=== PATIENT | male | born 1940 | race Caucasian/White ===

== ENCOUNTER 2016-05-06 21:34 | Inpatient (IN) | payer MEDICARE, BC ==
[2016-05-06] MEDS ORDERED: ALBUTEROL NEBULIZED 2.5 MG/3 ML INHALATION STA ×2 (21:35→21:38)
[2016-05-06] MEDS ORDERED: FUROSEMIDE 10 MG/ML 4 ML VIAL IV STA (21:35)
[2016-05-06] MEDS ORDERED: ALBUTEROL NEB (CONC) 2.5 MG/0.5 ML INHALATION STA (21:38)
--- NOTE | 2016-05-06 21:43 | ED ---
General Adult HPI - General Chief complaint: Shortness of Breath Stated complaint: EMMY Time Seen by Provider: 05/06/16 21:41 Source: EMS, RN notes reviewed Mode of arrival: EMS Limitations: no limitations - History of Present Illness Initial comments: This is a 76-year-old male who presents emergency department with past medical history significant for COPD. Patient is in severe respiratory distress and is unable to give extensive history of the history comes from EMS mostly. is not.. Patient was called a republican 1 however there is still EMS bypassed [facility]. Patient was brought in on BiPAP in severe respiratory distress. EMS stated that the patient had difficulty breathing all week and just got considerably worse tonight. There is no history of fever there's no history of any chest pain according to the patient. No further history is able to be obtained secondary to patient's condition hopefully when the arrived she she will barely get further history. - Related Data Home Medications Medication Instructions Recorded Confirmed DULoxetine HCL [Cymbalta] 90 mg PO DAILY 09/24/13 03/07/15 Isosorbide Mononitrate [Imdur] 30 mg PO DAILY 09/24/13 03/07/15 Terazosin [Hytrin] 5 mg PO BID 09/24/13 03/07/15 Theophylline 12 Hour [Ronnie-Dur] 300 mg PO BID 09/24/13 03/07/15 Topiramate [Topamax] 100 mg PO BID 09/24/13 03/07/15 Budesonide-Formot 160-4.5 Mcg 2 puff INHALATION BID 05/02/14 03/07/15 [Symbicort 160-4.5 Mcg Inhaler] Metoprolol Tartrate [Lopressor] 12.5 mg PO BID 05/02/14 03/07/15 Tamsulosin [Flomax] 0.4 mg PO HS 05/02/14 03/07/15 traZODone HCL [Desyrel] 100 mg PO HS 05/02/14 03/07/15 Famotidine [Pepcid] 40 mg PO DAILY 06/22/14 03/07/15 hydrOXYzine HCL 10 mg PO BID 06/22/14 03/07/15 ALPRAZolam [Xanax] 0.25 mg PO Q8HR PRN 03/02/15 03/07/15 Sulfamethox-Tmp 800-160Mg [Bactrim 1 tab PO DAILY 03/02/15 03/07/15 DS 800-160 mg] Previous Rx's Medication Instructions Recorded Ipratropium/Albuterol Sulfate 3 ml INHALATION QID #100 neb 11/16/13 [Duoneb 0.5 mg-3 mg/3 ml Soln] Allergies Allergy/AdvReac Type Severity Reaction Status Date / Time celecoxib [From Celebrex] Allergy Swelling Verified 03/02/15 10:48 gabapentin [From Neurontin] Allergy Rash/Hives Verified 03/02/15 10:48 Review of Systems ROS Statement: Those systems with pertinent positive or pertinent negative responses have been documented in the HPI. ROS Other: All systems not noted in ROS Statement are negative. Past Medical History Past Medical History: Asthma, COPD, GERD/Reflux, Hearing Disorder / Deafness, Hyperlipidemia, Hypertension, Respiratory Disorder Additional Past Medical History / Comment(s): Severe COPD, O2 DEPENDENT 4 LITERS N/C, severe 2ndary pulmonary HTN, pulmonary fibrosis, chronic SOB, [place], anemia, BPH, wears brace right foot, coughing up blood for few months History of Any Multi-Drug Resistant Organisms: MRSA Date of last positivie culture/infection: August 2013 MDRO Source:: lung Past Surgical History: Adenoidectomy, Appendectomy, Back Surgery, Heart Catheterization, Joint Replacement, Tonsillectomy Additional Past Surgical History / Comment(s): Pt has had 2 L hip surgeries- one in October 2013 and another total r hip at [facility]. RIGHT FOOT SX , BRONCHOSCOPY Past Anesthesia/Blood Transfusion Reactions: No Reported Reaction Additional Past Anesthesia/Blood Transfusion Reaction / Comment(s): Pt has never received blood. Past Psychological History: Anxiety, Depression Additional Psychological History / Comment(s): He has had past surgery on his R foot and wears a brace to that foot. He states 2 staff assist him with transferring to w/c. He feeds himself. He needs assist with getting onto toilet. He needs assist with bathing. Smoking Status: Former smoker Past Alcohol Use History: None Reported Additional Past Alcohol Use History / Comment(s): Patient was a smoker of one and half packs per day for 41 years. He quit in 1993. Past Drug Use History: None Reported Additional Drug Use History / Comment(s): Prior occupational history: [employer], now retired. - Past Family History Mother Family Medical History: Liver Disease Additional Family Medical History / Comment(s): Mother had cirrhosis of the liver and from it. Father Family Medical History: No Reported History Additional Family Medical History / Comment(s): Father of old age. General Exam - General Exam Comments Initial Comments: GENERAL: Patient is well-developed and well-nourished. Patient is nontoxic and well- hydrated and is in moderate distress. ENT: Neck is soft and supple. No significant lymphadenopathy is noted. Oropharynx is clear. Moist mucous membranes. Neck has full range of motion without eliciting any pain. EYES: The sclera were anicteric and conjunctiva were pink and moist. Extraocular movements were intact and pupils were equal round and reactive to light. Eyelids were unremarkable. PULMONARY: Patient is on BiPAP it is significantly 2 EKGs breath sounds. CARDIOVASCULAR: Patient has tachycardia with extrasystole. ABDOMEN: Soft and nontender with normal bowel sounds. No palpable organomegaly was noted. There is no palpable pulsatile mass. SKIN: Skin is clear with no lesions or rashes and otherwise unremarkable. NEUROLOGIC: Patient is alert and oriented x3. Cranial nerves II through XII are grossly intact. Motor and sensory are also intact. Normal speech, volume and content. Symmetrical smile. MUSCULOSKELETAL: Normal extremities with adequate strength and full range of motion. Patient has significant edema on the left lower leg in comparison to the right patient stated this is not normal LYMPHATICS: No significant lymphadenopathy is noted PSYCHIATRIC: Normal psychiatric evaluation. Normal interpersonal interactions appears functionally intact in deals appropriately with others. No signs of depression. No signs of anxiety. Limitations: no limitations Course Vital Signs 05/06/16 05/06/16 05/06/16 21:36 21:39 21:43 Temperature 97.8 F Pulse Rate 119 H 112 H Pulse Rate [ 107 H Bilateral Sitting Dorsalis Pedis] Respiratory 30 H 32 H Rate Blood Pressure 125/75 O2 Sat by Pulse 96 Oximetry 05/06/16 05/06/16 05/06/16 21:51 22:19 22:53 Temperature Pulse Rate 116 H 108 H 110 H Pulse Rate [ Bilateral Sitting Dorsalis Pedis] Respiratory 28 H 24 Rate Blood Pressure 141/59 143/69 O2 Sat by Pulse 99 96 Oximetry 05/06/16 05/06/16 05/06/16 23:05 23:10 23:20 Temperature 97.8 F 98 F Pulse Rate 116 H 115 H 112 H Pulse Rate [ Bilateral Sitting Dorsalis Pedis] Respiratory 28 H 20 20 Rate Blood Pressure 137/64 150/68 152/68 O2 Sat by Pulse 95 100 100 Oximetry 05/06/16 23:35 Temperature 97.8 F Pulse Rate 117 H Pulse Rate [ Bilateral Sitting Dorsalis Pedis] Respiratory 20 Rate Blood Pressure 137/65 O2 Sat by Pulse 97 Oximetry Medical Decision Making - Medical Decision Making EKG shows sinus tachycardia with occasional PACs at 114 bpm VA interval is on a 52 QRS is 76 QT intervals 290 QTC is 399. I see no significant ST segment elevation or depression noted on EKG however EKG is a poor quality secondary to the patient's breathing Ultrasound of the left extremity showed a DVT. Patient's hemoglobin was 5 center 2 units of blood. Spoke with Dr. Nelson to admit the patient the ICU he was in agreement with admitting patient he wanted to units to be given and then have heparin started for the clot but he wanted guaiac done first Patient's positive so therefore we will hold the heparin at this time - Lab Data Result diagrams: 05/06/16 21:37 05/06/16 21:37 Lab Results 05/06/16 05/06/16 05/06/16 Range/Units 21:37 21:37 21:37 WBC 9.4 (3.8-10.6) k/uL RBC 3.01 L (4.30-5.90) m/uL Hgb 5.0 L* (13.0-17.5) gm/dL Hct 19.9 L* (39.0-53.0) % MCV 66.2 L (80.0-100.0) fL MCH 16.5 L (25.0-35.0) pg MCHC 25.0 L (31.0-37.0) g/dL RDW 17.8 H (11.5-15.5) % Plt Count 480 H (150-450) k/uL Neutrophils % 85 % Lymphocytes % 6 % Monocytes % 6 % Eosinophils % 0 % Basophils % 0 % Neutrophils # 8.0 H (1.3-7.7) k/uL Lymphocytes # 0.5 L (1.0-4.8) k/uL Monocytes # 0.5 (0-1.0) k/uL Eosinophils # 0.0 (0-0.7) k/uL Basophils # 0.0 (0-0.2) k/uL Hypochromasia Marked Poikilocytosis Moderate Anisocytosis Slight Microcytosis Marked PT (9.0-12.0) sec INR (<1.1) APTT (22.0-30.0) sec Sodium 137 (137-145) mmol/L Potassium 4.2 (3.5-5.1) mmol/L Chloride 99 (98-107) mmol/L Carbon Dioxide 26 (22-30) mmol/L Anion Gap 12 mmol/L BUN 24 H (9-20) mg/dL Creatinine 1.00 (0.66-1.25) mg/dL Est GFR (MDRD) Af Amer >60 (>60 ml/min/1.73 sqM) Est GFR (MDRD) Non-Af >60 (>60 ml/min/1.73 sqM) Glucose 139 H (74-99) mg/dL Calcium 8.7 (8.4-10.2) mg/dL Magnesium 2.1 (1.6-2.3) mg/dL Total Bilirubin 0.3 (0.2-1.3) mg/dL AST 21 (17-59) U/L ALT 24 (21-72) U/L Alkaline Phosphatase 53 (38-126) U/L Total Creatine Kinase 42 L (55-170) U/L CK-MB (CK-2) 2.3 (0.0-2.4) ng/mL CK-MB (CK-2) Rel Index 5.5 Troponin I 0.039 H* (0.000-0.034) ng/mL NT-Pro-B Natriuret Pep pg/mL Total Protein 5.6 L (6.3-8.2) g/dL Albumin 3.4 L (3.5-5.0) g/dL Blood Type Blood Type Recheck Antibody Screen Crossmatch Spec Expiration Date 05/06/16 05/06/16 05/06/16 Range/Units 21:37 21:37 21:37 WBC (3.8-10.6) k/uL RBC (4.30-5.90) m/uL Hgb (13.0-17.5) gm/dL Hct (39.0-53.0) % MCV (80.0-100.0) fL MCH (25.0-35.0) pg MCHC (31.0-37.0) g/dL RDW (11.5-15.5) % Plt Count (150-450) k/uL Neutrophils % % Lymphocytes % % Monocytes % % Eosinophils % % Basophils % % Neutrophils # (1.3-7.7) k/uL Lymphocytes # (1.0-4.8) k/uL Monocytes # (0-1.0) k/uL Eosinophils # (0-0.7) k/uL Basophils # (0-0.2) k/uL Hypochromasia Poikilocytosis Anisocytosis Microcytosis PT 11.3 (9.0-12.0) sec INR 1.1 (<1.1) APTT 22.5 (22.0-30.0) sec Sodium (137-145) mmol/L Potassium (3.5-5.1) mmol/L Chloride (98-107) mmol/L Carbon Dioxide (22-30) mmol/L Anion Gap mmol/L BUN (9-20) mg/dL Creatinine (0.66-1.25) mg/dL Est GFR (MDRD) Af Amer (>60 ml/min/1.73 sqM) Est GFR (MDRD) Non-Af (>60 ml/min/1.73 sqM) Glucose (74-99) mg/dL Calcium (8.4-10.2) mg/dL Magnesium (1.6-2.3) mg/dL Total Bilirubin (0.2-1.3) mg/dL AST (17-59) U/L ALT (21-72) U/L Alkaline Phosphatase (38-126) U/L Total Creatine Kinase (55-170) U/L CK-MB (CK-2) (0.0-2.4) ng/mL CK-MB (CK-2) Rel Index Troponin I (0.000-0.034) ng/mL NT-Pro-B Natriuret Pep 7300 pg/mL Total Protein (6.3-8.2) g/dL Albumin (3.5-5.0) g/dL Blood Type A Positive Blood Type Recheck No Antibody Screen NEGATIVE Crossmatch See Detail Spec Expiration Date 05/09/2016 8955 Critical Care Time Critical Care Time: Yes Total Critical Care Time: 35 Disposition Clinical Impression: Dyspnea, Anemia, DVT (deep venous thrombosis), GI bleed Disposition: ADMITTED IP TO THIS [facility] Time of Disposition: 23:06
[2016-05-06 21:52] LABS: Anisocytosis Slight; Basophils % (A) 0 %; CH 16.7; CHCM 25.3; Eosinophils % (A) 0 %; HDW 4.17; Hypochromasia Marked; Luc # (Auto) 0.38; Luc % (Auto) 4; Lymphocytes # (A) 0.5 k/uL (1.0-4.8); Lymphocytes % (A) 6 %; MCH 16.5 pg (25.0-35.0); MCV 66.2 fL (80.0-100.0); Mean Platelet Volume 6.9; Microcytosis Marked; Monocytes # (A) 0.5 k/uL (0-1.0); Monocytes % (A) 6 %; Neutrophils % (A) 85 %; Poikilocytosis Moderate; RBC 3.01 m/uL (4.30-5.90); RDW 17.8 % (11.5-15.5); WBC 9.4 k/uL (3.8-10.6); WBC (Perox) 9.53
[2016-05-06 21:57] LABS: HCT 19.9 % (39.0-53.0)
[2016-05-06 22:09] LABS: ALT 24 U/L (21-72); AST 21 U/L (17-59); Alkaline Phosphatase 53 U/L (38-126); Anion Gap 12 mmol/L; Blood Urea Nitrogen 24 mg/dL (9-20); Calcium 8.7 mg/dL (8.4-10.2); Carbon Dioxide 26 mmol/L (22-30); Chloride 99 mmol/L (98-107); Glucose 139 mg/dL (74-99); Magnesium 2.1 mg/dL (1.6-2.3); Non-African American GFR(MDRD) >60 (>60 ml/min/1.73 sqM); Potassium 4.2 mmol/L (3.5-5.1); Sodium 137 mmol/L (137-145); Total Bilirubin 0.3 mg/dL (0.2-1.3); Total Protein 5.6 g/dL (6.3-8.2)
[2016-05-06 22:11] LABS: INR 1.1 (<1.1); Partial Thromboplastin Time 22.5 sec (22.0-30.0); Prothrombin Time 11.3 sec (9.0-12.0)
[2016-05-06 22:30] LABS: Creatine Kinase MB 2.3 ng/mL (0.0-2.4)
[2016-05-06 22:50] LABS: Troponin I 0.039 ng/mL (0.000-0.034)
[2016-05-06] MEDS ORDERED: NALOXONE 0.4 MG/ML 1 ML VIAL IV PRN (23:06)
--- NOTE | 2016-05-06 23:15 | XR ---
EXAM: XR Chest, 2 Views. CLINICAL HISTORY: Reason: difficulty breathing TECHNIQUE: Frontal and lateral views of the chest. COMPARISON: 03/22/16 single view chest, 02/22/16 CTA chest. FINDINGS: Lungs: There is again diffuse asymmetry of the lungs with right-sided volume loss and patchy infiltrate in the right mid to lower lung field along with small posteriorly loculated right pleural effusion. There is again suggestion of a thin-walled cavitary lesion or bulla at the right apex, unchanged, set against the background of diffuse bullous emphysema, as were better seen on previous CT. Pleural spaces: See above. Heart: The cardiomediastinal silhouette is stable including mild rightward shift. Mediastinum: See above. Bones: The bones are stable including osteopenia and multilevel degenerative changes. IMPRESSION: Overall, little if any change including asymmetric right lung opacity and small right pleural effusion that is partially loculated, along with right apical cavitary lesion/bleb, set against background of diffuse bullous emphysema.
--- NOTE | 2016-05-06 23:20 | US ---
EXAM: US Duplex Left Lower Extremity Veins. CLINICAL HISTORY: Reason: Pain TECHNIQUE: Real-time ultrasound scan of the veins of the left lower extremity with color Doppler flow, spectral waveform analysis and compression. COMPARISON: 05/02/14 left leg ultrasound. FINDINGS: Deep veins: There is nonocclusive thrombus seen within the left common femoral and proximal femoral veins. At time of scanning there was also believed to be nonocclusive thrombus in the distal femoral vein as well. The popliteal vein is patent. 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 Superficial veins: Unremarkable. No thrombus in the visualized greater saphenous vein. Soft tissues: There is mild soft tissue edema in the left leg at and below the knee, where included. No popliteal cyst. Other findings: Arterial vascular calcification is seen within the proximal left leg arterial system. The right common femoral vein is patent where imaged within the right groin. IMPRESSION: Nonocclusive left leg DVT involving the common femoral and femoral veins. Critical Value Communications 05/06/16 23:22 Call Doctor Regarding Acute DVT, called Dr. Hernandez on 05/06 23:22 (-05:00)
[2016-05-06 23:39] LABS: Iron <10 ug/dL (49-181)
[2016-05-06 23:48] LABS: Total Iron Binding Capacity 374 ug/dL (261-462)
[2016-05-07 01:03] LABS: Glucose,Whole Blood 134 mg/dL (75-99)
[2016-05-07] MEDS ORDERED: IPRATROPIUM-ALBUTEROL 3 ML NEB INHALATION PRN (03:37)
[2016-05-07] MEDS ORDERED: Phosphorus Replacement Protoco 1 EACH MISC MISCELLANE PRN (04:22)
[2016-05-07] MEDS ORDERED: Magnesium Replacement Protocol 1 EACH MISC MISCELLANE PRN (04:22)
[2016-05-07] MEDS ORDERED: ACETAMINOPHEN TAB 325 MG TAB PO PRN (04:22)
[2016-05-07] MEDS ORDERED: Potassium Replacement Protocol 1 EACH MISC MISCELLANE PRN (04:22)
[2016-05-07] MEDS ORDERED: HEPARIN SODIUM,PORCINE 5,000 UNIT/ML 1 ML VIAL IV ONE (04:28)
[2016-05-07] MEDS ORDERED: HEPARIN SODIUM,PORCINE 5,000 UNIT/ML 1 ML VIAL IV PRN (04:28)
[2016-05-07 05:16] LABS: INR 1.1 (<1.1); Prothrombin Time 11.1 sec (9.0-12.0)
[2016-05-07] MEDS: ALPRAZolam 0.25 MG TAB PO PRN ×4 (05:16→19:51)
[2016-05-07 05:17] LABS: Partial Thromboplastin Time 23.9 sec (22.0-30.0)
[2016-05-07 05:36] LABS: Anisocytosis Moderate; Basophils % (A) 0 %; CH 20.7; CHCM 29.2; Eosinophils % (A) 0 %; HCT 26.6 % (39.0-53.0); HDW 5.89; Hypochromasia Marked; Luc # (Auto) 0.08; Luc % (Auto) 1; Lymphocytes # (A) 0.2 k/uL (1.0-4.8); Lymphocytes % (A) 2 %; MCH 20.4 pg (25.0-35.0); MCHC 29.3 g/dL (31.0-37.0); MCV 69.6 fL (80.0-100.0); Mean Platelet Volume 7.2; Microcytosis Marked; Monocytes # (A) 0.2 k/uL (0-1.0); Monocytes % (A) 2 %; Neutrophils # (A) 9.6 k/uL (1.3-7.7); Neutrophils % (A) 96 %; Poikilocytosis Marked; RBC 3.83 m/uL (4.30-5.90); RDW 20.6 % (11.5-15.5); Reticulocyte % 1.5 % (0.5-2.0); WBC 10.1 k/uL (3.8-10.6); WBC (Perox) 10.55
[2016-05-07 05:39] LABS: ALT 26 U/L (21-72); AST 19 U/L (17-59); Alkaline Phosphatase 56 U/L (38-126); Anion Gap 13 mmol/L; Blood Urea Nitrogen 22 mg/dL (9-20); Calcium 8.6 mg/dL (8.4-10.2); Carbon Dioxide 30 mmol/L (22-30); Chloride 94 mmol/L (98-107); Glucose 126 mg/dL (74-99); HGB 7.8 gm/dL (13.0-17.5); Magnesium 1.8 mg/dL (1.6-2.3); Non-African American GFR(MDRD) >60 (>60 ml/min/1.73 sqM); Phosphorous 4.5 mg/dL (2.5-4.5); Potassium 3.4 mmol/L (3.5-5.1); Sodium 137 mmol/L (137-145); Total Bilirubin 0.8 mg/dL (0.2-1.3); Total Protein 5.7 g/dL (6.3-8.2)
[2016-05-07] MEDS: HEPARIN SODIUM,PORCINE/D5W PMX 25,000 UNIT in DEXTROSE/WATER 1 500ML.BAG IV SCH (05:47)
[2016-05-07 07:29] LABS: Glucose,Whole Blood 134 mg/dL (75-99)
[2016-05-07] MEDS ORDERED: SYMBICORT 160-4.5 MCG INHALER INHALATION SCH (08:00)
[2016-05-07] MEDS: IPRATROPIUM-ALBUTEROL 3 ML NEB INHALATION SCH ×4 (08:28→19:32)
--- NOTE | 2016-05-07 08:37 | XR ---
EXAMINATION TYPE: XR chest 1V DATE OF EXAM: 05/07/2016 6:52 AM COMPARISON: 05/05/2016 INDICATION: Short of breath TECHNIQUE: Single frontal view of the chest is obtained. FINDINGS: The heart size is normal. The pulmonary vasculature is normal. There are stable changes through the right lung markings. IMPRESSION: 1. Portable chest is stable from the comparison study.
[2016-05-07] MEDS ORDERED: PANTOPRAZOLE 40 MG/10 ML VIAL IVP SCH (09:00)
[2016-05-07] MEDS ORDERED: predniSONE 10 MG TAB PO SCH (09:00)
[2016-05-07] MEDS ORDERED: TERAZOSIN 5 MG CAP PO SCH (09:00)
[2016-05-07] MEDS: MAGNESIUM SULFATE-D5W PMX 1 GM in DEXTROSE/WATER 1 100ML.BAG IVPB SCH ×2 (09:21→10:44)
[2016-05-07] MEDS: INSULIN LISPRO (humaLOG) 300 UNIT/3 ML VIAL SQ SCH ×4 (09:23→22:52)
[2016-05-07] MEDS: DOCUSATE 100 MG CAP PO SCH ×2 (09:31→20:02)
[2016-05-07] MEDS: POTASSIUM CHLORIDE ER 20 MEQ TAB.ER PO SCH ×2 (09:31→10:46)
[2016-05-07] MEDS: SULFAMETHOX-TMP 800-160MG 1 EACH TAB PO SCH (09:32)
[2016-05-07] MEDS: METOPROLOL TARTRATE 12.5 MG TAB PO SCH ×2 (09:32→20:03)
[2016-05-07] MEDS: DULoxetine HCL 30 MG CAPSULE.DR PO SCH (09:32)
[2016-05-07] MEDS ORDERED: traMADol 50 MG TAB PO PRN (10:22)
[2016-05-07] MEDS ORDERED: NON-FORMULARY DRUG (Omeprazole [Omeprazole] 20 MG) PO SCH (10:30)
[2016-05-07] MEDS ORDERED: THEOPHYLLINE 24 HOUR 300 MG CAP.ER.24H PO SCH (10:30)
[2016-05-07] MEDS ORDERED: TERAZOSIN 5 MG CAP PO ONE (10:30)
[2016-05-07 10:36] LABS: Hemoglobin A1C 5.6 % (4.2-6.1)
[2016-05-07] MEDS: methylPREDNISolone SOD SUCCI 40 MG/ML 1 ML VIAL IV SCH ×2 (10:46→20:02)
[2016-05-07] MEDS: THEOPHYLLINE 24 HOUR 300 MG CAP.ER.24H PO SCH (10:46)
[2016-05-07] MEDS: ISOSORBIDE MONONITRATE ER 30 MG TAB.ER.24H PO SCH (10:46)
[2016-05-07 11:15] LABS: Appearance,Urine Cloudy (Clear); Bilirubin,Urine Negative (Negative); Glucose,Urine (UA) Negative (Negative); Ketones,Urine Trace (Negative); Leukocyte Esterase,Urine Large (Negative); Nitrite,Urine Negative (Negative); PH, Urine 5.5 (5.0-8.0); Particle Count 11117; Protein,Urine 1+ (Negative); RBC,Urine >182 /hpf (0-5); Specific Gravity,Urine 1.017 (1.001-1.035); UA Billing (MACRO vs. MICRO) MICRO; Urobilinogen,Urine <2.0 mg/dL (<2.0); WBC,Urine 167 /hpf (0-5)
[2016-05-07 12:50] LABS: Glucose,Whole Blood 137 mg/dL (75-99)
--- NOTE | 2016-05-07 13:12 | P.GSCN ---
History of Present Illness History of present illness: 76 -year-old white male, patient has been admitted with respiratory distress history of COPD I was consulted for placement of filter patient has a hemoglobin of 5 patient also had a ultrasound done which showed left femoral DVT GI is on consult we have discussed about the filter patient agreed and we will place today Medical history history of hypertension, history of COPD, history of hyperlipidemia, Surgical history patient had a left leg surgery for the bone fracture in the past Neck examination neck is supple no bruit appreciated Chest few crackles and rhonchi bilateral pulses second sound is normal Abdomen soft nontender Vascular examination brachial radial femoral pulses are present patient has a DVT of the left leg no vascular compromise Plan is placement of the filter patient has low hemoglobin and DVT risk and complication thrombosis bleeding infection migration has been discussed thank you Past Medical History Past Medical History: Asthma, COPD, GERD/Reflux, Hearing Disorder / Deafness, Hyperlipidemia, Hypertension, Respiratory Disorder Additional Past Medical History / Comment(s): Severe COPD, O2 DEPENDENT 4 LITERS N/C, severe 2ndary pulmonary HTN, pulmonary fibrosis, chronic SOB, [place], anemia, BPH, wears brace right foot, coughing up blood for few months History of Any Multi-Drug Resistant Organisms: MRSA Year Discovered:: August 2013 MDRO Source:: lung Past Surgical History: Adenoidectomy, Appendectomy, Back Surgery, Heart Catheterization, Joint Replacement, Tonsillectomy Additional Past Surgical History / Comment(s): Pt has had 2 L hip surgeries- one in October 2013 and another total r hip at [facility]. RIGHT FOOT SX , BRONCHOSCOPY Past Anesthesia/Blood Transfusion Reactions: No Reported Reaction Additional Past Anesthesia/Blood Transfusion Reaction / Comm: Pt has never received blood. Past Psychological History: Anxiety, Depression Additional Psychological History / Comment(s): He has had past surgery on his R foot and wears a brace to that foot. He states 2 staff assist him with transferring to w/c. He feeds himself. He needs assist with getting onto toilet. He needs assist with bathing. Smoking Status: Former smoker Past Alcohol Use History: None Reported Additional Past Alcohol Use History / Comment(s): Patient was a smoker of one and half packs per day for 41 years. He quit in 1993. Past Drug Use History: None Reported Additional Drug Use History / Comment(s): Prior occupational history: [employer], now retired. - Past Family History Mother Family Medical History: Liver Disease Additional Family Medical History / Comment(s): Mother had cirrhosis of the liver and from it. Father Family Medical History: No Reported History Additional Family Medical History / Comment(s): Father of old age. Medications and Allergies Home Medications Medication Instructions Recorded Confirmed Type DULoxetine HCL [Cymbalta] 60 mg PO DAILY 09/24/13 05/07/16 History Isosorbide Mononitrate [Imdur] 30 mg PO DAILY 09/24/13 05/07/16 History Metoprolol Tartrate [Lopressor] 12.5 mg PO BID 05/02/14 05/07/16 History Tamsulosin [Flomax] 0.4 mg PO HS 05/02/14 05/07/16 History traZODone HCL [Desyrel] 100 mg PO HS 05/02/14 05/07/16 History Famotidine [Pepcid] 40 mg PO DAILY 06/22/14 05/07/16 History ALPRAZolam [Xanax] 0.25 mg PO Q8HR PRN 03/02/15 05/07/16 History Sulfamethox-Tmp 800-160Mg [Bactrim 1 tab PO DAILY 03/02/15 05/07/16 History DS 800-160 mg] Alendronate Sodium [Fosamax] 70 mg PO TU 05/07/16 05/07/16 History Fluticasone Nasal [place] [Flonase 1 spray EA NOSTRIL DAILY 05/07/16 05/07/16 History Nasal [place]] Fluticasone/Salmeterol [Advair Hfa 2 puff INHALATION RT-BID 05/07/16 05/07/16 History 230-21 Mcg Inhaler] Metolazone [Zaroxolyn] 5 mg PO TUTHSA 05/07/16 05/07/16 History Omeprazole 20 mg PO DAILY 05/07/16 05/07/16 History Terazosin HCl [Hytrin] 10 mg PO DAILY 05/07/16 05/07/16 History Theophylline 24 Hour [Ronnie-24] 300 mg PO DAILY 05/07/16 05/07/16 History predniSONE [Prednisone] 20 mg PO DAILY 05/07/16 05/07/16 History traMADol HCL [Ultram] 50 mg PO Q6HR PRN 05/07/16 05/07/16 History Allergies Allergy/AdvReac Type Severity Reaction Status Date / Time celecoxib [From Celebrex] Allergy Swelling Verified 05/07/16 09:14 gabapentin [From Neurontin] Allergy Rash/Hives Verified 05/07/16 09:14 propoxyphene Allergy Unknown Verified 05/07/16 09:14 [From Darvocet-N] rabeprazole [From Aciphex] Allergy Unknown Verified 05/07/16 09:14 Surgical - Exam Vital Signs Temp Pulse Resp BP Pulse Ox 97.8 F 119 H 30 H 125/75 96 05/06/16 21:36 05/06/16 21:36 05/06/16 21:36 05/06/16 21:36 05/06/16 21:36 Results - Labs 05/07/16 04:20 05/07/16 04:20 Abnormal Lab Results - Last 24 Hours (Table) 05/07/16 05/07/16 05/07/16 Range/Units 01:01 04:20 04:20 RBC 3.83 L (4.30-5.90) m/uL Hgb 7.8 L D (13.0-17.5) gm/dL Hct 26.6 L (39.0-53.0) % MCV 69.6 L (80.0-100.0) fL MCH 20.4 L (25.0-35.0) pg MCHC 29.3 L (31.0-37.0) g/dL RDW 20.6 H (11.5-15.5) % Neutrophils # 9.6 H (1.3-7.7) k/uL Lymphocytes # 0.2 L (1.0-4.8) k/uL Potassium 3.4 L (3.5-5.1) mmol/L Chloride 94 L (98-107) mmol/L BUN 22 H (9-20) mg/dL Glucose 126 H (74-99) mg/dL POC Glucose (mg/dL) 134 H (75-99) mg/dL Total Protein 5.7 L (6.3-8.2) g/dL Urine Protein (Negative) Urine Ketones (Negative) Urine Blood (Negative) Ur Leukocyte Esterase (Negative) Urine RBC (0-5) /hpf Urine WBC (0-5) /hpf Urine WBC Clumps (None) /hpf 05/07/16 05/07/16 05/07/16 Range/Units 07:27 11:05 12:49 RBC (4.30-5.90) m/uL Hgb (13.0-17.5) gm/dL Hct (39.0-53.0) % MCV (80.0-100.0) fL MCH (25.0-35.0) pg MCHC (31.0-37.0) g/dL RDW (11.5-15.5) % Neutrophils # (1.3-7.7) k/uL Lymphocytes # (1.0-4.8) k/uL Potassium (3.5-5.1) mmol/L Chloride (98-107) mmol/L BUN (9-20) mg/dL Glucose (74-99) mg/dL POC Glucose (mg/dL) 134 H 137 H (75-99) mg/dL Total Protein (6.3-8.2) g/dL Urine Protein 1+ H (Negative) Urine Ketones Trace H (Negative) Urine Blood Large H (Negative) Ur Leukocyte Esterase Large H (Negative) Urine RBC >182 H (0-5) /hpf Urine WBC 167 H (0-5) /hpf Urine WBC Clumps Few H (None) /hpf Diabetes panel 05/07/16 05/07/16 Range/Units 04:20 04:20 Sodium 137 (137-145) mmol/L Potassium 3.4 L (3.5-5.1) mmol/L Chloride 94 L (98-107) mmol/L Carbon Dioxide 30 (22-30) mmol/L BUN 22 H (9-20) mg/dL Creatinine 0.90 (0.66-1.25) mg/dL Glucose 126 H (74-99) mg/dL Hemoglobin A1c 5.6 (4.2-6.1) % Calcium 8.6 (8.4-10.2) mg/dL AST 19 (17-59) U/L ALT 26 (21-72) U/L Alkaline Phosphatase 56 (38-126) U/L Total Protein 5.7 L (6.3-8.2) g/dL Albumin 3.6 (3.5-5.0) g/dL Calcium panel 05/07/16 Range/Units 04:20 Calcium 8.6 (8.4-10.2) mg/dL Phosphorus 4.5 (2.5-4.5) mg/dL Albumin 3.6 (3.5-5.0) g/dL Pituitary panel 05/07/16 Range/Units 04:20 Sodium 137 (137-145) mmol/L Potassium 3.4 L (3.5-5.1) mmol/L Chloride 94 L (98-107) mmol/L Carbon Dioxide 30 (22-30) mmol/L BUN 22 H (9-20) mg/dL Creatinine 0.90 (0.66-1.25) mg/dL Glucose 126 H (74-99) mg/dL Calcium 8.6 (8.4-10.2) mg/dL Adrenal panel 05/07/16 Range/Units 04:20 Sodium 137 (137-145) mmol/L Potassium 3.4 L (3.5-5.1) mmol/L Chloride 94 L (98-107) mmol/L Carbon Dioxide 30 (22-30) mmol/L BUN 22 H (9-20) mg/dL Creatinine 0.90 (0.66-1.25) mg/dL Glucose 126 H (74-99) mg/dL Calcium 8.6 (8.4-10.2) mg/dL Total Bilirubin 0.8 (0.2-1.3) mg/dL AST 19 (17-59) U/L ALT 26 (21-72) U/L Alkaline Phosphatase 56 (38-126) U/L Total Protein 5.7 L (6.3-8.2) g/dL Albumin 3.6 (3.5-5.0) g/dL
[2016-05-07] MEDS: PANTOPRAZOLE 40 MG/10 ML VIAL IVP SCH ×2 (13:39→20:02)
[2016-05-07 14:17] LABS: % Iron Saturation 4.4 % (20-50)
--- NOTE | 2016-05-07 15:00 | P.CNPUL ---
History of Present Illness Consult date: 05/07/16 Requesting physician: Ran Pérez Reason for consult: COPD, DVT Chief complaint: Shortness of breath History of present illness: This is a 76-year-old white male with history of severe end-stage COPD, O2 dependent, prednisone dependent, patient is also known to have history of right upper lobe lung abscess which has been treated for a long period of time with antibiotics. History of pleural effusion requiring thoracentesis, and he continues to have some loculated effusion on the right side. Patient presented to the ER with mostly symptoms of increased shortness of breath. Even at rest. Patient has been short of breath for the last few days. When he arrived to the ER, patient was on BiPAP, he was in severe respiratory distress. Workup in the ER included a CBC which showed profound anemia hemoglobin of 5.0, baseline hemoglobin back in 2014 was 11.8. A shunt received a total of 2 units of packed RBCs. He was also not is noted to have positive Hemoccult stool. Patient was also complaining of left leg swelling, venous Doppler showed evidence of deep vein thrombosis, patient was admitted to the ICU, but for some reason he was started on heparin, however upon my evaluation, I discontinued his heparin, recommended a Stacy filter placement, place him on Protonix 40 mg IV push every 12 hours, and I recommended a GI consultation. In the meantime we will keep the patient in the intensive care unit. Presently the patient denies shortness of breath, no cough, no wheezing, no chest pain. Chest x-ray shows significantdisease involving the right lung, but this is a chronic finding. Left side is relatively clear. Review of Systems 14 point review of systems were obtained, please refer to pertinent positives and negatives in HPI. Past Medical History Past Medical History: Asthma (Severe end-stage COPD), COPD, GERD/Reflux, Hearing Disorder / Deafness, Hyperlipidemia, Hypertension, Respiratory Disorder Additional Past Medical History / Comment(s): Severe COPD, O2 DEPENDENT 4 LITERS N/C, severe 2ndary pulmonary HTN, pulmonary fibrosis, chronic SOB, GRAYLING, anemia, BPH, wears brace right foot, coughing up blood for few months History of Any Multi-Drug Resistant Organisms: MRSA Date of last positivie culture/infection: August 2013 MDRO Source:: lung Past Surgical History: Adenoidectomy, Appendectomy, Back Surgery, Heart Catheterization, Joint Replacement, Tonsillectomy Additional Past Surgical History / Comment(s): Pt has had 2 L hip surgeries- one in October 2013 and another total r hip at [facility]. RIGHT FOOT SX , BRONCHOSCOPY Past Anesthesia/Blood Transfusion Reactions: No Reported Reaction Additional Past Anesthesia/Blood Transfusion Reaction / Comment(s): Pt has never received blood. Past Psychological History: Anxiety, Depression Additional Psychological History / Comment(s): He has had past surgery on his R foot and wears a brace to that foot. He states 2 staff assist him with transferring to w/c. He feeds himself. He needs assist with getting onto toilet. He needs assist with bathing. Smoking Status: Former smoker Past Alcohol Use History: None Reported Additional Past Alcohol Use History / Comment(s): Patient was a smoker of one and half packs per day for 41 years. He quit in 1993. Past Drug Use History: None Reported Additional Drug Use History / Comment(s): Prior occupational history: [employer], now retired. - Past Family History Mother Family Medical History: Liver Disease Additional Family Medical History / Comment(s): Mother had cirrhosis of the liver and from it. Father Family Medical History: No Reported History Additional Family Medical History / Comment(s): Father of old age. Medications and Allergies Home Medications Medication Instructions Recorded Confirmed Type DULoxetine HCL [Cymbalta] 60 mg PO DAILY 09/24/13 05/07/16 History Isosorbide Mononitrate [Imdur] 30 mg PO DAILY 09/24/13 05/07/16 History Metoprolol Tartrate [Lopressor] 12.5 mg PO BID 05/02/14 05/07/16 History Tamsulosin [Flomax] 0.4 mg PO HS 05/02/14 05/07/16 History traZODone HCL [Desyrel] 100 mg PO HS 05/02/14 05/07/16 History Famotidine [Pepcid] 40 mg PO DAILY 06/22/14 05/07/16 History ALPRAZolam [Xanax] 0.25 mg PO Q8HR PRN 03/02/15 05/07/16 History Sulfamethox-Tmp 800-160Mg [Bactrim 1 tab PO DAILY 03/02/15 05/07/16 History DS 800-160 mg] Alendronate Sodium [Fosamax] 70 mg PO TU 05/07/16 05/07/16 History Fluticasone Nasal [place] [Flonase 1 spray EA NOSTRIL DAILY 05/07/16 05/07/16 History Nasal [place]] Fluticasone/Salmeterol [Advair Hfa 2 puff INHALATION RT-BID 05/07/16 05/07/16 History 230-21 Mcg Inhaler] Metolazone [Zaroxolyn] 5 mg PO TUTHSA 05/07/16 05/07/16 History Omeprazole 20 mg PO DAILY 05/07/16 05/07/16 History Terazosin HCl [Hytrin] 10 mg PO DAILY 05/07/16 05/07/16 History Theophylline 24 Hour [Ronnie-24] 300 mg PO DAILY 05/07/16 05/07/16 History predniSONE [Prednisone] 20 mg PO DAILY 05/07/16 05/07/16 History traMADol HCL [Ultram] 50 mg PO Q6HR PRN 05/07/16 05/07/16 History Allergies Allergy/AdvReac Type Severity Reaction Status Date / Time celecoxib [From Celebrex] Allergy Swelling Verified 05/07/16 09:14 gabapentin [From Neurontin] Allergy Rash/Hives Verified 05/07/16 09:14 propoxyphene Allergy Unknown Verified 05/07/16 09:14 [From Darvocet-N] rabeprazole [From Aciphex] Allergy Unknown Verified 05/07/16 09:14 Physical Exam Vitals: Vital Signs Temp Pulse Resp BP Pulse Ox 05/07/16 14:00 94 25 H 134/66 92 L 05/07/16 13:30 95 29 H 110/67 94 L 05/07/16 13:00 98 29 H 128/67 92 L 05/07/16 12:30 97 20 114/64 89 L 05/07/16 12:00 98.1 F 89 20 123/66 93 L 05/07/16 11:31 97 05/07/16 11:30 92 25 H 126/70 94 L 05/07/16 11:22 93 05/07/16 11:00 95 36 H 112/50 94 L 05/07/16 10:30 95 46 H 123/61 94 L 05/07/16 10:00 121 H 35 H 104/65 90 L 05/07/16 09:30 113 H 31 H 145/67 93 L 05/07/16 09:00 125 H 48 H 123/56 90 L 05/07/16 08:42 112 H 05/07/16 08:30 116 H 42 H 126/59 94 L 05/07/16 08:00 98.5 F 129 H 30 H 135/60 93 L 05/07/16 07:30 115 H 37 H 149/63 91 L 05/07/16 07:00 108 H 36 H 142/67 95 05/07/16 06:30 128 H 49 H 124/54 91 L 05/07/16 06:20 112 H 18 145/67 94 L 05/07/16 06:10 109 H 15 145/67 96 05/07/16 06:00 113 H 25 H 148/64 95 05/07/16 05:50 117 H 40 H 141/63 91 L 05/07/16 05:40 125 H 19 141/63 93 L 05/07/16 05:30 111 H 28 H 136/67 96 05/07/16 05:20 118 H 33 H 148/66 93 L 05/07/16 05:10 122 H 52 H 148/66 94 L 05/07/16 05:00 118 H 27 H 138/67 94 L 05/07/16 04:50 114 H 30 H 128/67 93 L 05/07/16 04:43 115 H 05/07/16 04:40 114 H 36 H 128/67 93 L 05/07/16 04:32 115 H 05/07/16 04:30 113 H 33 H 147/66 95 05/07/16 04:20 114 H 40 H 147/69 95 05/07/16 04:10 110 H 29 H 147/69 96 05/07/16 04:00 97.9 F 114 H 54 H 141/65 93 L 05/07/16 03:50 117 H 31 H 144/76 96 05/07/16 03:40 109 H 36 H 144/76 97 05/07/16 03:30 97.9 F 117 H 42 H 164/72 97 05/07/16 03:20 126 H 27 H 156/81 96 05/07/16 03:10 122 H 30 H 156/81 96 05/07/16 03:00 97.9 F 123 H 39 H 155/75 95 05/07/16 02:50 97.9 F 114 H 33 H 153/79 97 05/07/16 02:40 118 H 58 H 153/79 95 05/07/16 02:30 97.9 F 118 H 42 H 163/79 96 05/07/16 02:20 97.9 F 123 H 26 H 156/73 96 05/07/16 02:00 97.9 F 115 H 31 H 151/74 96 05/07/16 01:50 97.9 F 122 H 22 155/71 96 05/07/16 01:21 98.2 F 112 H 20 142/84 05/07/16 01:15 98.0 F 114 H 20 149/65 99 05/07/16 00:35 98.0 F 117 H 20 138/63 97 05/07/16 00:05 98.0 F 05/06/16 23:50 97.8 F 116 H 22 146/69 97 05/06/16 23:35 97.8 F 117 H 20 137/65 97 05/06/16 23:20 98 F 112 H 20 152/68 100 05/06/16 23:10 97.8 F 115 H 20 150/68 100 Intake and Output 05/06/16 05/07/16 05/07/16 22:59 06:59 14:59 Intake Total 940 330 Output Total 1350 475 Balance -410 -145 Intake: IV 10 130 0.9 10 130 Intake, IV Titration 200 Amount Magnesium Sulfate-D5w Pmx 200 1 gm In Dextrose/Water 1 100ml.bag @ 100 mls/hr IVPB Q1H [facility] Rx#: [id number] Blood Product 930 As-1 Unit 310 [id number] As-1 Unit 310 [id number] Output: Urine 1350 475 Other: Voiding Method Indwelling Catheter Weight 67.8 kg GENERAL: Patient is well-developed and well-nourished. Patient is nontoxic and well- hydrated and is in moderate distress. ENT: Neck is soft and supple. No significant lymphadenopathy is noted. Oropharynx is clear. Moist mucous membranes. Neck has full range of motion without eliciting any pain. EYES: The sclera were anicteric and conjunctiva were pink and moist. Extraocular movements were intact and pupils were equal round and reactive to light. Eyelids were unremarkable. PULMONARY: Diminished breath sound bilaterally, minimal crackles at the right base rhonchi and wheezes on forced expiratory maneuver. CARDIOVASCULAR: Patient has tachycardia with extrasystole. ABDOMEN: Soft and nontender with normal bowel sounds. No palpable organomegaly was noted. There is no palpable pulsatile mass. SKIN: Skin is clear with no lesions or rashes and otherwise unremarkable. NEUROLOGIC: Patient is alert and oriented x3. Cranial nerves II through XII are grossly intact. Motor and sensory are also intact. Normal speech, volume and content. Symmetrical smile. MUSCULOSKELETAL: Normal extremities with adequate strength and full range of motion. Patient has significant edema on the left lower leg in comparison to the right patient stated this is not normal LYMPHATICS: No significant lymphadenopathy is noted Extremities: Minimal swelling noted in the left lower extremity, improved according to the patient since admission. Results - Laboratory Findings CBC and BMP: 05/07/16 04:20 05/07/16 04:20 PT/INR, D-dimer PT 11.1 sec (9.0-12.0) 05/07/16 04:20 INR 1.1 (<1.1) 05/07/16 04:20 Abnormal lab findings: Abnormal Labs 05/07/16 05/07/16 05/07/16 01:01 04:20 04:20 RBC 3.83 L Hgb 7.8 L D Hct 26.6 L MCV 69.6 L MCH 20.4 L MCHC 29.3 L RDW 20.6 H Neutrophils # 9.6 H Lymphocytes # 0.2 L Potassium 3.4 L Chloride 94 L BUN 22 H Glucose 126 H POC Glucose (mg/dL) 134 H Iron % Saturation Ferritin Total Protein 5.7 L Urine Protein Urine Ketones Urine Blood Ur Leukocyte Esterase Urine RBC Urine WBC Urine WBC Clumps 05/07/16 05/07/16 05/07/16 04:20 07:27 11:05 RBC Hgb Hct MCV MCH MCHC RDW Neutrophils # Lymphocytes # Potassium Chloride BUN Glucose POC Glucose (mg/dL) 134 H Iron 17 L % Saturation 4.4 L Ferritin 5 L Total Protein Urine Protein 1+ H Urine Ketones Trace H Urine Blood Large H Ur Leukocyte Esterase Large H Urine RBC >182 H Urine WBC 167 H Urine WBC Clumps Few H 05/07/16 12:49 RBC Hgb Hct MCV MCH MCHC RDW Neutrophils # Lymphocytes # Potassium Chloride BUN Glucose POC Glucose (mg/dL) 137 H Iron % Saturation Ferritin Total Protein Urine Protein Urine Ketones Urine Blood Ur Leukocyte Esterase Urine RBC Urine WBC Urine WBC Clumps - Diagnostic Findings Chest x-ray: image reviewed (Agree with reading as per radiology.) Assessment and Plan Plan: Impression: 1 acute anemia secondary to GI blood losses, suspect gastritis or peptic ulcer disease in a patient who is chronically on prednisone for severe end-stage COPD. However the possibility of lower GI bleeding is not entirely ruled out. But felt to be less likely. 2 acute deep vein thrombosis involving the left lower extremity. Patient has absolute contraindication to anticoagulation, hence I will recommend a placement of a IVC filter. And we will consult vascular surgery. 3 severe end-stage COPD O2 dependent, prednisone dependent. 4 history of adrenal insufficiency. 5 history of right upper lobe lung 6 history of MSSA pneumonia. 7 history of right pleural effusion presently loculated and chronic. 8 history of hip fracture requiring surgery in the past 1 year. 9 history of chronic hypoxic respiratory failure secondary to COPD. Recommendation: Continue present treatment plan including bronchodilators, Protonix, surgical consultation for filter placement in the IVC., Monitor patient in the intensive care unit, and we'll continue to follow. Prognosis is definitely poor and guarded considering his overall underlying comorbidities. Patient will be transfused for his anemia to keep hemoglobin above 0.7. And we will monitor his serial CBCs. Time with Patient: Greater than 30
[2016-05-07] MEDS ORDERED: IV FLUID CONTINUATION 800 ML IV ONE (16:20)
[2016-05-07] MEDS ORDERED: fentaNYL (PF) 50 MCG/ML 2 ML AMP IV ONE (16:33)
[2016-05-07] MEDS ORDERED: LIDOCAINE 2% INJ 20 MG/ML SQ ONE ×3 (16:35→16:52)
--- NOTE | 2016-05-07 17:07 | P.PCN ---
Description of Procedure: The abdomen diagnoses is deep and thrombosis of the left leg, history of bleeding with low hemoglobin Venacavogram, placement of a Stacy filter infrarenal Procedure this patient was brought to the Manager Equipment this patient has a DVT of the left leg with low hemoglobin was consulted for placement of the filter right groin were prepped and draped applied using a strangle manner 1% lidocaine was infiltrated right groin ultrasound-guided micropuncture dated introduced to the right common femoral vein micropuncture guidewire was passed to that this was exchanged for regular guidewire and we placed 5-Ecuadorean sheath and pigtail catheter advanced up to The guidewire inferior venacavogram was performed right common iliac was patent femoral was patent vena cava was a cava was 21 mm renal vein was visualized bilateral upper that after that 12-Ecuadorean sheath was passed on the top of the guidewire after that dilator was removed and then we passed the Victor filter through the sheath which was deployed below the renal vein and venacavogram showed good position dilator and guidewire were removed pressure was held patient tolerated the procedure well
--- NOTE | 2016-05-07 17:51 | HP ---
DATE OF ADMISSION: 05/06/2016 PRESENTING COMPLAINT: Cough, short of breath. HISTORY OF PRESENTING COMPLAINT: This is a 76 -year-old patient of Dr. Browning whose chronic stable medical conditions include GERD, hard of hearing, hypertension. The patient is on home oxygen 4 liters, secondary pulmonary hypertension and pulmonary fibrosis, BPH. Patient normally needs assistance to do things, is pretty much weak, has an underlying history of COPD. The patient is presented with having cough, yellow-green sputum, decreased fever, decreased appetite, tired, and rundown. The patient was found to have hemoglobin 5, given 2 units of blood. Repeat hemoglobin was 7.8. The patient was admitted to ICU. Patient does not normally look at his stool, but patient did have a brown stool in ICU. Patient also noticed some swelling of the legs and ultrasound that showed acute deep venous thrombosis. Patient had swelling of the legs for about 3 weeks especially in the left leg. GI was consulted. Initially heparin was started and then it was held off with fear of bleed complicating the picture. The patient is quite a bit short of breath. REVIEW OF SYSTEMS: CONSTITUTIONAL: Tired. HEENT: Decreased hearing. RESPIRATORY: Short of breath, cough, yellow-green sputum as above. CARDIOVASCULAR: None. GASTROINTESTINAL: Brown stools this morning. GENITOURINARY: Difficult urination, Chris catheter placed. HEMATOLOGIC: None. LYMPHATICS: None. PSYCHIATRY: None. NEUROLOGICAL: None. Past medical history of GERD , hard of hearing, hyperlipidemia, hypertension, chronic respiratory failure 4 liters oxygen, secondary pulmonary hypertension, pulmonary fibrosis, benign prostatic hypertrophy, medical debility, wears a brace on the right foot. PAST SURGICAL HISTORY: Adenoidectomy. Appendectomy, back surgery cardiac catheterization, joint replacement, two left hip surgeries, one in October 2013 and on the right hip at [facility] right foot surgery. SOCIAL HISTORY: The patient needs assistance with getting to the toilet, getting into the chair. The patient smoked a pack and a half for 41 years; stopped in 1993. . Patient is a spray painter helper. Now retired. FAMILY HISTORY: Mother had cirrhosis of the liver, from the same. Home medications: 1. Ultram 50 mg p.o. q.6 p.r.n. 2. Prednisone 20 mg p.o. daily. 3. Ronnie-24 300 mg p.o. daily. 4. Hytrin 10 mg p.o. daily. 5. Flomax 0.4 mg p.o. q.h.s. 6. Prilosec 20 mg p.o. daily. 7. Lopressor 12.5 p.o. b.i.d. 8. ( ) 5 mg p.o. Saturday, , Saturday. 9. Imdur 30 mg p.o. daily. 10. Advair HFA 2 puffs b.i.d. 11. Flonase one spray each nostril daily. 12. Pepcid 40 mg p.o. daily. 13. Cymbalta 60 mg p.o. daily. 14. Fosamax 70 mg p.o. Tuesdays. 15. Xanax 0.25 p.o. q.8 p.r.n. 16. Duoneb q.i.d. 17. Bactrim DS 1 tablet p.o. daily. 18. Desyrel 100 mg p.o. q.h.s. ALLERGIES: CELEBREX, NEURONTIN AND DARVOCET, ACIPHEX. On examination vital signs on presentation: Temperature 97.8, pulse 119, respirations 30, blood pressure 120/75, pulse ox 96% on 15 liters. GENERAL APPEARANCE: Propped up in bed, short of breath. EYES: Pupils equal. Conjunctivae normal. HEENT: Decreased hearing. NECK: JVD not raised. Mass not palpable. RESPIRATORY: Effort increased. LUNGS: Decreased breath sounds. Prolonged expiration and wheezing. CARDIOVASCULAR: First and second seconds normal. Edema present. ABDOMEN: Soft, nontender. Liver and spleen not palpable. LYMPHATIC: No lymph node palpable in neck or axillae. PSYCHIATRY: Alert and oriented x3. Mood and affect anxious appearing. NEUROLOGICAL: Pupils equal. Grossly intact. Power and sensation decreased distally. INVESTIGATIONS: White count 9.4, hemoglobin 5, platelets were 480. Potassium 4.2. BUN 24, creatinine 1.0. Ferritin 5, Troponin 0.039, albumin 3.4. Occult blood positive. Repeat after 2 units of blood 7.8. ASSESSMENT: 1. Acute severe anemia, symptomatic with occult blood, had a brown stool this morning likely source is gastrointestinal. 2. Nonocclusive left leg deep venous thrombosis involving the common femoral vein. 3. Acute chronic obstructive pulmonary disease exacerbation in an ex-smoker. 4. Long-standing, hard of hearing. 5. Essential hypertension. 6. Chronic hypoxic respiratory failure on 4 liters oxygen at home. 7. Acute hypoxic respiratory failure. 8. Secondary pulmonary hypertension and chronic obstructive pulmonary disease. 9. Chronic pulmonary fibrosis. 10. Benign prostatic hypertrophy. PLAN: Pulmonary Dr. Browning was consulted and he ( ) put the patient IV heparin that was held, GI was consulted. Also consult made to Dr. Dow from ( ). Question remains if this DVT is chronic in that case, ( ) and also given we also need to determine that breathing is acute. Patient had a brown stool. The patient could be having intermittent bleeding. Overall prognosis is guarded. Home medications are resumed. Above consultations are made.
[2016-05-07 18:19] LABS: Glucose,Whole Blood 132 mg/dL (75-99)
[2016-05-07] MEDS: TAMSULOSIN 0.4 MG CAP.ER.24H PO SCH (18:52)
--- NOTE | 2016-05-07 19:29 | CONS ---
DATE OF CONSULTATION: 05/07/2016 REASON FOR CONSULTATION: Severe symptomatic anemia. HISTORY OF PRESENT ILLNESS: The patient is a 76-year-old pleasant white male who was admitted to the hospital because of worsening shortness of breath for the last one week duration. He does have history of advanced COPD, on home oxygen, and is steroid-dependent. In the emergency room he was noted to have a hemoglobin of 5.5, requiring 2 units of PRBC transfusion. We are hence consulted in regards to the severe microcytic anemia. He denies any abdominal pain, reports no rectal bleeding or melena. He does have intermittent dry heaves but no nausea or vomiting. He recalls no prior history of peptic ulcer disease or recent NSAID use. He states that he had an upper endoscopy done by Dr. Ibarra a few years ago and, on review of the records, he had an upper endoscopy done in 2008 which showed some gastritis. The patient also states that he had a colonoscopy done a few years ago, and records are not available at the time of this dictation. During this hospitalization he was diagnosed with DVT and Dr. Dow has been consulted and he is scheduled to have Stacy filter placement this evening. His past medical history is significant for: 1. Hypertension. 2. Hyperlipidemia. 3. COPD, on home oxygen. 4. Pulmonary hypertension. PAST SURGICAL HISTORY: 1. Appendectomy. 2. Back surgery. 3. Cardiac cath. 4. Tonsillectomy. 5. Left hip surgery x2. Medications at home include: 1. Cymbalta. 2. Imdur. 3. Ronnie-Dur. 4. Hytrin. 5. Topamax. 6. Xanax. 7. Pepcid. 8. Desyrel. 9. Flomax. 10. Lopressor. 11. Symbicort inhaler. 12. Bactrim. ALLERGIES: CELEBREX and NEURONTIN. SOCIAL HISTORY: History of smoking in the past. No alcohol use. FAMILY HISTORY: Unremarkable other than father dying of old age. REVIEW OF SYSTEMS: CARDIOPULMONARY: He does complain of some shortness of breath but no chest pain. NEUROLOGY: Unremarkable. PSYCHIATRIC: Unremarkable other than anxiety, depression. ENT/VISION: Unremarkable. HEMATOLOGY: Severe symptomatic anemia. ENDOCRINE: Unremarkable. MUSCULOSKELETAL: Unremarkable. GI: As mentioned above. On physical examination, he appears comfortable, in no apparent distress. Vital signs are stable. Blood pressure 123/61, pulse rate 95, temperature 98. HEENT: Unremarkable. Conjunctivae pink. Sclerae anicteric. Oral cavity with no lesions. NECK: No JVD or lymph node enlargement. CHEST: Clear to auscultation. HEART: Regular rate and rhythm. ABDOMEN: Soft. Bowel sounds positive. No organomegaly EXTREMITIES: No pedal edema. SKIN: No rashes. NEURO: Alert and oriented x3. No focal deficits. LABS DONE AT THE TIME OF ADMISSION TO THE HOSPITAL: WBCs 10.1. Hemoglobin is 7.8, MCV 69. Platelets of 401. PT, INR within normal limits. BUN and creatinine are within normal limits. IMPRESSION: 1. Severe symptomatic microcytic anemia with a hemoglobin of 5.5. Most likely we are dealing with iron deficiency anemia secondary to occult GI loss. Patient states that he did have an upper endoscopy as well as colonoscopy in the last 2 or 3 years, but no records are available at the time of this dictation. Clinically he does not have any evidence of active ongoing bleeding. 2. Acute onset of deep venous thrombosis. Patient is scheduled for [place] filter placement by Dr. Dow this evening. RECOMMENDATIONS: Will obtain prior GI workup; and based on that, I will decide if he needs to have repeat endoscopic intervention. At this time will give him on a clear liquid diet. Further recommendations will follow once his records have been reviewed. Thank you for this consultation.
[2016-05-07] MEDS: SYMBICORT 160-4.5 MCG INHALER INHALATION SCH (19:32)
[2016-05-07] MEDS: traZODone HCL 100 MG TAB PO SCH (20:02)
[2016-05-07 20:30] LABS: Glucose,Whole Blood 130 mg/dL (75-99)
[2016-05-07] MEDS ORDERED: TAMSULOSIN 0.4 MG CAP.ER.24H PO SCH (21:00)
[2016-05-07] MEDS ORDERED: FUROSEMIDE 10 MG/ML 4 ML VIAL IV STA (22:58)
[2016-05-07] MEDS ORDERED: RX INFO: IV CONTRAST WAS GIVEN 1 EACH MISC MISCELLANE PRN (23:16)
[2016-05-08] MEDS: HEPARIN SODIUM,PORCINE/D5W PMX 25,000 UNIT in DEXTROSE/WATER 1 500ML.BAG IV SCH (00:05)
--- NOTE | 2016-05-08 02:32 | CT ---
EXAM: CT Angiography Chest With Intravenous Contrast. CLINICAL HISTORY: Reason: hemoptysis/dvt TECHNIQUE: Axial computed tomographic angiography images of the chest with intravenous contrast using pulmonary embolism protocol. CTDI is 60 mGy and DLP is 240 mGy-cm MIP reconstructed images were created and reviewed. Coronal and sagittal reformatted images were created and reviewed. COMPARISON: February 22, 2016. FINDINGS: Thoracic aorta is normal caliber. Trace amount of pericardial fluid. There is chronic and stable volume loss in right hemithorax and mediastinal shift towards the right. Severe bullous emphysema is noted in the left lung. Stable chronic loculated pneumothorax versus bulla in right apex. There are new left posterior infiltrates and small left pleural effusion. Significant interval worsening of infiltrates in right lung with nodular components. There is interval worsening of pleural thickening in the right upper hemithorax. Small right pleural effusion. Interval increase in prominence of mediastinal and hilar lymph nodes. No definite central PE. More peripheral branches are suboptimally evaluated. Stable hepatic cysts. High density in the gallbladder lumen consistent with vicarious excretion of IV contrast. Small hiatal hernia. Old rib fractures. IMPRESSION: Interval worsening of bilateral infiltrates, right greater than left. There are associated nodular components. Severe bullous emphysema. Chronic stable volume loss in right hemithorax. Interval worsening of pleural thickening along the right upper hemithorax, neoplastic process not excluded. No central PE. More peripheral branches are suboptimally evaluated. Pulmonary arterial hypertension.
[2016-05-08 04:37] LABS: Anisocytosis Moderate; Basophils % (A) 0 %; CH 20.4; CHCM 28.8; Eosinophils % (A) 0 %; HCT 27.6 % (39.0-53.0); Hypochromasia Marked; Luc # (Auto) 0.31; Luc % (Auto) 2; Lymphocytes # (A) 0.2 k/uL (1.0-4.8); Lymphocytes % (A) 1 %; MCH 20.1 pg (25.0-35.0); MCHC 28.8 g/dL (31.0-37.0); MCV 69.7 fL (80.0-100.0); Mean Platelet Volume 6.4; Microcytosis Marked; Monocytes # (A) 0.7 k/uL (0-1.0); Monocytes % (A) 4 %; Neutrophils # (A) 14.1 k/uL (1.3-7.7); Neutrophils % (A) 92 %; Poikilocytosis Marked; RBC 3.96 m/uL (4.30-5.90); RDW 20.7 % (11.5-15.5); WBC 15.2 k/uL (3.8-10.6); WBC (Perox) 15.08
[2016-05-08 04:59] LABS: ALT 24 U/L (21-72); AST 22 U/L (17-59); Alkaline Phosphatase 59 U/L (38-126); Anion Gap 11 mmol/L; Blood Urea Nitrogen 21 mg/dL (9-20); Calcium 8.2 mg/dL (8.4-10.2); Carbon Dioxide 34 mmol/L (22-30); Chloride 90 mmol/L (98-107); Glucose 112 mg/dL (74-99); Magnesium 2.2 mg/dL (1.6-2.3); Non-African American GFR(MDRD) >60 (>60 ml/min/1.73 sqM); Phosphorous 5.4 mg/dL (2.5-4.5); Potassium 3.6 mmol/L (3.5-5.1); Sodium 135 mmol/L (137-145); Total Bilirubin 0.8 mg/dL (0.2-1.3); Total Protein 5.6 g/dL (6.3-8.2)
[2016-05-08 05:05] LABS: INR 1.1 (<1.1); Prothrombin Time 11.3 sec (9.0-12.0)
[2016-05-08] MEDS: ALPRAZolam 0.25 MG TAB PO PRN ×2 (07:20→18:13)
[2016-05-08 07:30] LABS: Glucose,Whole Blood 117 mg/dL (75-99)
[2016-05-08] MEDS: INSULIN LISPRO (humaLOG) 300 UNIT/3 ML VIAL SQ SCH ×4 (07:42→20:44)
[2016-05-08] MEDS ORDERED: POTASSIUM CHLORIDE ER 20 MEQ TAB.ER PO SCH ×2 (08:00→18:00)
[2016-05-08] MEDS: IPRATROPIUM-ALBUTEROL 3 ML NEB INHALATION SCH ×4 (08:09→18:46)
[2016-05-08] MEDS: SYMBICORT 160-4.5 MCG INHALER INHALATION SCH ×2 (08:13→18:47)
[2016-05-08] MEDS: DULoxetine HCL 30 MG CAPSULE.DR PO SCH (08:51)
[2016-05-08] MEDS: DOCUSATE 100 MG CAP PO SCH ×2 (08:51→20:42)
[2016-05-08] MEDS: PANTOPRAZOLE 40 MG/10 ML VIAL IVP SCH ×2 (08:52→20:43)
[2016-05-08] MEDS: ISOSORBIDE MONONITRATE ER 30 MG TAB.ER.24H PO SCH (08:52)
[2016-05-08] MEDS: METOPROLOL TARTRATE 12.5 MG TAB PO SCH ×2 (08:52→20:43)
[2016-05-08] MEDS: SULFAMETHOX-TMP 800-160MG 1 EACH TAB PO SCH (08:52)
[2016-05-08] MEDS: methylPREDNISolone SOD SUCCI 40 MG/ML 1 ML VIAL IV SCH ×2 (08:52→20:43)
[2016-05-08] MEDS: METOLAZONE 5 MG TAB PO SCH (08:53)
[2016-05-08] MEDS: THEOPHYLLINE 24 HOUR 300 MG CAP.ER.24H PO SCH (08:53)
[2016-05-08] MEDS ORDERED: TERAZOSIN 5 MG CAP PO SCH (09:00)
[2016-05-08] MEDS ORDERED: PANTOPRAZOLE 40 MG/10 ML VIAL IVP SCH (09:00)
[2016-05-08] MEDS: ENOXAPARIN 40 MG/0.4 ML SYRINGE SQ SCH ×2 (09:59→20:42)
--- NOTE | 2016-05-08 10:12 | P.PN ---
Subjective Principal diagnosis: Anemia 68-year-old male with a history of severe end-stage COPD admitted with iron deficiency anemia without overt bleeding, dyspnea and left leg swelling. [place] filter placed yesterday for nonocclusive left leg DVT. CT negative for PE. Low-dose Lovenox started today. Patient thought he had upper and lower endoscopy performed within the last few years however upon review of GI office medical records is no evidence of the scopes been performed by the GI service with the last few years. Patient is somewhat not a reliable historian. Patient now thinks his colonoscopy was performed by his professor of music Dr. Dunne. Nursing reports no active GI bleeding. Hemoglobin 8.0. Objective - Vital Signs Vital signs: Vital Signs Temp 97.8 F 05/08/16 08:00 Pulse 112 H 05/08/16 09:00 Resp 35 H 05/08/16 09:00 BP 135/72 05/08/16 09:00 Pulse Ox 96 05/08/16 09:00 Intake & Output 05/07/16 05/08/16 05/08/16 18:59 06:59 18:59 Intake Total 410 120 280 Output Total 1310 2610 300 Balance -900 -2490 -20 Weight 66.7 kg Intake: IV 210 120 30 0.9 210 120 30 Intake, IV Titration 200 Amount Magnesium Sulfate-D5w Pmx 200 1 gm In Dextrose/Water 1 100ml.bag @ 100 mls/hr IVPB Q1H [facility] Rx#: [id number] Oral 250 Output: Urine 1310 2610 300 Other: Voiding Method Indwelling Catheter Indwelling Catheter Indwelling Catheter - Exam General appearance: The patient is alert, oriented, in no acute distress. HET: Head is normocephalic and atraumatic. Pupils are equal and reactive. Oropharynx is clear without lesions. Neck: Supple without lymphadenopathy. Trachea midline. Heart: S1 S2. Regular rate and rhythm. Lungs: Diminished bilaterally. BiPAP. Abdomen: Soft, nontender, nondistended with bowel sounds. No peritoneal signs. No palpable organomegaly or masses. Extremities: Normal skin color and turgor. No cyanosis, rash, ulceration, clubbing, or edema. Radial and pedal pulses are 2/4 bilaterally. Chris with clear yellow urine. Neurological: No focal deficits. Strength and sensation are grossly intact. - Labs CBC & Chem 7: 05/08/16 04:07 05/08/16 04:07 Labs: Abnormal Lab Results - Last 24 Hours (Table) 05/07/16 05/07/16 05/07/16 Range/Units 04:20 11:05 12:49 WBC (3.8-10.6) k/uL RBC (4.30-5.90) m/uL Hgb (13.0-17.5) gm/dL Hct (39.0-53.0) % MCV (80.0-100.0) fL MCH (25.0-35.0) pg MCHC (31.0-37.0) g/dL RDW (11.5-15.5) % Neutrophils # (1.3-7.7) k/uL Lymphocytes # (1.0-4.8) k/uL Sodium (137-145) mmol/L Chloride (98-107) mmol/L Carbon Dioxide (22-30) mmol/L BUN (9-20) mg/dL Glucose (74-99) mg/dL POC Glucose (mg/dL) 137 H (75-99) mg/dL Calcium (8.4-10.2) mg/dL Phosphorus (2.5-4.5) mg/dL Iron 17 L (49-181) ug/dL % Saturation 4.4 L (20-50) % Ferritin 5 L (18-464) ng/mL Total Protein (6.3-8.2) g/dL Albumin (3.5-5.0) g/dL Urine Protein 1+ H (Negative) Urine Ketones Trace H (Negative) Urine Blood Large H (Negative) Ur Leukocyte Esterase Large H (Negative) Urine RBC >182 H (0-5) /hpf Urine WBC 167 H (0-5) /hpf Urine WBC Clumps Few H (None) /hpf 05/07/16 05/07/16 05/08/16 Range/Units 18:17 20:28 04:07 WBC 15.2 H (3.8-10.6) k/uL RBC 3.96 L (4.30-5.90) m/uL Hgb 8.0 L (13.0-17.5) gm/dL Hct 27.6 L (39.0-53.0) % MCV 69.7 L (80.0-100.0) fL MCH 20.1 L (25.0-35.0) pg MCHC 28.8 L (31.0-37.0) g/dL RDW 20.7 H (11.5-15.5) % Neutrophils # 14.1 H (1.3-7.7) k/uL Lymphocytes # 0.2 L (1.0-4.8) k/uL Sodium (137-145) mmol/L Chloride (98-107) mmol/L Carbon Dioxide (22-30) mmol/L BUN (9-20) mg/dL Glucose (74-99) mg/dL POC Glucose (mg/dL) 132 H 130 H (75-99) mg/dL Calcium (8.4-10.2) mg/dL Phosphorus (2.5-4.5) mg/dL Iron (49-181) ug/dL % Saturation (20-50) % Ferritin (18-464) ng/mL Total Protein (6.3-8.2) g/dL Albumin (3.5-5.0) g/dL Urine Protein (Negative) Urine Ketones (Negative) Urine Blood (Negative) Ur Leukocyte Esterase (Negative) Urine RBC (0-5) /hpf Urine WBC (0-5) /hpf Urine WBC Clumps (None) /hpf 05/08/16 05/08/16 Range/Units 04:07 07:28 WBC (3.8-10.6) k/uL RBC (4.30-5.90) m/uL Hgb (13.0-17.5) gm/dL Hct (39.0-53.0) % MCV (80.0-100.0) fL MCH (25.0-35.0) pg MCHC (31.0-37.0) g/dL RDW (11.5-15.5) % Neutrophils # (1.3-7.7) k/uL Lymphocytes # (1.0-4.8) k/uL Sodium 135 L (137-145) mmol/L Chloride 90 L (98-107) mmol/L Carbon Dioxide 34 H (22-30) mmol/L BUN 21 H (9-20) mg/dL Glucose 112 H (74-99) mg/dL POC Glucose (mg/dL) 117 H (75-99) mg/dL Calcium 8.2 L (8.4-10.2) mg/dL Phosphorus 5.4 H (2.5-4.5) mg/dL Iron (49-181) ug/dL % Saturation (20-50) % Ferritin (18-464) ng/mL Total Protein 5.6 L (6.3-8.2) g/dL Albumin 3.4 L (3.5-5.0) g/dL Urine Protein (Negative) Urine Ketones (Negative) Urine Blood (Negative) Ur Leukocyte Esterase (Negative) Urine RBC (0-5) /hpf Urine WBC (0-5) /hpf Urine WBC Clumps (None) /hpf Assessment and Plan (1) Iron deficiency anemia Narrative/Plan: Component of acute blood loss with positive Hemoccult stool. Status: Acute (2) Left leg DVT Status: Acute (3) [place] filter in place Status: Acute (4) Advanced COPD Status: Acute Plan: 1. Case discussed with plant safety engineer Dr. Browning. Considering there is absence of GI bleeding at this time and respiratory status is not optimized will continue with close observation. Endoscopy will be contingent on clinical course but not planned at this time. We'll continue to investigate if recent endoscopies were performed locally in the last few years. Continue to follow CBC closely. We'll continue to follow with you. Assessment and plan of care discussed with Dr. Montilla.
[2016-05-08 12:32] LABS: Glucose,Whole Blood 118 mg/dL (75-99)
--- NOTE | 2016-05-08 15:46 | P.PN ---
Subjective Principal diagnosis: Acute anemia and acute left deep vein thrombosis. Involving left lower extremity. This is a 76-year-old white male with history of severe end-stage COPD, O2 dependent, prednisone dependent, patient is also known to have history of right upper lobe lung abscess which has been treated for a long period of time with antibiotics. History of pleural effusion requiring thoracentesis, and he continues to have some loculated effusion on the right side. Patient presented to the ER with mostly symptoms of increased shortness of breath. Even at rest. Patient has been short of breath for the last few days. When he arrived to the ER, patient was on BiPAP, he was in severe respiratory distress. Workup in the ER included a CBC which showed profound anemia hemoglobin of 5.0, baseline hemoglobin back in 2014 was 11.8. A shunt received a total of 2 units of packed RBCs. He was also not is noted to have positive Hemoccult stool. Patient was also complaining of left leg swelling, venous Doppler showed evidence of deep vein thrombosis, patient was admitted to the ICU, but for some reason he was started on heparin, however upon my evaluation, I discontinued his heparin, recommended a [place] filter placement, place him on Protonix 40 mg IV push every 12 hours, and I recommended a GI consultation. In the meantime we will keep the patient in the intensive care unit. Presently the patient denies shortness of breath, no cough, no wheezing, no chest pain. Chest x-ray shows significantdisease involving the right lung, but this is a chronic finding. Left side is relatively clear. Patient was reevaluated today on 05/08/2016, he seems to be doing relatively well , however he required placement on BiPAP for increased shortness of breath overnight. Patient also had few episodes of minimal hemoptysis, and a CT of the chest was done. Showed what was expected on the right lung, but no evidence of acute pulmonary embolism. Patient is on a small dose of Lovenox at present, and he is on BiPAP, he is also on bronchodilators, and he is status post IVC filter placement done by vascular surgery. Hemoglobin seems to be stable at 8.0, so far the patient received only 2 units of packed RBCs. His electrolytes and renal profile are normal in spite of the fact that the patient received significant amount of contrast media for his IVC filter placement and for his CT of the chest. Today I discussed the CODE STATUS with the patient, and he will discuss it with his , but he seems to be very inclined to consider DO NOT RESUSCITATE CODE STATUS. This will be further verified with the . Objective - Vital Signs Vital signs: Vital Signs Temp 98.7 F 05/08/16 12:00 Pulse 99 05/08/16 15:00 Resp 25 H 05/08/16 15:00 BP 109/58 05/08/16 15:00 Pulse Ox 96 05/08/16 15:00 Intake & Output 05/07/16 05/08/16 05/08/16 18:59 06:59 18:59 Intake Total 410 120 340 Output Total 1310 2610 489 Balance -900 -2490 -149 Weight 66.7 kg Intake: IV 210 120 90 0.9 210 120 90 Intake, IV Titration 200 Amount Magnesium Sulfate-D5w Pmx 200 1 gm In Dextrose/Water 1 100ml.bag @ 100 mls/hr IVPB Q1H [facility] Rx#: [id number] Oral 250 Output: Urine 1310 2610 489 Other: Voiding Method Indwelling Catheter Indwelling Catheter Indwelling Catheter - Exam GENERAL: Patient is well-developed and well-nourished. Patient is nontoxic and well- hydrated and is in moderate distress. Patient is presently on BiPAP with IPAP of 12 and EPAP of 4. ENT: Neck is soft and supple. No significant lymphadenopathy is noted. Oropharynx is clear. Moist mucous membranes. Neck has full range of motion without eliciting any pain. EYES: The sclera were anicteric and conjunctiva were pink and moist. Extraocular movements were intact and pupils were equal round and reactive to light. Eyelids were unremarkable. PULMONARY: Diminished breath sound bilaterally, minimal crackles at the right base rhonchi and wheezes on forced expiratory maneuver. CARDIOVASCULAR: Patient has tachycardia with extrasystole. ABDOMEN: Soft and nontender with normal bowel sounds. No palpable organomegaly was noted. There is no palpable pulsatile mass. SKIN: Skin is clear with no lesions or rashes and otherwise unremarkable. NEUROLOGIC: Patient is alert and oriented x3. Cranial nerves II through XII are grossly intact. Motor and sensory are also intact. Normal speech, volume and content. Symmetrical smile. MUSCULOSKELETAL: Normal extremities with adequate strength and full range of motion. Patient has significant edema on the left lower leg in comparison to the right patient stated this is not normal LYMPHATICS: No significant lymphadenopathy is noted Extremities: Minimal swelling noted in the left lower extremity, improved according to the patient since admission. - Labs CBC & Chem 7: 05/08/16 04:07 05/08/16 04:07 Labs: Abnormal Lab Results - Last 24 Hours (Table) 05/07/16 05/07/16 05/08/16 Range/Units 18:17 20:28 04:07 WBC 15.2 H (3.8-10.6) k/uL RBC 3.96 L (4.30-5.90) m/uL Hgb 8.0 L (13.0-17.5) gm/dL Hct 27.6 L (39.0-53.0) % MCV 69.7 L (80.0-100.0) fL MCH 20.1 L (25.0-35.0) pg MCHC 28.8 L (31.0-37.0) g/dL RDW 20.7 H (11.5-15.5) % Neutrophils # 14.1 H (1.3-7.7) k/uL Lymphocytes # 0.2 L (1.0-4.8) k/uL Sodium (137-145) mmol/L Chloride (98-107) mmol/L Carbon Dioxide (22-30) mmol/L BUN (9-20) mg/dL Glucose (74-99) mg/dL POC Glucose (mg/dL) 132 H 130 H (75-99) mg/dL Calcium (8.4-10.2) mg/dL Phosphorus (2.5-4.5) mg/dL Total Protein (6.3-8.2) g/dL Albumin (3.5-5.0) g/dL 05/08/16 05/08/16 05/08/16 Range/Units 04:07 07:28 12:31 WBC (3.8-10.6) k/uL RBC (4.30-5.90) m/uL Hgb (13.0-17.5) gm/dL Hct (39.0-53.0) % MCV (80.0-100.0) fL MCH (25.0-35.0) pg MCHC (31.0-37.0) g/dL RDW (11.5-15.5) % Neutrophils # (1.3-7.7) k/uL Lymphocytes # (1.0-4.8) k/uL Sodium 135 L (137-145) mmol/L Chloride 90 L (98-107) mmol/L Carbon Dioxide 34 H (22-30) mmol/L BUN 21 H (9-20) mg/dL Glucose 112 H (74-99) mg/dL POC Glucose (mg/dL) 117 H 118 H (75-99) mg/dL Calcium 8.2 L (8.4-10.2) mg/dL Phosphorus 5.4 H (2.5-4.5) mg/dL Total Protein 5.6 L (6.3-8.2) g/dL Albumin 3.4 L (3.5-5.0) g/dL Assessment and Plan Plan: Impression: 1 acute anemia secondary to GI blood losses, suspect gastritis or peptic ulcer disease in a patient who is chronically on prednisone for severe end-stage COPD. However the possibility of lower GI bleeding is not entirely ruled out. But felt to be less likely. 2 acute deep vein thrombosis involving the left lower extremity. Patient has absolute contraindication to anticoagulation, hence IVC filter was placed by vascular surgery, in the meantime I recommended very small dose of Lovenox however the patient develops any further bleeding the Lovenox will have to be discontinued. 3 severe end-stage COPD O2 dependent, prednisone dependent. Patient has history of chronic hypoxic respiratory failure, and based on this presentation, he seems to have acute on chronic hypoxic respiratory failure. Secondary to COPD. 4 history of adrenal insufficiency. 5 history of right upper lobe lung abscess 6 history of MSSA pneumonia. 7 history of right pleural effusion presently loculated and chronic. 8 history of hip fracture requiring surgery in the past 1 year. 9 history of chronic hypoxic respiratory failure secondary to COPD. 10 status post IVC filter placement on 05/07/2016. Recommendation: Continue present treatment plan including bronchodilators, Protonix, Monitor patient in the intensive care unit, and we'll continue to follow. Prognosis is definitely poor and guarded considering his overall underlying comorbidities. Patient will be transfused for his anemia to keep hemoglobin above 7 and we'll continue to monitor closely. Continue the meantime bronchodilators, continue BiPAP, titrate to keep SaO2 above 90%. Critical care time is 34 minutes Time with Patient: Greater than 30
[2016-05-08 17:21] LABS: Glucose,Whole Blood 137 mg/dL (75-99)
[2016-05-08] MEDS: TAMSULOSIN 0.4 MG CAP.ER.24H PO SCH (18:13)
[2016-05-08 20:39] LABS: Glucose,Whole Blood 119 mg/dL (75-99)
[2016-05-08] MEDS: traZODone HCL 100 MG TAB PO SCH (20:43)
[2016-05-09 04:52] LABS: Anisocytosis Moderate; Basophils % (A) 0 %; CH 19.9; CHCM 27.5; Eosinophils % (A) 0 %; HCT 27.6 % (39.0-53.0); HDW 5.48; HGB 7.6 gm/dL (13.0-17.5); Hypochromasia Marked; Luc # (Auto) 0.24; Luc % (Auto) 1; Lymphocytes # (A) 0.3 k/uL (1.0-4.8); Lymphocytes % (A) 1 %; MCH 19.8 pg (25.0-35.0); MCV 71.5 fL (80.0-100.0); Mean Platelet Volume 6.7; Microcytosis Marked; Monocytes # (A) 0.6 k/uL (0-1.0); Monocytes % (A) 3 %; Neutrophils # (A) 19.5 k/uL (1.3-7.7); Neutrophils % (A) 95 %; Poikilocytosis Marked; RBC 3.85 m/uL (4.30-5.90); RDW 20.7 % (11.5-15.5); WBC 20.6 k/uL (3.8-10.6); WBC (Perox) 21.82
[2016-05-09 04:58] LABS: MCHC 27.7 g/dL (31.0-37.0)
[2016-05-09 05:06] LABS: INR 1.2 (<1.1); Prothrombin Time 11.8 sec (9.0-12.0)
[2016-05-09 05:07] LABS: ALT 22 U/L (21-72); AST 17 U/L (17-59); Alkaline Phosphatase 55 U/L (38-126); Anion Gap 11 mmol/L; Blood Urea Nitrogen 24 mg/dL (9-20); Calcium 8.2 mg/dL (8.4-10.2); Carbon Dioxide 32 mmol/L (22-30); Chloride 92 mmol/L (98-107); Glucose 89 mg/dL (74-99); Magnesium 2.5 mg/dL (1.6-2.3); Non-African American GFR(MDRD) >60 (>60 ml/min/1.73 sqM); Phosphorous 4.1 mg/dL (2.5-4.5); Potassium 4.1 mmol/L (3.5-5.1); Sodium 135 mmol/L (137-145); Total Bilirubin 0.7 mg/dL (0.2-1.3); Total Protein 5.3 g/dL (6.3-8.2)
--- NOTE | 2016-05-09 05:26 | PN ---
DATE OF SERVICE: 05/08/2016 PRESENTING COMPLAINT: Severe anemia. INTERVAL HISTORY: This is a patient who presented with severe COPD exacerbation, currently BiPAP. Since the patient does not have an output bleed, GI at this point had held off any endoscopy. Patient did receive 2 units of blood. IVC filter was placed. Review of systems done for constitutional, cardiovascular, GI, pulmonary; relevant findings as above. Current medications are reviewed. The patient is on DuoNeb, IV Solu-Medrol. On examination, temperature 98.7, pulse 108, respirations 26, blood pressure 118/61, pulse ox 90% on 45%. BiPAP. GENERAL APPEARANCE: Sitting on bed, slight short of breath. EYES: Pupils equal. Conjunctivae normal. NECK: JVD not raised. Mass not palpable. RESPIRATORY: Effort increased. LUNGS: Decreased breath sounds. Prolonged expiration, wheezing. CARDIOVASCULAR: First and second sounds normal. Edema present. ABDOMEN: Soft, nontender. Liver and spleen not palpable. PSYCHIATRY: Alert and oriented x3. Mood and affect tired appearing. INVESTIGATIONS: White count 15.2, hemoglobin 8. Potassium 3.6. BUN 21, creatinine 0.90. Chest CTA shows severe bullous emphysema, and some worsening of bilateral infiltrates. ASSESSMENT: 1. Acute severe anemia symptomatic with occult blood, but no outward source of bleeding at the present time, status post ( ) units of blood transfusion. 2. Nonocclusive left leg acute deep venous thrombosis involving the common femoral vein. 3. Acute severe chronic obstructive pulmonary disease exacerbation in an ex-smoker, end-stage, slow to respond. 4. Long-standing hard of hearing. 5. Essential hypertension. 6. Chronic hypoxic respiratory failure on 3 L oxygen at home. 7. Acute hypoxic respiratory failure, currently on a BiPAP. 8. 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 9. Chronic pulmonary fibrosis. 10. Benign prostatic hypertrophy. 11. Status post IVC filter placement. PLAN: I will talk to Dr. Montilla even though there is no outward bleeding, will have to determine if there is actually a source of bleeding because still the IVC filter will prevent the DVT going to the lungs, but at the same token the DVT in that case will continue to extend. The other course may be taken is to actually anticoagulate the patient and look for further if any bleeding occurs. So either we proceed with endoscopy or we could anticoagulate. Overall prognosis remains guarded, not very good because of advanced lung disease.
[2016-05-09 07:53] LABS: Glucose,Whole Blood 102 mg/dL (75-99)
[2016-05-09] MEDS: INSULIN LISPRO (humaLOG) 300 UNIT/3 ML VIAL SQ SCH ×4 (08:02→22:26)
--- NOTE | 2016-05-09 08:04 | XR ---
EXAMINATION TYPE: XR chest 1V DATE OF EXAM: 05/09/2016 6:49 AM HISTORY: Shortness of breath. COMPARISON: 05/07/2016 TECHNIQUE: Single view of the chest is submitted. FINDINGS: The left lung is hyperinflated. Right-sided volume loss with the pleural-parenchymal opacities stable in appearance. Right hilar retr action. The heart is stable. Hilar and mediastinal structures are within normal limits. Degenerative changes are seen of the dorsal spine. IMPRESSION: 1. Stable chest.
[2016-05-09] MEDS: methylPREDNISolone SOD SUCCI 40 MG/ML 1 ML VIAL IV SCH ×2 (08:12→21:36)
[2016-05-09] MEDS: THEOPHYLLINE 24 HOUR 300 MG CAP.ER.24H PO SCH (08:12)
[2016-05-09] MEDS: SULFAMETHOX-TMP 800-160MG 1 EACH TAB PO SCH (08:12)
[2016-05-09] MEDS: ISOSORBIDE MONONITRATE ER 30 MG TAB.ER.24H PO SCH (08:12)
[2016-05-09] MEDS: DULoxetine HCL 30 MG CAPSULE.DR PO SCH (08:12)
[2016-05-09] MEDS: PANTOPRAZOLE 40 MG/10 ML VIAL IVP SCH ×2 (08:12→21:37)
[2016-05-09] MEDS: METOPROLOL TARTRATE 12.5 MG TAB PO SCH ×2 (08:12→21:36)
[2016-05-09] MEDS: ENOXAPARIN 40 MG/0.4 ML SYRINGE SQ SCH ×2 (08:12→21:36)
[2016-05-09] MEDS: DOCUSATE 100 MG CAP PO SCH ×2 (08:12→21:36)
[2016-05-09] MEDS: IPRATROPIUM-ALBUTEROL 3 ML NEB INHALATION SCH ×4 (08:35→19:27)
[2016-05-09] MEDS: SYMBICORT 160-4.5 MCG INHALER INHALATION SCH ×2 (08:35→19:27)
--- NOTE | 2016-05-09 08:52 | IR ---
EXAMINATION TYPE: IR IVC filter placement DATE OF EXAM: 05/07/2016 5:14 PM COMPARISON: NONE HISTORY: IVC filter. Fluoroscopy was applied to the referring clinician. See dictated report from vascular surgery.
--- NOTE | 2016-05-09 09:53 | P.PN ---
Subjective Principal diagnosis: Anemia 68-year-old male with a history of severe end-stage COPD admitted with iron deficiency anemia without overt bleeding, dyspnea and left leg swelling. Unable to confirm recent endoscopies. Last upper endoscopy of record was in 2008. No reports of GI bleeding. Denies abdominal pain. Tolerating clear liquids. Hemoglobin 7.6. INR 1.2. Objective - Vital Signs Vital signs: Vital Signs Temp 98 F 05/09/16 08:00 Pulse 105 H 05/09/16 09:00 Resp 23 05/09/16 09:00 BP 125/61 05/09/16 09:00 Pulse Ox 93 L 05/09/16 09:00 Intake & Output 05/08/16 05/09/16 05/09/16 18:59 06:59 18:59 Intake Total 620 130 320 Output Total 667 674 95 Balance -47 -544 225 Weight 64.3 kg Intake: IV 120 130 20 0.9 120 130 20 Oral 500 Blood Product 300 Output: Urine 667 674 95 Other: Voiding Method Indwelling Catheter Indwelling Catheter Indwelling Catheter - Exam General appearance: The patient is alert, oriented, in no acute distress. HET: Head is normocephalic and atraumatic. Pupils are equal and reactive. Oropharynx is clear without lesions. Neck: Supple without lymphadenopathy. Trachea midline. Heart: S1 S2. Regular rate and rhythm. Lungs: Diminished bilaterally. Abdomen: Soft, nontender, nondistended with bowel sounds. No peritoneal signs. No palpable organomegaly or masses. Extremities: Normal skin color and turgor. No cyanosis, rash, ulceration, clubbing, or edema. Radial and pedal pulses are 2/4 bilaterally. Chris with clear yellow urine. Neurological: No focal deficits. Strength and sensation are grossly intact. - Labs CBC & Chem 7: 05/09/16 04:11 05/09/16 04:11 Labs: Abnormal Lab Results - Last 24 Hours (Table) 05/08/16 05/08/16 05/08/16 Range/Units 12:31 17:19 20:38 WBC (3.8-10.6) k/uL RBC (4.30-5.90) m/uL Hgb (13.0-17.5) gm/dL Hct (39.0-53.0) % MCV (80.0-100.0) fL MCH (25.0-35.0) pg MCHC (31.0-37.0) g/dL RDW (11.5-15.5) % Neutrophils # (1.3-7.7) k/uL Lymphocytes # (1.0-4.8) k/uL Sodium (137-145) mmol/L Chloride (98-107) mmol/L Carbon Dioxide (22-30) mmol/L BUN (9-20) mg/dL POC Glucose (mg/dL) 118 H 137 H 119 H (75-99) mg/dL Calcium (8.4-10.2) mg/dL Magnesium (1.6-2.3) mg/dL Total Protein (6.3-8.2) g/dL Albumin (3.5-5.0) g/dL 05/09/16 05/09/16 05/09/16 Range/Units 04:11 04:11 07:51 WBC 20.6 H (3.8-10.6) k/uL RBC 3.85 L (4.30-5.90) m/uL Hgb 7.6 L (13.0-17.5) gm/dL Hct 27.6 L (39.0-53.0) % MCV 71.5 L (80.0-100.0) fL MCH 19.8 L (25.0-35.0) pg MCHC 27.7 L (31.0-37.0) g/dL RDW 20.7 H (11.5-15.5) % Neutrophils # 19.5 H (1.3-7.7) k/uL Lymphocytes # 0.3 L (1.0-4.8) k/uL Sodium 135 L (137-145) mmol/L Chloride 92 L (98-107) mmol/L Carbon Dioxide 32 H (22-30) mmol/L BUN 24 H (9-20) mg/dL POC Glucose (mg/dL) 102 H (75-99) mg/dL Calcium 8.2 L (8.4-10.2) mg/dL Magnesium 2.5 H (1.6-2.3) mg/dL Total Protein 5.3 L (6.3-8.2) g/dL Albumin 3.1 L (3.5-5.0) g/dL Assessment and Plan (1) Iron deficiency anemia Narrative/Plan: Component of acute blood loss with positive Hemoccult stool. Status: Acute (2) Left leg DVT Status: Acute (3) [place] filter in place Status: Acute (4) Advanced COPD Status: Acute Plan: 1. Upper and lower Endoscopy recommended for workup of anemia however will be contingent on clinical course but not planned at this time. Optimization of respiratory status. Continue to follow CBC closely. We'll continue to follow with you. Assessment and plan of care discussed with Dr. Montilla.
[2016-05-09] MEDS: PIPERACILLIN-TAZOBACTAM 3.375 GM in DEXTROSE/WATER 1 50ML.BAG IVPB SCH ×2 (10:00→17:24)
[2016-05-09 12:26] LABS: Glucose,Whole Blood 140 mg/dL (75-99)
--- NOTE | 2016-05-09 15:07 | P.PN ---
Subjective Principal diagnosis: Acute anemia and acute left deep vein thrombosis. Involving left lower extremity. This is a 76-year-old white male with history of severe end-stage COPD, O2 dependent, prednisone dependent, patient is also known to have history of right upper lobe lung abscess which has been treated for a long period of time with antibiotics. History of pleural effusion requiring thoracentesis, and he continues to have some loculated effusion on the right side. Patient presented to the ER with mostly symptoms of increased shortness of breath. Even at rest. Patient has been short of breath for the last few days. When he arrived to the ER, patient was on BiPAP, he was in severe respiratory distress. Workup in the ER included a CBC which showed profound anemia hemoglobin of 5.0, baseline hemoglobin back in 2014 was 11.8. A shunt received a total of 2 units of packed RBCs. He was also not is noted to have positive Hemoccult stool. Patient was also complaining of left leg swelling, venous Doppler showed evidence of deep vein thrombosis, patient was admitted to the ICU, but for some reason he was started on heparin, however upon my evaluation, I discontinued his heparin, recommended a Stacy filter placement, place him on Protonix 40 mg IV push every 12 hours, and I recommended a GI consultation. In the meantime we will keep the patient in the intensive care unit. Presently the patient denies shortness of breath, no cough, no wheezing, no chest pain. Chest x-ray shows significantdisease involving the right lung, but this is a chronic finding. Left side is relatively clear. Patient was reevaluated today on 05/08/2016, he seems to be doing relatively well , however he required placement on BiPAP for increased shortness of breath overnight. Patient also had few episodes of minimal hemoptysis, and a CT of the chest was done. Showed what was expected on the right lung, but no evidence of acute pulmonary embolism. Patient is on a small dose of Lovenox at present, and he is on BiPAP, he is also on bronchodilators, and he is status post IVC filter placement done by vascular surgery. Hemoglobin seems to be stable at 8.0, so far the patient received only 2 units of packed RBCs. His electrolytes and renal profile are normal in spite of the fact that the patient received significant amount of contrast media for his IVC filter placement and for his CT of the chest. Today I discussed the CODE STATUS with the patient, and he will discuss it with his , but he seems to be very inclined to consider DO NOT RESUSCITATE CODE STATUS. This will be further verified with the . Reevaluated today on 05/09/2016, overall the patient is doing better, breathing easier, continues to have occasional episodes of minimal hemoptysis which is chronic, and today I recommended adding Zosyn. WBC count is elevated at 20.6 hemoglobin is 7.6. Electrolytes are normal renal profile is normal. INR is normal. Objective - Vital Signs Vital signs: Vital Signs Temp 99.1 F 05/09/16 12:00 Pulse 109 H 05/09/16 14:00 Resp 24 05/09/16 14:00 BP 119/70 05/09/16 14:00 Pulse Ox 91 L 05/09/16 14:00 Intake & Output 05/08/16 05/09/16 05/09/16 18:59 06:59 18:59 Intake Total 620 130 420.0 Output Total 667 674 290 Balance -47 -544 130.0 Weight 64.3 kg Intake: IV 120 130 70 0.9 120 130 70 Intake, IV Titration 50.0 Amount Piperacillin-Tazobactam 3 50.0 .375 gm In Dextrose/Water 1 50ml.bag @ 12.5 mls/hr IVPB Q8HR [facility] Rx#: [id number] Oral 500 Blood Product 300 Output: Urine 667 674 290 Other: Voiding Method Indwelling Catheter Indwelling Catheter Indwelling Catheter - Exam GENERAL: Patient is well-developed and well-nourished. Patient is nontoxic and well- hydrated and is in moderate distress. Patient is presently on BiPAP with IPAP of 12 and EPAP of 4. ENT: Neck is soft and supple. No significant lymphadenopathy is noted. Oropharynx is clear. Moist mucous membranes. Neck has full range of motion without eliciting any pain. EYES: The sclera were anicteric and conjunctiva were pink and moist. Extraocular movements were intact and pupils were equal round and reactive to light. Eyelids were unremarkable. PULMONARY: Diminished breath sound bilaterally, minimal crackles at the right base rhonchi and wheezes on forced expiratory maneuver. CARDIOVASCULAR: Patient has tachycardia with extrasystole. ABDOMEN: Soft and nontender with normal bowel sounds. No palpable organomegaly was noted. There is no palpable pulsatile mass. SKIN: Skin is clear with no lesions or rashes and otherwise unremarkable. NEUROLOGIC: Patient is alert and oriented x3. Cranial nerves II through XII are grossly intact. Motor and sensory are also intact. Normal speech, volume and content. Symmetrical smile. MUSCULOSKELETAL: Normal extremities with adequate strength and full range of motion. Patient has significant edema on the left lower leg in comparison to the right patient stated this is not normal LYMPHATICS: No significant lymphadenopathy is noted Extremities: Minimal swelling noted in the left lower extremity, improved according to the patient since admission. - Labs CBC & Chem 7: 05/09/16 04:11 05/09/16 04:11 Labs: Abnormal Lab Results - Last 24 Hours (Table) 05/08/16 05/08/16 05/09/16 Range/Units 17:19 20:38 04:11 WBC 20.6 H (3.8-10.6) k/uL RBC 3.85 L (4.30-5.90) m/uL Hgb 7.6 L (13.0-17.5) gm/dL Hct 27.6 L (39.0-53.0) % MCV 71.5 L (80.0-100.0) fL MCH 19.8 L (25.0-35.0) pg MCHC 27.7 L (31.0-37.0) g/dL RDW 20.7 H (11.5-15.5) % Neutrophils # 19.5 H (1.3-7.7) k/uL Lymphocytes # 0.3 L (1.0-4.8) k/uL Sodium (137-145) mmol/L Chloride (98-107) mmol/L Carbon Dioxide (22-30) mmol/L BUN (9-20) mg/dL POC Glucose (mg/dL) 137 H 119 H (75-99) mg/dL Calcium (8.4-10.2) mg/dL Magnesium (1.6-2.3) mg/dL Total Protein (6.3-8.2) g/dL Albumin (3.5-5.0) g/dL 05/09/16 05/09/16 05/09/16 Range/Units 04:11 07:51 12:25 WBC (3.8-10.6) k/uL RBC (4.30-5.90) m/uL Hgb (13.0-17.5) gm/dL Hct (39.0-53.0) % MCV (80.0-100.0) fL MCH (25.0-35.0) pg MCHC (31.0-37.0) g/dL RDW (11.5-15.5) % Neutrophils # (1.3-7.7) k/uL Lymphocytes # (1.0-4.8) k/uL Sodium 135 L (137-145) mmol/L Chloride 92 L (98-107) mmol/L Carbon Dioxide 32 H (22-30) mmol/L BUN 24 H (9-20) mg/dL POC Glucose (mg/dL) 102 H 140 H (75-99) mg/dL Calcium 8.2 L (8.4-10.2) mg/dL Magnesium 2.5 H (1.6-2.3) mg/dL Total Protein 5.3 L (6.3-8.2) g/dL Albumin 3.1 L (3.5-5.0) g/dL Assessment and Plan Plan: Impression: 1 acute anemia secondary to GI blood losses, suspect gastritis or peptic ulcer disease in a patient who is chronically on prednisone for severe end-stage COPD. However the possibility of lower GI bleeding is not entirely ruled out. But felt to be less likely. 2 acute deep vein thrombosis involving the left lower extremity. Patient has absolute contraindication to anticoagulation, hence IVC filter was placed by vascular surgery, in the meantime I recommended very small dose of Lovenox however the patient develops any further bleeding the Lovenox will have to be discontinued. 3 severe end-stage COPD O2 dependent, prednisone dependent. Patient has history of chronic hypoxic respiratory failure, and based on this presentation, he seems to have acute on chronic hypoxic respiratory failure. Secondary to COPD. 4 history of adrenal insufficiency. 5 history of right upper lobe lung abscess 6 history of MSSA pneumonia. 7 history of right pleural effusion presently loculated and chronic. 8 history of hip fracture requiring surgery in the past 1 year. 9 history of chronic hypoxic respiratory failure secondary to COPD. 10 status post IVC filter placement on 05/07/2016. 11: History of chronic hemoptysis secondary to significant airspace disease involving the right upper lobe. Patient is not the most ideal candidate for bronchoscopy and evaluation of the right upper lobe. That is mostly because of severe end-stage COPD. Recommendation: Continue present treatment plan including bronchodilators, Protonix, transfer patient to a regular medical floor today, continue to monitor closely. Time with Patient: Less than 30
[2016-05-09] MEDS: ALPRAZolam 0.25 MG TAB PO PRN (15:48)
[2016-05-09 17:28] LABS: Glucose,Whole Blood 128 mg/dL (75-99)
[2016-05-09] MEDS: TAMSULOSIN 0.4 MG CAP.ER.24H PO SCH (19:05)
[2016-05-09] MEDS: traZODone HCL 100 MG TAB PO SCH (21:37)
[2016-05-09 22:19] LABS: Glucose,Whole Blood 143 mg/dL (75-99)
--- NOTE | 2016-05-09 23:10 | PN ---
DATE OF SERVICE: 05/09/2016 PRESENTING COMPLAINT: Severe anemia. INTERVAL HISTORY: This patient with severe COPD exacerbation, severe anemia and a DVT had an IVC filter placed. Because of his pulmonary status, endoscopy cannot be done. is at the bedside. The patient remains on 15L high-flow oxygen, did tolerate some diet. Review systems done for constitutional, cardiovascular, GI, pulmonary; relevant findings as above. Current medications are reviewed that include: 1. Nebulized bronchodilator. 2. Antibiotics and 3. IV Solu-Medrol. On examination, temperature 98, pulse 104, respirations 24, blood pressure 120/67, pulse ox 91% on 15L high flow. GENERAL APPEARANCE: Sitting up, short of breath at rest. EYES: Pupils equal. Conjunctivae normal. NECK: JVD not raised. Mass not palpable. RESPIRATORY: Effort increased. LUNGS: Diminished breath sounds. Prolonged expiration and wheezing. CARDIOVASCULAR: First and second sounds normal. Some edema is present. ABDOMEN: Soft, nontender. Liver and spleen not palpable. PSYCHIATRY: Alert and oriented x3. Mood and affect anxious-appearing. INVESTIGATIONS: White count 20.6, hemoglobin 7.6. Potassium 4.1, BUN 24, creatinine 0.70. Chest x-ray shows right-sided volume loss. Left lung is hyperinflated, infiltrates possible. ASSESSMENT: 1. Acute severe anemia, symptomatic, with occult blood positive, but no obvious bleeding. Endoscopy has been held off because of pulmonary status. 2. Nonocclusive acute left leg deep venous thrombosis involving the common femoral vein, status post inferior vena cava filter. 3. Acute severe chronic obstructive pulmonary disease exacerbation, end-stage, in an ex-smoker, slow to respond with a prior history of lung abscess 4. Long-standing hard of hearing. 5. Essential hypertension. 6. Chronic hypoxic respiratory failure. Uses oxygen at home. 7. Acute hypoxic respiratory failure, currently on bi-level positive airway pressure off and on and high-flow 15L, slow to respond. 8. 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 9. Chronic pulmonary fibrosis. 10. Benign prostatic hypertrophy. PLAN: I spoke to Stacie from GI. Now that the patient's pulmonary status has improved, would like to proceed with endoscopy so that we can fully anticoagulate the patient. Overall prognosis guarded due to multiple comorbidities. Patient will be moved out of the ICU today.
[2016-05-10] MEDS: PIPERACILLIN-TAZOBACTAM 3.375 GM in DEXTROSE/WATER 1 50ML.BAG IVPB SCH ×4 (02:04→23:15)
[2016-05-10 05:19] LABS: Anisocytosis Moderate; Basophils % (A) 0 %; CHCM 28.1; Eosinophils % (A) 0 %; HCT 26.9 % (39.0-53.0); HDW 5.19; HGB 7.5 gm/dL (13.0-17.5); Hypochromasia Marked; Luc # (Auto) 0.14; Luc % (Auto) 1; Lymphocytes # (A) 0.2 k/uL (1.0-4.8); Lymphocytes % (A) 1 %; MCH 19.6 pg (25.0-35.0); MCV 70.4 fL (80.0-100.0); Mean Platelet Volume 6.7; Microcytosis Marked; Monocytes # (A) 0.3 k/uL (0-1.0); Monocytes % (A) 2 %; Neutrophils % (A) 96 %; Poikilocytosis Marked; RBC 3.82 m/uL (4.30-5.90); WBC 14.7 k/uL (3.8-10.6); WBC (Perox) 14.95
[2016-05-10 05:22] LABS: MCHC 27.9 g/dL (31.0-37.0)
[2016-05-10 05:33] LABS: ALT 24 U/L (21-72); AST 21 U/L (17-59); Alkaline Phosphatase 54 U/L (38-126); Anion Gap 7 mmol/L; Blood Urea Nitrogen 22 mg/dL (9-20); Calcium 8.6 mg/dL (8.4-10.2); Carbon Dioxide 35 mmol/L (22-30); Chloride 93 mmol/L (98-107); Glucose 139 mg/dL (74-99); Magnesium 2.2 mg/dL (1.6-2.3); Non-African American GFR(MDRD) >60 (>60 ml/min/1.73 sqM); Phosphorous 3.9 mg/dL (2.5-4.5); Sodium 135 mmol/L (137-145); Total Bilirubin 0.6 mg/dL (0.2-1.3); Total Protein 5.1 g/dL (6.3-8.2)
[2016-05-10 05:38] LABS: INR 1.1 (<1.1)
[2016-05-10] MEDS: SYMBICORT 160-4.5 MCG INHALER INHALATION SCH ×2 (07:26→19:34)
[2016-05-10] MEDS: IPRATROPIUM-ALBUTEROL 3 ML NEB INHALATION SCH ×4 (07:26→19:34)
[2016-05-10 07:56] LABS: Glucose,Whole Blood 125 mg/dL (75-99)
--- NOTE | 2016-05-10 07:59 | XR ---
EXAMINATION TYPE: XR chest 1V DATE OF EXAM: 05/10/2016 6:39 AM COMPARISON: 05/09/2016 HISTORY: Shortness of breath TECHNIQUE: Single frontal view of the chest is obtained. FINDINGS: Bilateral pleural-parenchymal changes are stable. Loculated apical pneumothorax or large b jordin involving the right upper lobe is stable underlying COPD noted. Diffuse osteopenia noted. IMPRESSION: 1. Stable bilateral pleural-parenchymal changes.
[2016-05-10] MEDS: INSULIN LISPRO (humaLOG) 300 UNIT/3 ML VIAL SQ SCH ×4 (08:30→20:29)
[2016-05-10] MEDS: DOCUSATE 100 MG CAP PO SCH ×2 (08:40→20:28)
[2016-05-10] MEDS: DULoxetine HCL 30 MG CAPSULE.DR PO SCH (08:43)
[2016-05-10] MEDS: ENOXAPARIN 40 MG/0.4 ML SYRINGE SQ SCH (08:44)
[2016-05-10] MEDS: ISOSORBIDE MONONITRATE ER 30 MG TAB.ER.24H PO SCH (08:51)
[2016-05-10] MEDS: METOLAZONE 5 MG TAB PO SCH (08:51)
[2016-05-10] MEDS: methylPREDNISolone SOD SUCCI 40 MG/ML 1 ML VIAL IV SCH ×2 (08:51→20:26)
[2016-05-10] MEDS: METOPROLOL TARTRATE 12.5 MG TAB PO SCH ×2 (08:51→20:28)
[2016-05-10] MEDS: PANTOPRAZOLE 40 MG/10 ML VIAL IVP SCH ×2 (08:52→20:26)
[2016-05-10] MEDS: SULFAMETHOX-TMP 800-160MG 1 EACH TAB PO SCH (08:52)
[2016-05-10] MEDS: THEOPHYLLINE 24 HOUR 300 MG CAP.ER.24H PO SCH (08:52)
[2016-05-10 12:04] LABS: Glucose,Whole Blood 119 mg/dL (75-99)
[2016-05-10] MEDS: ALPRAZolam 0.25 MG TAB PO PRN (13:26)
--- NOTE | 2016-05-10 13:33 | P.PN ---
Subjective Principal diagnosis: Anemia 76-year-old male with a history of severe end-stage COPD admitted with iron deficiency anemia without overt bleeding, dyspnea and left leg swelling. Status post IVC filter for lower extremity DVT. Lovenox 40 mg daily. No reports of GI bleeding. Denies abdominal pain. Tolerating clear liquids. Hemoglobin 7.5. Tolerating regular diet. Objective - Vital Signs Vital signs: Vital Signs Temp 97.7 F 05/10/16 08:15 Pulse 113 H 05/10/16 08:15 Resp 28 H 05/10/16 08:15 BP 140/60 05/10/16 08:15 Pulse Ox 91 L 05/10/16 08:15 Intake & Output 05/09/16 05/10/16 05/10/16 18:59 06:59 18:59 Intake Total 922.5 127.5 40 Output Total 650 1640 250 Balance 272.5 -1512.5 -210 Weight 62.7 kg Intake: IV 60 50 40 0.9 60 50 40 Intake, IV Titration 62.5 77.5 Amount Piperacillin-Tazobactam 3 62.5 77.5 .375 gm In Dextrose/Water 1 50ml.bag @ 12.5 mls/hr IVPB Q8HR [facility] Rx#: [id number] Oral 500 Blood Product 300 Output: Urine 650 1640 250 Other: Voiding Method Indwelling Catheter Indwelling Catheter Indwelling Catheter - Exam General appearance: The patient is alert, oriented, in no acute distress. HET: Head is normocephalic and atraumatic. Pupils are equal and reactive. Oropharynx is clear without lesions. Neck: Supple without lymphadenopathy. Trachea midline. Heart: S1 S2. Regular rate and rhythm. Lungs: Diminished bilaterally. Abdomen: Soft, nontender, nondistended with bowel sounds. No peritoneal signs. No palpable organomegaly or masses. Extremities: Normal skin color and turgor. No cyanosis, rash, ulceration, clubbing, or edema. Radial and pedal pulses are 2/4 bilaterally. Chris with clear yellow urine. Neurological: No focal deficits. Strength and sensation are grossly intact. - Labs CBC & Chem 7: 05/10/16 04:44 05/10/16 04:44 Labs: Abnormal Lab Results - Last 24 Hours (Table) 05/09/16 05/09/16 05/10/16 Range/Units 17:26 22:18 04:44 WBC 14.7 H (3.8-10.6) k/uL RBC 3.82 L (4.30-5.90) m/uL Hgb 7.5 L (13.0-17.5) gm/dL Hct 26.9 L (39.0-53.0) % MCV 70.4 L (80.0-100.0) fL MCH 19.6 L (25.0-35.0) pg MCHC 27.9 L (31.0-37.0) g/dL RDW 22.0 H (11.5-15.5) % Neutrophils # 14.0 H (1.3-7.7) k/uL Lymphocytes # 0.2 L (1.0-4.8) k/uL Sodium (137-145) mmol/L Chloride (98-107) mmol/L Carbon Dioxide (22-30) mmol/L BUN (9-20) mg/dL Glucose (74-99) mg/dL POC Glucose (mg/dL) 128 H 143 H (75-99) mg/dL Total Protein (6.3-8.2) g/dL Albumin (3.5-5.0) g/dL 05/10/16 05/10/16 05/10/16 Range/Units 04:44 07:54 12:03 WBC (3.8-10.6) k/uL RBC (4.30-5.90) m/uL Hgb (13.0-17.5) gm/dL Hct (39.0-53.0) % MCV (80.0-100.0) fL MCH (25.0-35.0) pg MCHC (31.0-37.0) g/dL RDW (11.5-15.5) % Neutrophils # (1.3-7.7) k/uL Lymphocytes # (1.0-4.8) k/uL Sodium 135 L (137-145) mmol/L Chloride 93 L (98-107) mmol/L Carbon Dioxide 35 H (22-30) mmol/L BUN 22 H (9-20) mg/dL Glucose 139 H (74-99) mg/dL POC Glucose (mg/dL) 125 H 119 H (75-99) mg/dL Total Protein 5.1 L (6.3-8.2) g/dL Albumin 2.9 L (3.5-5.0) g/dL Microbiology - Last 24 Hours (Table) 05/09/16 11:00 Gram Stain - Preliminary Sputum Assessment and Plan (1) Iron deficiency anemia Narrative/Plan: Component of acute blood loss with positive Hemoccult stool. Status: Acute (2) Left leg DVT Status: Acute (3) Stacy filter in place Status: Acute (4) Advanced COPD Status: Acute Plan: 1. Upper and lower Endoscopy recommended for workup of anemia however will be contingent on respiratory clinical course but not planned at this time. Optimization of respiratory status. Pulmonary clearance will be needed before proceeding with exams. Patient is anticipating discharge home possibly tomorrow. Continue to follow CBC closely. We'll continue to follow with you. Assessment and plan of care discussed with Dr. Montilla.
--- NOTE | 2016-05-10 14:53 | P.PN ---
Subjective Principal diagnosis: Acute anemia and acute left deep vein thrombosis. Involving left lower extremity. This is a 76-year-old white male with history of severe end-stage COPD, O2 dependent, prednisone dependent, patient is also known to have history of right upper lobe lung abscess which has been treated for a long period of time with antibiotics. History of pleural effusion requiring thoracentesis, and he continues to have some loculated effusion on the right side. Patient presented to the ER with mostly symptoms of increased shortness of breath. Even at rest. Patient has been short of breath for the last few days. When he arrived to the ER, patient was on BiPAP, he was in severe respiratory distress. Workup in the ER included a CBC which showed profound anemia hemoglobin of 5.0, baseline hemoglobin back in 2014 was 11.8. A shunt received a total of 2 units of packed RBCs. He was also not is noted to have positive Hemoccult stool. Patient was also complaining of left leg swelling, venous Doppler showed evidence of deep vein thrombosis, patient was admitted to the ICU, but for some reason he was started on heparin, however upon my evaluation, I discontinued his heparin, recommended a Stacy filter placement, place him on Protonix 40 mg IV push every 12 hours, and I recommended a GI consultation. In the meantime we will keep the patient in the intensive care unit. Presently the patient denies shortness of breath, no cough, no wheezing, no chest pain. Chest x-ray shows significantdisease involving the right lung, but this is a chronic finding. Left side is relatively clear. Patient was reevaluated today on 05/08/2016, he seems to be doing relatively well , however he required placement on BiPAP for increased shortness of breath overnight. Patient also had few episodes of minimal hemoptysis, and a CT of the chest was done. Showed what was expected on the right lung, but no evidence of acute pulmonary embolism. Patient is on a small dose of Lovenox at present, and he is on BiPAP, he is also on bronchodilators, and he is status post IVC filter placement done by vascular surgery. Hemoglobin seems to be stable at 8.0, so far the patient received only 2 units of packed RBCs. His electrolytes and renal profile are normal in spite of the fact that the patient received significant amount of contrast media for his IVC filter placement and for his CT of the chest. Today I discussed the CODE STATUS with the patient, and he will discuss it with his , but he seems to be very inclined to consider DO NOT RESUSCITATE CODE STATUS. This will be further verified with the . Reevaluated today on 05/09/2016, overall the patient is doing better, breathing easier, continues to have occasional episodes of minimal hemoptysis which is chronic, and today I recommended adding Zosyn. WBC count is elevated at 20.6 hemoglobin is 7.6. Electrolytes are normal renal profile is normal. INR is normal. Reevaluated on 05/10/2016, patient remains in the ICU, he is basically about the same. Continues to have intermittent minimal amount of hemoptysis. Hence I cut down his Lovenox to once daily and again the patient is not the most ideal candidate for bronchoscopy because of his underlying severe end-stage COPD. Labs were reviewed hemoglobin is 7.5. Electrolytes are normal bicarb is 35 renal profile is normal CBC count is 14.7. Patient denies any symptoms of GI bleeding. Objective - Vital Signs Vital signs: Vital Signs Temp 97.7 F 05/10/16 08:15 Pulse 113 H 05/10/16 08:15 Resp 28 H 05/10/16 08:15 BP 140/60 05/10/16 08:15 Pulse Ox 91 L 05/10/16 08:15 Intake & Output 05/09/16 05/10/16 05/10/16 18:59 06:59 18:59 Intake Total 922.5 127.5 40 Output Total 650 1640 250 Balance 272.5 -1512.5 -210 Weight 62.7 kg Intake: IV 60 50 40 0.9 60 50 40 Intake, IV Titration 62.5 77.5 Amount Piperacillin-Tazobactam 3 62.5 77.5 .375 gm In Dextrose/Water 1 50ml.bag @ 12.5 mls/hr IVPB Q8HR [facility] Rx#: [id number] Oral 500 Blood Product 300 Output: Urine 650 1640 250 Other: Voiding Method Indwelling Catheter Indwelling Catheter Indwelling Catheter - Exam GENERAL: Patient is well-developed and well-nourished. Patient is nontoxic and well- hydrated and is in moderate distress. Patient is presently on BiPAP with IPAP of 12 and EPAP of 4. ENT: Neck is soft and supple. No significant lymphadenopathy is noted. Oropharynx is clear. Moist mucous membranes. Neck has full range of motion without eliciting any pain. EYES: The sclera were anicteric and conjunctiva were pink and moist. Extraocular movements were intact and pupils were equal round and reactive to light. Eyelids were unremarkable. PULMONARY: Diminished breath sound bilaterally, minimal crackles at the right base rhonchi and wheezes on forced expiratory maneuver. CARDIOVASCULAR: Patient has tachycardia with extrasystole. ABDOMEN: Soft and nontender with normal bowel sounds. No palpable organomegaly was noted. There is no palpable pulsatile mass. SKIN: Skin is clear with no lesions or rashes and otherwise unremarkable. NEUROLOGIC: Patient is alert and oriented x3. Cranial nerves II through XII are grossly intact. Motor and sensory are also intact. Normal speech, volume and content. Symmetrical smile. MUSCULOSKELETAL: Normal extremities with adequate strength and full range of motion. Patient has significant edema on the left lower leg in comparison to the right patient stated this is not normal LYMPHATICS: No significant lymphadenopathy is noted Extremities: Minimal swelling noted in the left lower extremity, improved according to the patient since admission. - Labs CBC & Chem 7: 05/10/16 04:44 05/10/16 04:44 Labs: Abnormal Lab Results - Last 24 Hours (Table) 05/09/16 05/09/16 05/10/16 Range/Units 17:26 22:18 04:44 WBC 14.7 H (3.8-10.6) k/uL RBC 3.82 L (4.30-5.90) m/uL Hgb 7.5 L (13.0-17.5) gm/dL Hct 26.9 L (39.0-53.0) % MCV 70.4 L (80.0-100.0) fL MCH 19.6 L (25.0-35.0) pg MCHC 27.9 L (31.0-37.0) g/dL RDW 22.0 H (11.5-15.5) % Neutrophils # 14.0 H (1.3-7.7) k/uL Lymphocytes # 0.2 L (1.0-4.8) k/uL Sodium (137-145) mmol/L Chloride (98-107) mmol/L Carbon Dioxide (22-30) mmol/L BUN (9-20) mg/dL Glucose (74-99) mg/dL POC Glucose (mg/dL) 128 H 143 H (75-99) mg/dL Total Protein (6.3-8.2) g/dL Albumin (3.5-5.0) g/dL 05/10/16 05/10/16 05/10/16 Range/Units 04:44 07:54 12:03 WBC (3.8-10.6) k/uL RBC (4.30-5.90) m/uL Hgb (13.0-17.5) gm/dL Hct (39.0-53.0) % MCV (80.0-100.0) fL MCH (25.0-35.0) pg MCHC (31.0-37.0) g/dL RDW (11.5-15.5) % Neutrophils # (1.3-7.7) k/uL Lymphocytes # (1.0-4.8) k/uL Sodium 135 L (137-145) mmol/L Chloride 93 L (98-107) mmol/L Carbon Dioxide 35 H (22-30) mmol/L BUN 22 H (9-20) mg/dL Glucose 139 H (74-99) mg/dL POC Glucose (mg/dL) 125 H 119 H (75-99) mg/dL Total Protein 5.1 L (6.3-8.2) g/dL Albumin 2.9 L (3.5-5.0) g/dL Microbiology - Last 24 Hours (Table) 05/09/16 11:00 Gram Stain - Preliminary Sputum Assessment and Plan Plan: Impression: 1 acute anemia secondary to GI blood losses, suspect gastritis or peptic ulcer disease in a patient who is chronically on prednisone for severe end-stage COPD. However the possibility of lower GI bleeding is not entirely ruled out. But felt to be less likely. 2 acute deep vein thrombosis involving the left lower extremity. Patient has absolute contraindication to anticoagulation, hence IVC filter was placed by vascular surgery, in the meantime I recommended very small dose of Lovenox however the patient develops any further bleeding the Lovenox will have to be discontinued. 3 severe end-stage COPD O2 dependent, prednisone dependent. Patient has history of chronic hypoxic respiratory failure, and based on this presentation, he seems to have acute on chronic hypoxic respiratory failure. Secondary to COPD. 4 history of adrenal insufficiency. 5 history of right upper lobe lung abscess 6 history of MSSA pneumonia. 7 history of right pleural effusion presently loculated and chronic. 8 history of hip fracture requiring surgery in the past 1 year. 9 history of chronic hypoxic respiratory failure secondary to COPD. 10 status post IVC filter placement on 05/07/2016. 11: History of chronic hemoptysis secondary to significant airspace disease involving the right upper lobe. Patient is not the most ideal candidate for bronchoscopy and evaluation of the right upper lobe. That is mostly because of severe end-stage COPD. Recommendation: Continue present treatment plan including bronchodilators, Protonix, Lovenox dose was cut down. transfer patient to a regular medical floor today, continue to monitor closely. Possible discharge planning in the next couple of days. Time with Patient: Less than 30
[2016-05-10 17:04] LABS: Glucose,Whole Blood 140 mg/dL (75-99)
[2016-05-10] MEDS: TAMSULOSIN 0.4 MG CAP.ER.24H PO SCH (17:29)
[2016-05-10] MEDS: traZODone HCL 100 MG TAB PO SCH (20:26)
[2016-05-10 20:27] LABS: Glucose,Whole Blood 137 mg/dL (75-99)
[2016-05-11 07:22] LABS: Glucose,Whole Blood 114 mg/dL (75-99)
[2016-05-11 07:33] LABS: Anisocytosis Moderate; Basophils % (A) 0 %; Eosinophils % (A) 0 %; HCT 27.2 % (39.0-53.0); HDW 5.09; HGB 7.5 gm/dL (13.0-17.5); Hypochromasia Marked; Luc # (Auto) 0.39; Luc % (Auto) 3; Lymphocytes # (A) 0.6 k/uL (1.0-4.8); Lymphocytes % (A) 5 %; MCH 19.7 pg (25.0-35.0); MCV 70.9 fL (80.0-100.0); Mean Platelet Volume 8.3; Microcytosis Marked; Monocytes # (A) 0.8 k/uL (0-1.0); Monocytes % (A) 6 %; Neutrophils % (A) 86 %; Poikilocytosis Marked; RBC 3.83 m/uL (4.30-5.90); RDW 22.2 % (11.5-15.5); WBC 12.8 k/uL (3.8-10.6); WBC (Perox) 12.96
[2016-05-11 07:35] LABS: MCHC 27.8 g/dL (31.0-37.0)
[2016-05-11] MEDS: SYMBICORT 160-4.5 MCG INHALER INHALATION SCH ×2 (07:38→18:58)
[2016-05-11] MEDS: IPRATROPIUM-ALBUTEROL 3 ML NEB INHALATION SCH ×4 (07:38→18:58)
[2016-05-11 07:40] LABS: INR 1.1 (<1.1); Prothrombin Time 11.2 sec (9.0-12.0)
[2016-05-11] MEDS: THEOPHYLLINE 24 HOUR 300 MG CAP.ER.24H PO SCH (07:54)
[2016-05-11] MEDS: ISOSORBIDE MONONITRATE ER 30 MG TAB.ER.24H PO SCH (07:54)
[2016-05-11] MEDS: ALPRAZolam 0.25 MG TAB PO PRN ×2 (07:54→21:31)
[2016-05-11] MEDS: SULFAMETHOX-TMP 800-160MG 1 EACH TAB PO SCH (07:54)
[2016-05-11] MEDS: METOPROLOL TARTRATE 12.5 MG TAB PO SCH ×2 (07:54→21:31)
[2016-05-11] MEDS: DOCUSATE 100 MG CAP PO SCH ×2 (07:54→21:31)
[2016-05-11] MEDS: ENOXAPARIN 40 MG/0.4 ML SYRINGE SQ SCH (07:55)
[2016-05-11] MEDS: DULoxetine HCL 30 MG CAPSULE.DR PO SCH (07:55)
[2016-05-11] MEDS: PIPERACILLIN-TAZOBACTAM 3.375 GM in DEXTROSE/WATER 1 50ML.BAG IVPB SCH ×3 (07:55→23:46)
[2016-05-11] MEDS: methylPREDNISolone SOD SUCCI 40 MG/ML 1 ML VIAL IV SCH ×2 (07:56→22:14)
[2016-05-11] MEDS: PANTOPRAZOLE 40 MG/10 ML VIAL IVP SCH ×2 (07:56→21:31)
[2016-05-11 08:06] LABS: ALT 20 U/L (21-72); AST 10 U/L (17-59); Alkaline Phosphatase 50 U/L (38-126); Anion Gap 8 mmol/L; Blood Urea Nitrogen 22 mg/dL (9-20); Calcium 8.8 mg/dL (8.4-10.2); Carbon Dioxide 33 mmol/L (22-30); Chloride 94 mmol/L (98-107); Glucose 101 mg/dL (74-99); Magnesium 1.9 mg/dL (1.6-2.3); Non-African American GFR(MDRD) >60 (>60 ml/min/1.73 sqM); Phosphorous 3.9 mg/dL (2.5-4.5); Potassium 3.8 mmol/L (3.5-5.1); Sodium 135 mmol/L (137-145); Total Bilirubin 0.6 mg/dL (0.2-1.3); Total Protein 5.2 g/dL (6.3-8.2)
--- NOTE | 2016-05-11 08:08 | PN ---
DATE OF SERVICE: 05/10/2016 PRESENTING COMPLAINT: Severe anemia. INTERVAL HISTORY: This patient with severe COPD exacerbation, severe anemia and DVT had an IVC filter placed and because of pulmonary status endoscopy could not be done; patient is intubated using BiPAP. Breathing is better. Tolerating a diet. Review of systems done for constitutional, cardiovascular, GI, pulmonary; relevant findings as above. Current medications are reviewed that include IV Zosyn. On examination, temperature 97.9, pulse 104, respiration 16, blood pressure 139/70, pulse ox 93% on BiPAP. GENERAL APPEARANCE: Sitting up, with a BiPAP in place. EYES: Pupils equal. Conjunctivae normal. NECK: JVD not raised. Mass palpable. RESPIRATORY: Effort increased. LUNGS: Decreased breath sounds. Prolonged expiration. CARDIOVASCULAR: First and second sounds normal. Minimal decreased edema. ABDOMEN: Soft, nontender. Liver and spleen not palpable. PSYCHIATRY: Alert and oriented x3. Mood and affect anxious appearing. INVESTIGATIONS: White count 14.7, hemoglobin 7.5. Potassium 4. Accu-Cheks are noted. ASSESSMENT: 1. Acute severe anemia symptomatic with occult blood positive. No obvious source of bleeding. Endoscopy could not be done because of pulmonary status. 2. Nonocclusive acute left leg deep venous thrombosis involving the common femoral vein status post IVC filter in a patient with limited ambulation. 3. Acute severe chronic obstructive pulmonary disease exacerbation in a smoker with prior history of lung abscess. 4. Long-standing hard of hearing. 5. Essential hypertension. 6. Chronic hypoxic respiratory failure. He uses oxygen at home. 7. Acute hypoxic respiratory failure, currently on BiPAP high flow oxygen. 8. 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 9. Chronic pulmonary fibrosis. 10. Benign prostatic hypertrophy. PLAN: Continue current medications and treatment plan. Because of the patient's pulmonary status, endoscopy cannot be done. Spoke to Dr. Montilla. Will follow with Dr. Browning.
[2016-05-11] MEDS: INSULIN LISPRO (humaLOG) 300 UNIT/3 ML VIAL SQ SCH ×4 (08:37→21:31)
--- NOTE | 2016-05-11 11:35 | P.PN ---
Subjective Principal diagnosis: Anemia 76-year-old male with a history of severe end-stage COPD admitted with iron deficiency anemia without overt bleeding, dyspnea and left leg swelling. Status post IVC filter for lower extremity DVT. Lovenox 40 mg daily. No reports of GI bleeding. Denies abdominal pain. Tolerating regular diet. Hemoglobin 7.5. Objective - Vital Signs Vital signs: Vital Signs Temp 98.2 F 05/11/16 07:00 Pulse 102 H 05/11/16 11:17 Resp 16 05/11/16 07:00 BP 129/80 05/11/16 07:00 Pulse Ox 97 05/11/16 07:00 Intake & Output 05/10/16 05/11/16 05/11/16 18:59 06:59 18:59 Intake Total 280 480 Output Total 250 Balance 30 480 Weight 62.7 kg Intake: IV 40 0.9 40 Oral 240 480 Output: Urine 250 Other: Voiding Method Urinal Urinal Urinal # Voids 2 1 - Exam General appearance: The patient is alert, oriented, in no acute distress. HET: Head is normocephalic and atraumatic. Pupils are equal and reactive. Oropharynx is clear without lesions. Neck: Supple without lymphadenopathy. Trachea midline. Heart: S1 S2. Regular rate and rhythm. Lungs: Diminished bilaterally bases. Abdomen: Soft, nontender, nondistended with bowel sounds. No peritoneal signs. No palpable organomegaly or masses. Extremities: Normal skin color and turgor. No cyanosis, rash, ulceration, clubbing, or edema. Radial and pedal pulses are 2/4 bilaterally. Chris with clear yellow urine. Neurological: No focal deficits. Strength and sensation are grossly intact. - Labs CBC & Chem 7: 05/11/16 07:17 05/11/16 07:17 Labs: Abnormal Lab Results - Last 24 Hours (Table) 05/10/16 05/10/16 05/10/16 Range/Units 12:03 17:00 20:26 WBC (3.8-10.6) k/uL RBC (4.30-5.90) m/uL Hgb (13.0-17.5) gm/dL Hct (39.0-53.0) % MCV (80.0-100.0) fL MCH (25.0-35.0) pg MCHC (31.0-37.0) g/dL RDW (11.5-15.5) % Neutrophils # (1.3-7.7) k/uL Lymphocytes # (1.0-4.8) k/uL Sodium (137-145) mmol/L Chloride (98-107) mmol/L Carbon Dioxide (22-30) mmol/L BUN (9-20) mg/dL Glucose (74-99) mg/dL POC Glucose (mg/dL) 119 H 140 H 137 H (75-99) mg/dL AST (17-59) U/L ALT (21-72) U/L Total Protein (6.3-8.2) g/dL Albumin (3.5-5.0) g/dL 05/11/16 05/11/16 05/11/16 Range/Units 07:16 07:17 07:17 WBC 12.8 H (3.8-10.6) k/uL RBC 3.83 L (4.30-5.90) m/uL Hgb 7.5 L (13.0-17.5) gm/dL Hct 27.2 L (39.0-53.0) % MCV 70.9 L (80.0-100.0) fL MCH 19.7 L (25.0-35.0) pg MCHC 27.8 L (31.0-37.0) g/dL RDW 22.2 H (11.5-15.5) % Neutrophils # 11.0 H (1.3-7.7) k/uL Lymphocytes # 0.6 L (1.0-4.8) k/uL Sodium 135 L (137-145) mmol/L Chloride 94 L (98-107) mmol/L Carbon Dioxide 33 H (22-30) mmol/L BUN 22 H (9-20) mg/dL Glucose 101 H (74-99) mg/dL POC Glucose (mg/dL) 114 H (75-99) mg/dL AST 10 L (17-59) U/L ALT 20 L (21-72) U/L Total Protein 5.2 L (6.3-8.2) g/dL Albumin 3.0 L (3.5-5.0) g/dL Microbiology - Last 24 Hours (Table) 05/09/16 11:00 Gram Stain - Final Sputum Sputum Culture - Final Assessment and Plan (1) Iron deficiency anemia Narrative/Plan: Component of acute blood loss with positive Hemoccult stool. Status: Acute (2) Left leg DVT Status: Acute (3) [place] filter in place Status: Acute (4) Advanced COPD Status: Acute Plan: 1. Upper and lower Endoscopy recommended for workup of anemia however will be pursued as an outpatient. Discharge per medicine and pulmonology. Would advise outpatient upper GI series/barium enema for least invasive workup of anemia. Return to GI office in 1 week for reevaluation. Assessment and plan of care discussed with Dr. Montilla.
[2016-05-11 11:41] LABS: Glucose,Whole Blood 135 mg/dL (75-99)
--- NOTE | 2016-05-11 12:16 | P.PN ---
Subjective Principal diagnosis: Acute anemia and acute left deep vein thrombosis. Involving left lower extremity. This is a 76-year-old white male with history of severe end-stage COPD, O2 dependent, prednisone dependent, patient is also known to have history of right upper lobe lung abscess which has been treated for a long period of time with antibiotics. History of pleural effusion requiring thoracentesis, and he continues to have some loculated effusion on the right side. Patient presented to the ER with mostly symptoms of increased shortness of breath. Even at rest. Patient has been short of breath for the last few days. When he arrived to the ER, patient was on BiPAP, he was in severe respiratory distress. Workup in the ER included a CBC which showed profound anemia hemoglobin of 5.0, baseline hemoglobin back in 2014 was 11.8. A shunt received a total of 2 units of packed RBCs. He was also not is noted to have positive Hemoccult stool. Patient was also complaining of left leg swelling, venous Doppler showed evidence of deep vein thrombosis, patient was admitted to the ICU, but for some reason he was started on heparin, however upon my evaluation, I discontinued his heparin, recommended a Stacy filter placement, place him on Protonix 40 mg IV push every 12 hours, and I recommended a GI consultation. In the meantime we will keep the patient in the intensive care unit. Presently the patient denies shortness of breath, no cough, no wheezing, no chest pain. Chest x-ray shows significantdisease involving the right lung, but this is a chronic finding. Left side is relatively clear. Patient was reevaluated today on 05/08/2016, he seems to be doing relatively well , however he required placement on BiPAP for increased shortness of breath overnight. Patient also had few episodes of minimal hemoptysis, and a CT of the chest was done. Showed what was expected on the right lung, but no evidence of acute pulmonary embolism. Patient is on a small dose of Lovenox at present, and he is on BiPAP, he is also on bronchodilators, and he is status post IVC filter placement done by vascular surgery. Hemoglobin seems to be stable at 8.0, so far the patient received only 2 units of packed RBCs. His electrolytes and renal profile are normal in spite of the fact that the patient received significant amount of contrast media for his IVC filter placement and for his CT of the chest. Today I discussed the CODE STATUS with the patient, and he will discuss it with his , but he seems to be very inclined to consider DO NOT RESUSCITATE CODE STATUS. This will be further verified with the . Reevaluated today on 05/09/2016, overall the patient is doing better, breathing easier, continues to have occasional episodes of minimal hemoptysis which is chronic, and today I recommended adding Zosyn. WBC count is elevated at 20.6 hemoglobin is 7.6. Electrolytes are normal renal profile is normal. INR is normal. Reevaluated on 05/10/2016, patient remains in the ICU, he is basically about the same. Continues to have intermittent minimal amount of hemoptysis. Hence I cut down his Lovenox to once daily and again the patient is not the most ideal candidate for bronchoscopy because of his underlying severe end-stage COPD. Labs were reviewed hemoglobin is 7.5. Electrolytes are normal bicarb is 35 renal profile is normal CBC count is 14.7. Patient denies any symptoms of GI bleeding. Reevaluated today on 05/11/2016, patient is now on the regular medical floor, we are trying to titrate his FiO2 down, remains on high flow nasal cannula. Overall the patient is doing much better, hardly any hemoptysis, swelling in the left lower extremity is resolved, and he denies any shortness of breath at rest, but he has some dyspnea on exertion. Hemoglobin is stable at 7.5. WBC count is 12.8. Electrolytes were reviewed, renal profile is normal. Bicarb is 33. We are hoping to titrate FiO2 down were and we could discharge the patient home soon. Objective - Vital Signs Vital signs: Vital Signs Temp 98.2 F 05/11/16 07:00 Pulse 102 H 05/11/16 11:17 Resp 16 05/11/16 07:00 BP 129/80 05/11/16 07:00 Pulse Ox 97 05/11/16 07:00 Intake & Output 05/10/16 05/11/16 05/11/16 18:59 06:59 18:59 Intake Total 280 480 Output Total 250 Balance 30 480 Weight 62.7 kg Intake: IV 40 0.9 40 Oral 240 480 Output: Urine 250 Other: Voiding Method Urinal Urinal Urinal # Voids 2 1 - Exam GENERAL: Patient is well-developed and well-nourished. Patient is nontoxic and well- hydrated and is in moderate distress. Uses BiPAP at night ENT: Neck is soft and supple. No significant lymphadenopathy is noted. Oropharynx is clear. Moist mucous membranes. Neck has full range of motion without eliciting any pain. EYES: The sclera were anicteric and conjunctiva were pink and moist. Extraocular movements were intact and pupils were equal round and reactive to light. Eyelids were unremarkable. PULMONARY: Diminished breath sound bilaterally, minimal crackles at the right base rhonchi and wheezes on forced expiratory maneuver. CARDIOVASCULAR: Patient has tachycardia with extrasystole. ABDOMEN: Soft and nontender with normal bowel sounds. No palpable organomegaly was noted. There is no palpable pulsatile mass. SKIN: Skin is clear with no lesions or rashes and otherwise unremarkable. NEUROLOGIC: Patient is alert and oriented x3. Cranial nerves II through XII are grossly intact. Motor and sensory are also intact. Normal speech, volume and content. Symmetrical smile. MUSCULOSKELETAL: Normal extremities with adequate strength and full range of motion. Patient has significant edema on the left lower leg in comparison to the right patient stated this is not normal LYMPHATICS: No significant lymphadenopathy is noted Extremities: Minimal swelling noted in the left lower extremity, improved according to the patient since admission. - Labs CBC & Chem 7: 05/11/16 07:17 05/11/16 07:17 Labs: Abnormal Lab Results - Last 24 Hours (Table) 05/10/16 05/10/16 05/11/16 Range/Units 17:00 20:26 07:16 WBC (3.8-10.6) k/uL RBC (4.30-5.90) m/uL Hgb (13.0-17.5) gm/dL Hct (39.0-53.0) % MCV (80.0-100.0) fL MCH (25.0-35.0) pg MCHC (31.0-37.0) g/dL RDW (11.5-15.5) % Neutrophils # (1.3-7.7) k/uL Lymphocytes # (1.0-4.8) k/uL Sodium (137-145) mmol/L Chloride (98-107) mmol/L Carbon Dioxide (22-30) mmol/L BUN (9-20) mg/dL Glucose (74-99) mg/dL POC Glucose (mg/dL) 140 H 137 H 114 H (75-99) mg/dL AST (17-59) U/L ALT (21-72) U/L Total Protein (6.3-8.2) g/dL Albumin (3.5-5.0) g/dL 05/11/16 05/11/16 05/11/16 Range/Units 07:17 07:17 11:35 WBC 12.8 H (3.8-10.6) k/uL RBC 3.83 L (4.30-5.90) m/uL Hgb 7.5 L (13.0-17.5) gm/dL Hct 27.2 L (39.0-53.0) % MCV 70.9 L (80.0-100.0) fL MCH 19.7 L (25.0-35.0) pg MCHC 27.8 L (31.0-37.0) g/dL RDW 22.2 H (11.5-15.5) % Neutrophils # 11.0 H (1.3-7.7) k/uL Lymphocytes # 0.6 L (1.0-4.8) k/uL Sodium 135 L (137-145) mmol/L Chloride 94 L (98-107) mmol/L Carbon Dioxide 33 H (22-30) mmol/L BUN 22 H (9-20) mg/dL Glucose 101 H (74-99) mg/dL POC Glucose (mg/dL) 135 H (75-99) mg/dL AST 10 L (17-59) U/L ALT 20 L (21-72) U/L Total Protein 5.2 L (6.3-8.2) g/dL Albumin 3.0 L (3.5-5.0) g/dL Microbiology - Last 24 Hours (Table) 05/09/16 11:00 Gram Stain - Final Sputum Sputum Culture - Final Assessment and Plan Plan: Impression: 1 acute anemia secondary to GI blood losses, suspect gastritis or peptic ulcer disease in a patient who is chronically on prednisone for severe end-stage COPD. However the possibility of lower GI bleeding is not entirely ruled out. But felt to be less likely. 2 acute deep vein thrombosis involving the left lower extremity. Patient has absolute contraindication to anticoagulation, hence IVC filter was placed by vascular surgery, in the meantime I recommended very small dose of Lovenox however the patient develops any further bleeding the Lovenox will have to be discontinued. 3 severe end-stage COPD O2 dependent, prednisone dependent. Patient has history of chronic hypoxic respiratory failure, and based on this presentation, he seems to have acute on chronic hypoxic respiratory failure. Secondary to COPD. 4 history of adrenal insufficiency. 5 history of right upper lobe lung abscess 6 history of MSSA pneumonia. 7 history of right pleural effusion presently loculated and chronic. 8 history of hip fracture requiring surgery in the past 1 year. 9 history of chronic hypoxic respiratory failure secondary to COPD. 10 status post IVC filter placement on 05/07/2016. 11: History of chronic hemoptysis secondary to significant airspace disease involving the right upper lobe. Patient is not the most ideal candidate for bronchoscopy and evaluation of the right upper lobe. That is mostly because of severe end-stage COPD. Recommendation: Continue present treatment plan including bronchodilators, Protonix, Lovenox dose was cut down. Titrate FiO2 down, and if we could get him down to 5 L nasal cannula, then the patient could be discharged home on home O2. Time with Patient: Less than 30
[2016-05-11 13:20] VITALS: BMI 21.6
[2016-05-11 17:18] LABS: Glucose,Whole Blood 104 mg/dL (75-99)
[2016-05-11] MEDS: TAMSULOSIN 0.4 MG CAP.ER.24H PO SCH (17:42)
--- NOTE | 2016-05-11 19:51 | PN ---
DATE OF SERVICE: 05/11/2016 PRESENTING COMPLAINT: Short of breath. INTERVAL HISTORY: This patient with severe COPD exacerbation, severe anemia, presented with acute deep venous thrombosis. IVC filter was placed because could not rule out source of bleed. Because of patient's pulmonary status endoscopy cannot be done. Patient is still requiring high flow oxygen. Patient is using BiPAP. Tolerating a diet. More cheerful. Review of systems done for constitutional, cardiovascular, GI, pulmonary; relevant findings as above. Current medications are reviewed that include IV Zosyn. On examination, temperature 98.2, pulse 106, respirations 16, blood pressure 120/80, pulse ox 97% on BiPAP. GENERAL APPEARANCE: Sitting up, awake, on high flow oxygen. EYES: Pupils equal. Conjunctivae normal. NECK: JVD not raised. Mass not palpable. RESPIRATORY: Effort normal. LUNGS: Diminished breath sounds. Prolonged expiration. CARDIOVASCULAR: First and second sounds normal. Minimal edema. ABDOMEN: Soft, nontender. Liver and spleen not palpable. PSYCHIATRY: Alert and oriented x3. Mood and affect slightly anxious appearing. INVESTIGATIONS: White count 12.8, hemoglobin 7.5. Potassium 3.8. ASSESSMENT: 1. Acute severe anemia symptomatic with occult blood positive. No obvious source of bleeding noted. Endoscopy cannot be done because of poor pulmonary status. 2. Nonocclusive acute left leg deep venous thrombosis involving the common femoral vein, status post IVC, cannot get anticoagulation because of concern about GI bleed causing severe anemia. 3. Acute severe chronic obstructive pulmonary disease exacerbation in a smoker with prior history of lung abscess. 4. Long-standing hard of hearing. 5. Essential hypertension. 6. Chronic hypoxic respiratory failure on oxygen at home. 7. Acute hypoxic respiratory failure, currently BiPAP off and on, trying to weaned down. 8. 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 9. Chronic pulmonary fibrosis. 10. Benign prostate hypertrophy. PLAN: At this point, idea is to get the patient's oxygen down. Will have to be content with pulse ox hovering around 86% if need be. Care was discussed with the patient. Will switch the patient's oral antibiotics and stop in 48 hours.
[2016-05-11 20:31] LABS: Glucose,Whole Blood 189 mg/dL (75-99)
[2016-05-11] MEDS: traZODone HCL 100 MG TAB PO SCH (21:31)
[2016-05-12 07:19] LABS: Glucose,Whole Blood 131 mg/dL (75-99)
[2016-05-12] MEDS: methylPREDNISolone SOD SUCCI 40 MG/ML 1 ML VIAL IV SCH ×2 (07:38→20:46)
[2016-05-12] MEDS: PANTOPRAZOLE 40 MG/10 ML VIAL IVP SCH ×2 (07:39→20:46)
[2016-05-12] MEDS: SULFAMETHOX-TMP 800-160MG 1 EACH TAB PO SCH (07:39)
[2016-05-12] MEDS: METOPROLOL TARTRATE 12.5 MG TAB PO SCH ×2 (07:40→21:16)
[2016-05-12] MEDS: THEOPHYLLINE 24 HOUR 300 MG CAP.ER.24H PO SCH (07:40)
[2016-05-12] MEDS: ISOSORBIDE MONONITRATE ER 30 MG TAB.ER.24H PO SCH (07:41)
[2016-05-12] MEDS: DOCUSATE 100 MG CAP PO SCH ×2 (07:41→20:46)
[2016-05-12] MEDS: DULoxetine HCL 30 MG CAPSULE.DR PO SCH (07:41)
[2016-05-12 07:42] LABS: Anisocytosis Moderate; Basophils % (A) 0 %; CH 20.2; CHCM 27.9; Eosinophils % (A) 0 %; HCT 26.5 % (39.0-53.0); HDW 5.03; HGB 7.2 gm/dL (13.0-17.5); Hypochromasia Marked; INR 1.1 (<1.1); Luc # (Auto) 0.28; Luc % (Auto) 3; Lymphocytes # (A) 0.5 k/uL (1.0-4.8); Lymphocytes % (A) 6 %; MCH 19.5 pg (25.0-35.0); MCV 71.6 fL (80.0-100.0); Mean Platelet Volume 7.6; Microcytosis Marked; Monocytes # (A) 0.4 k/uL (0-1.0); Monocytes % (A) 5 %; Neutrophils # (A) 7.7 k/uL (1.3-7.7); Neutrophils % (A) 86 %; Poikilocytosis Marked; Prothrombin Time 11.2 sec (9.0-12.0); RDW 22.8 % (11.5-15.5)
[2016-05-12] MEDS: METOLAZONE 5 MG TAB PO SCH (07:42)
[2016-05-12] MEDS: INSULIN LISPRO (humaLOG) 300 UNIT/3 ML VIAL SQ SCH ×4 (07:51→20:47)
[2016-05-12 07:54] LABS: ALT 22 U/L (21-72); AST 11 U/L (17-59); Alkaline Phosphatase 46 U/L (38-126); Anion Gap 9 mmol/L; Blood Urea Nitrogen 29 mg/dL (9-20); Calcium 8.7 mg/dL (8.4-10.2); Carbon Dioxide 32 mmol/L (22-30); Chloride 94 mmol/L (98-107); Glucose 114 mg/dL (74-99); MCHC 27.2 g/dL (31.0-37.0); Magnesium 1.9 mg/dL (1.6-2.3); Non-African American GFR(MDRD) >60 (>60 ml/min/1.73 sqM); Phosphorous 4.5 mg/dL (2.5-4.5); Sodium 135 mmol/L (137-145); Total Bilirubin 0.6 mg/dL (0.2-1.3); Total Protein 5.2 g/dL (6.3-8.2)
[2016-05-12] MEDS: PIPERACILLIN-TAZOBACTAM 3.375 GM in DEXTROSE/WATER 1 50ML.BAG IVPB SCH (08:15)
[2016-05-12] MEDS: IPRATROPIUM-ALBUTEROL 3 ML NEB INHALATION SCH ×4 (09:30→18:46)
[2016-05-12] MEDS: SYMBICORT 160-4.5 MCG INHALER INHALATION SCH ×2 (09:30→18:46)
[2016-05-12 11:48] LABS: Glucose,Whole Blood 122 mg/dL (75-99)
--- NOTE | 2016-05-12 12:23 | PN ---
Patient's hemoglobin is stable today. Patient has advanced COPD on 5 L of oxygen at baseline. Patient is presently on 10 L now, which we are tapering down. Patient is otherwise clinically doing well except for mild tachycardia. Patient does not have any evidence of significant clinical bleed at this point of time. REVIEW OF SYSTEMS: CARDIOVASCULAR: No chest pain, no orthopnea, no PND, no palpitations. PULMONARY: Denied any shortness of breath. No cough or hemoptysis. GASTROINTESTINAL: No diarrhea, nausea or vomiting. No abdominal pain. Normoactive bowel sounds. NEUROLOGIC: No headaches, no weakness, no numbness. Medications were reviewed. Sputum cultures are showing gram-positive cocci probably pneumococcus and there is no further testing of the sputum. Patient will be switched to Augmentin. Patient is also on Bactrim. PHYSICAL EXAMINATION: Temperature 97.9, pulse of 103, respiratory rate 16, blood pressure is 110/62, saturating at 90% on 10-L of O2 by nasal cannula. The patient uses BiPAP at night time. GENERAL: The patient is alert and oriented x3, not in any acute distress. Well developed, well nourished. HEENT: Pupils are round and equally reacting to light. EOMI. No scleral icterus. No conjunctival pallor. Normocephalic, atraumatic. No pharyngeal erythema. No thyromegaly. CARDIOVASCULAR: S1 and S2 present. No murmurs, rubs, or gallops. PULMONARY: Significantly decreased air entry into bilateral lung munoz. No wheezing was appreciated. There is almost absent breath sounds. This is probably his baseline. ABDOMEN: Soft, nontender, nondistended, normoactive bowel sounds. No palpable organomegaly. MUSCULOSKELETAL: No joint swelling or deformity. EXTREMITIES: No cyanosis, clubbing, or pedal edema. NEUROLOGICAL: Gross neurological examination did not reveal any focal deficits. SKIN: No rashes. LABORATORY DATA: Hemoglobin is 7.2, compared to 7.5 yesterday. The rest of the comprehensive metabolic profile, no significant abnormality was appreciated compared to yesterday. ASSESSMENT AND PLAN: 1. Acute severe anemia without any active bleed, not a candidate for endoscopy. 2. Chronic obstructive pulmonary disease. 3. Acute on chronic hypercapnic respiratory failure secondary to chronic obstructive pulmonary disease. Patient is still requiring 10 liters of oxygen. We are trying to taper down. 4. Left leg deep venous thrombosis for which patient has an IVC filter. 5. Essential hypertension. 6. End-stage emphysema. 7. Severe pulmonary hypertension secondary to chronic obstructive pulmonary disease which is a secondary pulmonary hypertension. 8. Pulmonary fibrosis. 9. Benign prostatic hypertrophy. PLAN: Continue with antibiotics, inhalational treatments. Continue to taper down oxygen.
--- NOTE | 2016-05-12 12:32 | P.PN ---
Subjective Principal diagnosis: Acute anemia and acute left deep vein thrombosis. Involving left lower extremity. This is a 76-year-old white male with history of severe end-stage COPD, O2 dependent, prednisone dependent, patient is also known to have history of right upper lobe lung abscess which has been treated for a long period of time with antibiotics. History of pleural effusion requiring thoracentesis, and he continues to have some loculated effusion on the right side. Patient presented to the ER with mostly symptoms of increased shortness of breath. Even at rest. Patient has been short of breath for the last few days. When he arrived to the ER, patient was on BiPAP, he was in severe respiratory distress. Workup in the ER included a CBC which showed profound anemia hemoglobin of 5.0, baseline hemoglobin back in 2014 was 11.8. A shunt received a total of 2 units of packed RBCs. He was also not is noted to have positive Hemoccult stool. Patient was also complaining of left leg swelling, venous Doppler showed evidence of deep vein thrombosis, patient was admitted to the ICU, but for some reason he was started on heparin, however upon my evaluation, I discontinued his heparin, recommended a Stacy filter placement, place him on Protonix 40 mg IV push every 12 hours, and I recommended a GI consultation. In the meantime we will keep the patient in the intensive care unit. Presently the patient denies shortness of breath, no cough, no wheezing, no chest pain. Chest x-ray shows significantdisease involving the right lung, but this is a chronic finding. Left side is relatively clear. Patient was reevaluated today on 05/08/2016, he seems to be doing relatively well , however he required placement on BiPAP for increased shortness of breath overnight. Patient also had few episodes of minimal hemoptysis, and a CT of the chest was done. Showed what was expected on the right lung, but no evidence of acute pulmonary embolism. Patient is on a small dose of Lovenox at present, and he is on BiPAP, he is also on bronchodilators, and he is status post IVC filter placement done by vascular surgery. Hemoglobin seems to be stable at 8.0, so far the patient received only 2 units of packed RBCs. His electrolytes and renal profile are normal in spite of the fact that the patient received significant amount of contrast media for his IVC filter placement and for his CT of the chest. Today I discussed the CODE STATUS with the patient, and he will discuss it with his , but he seems to be very inclined to consider DO NOT RESUSCITATE CODE STATUS. This will be further verified with the . Reevaluated today on 05/09/2016, overall the patient is doing better, breathing easier, continues to have occasional episodes of minimal hemoptysis which is chronic, and today I recommended adding Zosyn. WBC count is elevated at 20.6 hemoglobin is 7.6. Electrolytes are normal renal profile is normal. INR is normal. Reevaluated on 05/10/2016, patient remains in the ICU, he is basically about the same. Continues to have intermittent minimal amount of hemoptysis. Hence I cut down his Lovenox to once daily and again the patient is not the most ideal candidate for bronchoscopy because of his underlying severe end-stage COPD. Labs were reviewed hemoglobin is 7.5. Electrolytes are normal bicarb is 35 renal profile is normal CBC count is 14.7. Patient denies any symptoms of GI bleeding. Reevaluated today on 05/11/2016, patient is now on the regular medical floor, we are trying to titrate his FiO2 down, remains on high flow nasal cannula. Overall the patient is doing much better, hardly any hemoptysis, swelling in the left lower extremity is resolved, and he denies any shortness of breath at rest, but he has some dyspnea on exertion. Hemoglobin is stable at 7.5. WBC count is 12.8. Electrolytes were reviewed, renal profile is normal. Bicarb is 33. We are hoping to titrate FiO2 down were and we could discharge the patient home soon. Patient was reevaluated today on 05/12/2016, doing relatively well, however continues to require significant amount of FiO2, he still on high flow nasal cannula at 10 L/m. With marginal saturations. And not quite ready for discharge planning at this point. For his anemia, hemoglobin today is 7.2, I recommended Procrit and starting him on iron. Remains on Lovenox, the dose was cut down significantly, patient continues to have minimal and intermittent episodes of streaky blood in his sputum. Clinically the patient is feeling better, breathing easier, his electrolytes are normal renal profile is normal. Again hemoglobin is at 7.2. Objective - Vital Signs Vital signs: Vital Signs Temp 97.9 F 05/12/16 07:00 Pulse 103 H 05/12/16 09:44 Resp 16 05/12/16 08:00 BP 110/62 05/12/16 07:00 Pulse Ox 92 L 05/12/16 07:00 Intake & Output 05/11/16 05/12/16 05/12/16 18:59 06:59 18:59 Intake Total 360 Output Total 500 50 400 Balance -500 -50 -40 Weight 62.7 kg Intake: Oral 360 Output: Urine 500 50 400 Other: Voiding Method Urinal Urinal Urinal # Voids 3 2 - Exam Physical Exam: Revealed a 76-year-old in no distress. HEENT:[Neck is supple.] [No neck masses.] [No thyromegaly.] [No JVD.] Chest: [Diminished breath sounds throughout, no crackles or rhonchi or wheezes.] Cardiac Exam: [Normal S1 and S2, no S3 gallop, no murmur.] Abdomen: [Soft, nontender, no megaly, no rebound, no guarding, normal bowel sounds.] Extremities: [No clubbing, no edema, no cyanosis.] Neurological Exam: [No focal neurologic deficit.] - Labs CBC & Chem 7: 05/12/16 07:19 05/12/16 07:19 Labs: Abnormal Lab Results - Last 24 Hours (Table) 05/11/16 05/11/16 05/12/16 Range/Units 17:15 20:29 07:16 RBC (4.30-5.90) m/uL Hgb (13.0-17.5) gm/dL Hct (39.0-53.0) % MCV (80.0-100.0) fL MCH (25.0-35.0) pg MCHC (31.0-37.0) g/dL RDW (11.5-15.5) % Lymphocytes # (1.0-4.8) k/uL Sodium (137-145) mmol/L Chloride (98-107) mmol/L Carbon Dioxide (22-30) mmol/L BUN (9-20) mg/dL Glucose (74-99) mg/dL POC Glucose (mg/dL) 104 H 189 H 131 H (75-99) mg/dL AST (17-59) U/L Total Protein (6.3-8.2) g/dL Albumin (3.5-5.0) g/dL 05/12/16 05/12/16 05/12/16 Range/Units 07:19 07:19 11:44 RBC 3.70 L (4.30-5.90) m/uL Hgb 7.2 L (13.0-17.5) gm/dL Hct 26.5 L (39.0-53.0) % MCV 71.6 L (80.0-100.0) fL MCH 19.5 L (25.0-35.0) pg MCHC 27.2 L (31.0-37.0) g/dL RDW 22.8 H (11.5-15.5) % Lymphocytes # 0.5 L (1.0-4.8) k/uL Sodium 135 L (137-145) mmol/L Chloride 94 L (98-107) mmol/L Carbon Dioxide 32 H (22-30) mmol/L BUN 29 H (9-20) mg/dL Glucose 114 H (74-99) mg/dL POC Glucose (mg/dL) 122 H (75-99) mg/dL AST 11 L (17-59) U/L Total Protein 5.2 L (6.3-8.2) g/dL Albumin 3.0 L (3.5-5.0) g/dL Microbiology - Last 24 Hours (Table) 05/09/16 11:00 Gram Stain - Final Sputum Sputum Culture - Final Assessment and Plan Plan: Impression: 1 acute anemia secondary to GI blood losses, suspect gastritis or peptic ulcer disease in a patient who is chronically on prednisone for severe end-stage COPD. However the possibility of lower GI bleeding is not entirely ruled out. But felt to be less likely. Patient will be placed on Procrit and will be placed on iron/Feosol. 2 acute deep vein thrombosis involving the left lower extremity. Patient has absolute contraindication to anticoagulation, hence IVC filter was placed by vascular surgery, in the meantime I recommended very small dose of Lovenox however the patient develops any further bleeding the Lovenox will have to be discontinued. 3 severe end-stage COPD O2 dependent, prednisone dependent. Patient has history of chronic hypoxic respiratory failure, and based on this presentation, he seems to have acute on chronic hypoxic respiratory failure. Secondary to COPD. 4 history of adrenal insufficiency. 5 history of right upper lobe lung abscess 6 history of MSSA pneumonia. 7 history of right pleural effusion presently loculated and chronic. 8 history of hip fracture requiring surgery in the past 1 year. 9 history of chronic hypoxic respiratory failure secondary to COPD. 10 status post IVC filter placement on 05/07/2016. 11: History of chronic hemoptysis secondary to significant airspace disease involving the right upper lobe. Patient is not the most ideal candidate for bronchoscopy and evaluation of the right upper lobe. That is mostly because of severe end-stage COPD. however the patient develops worsening hemoptysis, he could be considered for angiography and bronchial artery embolization. Recommendation: Continue present treatment plan including bronchodilators, Protonix, Lovenox dose was cut down. Titrate FiO2 down, and if we could get him down to 5 L nasal cannula, then the patient could be discharged home on home O2. Time with Patient: Less than 30
[2016-05-12] MEDS ORDERED: DARBEPOETIN ALFA 100MCG/0.5ML SYRINGE SQ SCH (13:00)
[2016-05-12] MEDS: ENOXAPARIN 40 MG/0.4 ML SYRINGE SQ SCH (13:24)
[2016-05-12] MEDS: FERROUS SULFATE 325 MG TAB PO SCH ×2 (13:24→16:50)
[2016-05-12] MEDS: TAMSULOSIN 0.4 MG CAP.ER.24H PO SCH (16:51)
[2016-05-12 17:11] LABS: Glucose,Whole Blood 203 mg/dL (75-99)
[2016-05-12 20:16] LABS: Glucose,Whole Blood 131 mg/dL (75-99)
[2016-05-12] MEDS: traZODone HCL 100 MG TAB PO SCH (20:46)
[2016-05-12] MEDS: AMOXIC-POT CLAV 875-125MG 1 EACH TAB PO SCH (21:16)
[2016-05-13 07:20] LABS: Glucose,Whole Blood 114 mg/dL (75-99)
[2016-05-13 07:27] LABS: INR 1.1 (<1.1)
[2016-05-13] MEDS: IPRATROPIUM-ALBUTEROL 3 ML NEB INHALATION SCH ×4 (07:36→19:28)
[2016-05-13] MEDS: SYMBICORT 160-4.5 MCG INHALER INHALATION SCH ×2 (07:36→19:28)
[2016-05-13] MEDS: INSULIN LISPRO (humaLOG) 300 UNIT/3 ML VIAL SQ SCH ×4 (09:09→21:54)
[2016-05-13] MEDS: AMOXIC-POT CLAV 875-125MG 1 EACH TAB PO SCH (09:10)
[2016-05-13] MEDS: FERROUS SULFATE 325 MG TAB PO SCH ×3 (09:10→17:37)
[2016-05-13] MEDS: DOCUSATE 100 MG CAP PO SCH ×2 (09:10→21:54)
[2016-05-13] MEDS: ENOXAPARIN 40 MG/0.4 ML SYRINGE SQ SCH (09:11)
[2016-05-13] MEDS: DULoxetine HCL 30 MG CAPSULE.DR PO SCH (09:11)
[2016-05-13] MEDS: ISOSORBIDE MONONITRATE ER 30 MG TAB.ER.24H PO SCH (09:11)
[2016-05-13] MEDS: SULFAMETHOX-TMP 800-160MG 1 EACH TAB PO SCH (09:12)
[2016-05-13] MEDS: METOPROLOL TARTRATE 12.5 MG TAB PO SCH ×2 (09:12→21:53)
[2016-05-13] MEDS: PANTOPRAZOLE 40 MG/10 ML VIAL IVP SCH ×2 (09:12→21:53)
[2016-05-13] MEDS: THEOPHYLLINE 24 HOUR 300 MG CAP.ER.24H PO SCH (09:13)
[2016-05-13 10:33] LABS: Anisocytosis Moderate; Basophils % (A) 0 %; CH 19.9; CHCM 26.3; Eosinophils % (A) 0 %; HCT 25.6 % (39.0-53.0); HDW 4.79; Hypochromasia Marked; Luc # (Auto) 0.43; Luc % (Auto) 4; Lymphocytes # (A) 0.8 k/uL (1.0-4.8); Lymphocytes % (A) 8 %; MCH 20.1 pg (25.0-35.0); MCV 74.8 fL (80.0-100.0); Microcytosis Marked; Monocytes # (A) 0.7 k/uL (0-1.0); Monocytes % (A) 6 %; Neutrophils # (A) 8.6 k/uL (1.3-7.7); Neutrophils % (A) 82 %; Poikilocytosis Marked; RBC 3.42 m/uL (4.30-5.90); RDW 22.1 % (11.5-15.5); WBC 10.5 k/uL (3.8-10.6); WBC (Perox) 11.08
[2016-05-13 10:34] LABS: ALT 21 U/L (21-72); AST 22 U/L (17-59); Alkaline Phosphatase 39 U/L (38-126); Anion Gap 9 mmol/L; Blood Urea Nitrogen 28 mg/dL (9-20); Calcium 8.6 mg/dL (8.4-10.2); Carbon Dioxide 30 mmol/L (22-30); Chloride 95 mmol/L (98-107); Glucose 96 mg/dL (74-99); Non-African American GFR(MDRD) >60 (>60 ml/min/1.73 sqM); Potassium 4.4 mmol/L (3.5-5.1); Sodium 134 mmol/L (137-145); Total Bilirubin 0.6 mg/dL (0.2-1.3); Total Protein 5.2 g/dL (6.3-8.2)
[2016-05-13 10:36] LABS: HGB 6.9 gm/dL (13.0-17.5); MCHC 26.8 g/dL (31.0-37.0)
[2016-05-13 11:23] LABS: Glucose,Whole Blood 166 mg/dL (75-99)
--- NOTE | 2016-05-13 11:56 | DS ---
DATE OF ADMISSION: 05/06/2016 DATE OF DISCHARGE: Patient is admitted with COPD exacerbation and patient is clinically doing well, although his hemoglobin is 6.9, will transfuse 1 unit and patient will be discharged today in stable medical condition to home and patient is on 6 L at this point of time. Patient has an IVC filter. Patient is anemic, but no source of bleeding was identified. Patient is not a candidate for Upper GI endoscopy because of his severe emphysema. Patient is iron deficient. Will discharge him on iron supplementation. Patient was seen and examined on the day of discharge. Vitals are stable. PHYSICAL EXAMINATION: GENERAL: The patient is alert and oriented x3, not in any acute distress. Well developed, well nourished. HEENT: Pupils are round and equally reacting to light. EOMI. No scleral icterus. No conjunctival pallor. Normocephalic, atraumatic. No pharyngeal erythema. No thyromegaly. CARDIOVASCULAR: S1 and S2 present. No murmurs, rubs, or gallops. ABDOMEN: Soft, nontender, nondistended, normoactive bowel sounds. No palpable organomegaly. MUSCULOSKELETAL: No joint swelling or deformity. EXTREMITIES: No cyanosis, clubbing, or pedal edema. NEUROLOGICAL: Gross neurological examination did not reveal any focal deficits. SKIN: No rashes. RESPIRATORY: I did not hear any significant breath sounds because of his severe emphysema. ASSESSMENT AND PLAN: 1. Acute severe anemia without any acute active bleed, not a candidate for endoscopy. 2. Chronic obstructive pulmonary disease with acute exacerbation. 3. Acute on chronic hypercapnic respiratory failure secondary to chronic obstructive pulmonary disease exacerbation. 4. Left limb deep venous thrombosis. Patient is on IV simply because of his anemia. Patient is not being discharged on any anticoagulation at this point of time. 5. Essential hypertension. 6. Severe pulmonary hypertension. 7. Pulmonary fibrosis. 8. Benign prostatic hypertrophy.
[2016-05-13] MEDS: methylPREDNISolone SOD SUCCI 40 MG/ML 1 ML VIAL IV SCH (12:23)
[2016-05-13] MEDS: predniSONE 10 MG TAB PO SCH (13:20)
--- NOTE | 2016-05-13 14:08 | P.PN ---
Subjective Principal diagnosis: Acute anemia and acute left deep vein thrombosis. Involving left lower extremity. This is a 76-year-old white male with history of severe end-stage COPD, O2 dependent, prednisone dependent, patient is also known to have history of right upper lobe lung abscess which has been treated for a long period of time with antibiotics. History of pleural effusion requiring thoracentesis, and he continues to have some loculated effusion on the right side. Patient presented to the ER with mostly symptoms of increased shortness of breath. Even at rest. Patient has been short of breath for the last few days. When he arrived to the ER, patient was on BiPAP, he was in severe respiratory distress. Workup in the ER included a CBC which showed profound anemia hemoglobin of 5.0, baseline hemoglobin back in 2014 was 11.8. A shunt received a total of 2 units of packed RBCs. He was also not is noted to have positive Hemoccult stool. Patient was also complaining of left leg swelling, venous Doppler showed evidence of deep vein thrombosis, patient was admitted to the ICU, but for some reason he was started on heparin, however upon my evaluation, I discontinued his heparin, recommended a Stacy filter placement, place him on Protonix 40 mg IV push every 12 hours, and I recommended a GI consultation. In the meantime we will keep the patient in the intensive care unit. Presently the patient denies shortness of breath, no cough, no wheezing, no chest pain. Chest x-ray shows significantdisease involving the right lung, but this is a chronic finding. Left side is relatively clear. Patient was reevaluated today on 05/08/2016, he seems to be doing relatively well , however he required placement on BiPAP for increased shortness of breath overnight. Patient also had few episodes of minimal hemoptysis, and a CT of the chest was done. Showed what was expected on the right lung, but no evidence of acute pulmonary embolism. Patient is on a small dose of Lovenox at present, and he is on BiPAP, he is also on bronchodilators, and he is status post IVC filter placement done by vascular surgery. Hemoglobin seems to be stable at 8.0, so far the patient received only 2 units of packed RBCs. His electrolytes and renal profile are normal in spite of the fact that the patient received significant amount of contrast media for his IVC filter placement and for his CT of the chest. Today I discussed the CODE STATUS with the patient, and he will discuss it with his , but he seems to be very inclined to consider DO NOT RESUSCITATE CODE STATUS. This will be further verified with the . Reevaluated today on 05/09/2016, overall the patient is doing better, breathing easier, continues to have occasional episodes of minimal hemoptysis which is chronic, and today I recommended adding Zosyn. WBC count is elevated at 20.6 hemoglobin is 7.6. Electrolytes are normal renal profile is normal. INR is normal. Reevaluated on 05/10/2016, patient remains in the ICU, he is basically about the same. Continues to have intermittent minimal amount of hemoptysis. Hence I cut down his Lovenox to once daily and again the patient is not the most ideal candidate for bronchoscopy because of his underlying severe end-stage COPD. Labs were reviewed hemoglobin is 7.5. Electrolytes are normal bicarb is 35 renal profile is normal CBC count is 14.7. Patient denies any symptoms of GI bleeding. Reevaluated today on 05/11/2016, patient is now on the regular medical floor, we are trying to titrate his FiO2 down, remains on high flow nasal cannula. Overall the patient is doing much better, hardly any hemoptysis, swelling in the left lower extremity is resolved, and he denies any shortness of breath at rest, but he has some dyspnea on exertion. Hemoglobin is stable at 7.5. WBC count is 12.8. Electrolytes were reviewed, renal profile is normal. Bicarb is 33. We are hoping to titrate FiO2 down were and we could discharge the patient home soon. Patient was reevaluated today on 05/12/2016, doing relatively well, however continues to require significant amount of FiO2, he still on high flow nasal cannula at 10 L/m. With marginal saturations. And not quite ready for discharge planning at this point. For his anemia, hemoglobin today is 7.2, I recommended Procrit and starting him on iron. Remains on Lovenox, the dose was cut down significantly, patient continues to have minimal and intermittent episodes of streaky blood in his sputum. Clinically the patient is feeling better, breathing easier, his electrolytes are normal renal profile is normal. Again hemoglobin is at 7.2. Patient was reevaluated today on 05/13/2016, continues to do relatively well, patient is now on 6 L nasal cannula, however his hemoglobin is down to 6.9, the patient will be given a unit of packed RBCs today. No further episodes of hemoptysis, no nausea no vomiting no abdominal pain no melena no hematemesis. Patient is now on Procrit and on iron. And he would likely receive a unit of packed RBCs today, possibly discharge the patient home either later today or in a.m. Antibiotics koenig patient is to go back on his Bactrim. The dose of prednisone will be cut down to 10 mg daily and I will eventually cut it down to 5 mg daily on outpatient basis. Objective - Vital Signs Vital signs: Vital Signs Temp 97.6 F 05/13/16 07:50 Pulse 96 05/13/16 11:22 Resp 18 05/13/16 08:00 BP 130/62 05/13/16 07:50 Pulse Ox 99 05/13/16 07:50 Intake & Output 05/12/16 05/13/16 05/13/16 18:59 06:59 18:59 Intake Total 600 222 Output Total 1000 650 400 Balance -400 -428 -400 Intake: Oral 600 222 Output: Urine 1000 650 400 Other: Voiding Method Urinal Urinal Urinal # Voids 3 2 # Bowel Movements 1 1 - Exam Physical Exam: Revealed a 76-year-old in no distress. HEENT:[Neck is supple.] [No neck masses.] [No thyromegaly.] [No JVD.] Chest: [Diminished breath sounds throughout, no crackles or rhonchi or wheezes.] Cardiac Exam: [Normal S1 and S2, no S3 gallop, no murmur.] Abdomen: [Soft, nontender, no megaly, no rebound, no guarding, normal bowel sounds.] Extremities: [No clubbing, no edema, no cyanosis.] Neurological Exam: [No focal neurologic deficit.] - Labs CBC & Chem 7: 05/13/16 07:03 05/13/16 07:03 Labs: Abnormal Lab Results - Last 24 Hours (Table) 05/12/16 05/12/16 05/13/16 Range/Units 17:08 20:15 07:03 RBC 3.42 L (4.30-5.90) m/uL Hgb 6.9 L* (13.0-17.5) gm/dL Hct 25.6 L (39.0-53.0) % MCV 74.8 L (80.0-100.0) fL MCH 20.1 L (25.0-35.0) pg MCHC 26.8 L (31.0-37.0) g/dL RDW 22.1 H (11.5-15.5) % Neutrophils # 8.6 H (1.3-7.7) k/uL Lymphocytes # 0.8 L (1.0-4.8) k/uL Sodium (137-145) mmol/L Chloride (98-107) mmol/L BUN (9-20) mg/dL Creatinine (0.66-1.25) mg/dL POC Glucose (mg/dL) 203 H 131 H (75-99) mg/dL Total Protein (6.3-8.2) g/dL Albumin (3.5-5.0) g/dL 05/13/16 05/13/16 05/13/16 Range/Units 07:03 07:19 11:22 RBC (4.30-5.90) m/uL Hgb (13.0-17.5) gm/dL Hct (39.0-53.0) % MCV (80.0-100.0) fL MCH (25.0-35.0) pg MCHC (31.0-37.0) g/dL RDW (11.5-15.5) % Neutrophils # (1.3-7.7) k/uL Lymphocytes # (1.0-4.8) k/uL Sodium 134 L (137-145) mmol/L Chloride 95 L (98-107) mmol/L BUN 28 H (9-20) mg/dL Creatinine 0.63 L (0.66-1.25) mg/dL POC Glucose (mg/dL) 114 H 166 H (75-99) mg/dL Total Protein 5.2 L (6.3-8.2) g/dL Albumin 2.9 L (3.5-5.0) g/dL Assessment and Plan Plan: Impression: 1 acute anemia secondary to GI blood losses, suspect gastritis or peptic ulcer disease in a patient who is chronically on prednisone for severe end-stage COPD. However the possibility of lower GI bleeding is not entirely ruled out. But felt to be less likely. Patient will be placed on Procrit and will be placed on iron/Feosol. 2 acute deep vein thrombosis involving the left lower extremity. Patient has absolute contraindication to anticoagulation, hence IVC filter was placed by vascular surgery, in the meantime I recommended very small dose of Lovenox however the patient develops any further bleeding the Lovenox will have to be discontinued. 3 severe end-stage COPD O2 dependent, prednisone dependent. Patient has history of chronic hypoxic respiratory failure, and based on this presentation, he seems to have acute on chronic hypoxic respiratory failure. Secondary to COPD. 4 history of adrenal insufficiency. 5 history of right upper lobe lung abscess 6 history of MSSA pneumonia. 7 history of right pleural effusion presently loculated and chronic. 8 history of hip fracture requiring surgery in the past 1 year. 9 history of chronic hypoxic respiratory failure secondary to COPD. 10 status post IVC filter placement on 05/07/2016. 11: History of chronic hemoptysis secondary to significant airspace disease involving the right upper lobe. Patient is not the most ideal candidate for bronchoscopy and evaluation of the right upper lobe. That is mostly because of severe end-stage COPD. however the patient develops worsening hemoptysis, he could be considered for angiography and bronchial artery embolization. Recommendation: Continue present treatment plan, transfuse with 1 unit of packed RBCs today, consider discharge planning later today or in a.m., I have discontinued his Solu-Medrol and started on prednisone 10 mg daily. Discontinue his Augmentin, patient can be discharged home on Bactrim which she usually takes on a regular basis follow-up with me in one week postdischarge. Overall prognosis remains poor and guarded, and it would not be surprising if the patient gets readmitted within a very short period of time with anemia again or worsening COPD exacerbation. His overall clinical status is very poor and marginal. Time with Patient: Less than 30
[2016-05-13 17:18] LABS: Glucose,Whole Blood 122 mg/dL (75-99)
[2016-05-13] MEDS: TAMSULOSIN 0.4 MG CAP.ER.24H PO SCH (17:37)
[2016-05-13 20:41] LABS: Glucose,Whole Blood 172 mg/dL (75-99)
[2016-05-13] MEDS: traZODone HCL 100 MG TAB PO SCH (21:53)
[2016-05-13] MEDS: NYSTATIN 100,000 UNIT/ML SUSP 500,000 UNIT/5 ML CUP PO SCH (21:53)
[2016-05-14] MEDS: SYMBICORT 160-4.5 MCG INHALER INHALATION SCH (06:55)
[2016-05-14] MEDS: IPRATROPIUM-ALBUTEROL 3 ML NEB INHALATION SCH ×2 (06:55→10:56)
[2016-05-14 07:13] LABS: Glucose,Whole Blood 108 mg/dL (75-99)
[2016-05-14 07:45] VITALS: BP 129/58; RESP 18; TEMP 97.9
[2016-05-14 08:04] LABS: Anisocytosis Moderate; Basophils % (A) 0 %; CH 21.3; CHCM 28.3; Eosinophils # (A) 0.1 k/uL (0-0.7); Eosinophils % (A) 1 %; HCT 25.8 % (39.0-53.0); HDW 5.48; HGB 7.2 gm/dL (13.0-17.5); Hypochromasia Marked; Luc # (Auto) 0.34; Luc % (Auto) 3; Lymphocytes % (A) 10 %; MCH 20.7 pg (25.0-35.0); MCV 74.6 fL (80.0-100.0); Mean Platelet Volume 7.1; Microcytosis Marked; Monocytes # (A) 0.7 k/uL (0-1.0); Monocytes % (A) 6 %; Neutrophils # (A) 8.4 k/uL (1.3-7.7); Neutrophils % (A) 79 %; Poikilocytosis Marked; RBC 3.46 m/uL (4.30-5.90); RDW 22.8 % (11.5-15.5); WBC 10.6 k/uL (3.8-10.6); WBC (Perox) 11.01
[2016-05-14 08:06] LABS: MCHC 27.8 g/dL (31.0-37.0)
[2016-05-14] MEDS: INSULIN LISPRO (humaLOG) 300 UNIT/3 ML VIAL SQ SCH ×2 (08:57→12:18)
[2016-05-14] MEDS: METOPROLOL TARTRATE 12.5 MG TAB PO SCH (08:58)
[2016-05-14] MEDS: ENOXAPARIN 40 MG/0.4 ML SYRINGE SQ SCH (08:58)
[2016-05-14] MEDS: PANTOPRAZOLE 40 MG/10 ML VIAL IVP SCH (08:58)
[2016-05-14] MEDS: NYSTATIN 100,000 UNIT/ML SUSP 500,000 UNIT/5 ML CUP PO SCH ×2 (08:58→12:18)
[2016-05-14] MEDS: DOCUSATE 100 MG CAP PO SCH (08:59)
[2016-05-14] MEDS: FERROUS SULFATE 325 MG TAB PO SCH ×2 (08:59→12:18)
[2016-05-14] MEDS: predniSONE 10 MG TAB PO SCH (08:59)
[2016-05-14] MEDS: DULoxetine HCL 30 MG CAPSULE.DR PO SCH (08:59)
[2016-05-14] MEDS: ISOSORBIDE MONONITRATE ER 30 MG TAB.ER.24H PO SCH (09:00)
[2016-05-14] MEDS: SULFAMETHOX-TMP 800-160MG 1 EACH TAB PO SCH (09:00)
[2016-05-14] MEDS: THEOPHYLLINE 24 HOUR 300 MG CAP.ER.24H PO SCH (09:00)
[2016-05-14 10:59] VITALS: PULSE 88
[2016-05-14 11:40] LABS: Glucose,Whole Blood 160 mg/dL (75-99)
--- NOTE | 2016-05-14 11:48 | DS ---
DATE OF ADMISSION: 05/06/2016 DATE OF DISCHARGE: Patient is admitted with COPD exacerbation and patient was discharged yesterday, Dr. Browning recommended one more day of hospitalization, we kept him yesterday. Please refer to medication from discharge summary from yesterday for further details. No significant change compared to yesterday. Patient received 1 unit of blood transfusion. His hemoglobin is 6.2 now. Patient is otherwise clinically doing well. Please consider yesterday's discharge summary as progress note and please refer to that discharge summary for further details. Patient was seen and examined today. Vitals are stable. PHYSICAL EXAMINATION: GENERAL: The patient is alert and oriented x3, not in any acute distress. Well developed, well nourished. HEENT: Pupils are round and equally reacting to light. EOMI. No scleral icterus. No conjunctival pallor. Normocephalic, atraumatic. No pharyngeal erythema. No thyromegaly. CARDIOVASCULAR: S1 and S2 present. No murmurs, rubs, or gallops. PULMONARY: Significantly decreased air entry into bilateral lung munoz, which is his baseline. ABDOMEN: Soft, nontender, nondistended, normoactive bowel sounds. No palpable organomegaly. MUSCULOSKELETAL: No joint swelling or deformity. EXTREMITIES: No cyanosis, clubbing, or pedal edema. NEUROLOGICAL: Gross neurological examination did not reveal any focal deficits. SKIN: No rashes. For the rest of the details, please refer to my dictation from yesterday.
--- NOTE | 2016-05-14 13:02 | P.PN ---
Subjective Progress note dated 05/14/2016 Patient is doing well. The patient will be discharged home today. I minimum poor and appointment to see Dr. Michele Avila on May 18 with Mrs. Saturday at 3 PM. The patient was anemic. Anyway the patient is feeling better. Breathing is improved. No chest pain or chest discomfort. No fever no chills. Coughing but not bringing up any phlegm. Objective - Vital Signs Vital signs: Vital Signs Temp 97.9 F 05/14/16 07:00 Pulse 88 05/14/16 11:06 Resp 18 05/14/16 07:00 BP 129/58 05/14/16 07:00 Pulse Ox 93 L 05/14/16 07:00 Intake & Output 05/13/16 05/14/16 05/14/16 18:59 06:59 18:59 Intake Total 222 510 Output Total 650 600 300 Balance -428 -90 -300 Weight 62.7 kg Intake: Oral 222 200 Blood Product 0 310 Rc As-1 Unit 0 310 [id number] Output: Urine 650 600 300 Other: Voiding Method Urinal Urinal Urinal # Voids 2 1 - Exam No acute distress, oriented 3. Sitting at the bedside. HEENT examination is grossly unremarkable. Mixed membranes are moist. No oral lesions. Neck supple. Full range of motion. No adenopathy. Neck Cardiovascular examination reveals regular rhythm rate. S1-S2 normal. No S3- S4 or murmur. Lungs reveal diminished breath sounds. A few scattered mild rhonchi. No wheezes. No crackles. Abdomen soft bowel sounds are heard. Extremities are intact - Labs CBC & Chem 7: 05/14/16 07:35 05/13/16 07:03 Labs: Abnormal Lab Results - Last 24 Hours (Table) 05/13/16 05/13/16 05/13/16 Range/Units 14:56 17:16 20:33 RBC (4.30-5.90) m/uL Hgb (13.0-17.5) gm/dL Hct (39.0-53.0) % MCV (80.0-100.0) fL MCH (25.0-35.0) pg MCHC (31.0-37.0) g/dL RDW (11.5-15.5) % Neutrophils # (1.3-7.7) k/uL POC Glucose (mg/dL) 122 H 172 H (75-99) mg/dL Crossmatch See Detail 05/14/16 05/14/16 05/14/16 Range/Units 07:11 07:35 11:39 RBC 3.46 L (4.30-5.90) m/uL Hgb 7.2 L (13.0-17.5) gm/dL Hct 25.8 L (39.0-53.0) % MCV 74.6 L (80.0-100.0) fL MCH 20.7 L (25.0-35.0) pg MCHC 27.8 L (31.0-37.0) g/dL RDW 22.8 H (11.5-15.5) % Neutrophils # 8.4 H (1.3-7.7) k/uL POC Glucose (mg/dL) 108 H 160 H (75-99) mg/dL Crossmatch Assessment and Plan (1) Advanced COPD Status: Acute (2) Anemia Status: Acute Plan: Plan The patient will be discharged home today. We made him a follow-up appointment with Dr. Maldonado this May 18 at 3 PM. No additional recommendations are made. The patient seemed be doing relatively well. Time with Patient: Less than 30
== END 2016-05-14 13:40 | disposition home health service (06) | DRG 356 ==
LOC: EC 21:34 → 6ICU 23:06 → 5MS5E 05-10 10:32
PROVIDERS: ADMIT Hospitalist; ATTEND Hospitalist
PROC: 30233N1 Transfusion of Nonautologous Red Blood Cells into Peripheral Vein, Percutaneous Approach (ICD-10-PCS; 2016-05-06)
PROC: 06H03DZ Insertion of Intraluminal Device into Inferior Vena Cava, Percutaneous Approach (ICD-10-PCS; principal; 2016-05-07 16:20)
DX: K92.2 Gastrointestinal hemorrhage, unspecified (principal); J96.21 Acute and chronic respiratory failure with hypoxia; J90 Pleural effusion, not elsewhere classified; I82.412 Acute embolism and thrombosis of left femoral vein; J44.1 Chronic obstructive pulmonary disease with (acute) exacerbation; I27.2 Other secondary pulmonary hypertension; J84.10 Pulmonary fibrosis, unspecified; E27.40 Unspecified adrenocortical insufficiency; J96.22 Acute and chronic respiratory failure with hypercapnia; R04.2 Hemoptysis; D62 Acute posthemorrhagic anemia; Z99.81 Dependence on supplemental oxygen; I10 Essential (primary) hypertension; D50.9 Iron deficiency anemia, unspecified; E78.5 Hyperlipidemia, unspecified; K21.9 Gastro-esophageal reflux disease without esophagitis; J45.909 Unspecified asthma, uncomplicated; K29.70 Gastritis, unspecified, without bleeding; I49.1 Atrial premature depolarization; R39.198 Other difficulties with micturition; R50.9 Fever, unspecified; R00.0 Tachycardia, unspecified; R53.1 Weakness; R60.9 Edema, unspecified; N40.0 Benign prostatic hyperplasia without lower urinary tract symptoms; F32.9 Major depressive disorder, single episode, unspecified; F41.9 Anxiety disorder, unspecified; H91.90 Unspecified hearing loss, unspecified ear; Z88.6 Allergy status to analgesic agent; Z88.5 Allergy status to narcotic agent; Z88.8 Allergy status to other drugs, medicaments and biological substances; Z96.641 Presence of right artificial hip joint; Z16.24 Resistance to multiple antibiotics; Z86.14 Personal history of Methicillin resistant Staphylococcus aureus infection; Z87.01 Personal history of pneumonia (recurrent); Z79.52 Long term (current) use of systemic steroids; Z87.81 Personal history of (healed) traumatic fracture; Z86.19 Personal history of other infectious and parasitic diseases; Z87.891 Personal history of nicotine dependence; Z79.2 Long term (current) use of antibiotics; Z79.83 Long term (current) use of bisphosphonates; Z79.891 Long term (current) use of opiate analgesic; Z79.51 Long term (current) use of inhaled steroids; Z79.899 Other long term (current) drug therapy; Z90.49 Acquired absence of other specified parts of digestive tract; Z83.79 Family history of other diseases of the digestive system
CPT/HCPCS: 36415; 36430; 37191; 71010; 71020; 71275; 80053; 81001; 82272; 82550; 82553; 82728; 83036; 83540; 83550; 83735; 83880; 84100; 84132; 84484; 85025; 85045; 85610; 85730; 86850; 86900; 86901; 86920; 87040; 87070; 87205; 93005; 94640; 94660; 94760; 96374; 99291

== ENCOUNTER → 2016-07-06 | Outpatient (CLI) | payer MEDICARE, BC ==
[2016-07-06 14:47] LABS: Anisocytosis Slight; Basophils # (A) 0.1 k/uL (0-0.2); Basophils % (A) 1 %; CHCM 28.8; Eosinophils # (A) 0.2 k/uL (0-0.7); Eosinophils % (A) 2 %; HCT 30.5 % (39.0-53.0); HDW 3.18; Hypochromasia Marked; Luc # (Auto) 0.18; Luc % (Auto) 2; Lymphocytes # (A) 0.5 k/uL (1.0-4.8); Lymphocytes % (A) 4 %; MCH 24.5 pg (25.0-35.0); MCHC 29.5 g/dL (31.0-37.0); MCV 83.1 fL (80.0-100.0); Mean Platelet Volume 6.4; Microcytosis Slight; Monocytes # (A) 0.5 k/uL (0-1.0); Monocytes % (A) 4 %; Neutrophils # (A) 10.6 k/uL (1.3-7.7); Neutrophils % (A) 88 %; RBC 3.67 m/uL (4.30-5.90); RDW 19.2 % (11.5-15.5); WBC 12.1 k/uL (3.8-10.6); WBC (Perox) 12.37
== END | disposition home or self-care (01) ==
LOC: LABWHC1 14:30
PROVIDERS: ATTEND Internal Medicine
DX: D64.9 Anemia, unspecified (principal)
CPT/HCPCS: 36415; 85025

== ENCOUNTER 2016-10-26 10:23 | Day surgery (SDC) | payer MEDICARE, BC ==
[2016-10-24 15:32] VITALS: BMI 24.7
[~2016-10-26 10:23] MED LIST: LACTATED RINGERS 1,000 ML IV SCH
[2016-10-26 11:51] VITALS: RESP 18; TEMP 98.2
[2016-10-26] MEDS ORDERED: LIDOCAINE 1% 20 ML VIAL (10MG/ML) FOR IV START INTRADERMA ONE (12:03)
[2016-10-26] MEDS ORDERED: LIDOCAINE 1% INJ 10MG/ML (20 ML MDV) ONE (12:14)
[2016-10-26] MEDS ORDERED: PROPOFOL 10 MG/ML 20 ML VIAL IV ONE (12:14)
--- NOTE | 2016-10-26 12:21 | P.PCN ---
Date of Procedure: 10/26/16 Preoperative Diagnosis: Postoperative Diagnosis: Procedure(s) Performed: BRIEF HISTORY: Patient is a 76-year-old, pleasant, white male, scheduled for an upper endoscopy as a part of value should find deficiency anemia. He was admitted to the hospital in April of this year with severe anemia and hemoglobin of 6 requiring blood transfusion. The patient has advanced COPD and hence was not deemed to be a candidate for endoscopic intervention at that time. Recently continues to have persistent anemia with a hemoglobin of 7.2 and hence he scheduled for an upper endoscopy to evaluate further. PROCEDURE PERFORMED: Esophagogastroduodenoscopy with biopsy . PREOPERATIVE DIAGNOSIS: Iron deficiency anemia. IV sedation per anesthesia. PROCEDURE: After informed consent was obtained, the patient was brought into the endoscopy unit. IV sedation was administered by Anesthesia under continuous monitoring. Initially the Olympus GIF-140 video endoscope was inserted into the mouth. Esophagus intubated without any difficulty. It was gradually advanced into the stomach and duodenum and carefully examined. The bulb and the second part of the duodenum appeared normal. Biopsies were done from this area to rule out celiac disease. The scope at this time was withdrawn to the stomach, adequately insufflated with air, and upon careful examination, mucosa of the antrum, body, cardia and the fundus appeared normal. The scope was then withdrawn into the esophagus. Small hiatal hernia noted. The GE junction was located at 39 cm from the incisors. The esophagus appeared normal. There were no erosions or ulcerations seen and the patient tolerated the procedure well. IMPRESSION: 1. Small hiatal hernia. 2. No evidence of esophagitis, peptic ulcer disease or angiectasia. RECOMMENDATIONS: The findings of this examination were discussed with the patient as well as his family. He was advised to follow with the biopsy results. Since no obvious findings were noted on this examination he will need to be further investigated with a colonoscopy but given his overall pulmonary status, may not be a good candidate at this time.. Implants: Indications for Procedure: Operative Findings: Description of Procedure:
[2016-10-26 12:41] VITALS: BP 100/50; PULSE 96
== END 2016-10-26 13:01 | disposition home or self-care (01) ==
LOC: ORWHC2ENDO 10:23
PROVIDERS: ATTEND Internal Medicine Gastroenterology
DX: D50.9 Iron deficiency anemia, unspecified (principal); K44.9 Diaphragmatic hernia without obstruction or gangrene; E78.5 Hyperlipidemia, unspecified; K21.9 Gastro-esophageal reflux disease without esophagitis; Z79.899 Other long term (current) drug therapy
CPT/HCPCS: 88305; 43239; J2001; J2704

== ENCOUNTER 2016-11-08 10:10 | Day surgery (SDC) | payer MEDICARE, BC ==
[2016-11-06 13:57] VITALS: BMI 25.1
[~2016-11-08 10:10] MED LIST changes: +LIDOCAINE 1% 20 ML VIAL (10MG/ML) FOR IV START INTRADERMA PRN
[2016-11-08 11:59] VITALS: TEMP 97.4
[2016-11-08] MEDS ORDERED: LIDOCAINE 1% INJ 10MG/ML (20 ML MDV) ONE (13:14)
[2016-11-08] MEDS ORDERED: PROPOFOL 10 MG/ML 20 ML VIAL IV ONE (13:14)
--- NOTE | 2016-11-08 13:32 | P.PCN ---
Date of Procedure: 11/08/16 Preoperative Diagnosis: Postoperative Diagnosis: Procedure(s) Performed: BRIEF HISTORY: Patient is a 76-year-old pleasant white male, scheduled for an elective colonoscopy as a part of evaluation of severe iron deficiency anemia as well as intermittent rectal bleeding for the last several months duration. He has advanced COPD on home O2. Recently underwent an upper endoscopy 2 weeks ago that was unremarkable. He scheduled for his colonoscopy today to evaluate for iron deficiency anemia. PROCEDURE PERFORMED: Colonoscopy with biopsy and snare polypectomy. PREOPERATIVE DIAGNOSIS: Severe iron deficiency anemia and intermittent rectal bleeding. IV sedation per Anesthesia. PROCEDURE: After informed consent was obtained, the patient, was brought into the endoscopy unit. IV sedation was administered by Anesthesia under continuous monitoring. Digital rectal examination was normal. Initially the Olympus CF- 160 flexible video colonoscope was then inserted in the rectum, gradually advanced into the cecum without any difficulty. Careful examination was performed as the scope was gradually being withdrawn. Ileocecal valve and the appendiceal orifice were visualized and appeared normal. Prep was excellent. Mucosa of the cecum, appeared normal. In the proximal ascending colon just 5 cm above the ileocecal valve there was a circumferential ulcerated mass identified and multiple biopsies were done from this area. The rest of the ascending colon, transverse colon, descending colon, sigmoid colon, and rectum appeared normal. He was a 1 cm polyp in the sigmoid colon removed by snare polypectomy and scattered sigmoid diverticulosis seen. Retroflexion was performed in the rectum and no lesions were seen. The patient tolerated the procedure well. IMPRESSION: Large ulcerated mass in the proximal ascending colon, 5 cm above the ileocecal valve, status post multiple biopsies 1 cm sigmoid colon polyp status post polypectomy Scattered sigmoid diverticulosis RECOMMENDATIONS: Findings of this examination were discussed with the patient well as his. He was advised to follow with the biopsy results. He'll be seen in the office early next week. We'll obtain stat CBC today. Implants: Indications for Procedure: Operative Findings: Description of Procedure:
[2016-11-08 13:56] VITALS: RESP 16
[2016-11-08 14:00] LABS: Anisocytosis Slight; Basophils % (A) 0 %; CH 20.9; CHCM 27.7; Eosinophils % (A) 0 %; HCT 24.5 % (39.0-53.0); HDW 3.93; Hypochromasia Marked; Luc # (Auto) 0.15; Luc % (Auto) 2; Lymphocytes # (A) 0.3 k/uL (1.0-4.8); Lymphocytes % (A) 4 %; MCH 21.5 pg (25.0-35.0); MCHC 28.6 g/dL (31.0-37.0); MCV 75.2 fL (80.0-100.0); Microcytosis Moderate; Monocytes # (A) 0.4 k/uL (0-1.0); Monocytes % (A) 5 %; Neutrophils % (A) 89 %; Poikilocytosis Slight; RBC 3.25 m/uL (4.30-5.90); RDW 18.6 % (11.5-15.5); WBC 7.9 k/uL (3.8-10.6); WBC (Perox) 8.38
[2016-11-08 14:12] VITALS: BP 160/67; PULSE 103
== END 2016-11-08 14:25 | disposition home or self-care (01) ==
LOC: ORWHC2ENDO 10:10
PROVIDERS: ATTEND Internal Medicine Gastroenterology
DX: C18.2 Malignant neoplasm of ascending colon (principal); D12.5 Benign neoplasm of sigmoid colon; K57.30 Diverticulosis of large intestine without perforation or abscess without bleeding; K21.9 Gastro-esophageal reflux disease without esophagitis; J44.9 Chronic obstructive pulmonary disease, unspecified; Z99.81 Dependence on supplemental oxygen; I10 Essential (primary) hypertension; E78.5 Hyperlipidemia, unspecified; Z86.718 Personal history of other venous thrombosis and embolism; Z79.1 Long term (current) use of non-steroidal anti-inflammatories (NSAID); Z79.51 Long term (current) use of inhaled steroids; Z79.52 Long term (current) use of systemic steroids; Z79.899 Other long term (current) drug therapy; Z88.8 Allergy status to other drugs, medicaments and biological substances
CPT/HCPCS: 88305; 85025; 45380; 45385; J2001; J2704

== ENCOUNTER → 2016-11-15 | Outpatient (CLI) | payer MEDICARE, BC ==
[2016-11-15 19:27] LABS: Blood Urea Nitrogen 18 mg/dL (9-20); Non-African American GFR(MDRD) >60 (>60 ml/min/1.73 sqM)
[2016-11-15 20:36] LABS: Anisocytosis Slight; Basophils % (A) 0 %; CH 21.4; CHCM 28.8; Eosinophils # (A) 0.2 k/uL (0-0.7); Eosinophils % (A) 2 %; HCT 25.2 % (39.0-53.0); HDW 4.21; HGB 7.2 gm/dL (13.0-17.5); Hypochromasia Marked; Luc # (Auto) 0.35; Luc % (Auto) 4; Lymphocytes % (A) 9 %; MCH 21.3 pg (25.0-35.0); MCHC 28.7 g/dL (31.0-37.0); MCV 74.2 fL (80.0-100.0); Mean Platelet Volume 6.9; Microcytosis Moderate; Monocytes # (A) 0.7 k/uL (0-1.0); Monocytes % (A) 6 %; Neutrophils % (A) 79 %; Poikilocytosis Moderate; RDW 19.5 % (11.5-15.5); WBC 10.1 k/uL (3.8-10.6); WBC (Perox) 11.09
--- NOTE | 2016-11-16 08:02 | CT ---
EXAMINATION TYPE: CT abdomen pelvis w con DATE OF EXAM: 11/15/2016 COMPARISON: 06/22/2014 HISTORY: ABDOMINAL MASS. MASS ON COLON FOUND DURING COLONSCOPY CT DLP: 1417 mGycm CONTRAST: CT scan of the abdomen and pelvis is performed with Oral Contrast and with IV Contrast, patient injec christo with 100 mL of Omnipaque 300. FINDINGS: LUNG BASES-: Right basilar pleural thickening with small loculated effusion noted at the right lung b ase. Disorganized vasculature seen at the right lung base as well may reflect changes of rounded atel ectasis. Emphysematous changes noted as well in addition to cardiomegaly. LIVER/GB: No calcified gallstones. 3 simple cysts are noted within the liver the largest measuring 3.2 cm within the anterior segment right hepatic lobe. PANCREAS: No inflammation. No distinct mass. SPLEEN: No splenic enlargement. No lesion seen. ADRENALS: No nodule. No thickening. KIDNEYS/BLADDER: No hydronephrosis. No nephrolithiasis. No disctinct renal mass. Urinary bladder g rossly unremarkable. BOWEL: Normal bowel caliber. No inflammation. Large amount of intracolonic fecal debris. No obvious mass identified however there may be added soft tissue within the region of the cecum however this co uld reflect underlying fecal material. GENITAL ORGANS: No gross abnormality. LYMPH NODES: No greater than 1cm abdominal or pelvic lymph nodes are appreciated. AORTA: No significant abnormality. OSSEOUS STRUCTURES: Severe degenerative change lumbar spine. Left hip prosthesis. OTHER: No significant additional abnormality is seen. IMPRESSION: 1. No obvious mass identified however there may be added soft tissue within the region of the cecum h owever this could reflect underlying fecal material. Correlate with colonoscopic findings. 2. Hepatic cysts. 3. Small loculated right basilar effusion and probable rounded atelectasis right lung base.
== END ==
LOC: RADCTMAIN 18:43
PROVIDERS: ATTEND Internal Medicine Gastroenterology
DX: K76.89 Other specified diseases of liver (principal)
CPT/HCPCS: 82565; 84520; 85025; 74177; 36415; Q9967

== ENCOUNTER → 2016-11-28 | Outpatient (CLI) | payer MEDICARE, BC ==
[2016-11-28 15:52] LABS: Anisocytosis Slight; CH 21.1; CHCM 28.3; HCT 27.5 % (39.0-53.0); HDW 4.05; HGB 7.8 gm/dL (13.0-17.5); Hypochromasia Marked; MCH 21.2 pg (25.0-35.0); MCHC 28.5 g/dL (31.0-37.0); MCV 74.6 fL (80.0-100.0); Mean Platelet Volume 6.5; Microcytosis Moderate; Poikilocytosis Moderate; RBC 3.69 m/uL (4.30-5.90); RDW 19.2 % (11.5-15.5); WBC 9.1 k/uL (3.8-10.6)
[2016-11-28 16:10] LABS: ALT 22 U/L (21-72); AST 14 U/L (17-59); Alkaline Phosphatase 61 U/L (38-126); Anion Gap 9 mmol/L; Blood Urea Nitrogen 19 mg/dL (9-20); Calcium 9.1 mg/dL (8.4-10.2); Carbon Dioxide 30 mmol/L (22-30); Chloride 97 mmol/L (98-107); Glucose 104 mg/dL (74-99); Non-African American GFR(MDRD) >60 (>60 ml/min/1.73 sqM); Partial Thromboplastin Time 24.9 sec (22.0-30.0); Potassium 4.4 mmol/L (3.5-5.1); Prothrombin Time 10.6 sec (9.0-12.0); Sodium 136 mmol/L (137-145); Total Bilirubin 0.2 mg/dL (0.2-1.3); Total Protein 5.9 g/dL (6.3-8.2)
== END | disposition home or self-care (01) ==
LOC: LABPAT 15:02
PROVIDERS: ATTEND Surgery
DX: Z01.812 Encounter for preprocedural laboratory examination (principal); C18.9 Malignant neoplasm of colon, unspecified
CPT/HCPCS: 80053; 82378; 85027; 85610; 85730

== ENCOUNTER 2017-07-15 21:29 | Inpatient (IN) | payer MEDICARE, BC ==
[2017-07-15] MEDS ORDERED: IPRATROPIUM 0.5 MG/2.5 ML NEBU INHALATION STA (21:40)
[2017-07-15] MEDS ORDERED: methylPREDNISolone SOD SUCCI 125 MG/2 ML VIAL IV STA (21:40)
[2017-07-15] MEDS ORDERED: ALBUTEROL NEBULIZED 2.5 MG/3 ML INHALATION STA (21:40)
[2017-07-15] MEDS ORDERED: SODIUM CHLORIDE 0.9% 1,000 ML IV STA (21:40)
[2017-07-15 21:59] LABS: Basophils % (A) 0 %; Eosinophils # (A) 0.2 k/uL (0-0.7); Eosinophils % (A) 2 %; HCT 36.1 % (39.0-53.0); HGB 12.1 gm/dL (13.0-17.5); Lymphocytes # (A) 1.2 k/uL (1.0-4.8); Lymphocytes % (A) 12 %; MCH 29.2 pg (25.0-35.0); MCHC 33.4 g/dL (31.0-37.0); MCV 87.3 fL (80.0-100.0); Mean Platelet Volume 6.6; Monocytes # (A) 0.6 k/uL (0-1.0); Monocytes % (A) 6 %; Neutrophils # (A) 7.7 k/uL (1.3-7.7); Neutrophils % (A) 78 %; Platelet Count 261 k/uL (150-450); RBC 4.14 m/uL (4.30-5.90); RDW 14.8 % (11.5-15.5); VBG PH 7.39 (7.31-7.41); WBC 9.9 k/uL (3.8-10.6)
[2017-07-15 22:07] LABS: Partial Thromboplastin Time 24.4 sec (22.0-30.0); Prothrombin Time 10.1 sec (9.0-12.0)
[2017-07-15 22:10] LABS: ALT 9 U/L (21-72); AST 18 U/L (17-59); Albumin 3.8 g/dL (3.5-5.0); Alkaline Phosphatase 65 U/L (38-126); Anion Gap 12 mmol/L; Blood Urea Nitrogen 19 mg/dL (9-20); Calcium 9.2 mg/dL (8.4-10.2); Carbon Dioxide 31 mmol/L (22-30); Chloride 93 mmol/L (98-107); Glucose 124 mg/dL (74-99); Sodium 136 mmol/L (137-145); Total Bilirubin 0.4 mg/dL (0.2-1.3); Total Protein 6.3 g/dL (6.3-8.2)
[2017-07-15 22:39] LABS: Troponin I 0.016 ng/mL (0.000-0.034)
[2017-07-15] MEDS ORDERED: LORazepam 2 MG/ML INJ IV STA (22:46)
--- NOTE | 2017-07-15 22:46 | XR ---
EXAMINATION TYPE: XR chest 1V portable DATE OF EXAM: 07/15/2017 COMPARISON: NONE HISTORY: Difficulty breathing TECHNIQUE: Single frontal view of the chest is obtained. FINDINGS: There is coarse interstitial density in the right hemithorax with shift of heart and media stinum to the right side. There is mild pleural thickening at the right lung base and right lung apex . There is probably bullous emphysema in the left upper lobe. There is coarse interstitial density in the left lower lobe. There are chest leads. IMPRESSION: Extensive pleural and pulmonary abnormality on the right side with volume loss. Bullous emphysema. This probably relates to pulmonary scarring and pleural scarring. Patchy atelectasis at th e left lung base. Chest is stable compared to old exam.
[2017-07-15 22:54] LABS: Creatine Kinase MB 3.5 ng/mL (0.0-2.4)
--- NOTE | 2017-07-16 00:11 | ED ---
SOB HPI - General Chief Complaint: Shortness of Breath Stated Complaint: EMMY Time Seen by Provider: 07/15/17 21:34 Source: EMS Mode of arrival: EMS Limitations: no limitations - History of Present Illness Initial Comments: 77 years old male comes in with a severe shortness of breath he does have a history of COPD shortness of breath been getting worse gradually he denies any chest pain there is no pleuritic chest pain has been coughing over the bunch of phlegm him a banana denies any fever no chills no nausea no vomiting no cold sweats. No headaches no neck stiffness no abdominal pain no frequency urgency dysuria no symptoms of TIA or CVA - Related Data Home Medications Medication Instructions Recorded Confirmed Isosorbide Mononitrate [Imdur] 30 mg PO DAILY 09/24/13 07/15/17 Metoprolol Tartrate [Lopressor] 25 mg PO DAILY 05/02/14 07/15/17 traZODone HCL [Desyrel] 100 mg PO HS 05/02/14 07/15/17 Famotidine [Pepcid] 40 mg PO DAILY 06/22/14 07/15/17 ALPRAZolam [Xanax] 0.25 mg PO TID 03/02/15 07/15/17 Metolazone [Zaroxolyn] 5 mg PO MOWEFR 05/07/16 07/15/17 Terazosin HCl [Hytrin] 20 mg PO HS 05/07/16 07/15/17 DULoxetine HCL [Cymbalta] 30 mg PO DAILY 10/24/16 07/15/17 Ferrous Sulfate [Feosol] 325 mg PO BID 10/24/16 07/15/17 predniSONE 5 mg PO DAILY 10/24/16 07/15/17 Ipratropium/Albuterol Sulfate 3 ml INHALATION RT-QID PRN 11/29/16 07/15/17 [Duoneb 0.5 mg-3 mg/3 ml Soln] DULoxetine HCL [Cymbalta] 60 mg PO DAILY 07/15/17 07/15/17 Fluticasone Nasal [place] [Flonase 2 spr EA NOSTRIL DAILY 07/15/17 07/15/17 Nasal [place]] Fluticasone/Salmeterol [Advair Hfa 2 puff INHALATION RT-BID 07/15/17 07/15/17 230-21 Mcg Inhaler] Moxifloxacin HCl [Moxifloxacin] 1 drop BOTH EYES TID 07/15/17 07/15/17 Sulfamethox-Tmp 800-160Mg [Bactrim 1 tab PO MOWEFR 07/15/17 07/15/17 DS 800-160 mg] Theophylline 12 Hour [Ronnie-Dur] 300 mg PO BID 07/15/17 07/15/17 Allergies Allergy/AdvReac Type Severity Reaction Status Date / Time celecoxib [From Celebrex] Allergy Swelling Verified 07/15/17 22:39 gabapentin [From Neurontin] Allergy Rash/Hives Verified 07/15/17 22:39 propoxyphene Allergy Unknown Verified 07/15/17 22:39 [From Darvocet-N] rabeprazole [From Aciphex] Allergy Unknown Verified 07/15/17 22:39 Review of Systems ROS Statement: Those systems with pertinent positive or pertinent negative responses have been documented in the HPI. ROS Other: All systems not noted in ROS Statement are negative. Past Medical History Past Medical History: Asthma, COPD, Deep Vein Thrombosis (DVT), GERD/Reflux, Hearing Disorder / Deafness, Hyperlipidemia, Hypertension, Osteoarthritis (OA), Prostate Disorder, Respiratory Disorder Additional Past Medical History / Comment(s): End-stage COPD, oxygen and steroid dependent and the patient is typically on 5 L of oxygen nasal cannula, limits pulmonate fibrosis, history of lung abscess, secondary pulmonary hypertension, difficulty with mobility and the patient is a wheelchair-bound, impaired hearing, chronic anemia, BPH, history of DVT with a previous [place] filter insertion fact April 2016, BPH, osteoarthritis, hypertension, acid reflux, dropped foot and the patient wears a right foot brace History of Any Multi-Drug Resistant Organisms: MRSA Date of last positivie culture/infection: August 2013 MDRO Source:: lung Past Surgical History: Adenoidectomy, Appendectomy, Back Surgery, Heart Catheterization, Joint Replacement, Orthopedic Surgery, Tonsillectomy Additional Past Surgical History / Comment(s): LEFT HIP SURGERY X2, TOTAL RIGHT HIP., RIGHT FOOT SX, BRONCHOSCOPY, JEAN-PAUL FILTER., EGD Past Anesthesia/Blood Transfusion Reactions: No Reported Reaction, Family History of Problems w/ Anesthesia Additional Past Anesthesia/Blood Transfusion Reaction / Comment(s): HX OF BLOOD TRANSFUSIONS APR AND MAY 2016- NO REACTION. SISTER= DIFFICULTY WAKING UP. Past Psychological History: Anxiety, Depression Smoking Status: Former smoker Past Alcohol Use History: None Reported Past Drug Use History: None Reported - Past Family History Mother Family Medical History: Liver Disease Additional Family Medical History / Comment(s): Mother had cirrhosis of the liver and from it. Father Family Medical History: No Reported History Additional Family Medical History / Comment(s): Father of old age. General Exam - General Exam Comments Initial Comments: General: The patient is awake him a he is in a severe distress respiratory rate is greater than 26 he is using accessory muscles Skin: Skin is warm and dry and no rashes or lesions are noted. Eye: Pupils are equal, round and reactive to light, extra-ocular movements are intact; there is normal conjunctiva bilaterally. Ears, nose, mouth and throat: There are moist mucous membranes and no oral lesions. Neck: The neck is supple, there is no tenderness. Cardiovascular: There is a regular rate and rhythm. No murmur, rub or gallop is appreciated. Noticed tachycardia heart rate was fluctuating between 110-120 on arrival Respiratory: To auscultation bilateral, noticed severe COPD Gastrointestinal: Soft, non-distended, non-tender abdomen without masses or organomegaly noted. There is no rebound or guarding present. Bowel sounds are unremarkable. Back: There is no tenderness to palpation in the midline. There is no obvious deformity. Musculoskeletal: Normal ROM, no tenderness, There is no pedal edema. There is no calf tenderness or swelling. No cords were appreciated. Neurological: CN II-XII intact, Cranial nerves III through XII are intact. There are no obvious motor or sensory deficits. Coordination appears grossly intact. Speech is normal. Psychiatric: Cooperative, appropriate mood & affect, normal judgment. Limitations: no limitations Course Vital Signs 07/15/17 07/15/17 07/15/17 21:38 21:45 21:53 Temperature 97.6 F Pulse Rate 123 H 110 H Respiratory 30 H 30 H Rate Blood Pressure 192/88 O2 Sat by Pulse 85 L Oximetry 07/15/17 07/15/17 07/15/17 22:09 22:31 22:45 Temperature Pulse Rate 112 H 126 H 118 H Respiratory 26 H Rate Blood Pressure 148/65 O2 Sat by Pulse 98 Oximetry 07/15/17 23:27 Temperature Pulse Rate 114 H Respiratory 20 Rate Blood Pressure 152/70 O2 Sat by Pulse 98 Oximetry EKG is a sinus tachycardia, ventricular rate is 109 MT interval is 154 QRS duration is 86 QT/QTc is 332/447 review of this EKG does not reveal any ST elevation or ST depression Medical Decision Making - Lab Data Result diagrams: 07/15/17 21:48 07/15/17 21:48 Lab Results 07/15/17 07/15/17 07/15/17 Range/Units 21:48 21:48 21:48 WBC 9.9 (3.8-10.6) k/uL RBC 4.14 L (4.30-5.90) m/uL Hgb 12.1 L (13.0-17.5) gm/dL Hct 36.1 L (39.0-53.0) % MCV 87.3 (80.0-100.0) fL MCH 29.2 (25.0-35.0) pg MCHC 33.4 (31.0-37.0) g/dL RDW 14.8 (11.5-15.5) % Plt Count 261 (150-450) k/uL Neutrophils % 78 % Lymphocytes % 12 % Monocytes % 6 % Eosinophils % 2 % Basophils % 0 % Neutrophils # 7.7 (1.3-7.7) k/uL Lymphocytes # 1.2 (1.0-4.8) k/uL Monocytes # 0.6 (0-1.0) k/uL Eosinophils # 0.2 (0-0.7) k/uL Basophils # 0.0 (0-0.2) k/uL PT (9.0-12.0) sec INR (<1.2) APTT (22.0-30.0) sec VBG pH (7.31-7.41) VBG pCO2 (37-51) mmHg VBG HCO3 (24-28) mmol/L Sodium 136 L (137-145) mmol/L Potassium 4.0 (3.5-5.1) mmol/L Chloride 93 L (98-107) mmol/L Carbon Dioxide 31 H (22-30) mmol/L Anion Gap 12 mmol/L BUN 19 (9-20) mg/dL Creatinine 0.73 (0.66-1.25) mg/dL Est GFR (CKD-EPI)AfAm >90 (>60 ml/min/1.73 sqM) Est GFR (CKD-EPI)NonAf 88 (>60 ml/min/1.73 sqM) Glucose 124 H (74-99) mg/dL Calcium 9.2 (8.4-10.2) mg/dL Total Bilirubin 0.4 (0.2-1.3) mg/dL AST 18 (17-59) U/L ALT 9 L (21-72) U/L Alkaline Phosphatase 65 (38-126) U/L Total Creatine Kinase 132 (55-170) U/L CK-MB (CK-2) 3.5 H* (0.0-2.4) ng/mL CK-MB (CK-2) Rel Index 2.7 Troponin I 0.016 (0.000-0.034) ng/mL NT-Pro-B Natriuret Pep pg/mL Total Protein 6.3 (6.3-8.2) g/dL Albumin 3.8 (3.5-5.0) g/dL 07/15/17 07/15/17 07/15/17 Range/Units 21:48 21:48 21:48 WBC (3.8-10.6) k/uL RBC (4.30-5.90) m/uL Hgb (13.0-17.5) gm/dL Hct (39.0-53.0) % MCV (80.0-100.0) fL MCH (25.0-35.0) pg MCHC (31.0-37.0) g/dL RDW (11.5-15.5) % Plt Count (150-450) k/uL Neutrophils % % Lymphocytes % % Monocytes % % Eosinophils % % Basophils % % Neutrophils # (1.3-7.7) k/uL Lymphocytes # (1.0-4.8) k/uL Monocytes # (0-1.0) k/uL Eosinophils # (0-0.7) k/uL Basophils # (0-0.2) k/uL PT 10.1 (9.0-12.0) sec INR 1.0 (<1.2) APTT 24.4 (22.0-30.0) sec VBG pH 7.39 (7.31-7.41) VBG pCO2 48 (37-51) mmHg VBG HCO3 28 (24-28) mmol/L Sodium (137-145) mmol/L Potassium (3.5-5.1) mmol/L Chloride (98-107) mmol/L Carbon Dioxide (22-30) mmol/L Anion Gap mmol/L BUN (9-20) mg/dL Creatinine (0.66-1.25) mg/dL Est GFR (CKD-EPI)AfAm (>60 ml/min/1.73 sqM) Est GFR (CKD-EPI)NonAf (>60 ml/min/1.73 sqM) Glucose (74-99) mg/dL Calcium (8.4-10.2) mg/dL Total Bilirubin (0.2-1.3) mg/dL AST (17-59) U/L ALT (21-72) U/L Alkaline Phosphatase (38-126) U/L Total Creatine Kinase (55-170) U/L CK-MB (CK-2) (0.0-2.4) ng/mL CK-MB (CK-2) Rel Index Troponin I (0.000-0.034) ng/mL NT-Pro-B Natriuret Pep 517 pg/mL Total Protein (6.3-8.2) g/dL Albumin (3.5-5.0) g/dL Critical Care Time Total Critical Care Time: 60 Critical Care Time: Arrival he was accusing accessory muscle he had a tachycardia and tachypnea he was barely moving any air we ordered prolonged neb treatments along with a BiPAP venous blood gases were ordered pH and bicarb are within normal range chest x-ray ruled out any pneumonia EKG rule out any STEMI and troponin rule out any myocardial infarction basically some respiratory distress because of the Suspicion of COPD patient be admitted to Dr. Rowe service is Dr Singh is consulted Disposition Clinical Impression: Respiratory distress, Acute exacerbation of COPD with asthma Disposition: ADMITTED IP TO THIS HOSP Condition: Good Referrals: Cihn Browning MD [Primary Care Provider] - 1-2 days
[2017-07-16] MEDS ORDERED: MORPHINE SULFATE 4 MG/ML SYRINGE IV PRN (00:23)
[2017-07-16] MEDS ORDERED: NALOXONE 0.4 MG/ML 1 ML VIAL IV PRN (00:23)
[2017-07-16] MEDS ORDERED: ONDANSETRON 4 MG/2 ML VIAL IVP PRN (00:23)
[2017-07-16] MEDS ORDERED: ACETAMINOPHEN TAB 325 MG TAB PO PRN (00:23)
[2017-07-16] MEDS ORDERED: LORazepam 2 MG/ML INJ IV PRN (00:23)
[2017-07-16 02:44] VITALS: BMI 25.0
[2017-07-16] MEDS: INSULIN ASPART 100 UNIT/ML 1 ML 10 ML VIAL SQ SCH ×4 (06:21→21:23)
[2017-07-16] MEDS: methylPREDNISolone SOD SUCCI 125 MG/2 ML VIAL IV SCH ×4 (06:21→23:24)
[2017-07-16 06:28] LABS: Glucose,Whole Blood 158 mg/dL (75-99)
[2017-07-16] MEDS: FERROUS SULFATE 325 MG TAB PO SCH ×2 (07:45→20:21)
[2017-07-16] MEDS: THEOPHYLLINE 24 HOUR 300 MG CAP.ER.24H PO SCH (07:45)
[2017-07-16] MEDS: ISOSORBIDE MONONITRATE ER 30 MG TAB.ER.24H PO SCH (07:45)
[2017-07-16] MEDS: LEVOFLOXACIN 500 MG TAB PO SCH (07:46)
[2017-07-16] MEDS: METOPROLOL TARTRATE 25 MG TAB PO SCH (07:46)
[2017-07-16] MEDS: FAMOTIDINE 20 MG TAB PO SCH (07:46)
[2017-07-16] MEDS: DULoxetine HCL 30 MG CAPSULE.DR PO SCH (07:46)
[2017-07-16] MEDS: DULoxetine HCL 60 MG CAPSULE.DR PO SCH (07:46)
[2017-07-16] MEDS: IPRATROPIUM-ALBUTEROL 3 ML NEB INHALATION PRN ×4 (07:51→19:29)
[2017-07-16] MEDS: FLUTICASONE 50MCG/SPRAY NASAL 16GM EA NOSTRIL SCH (07:52)
[2017-07-16] MEDS ORDERED: SYMBICORT 160-4.5 MCG INHALER INHALATION SCH (08:00)
[2017-07-16] MEDS ORDERED: MORPHINE ORAL SOLN 10 MG/5 ML CUP PO PRN (10:32)
[2017-07-16] MEDS: MOXIFLOXACIN HCL 0.5% DROPS 3 ML BTL BOTH EYES SCH ×3 (11:17→22:05)
[2017-07-16] MEDS ORDERED: FUROSEMIDE 10 MG/ML 4 ML VIAL IV STA (11:32)
[2017-07-16 11:47] LABS: Glucose,Whole Blood 124 mg/dL (75-99)
--- NOTE | 2017-07-16 12:36 | CONS ---
CONSULTATION Mr. Ward is a 77-year-old gentleman who came to the emergency room with acute respiratory distress. This patient has a history of severe COPD. The patient's breathing has been getting worse for last 2 days and he is coughing up phlegm. He denied any chest pain. The patient has been treated for acute exacerbation of COPD. There is no definite prior history of myocardial infarction. The patient has a history of advanced COPD. HOME MEDICATIONS: Patient's home medications include Imdur, Lopressor, Desyrel, Zaroxolyn, Hytrin, Cymbalta, Feosol, prednisone, DuoNeb, duloxetine, Flonase nasal spray, Advair and theophylline 300 mg b.i.d. PAST MEDICAL HISTORY: Past medical history includes this patient has end-stage COPD. He is steroid dependent. History of secondary pulmonary hypertension. The patient is not mobile and he is most of the time confined to the wheelchair. PHYSICAL EXAMINATION: Physical examination at present reveals a 77-year-old gentleman who is in moderate respiratory distress. The patient's heart rate is 110 per minute. Patient is afebrile. The patient's blood pressure is 157/75 mmHg. Respiratory rate is 35 to 40 per minute. Patient is on BiPAP. Oxygen saturation is 98. Head/ENT examination is negative. Neck is supple. Jugular venous pressure is difficult to assess. Both the carotid pulses are felt. There is no bruit. Chest is symmetrical. HEART: The PMI is not felt. LUNGS: Examination reveals bilateral scattered wheezes. ABDOMEN: Soft. Liver and spleen are not enlarged. Bowel sounds are heard. EXTREMITIES: Peripheral pulsations are 1+. Chest x-ray shows possible infiltrate on the right side, possible pneumonia. The patient's BNP level is 517. The patient has a minimally elevated troponin. FINAL IMPRESSION: 1. This patient is admitted with acute respiratory distress which is secondary to acute exacerbation of chronic obstructive pulmonary disease with possible associated pneumonia. The patient's BNP level is only 517 and so is not suggestive of acute left ventricular failure. 2. Patient's EKG does not show any acute ischemic changes. Mild elevation in the troponin is secondary to acute respiratory distress. Patient during the previous admission also has been noticed to have a mild elevation in the troponin. We will check echo and Doppler study to rule out any significant wall motion abnormality. MMODL / IJN: [id number] /
--- NOTE | 2017-07-16 13:14 | P.CNPUL ---
History of Present Illness Consult date: 07/16/17 Reason for consult: dyspnea, COPD History of present illness: A 77-year-old male patient with known history of advanced end-stage COPD, very well-known to us as the patient is a regular office patient and he follows up with Dr. Maldonado. Apparently is progressively getting worse in terms of his COPD and the patient has been having increased wheezing and some chest congestion and he was concerned and he came into the hospital for increased shortness of breath and COPD exacerbation. Chest x-ray was done and it showed no new abnormalities and the findings are essentially chronic as the patient was found to have bullous changes bilaterally and chronic scarring and volume loss in the right lung. The patient has no pleural effusion. No consolidation. No abscess formation. He is currently on BiPAP at a pressure of 12/6 cm of water with an FiO2 of 60%. Is quite comfortable. He reports some increase in lower extremity edema. He has no chest pain. Minimal amount of troponin leak was noted on his blood work at his EKG showing normal sinus rhythm without any acute abnormalities. The patient is typically on 4-5 L of oxygen nasal cannula. He uses a motorized scooter for movement and mobility. The patient has advanced lung disease with secondary pulmonary hypertension. The white cell count is not elevated at 9.9. Hemoglobin is at 12.1. Review of Systems Constitutional: Reports chronic pain, Reports fatigue, Reports weakness Eyes: denies blurred vision, denies bulging eye, denies decreased vision Ears: deny: decreased hearing, ear discharge, earache Ears, nose, mouth and throat: Denies headache, Denies sore throat Cardiovascular: Reports decreased exercise tolerance, Reports dyspnea on exertion, Reports shortness of breath Respiratory: Reports cough, Reports dyspnea, Reports wheezing Gastrointestinal: Denies abdominal pain, Denies diarrhea, Denies nausea, Denies vomiting Genitourinary: Reports as per HPI Musculoskeletal: Denies myalgias Musculoskeletal: bilateral: ankle swelling, absent: ankle pain, ankle stiffness Integumentary: Denies pruritus, Denies rash Neurological: Reports weakness Psychiatric: Reports anxiety, Reports sleep disturbances Endocrine: Denies fatigue, Denies weight change Hematologic/Lymphatic: Reports as per HPI Allergic/Immunologic: Reports as per HPI Past Medical History Past Medical History: Asthma, COPD, Deep Vein Thrombosis (DVT), GERD/Reflux, Hearing Disorder / Deafness, Hyperlipidemia, Hypertension, Osteoarthritis (OA), Prostate Disorder, Respiratory Disorder Additional Past Medical History / Comment(s): End-stage COPD, oxygen and steroid dependent and the patient is typically on 5 L of oxygen nasal cannula, limits pulmonate fibrosis, history of lung abscess, secondary pulmonary hypertension, difficulty with mobility and the patient is a wheelchair-bound, impaired hearing, chronic anemia, BPH, history of DVT with a previous [place] filter insertion fact April 2016, BPH, osteoarthritis, hypertension, acid reflux, dropped foot and the patient wears a right foot brace History of Any Multi-Drug Resistant Organisms: None Reported Date of last positivie culture/infection: None MDRO Source:: None Past Surgical History: Adenoidectomy, Appendectomy, Back Surgery, Heart Catheterization, Joint Replacement, Orthopedic Surgery, Tonsillectomy Additional Past Surgical History / Comment(s): LEFT HIP SURGERY X2, TOTAL RIGHT HIP., RIGHT FOOT SX, BRONCHOSCOPY, JEAN-PAUL FILTER., EGD Past Anesthesia/Blood Transfusion Reactions: No Reported Reaction, Family History of Problems w/ Anesthesia Additional Past Anesthesia/Blood Transfusion Reaction / Comment(s): HX OF BLOOD TRANSFUSIONS APR AND MAY 2016- NO REACTION. SISTER= DIFFICULTY WAKING UP. Past Psychological History: Anxiety, Depression Additional Psychological History / Comment(s): . Smoking Status: Former smoker Past Alcohol Use History: None Reported Additional Past Alcohol Use History / Comment(s): Patient was a smoker of one and half packs per day for 41 years. STARTED SMOKING AT AGE 14 . He quit in 1993. Past Drug Use History: None Reported Additional Drug Use History / Comment(s): . - Past Family History Mother Family Medical History: Liver Disease Additional Family Medical History / Comment(s): Mother had cirrhosis of the liver and from it. Father Family Medical History: No Reported History Additional Family Medical History / Comment(s): Father of old age. Medications and Allergies Home Medications Medication Instructions Recorded Confirmed Type Isosorbide Mononitrate [Imdur] 30 mg PO DAILY 09/24/13 07/15/17 History Metoprolol Tartrate [Lopressor] 25 mg PO DAILY 05/02/14 07/15/17 History traZODone HCL [Desyrel] 100 mg PO HS 05/02/14 07/15/17 History Famotidine [Pepcid] 40 mg PO DAILY 06/22/14 07/15/17 History ALPRAZolam [Xanax] 0.25 mg PO TID 03/02/15 07/15/17 History Metolazone [Zaroxolyn] 5 mg PO MOWEFR 05/07/16 07/15/17 History Terazosin HCl [Hytrin] 20 mg PO HS 05/07/16 07/15/17 History DULoxetine HCL [Cymbalta] 30 mg PO DAILY 10/24/16 07/15/17 History Ferrous Sulfate [Feosol] 325 mg PO BID 10/24/16 07/15/17 History predniSONE 5 mg PO DAILY 10/24/16 07/15/17 History Ipratropium/Albuterol Sulfate 3 ml INHALATION RT-QID PRN 11/29/16 07/15/17 History [Duoneb 0.5 mg-3 mg/3 ml Soln] DULoxetine HCL [Cymbalta] 60 mg PO DAILY 07/15/17 07/15/17 History Fluticasone Nasal [place] [Flonase 2 spr EA NOSTRIL DAILY 07/15/17 07/15/17 History Nasal [place]] Fluticasone/Salmeterol [Advair Hfa 2 puff INHALATION RT-BID 07/15/17 07/15/17 History 230-21 Mcg Inhaler] Moxifloxacin HCl [Moxifloxacin] 1 drop BOTH EYES TID 07/15/17 07/15/17 History Sulfamethox-Tmp 800-160Mg [Bactrim 1 tab PO MOWEFR 07/15/17 07/15/17 History DS 800-160 mg] Theophylline 12 Hour [Ronnie-Dur] 300 mg PO BID 07/15/17 07/15/17 History Allergies Allergy/AdvReac Type Severity Reaction Status Date / Time celecoxib [From Celebrex] Allergy Swelling Verified 07/15/17 22:39 gabapentin [From Neurontin] Allergy Rash/Hives Verified 07/15/17 22:39 propoxyphene Allergy Unknown Verified 07/15/17 22:39 [From Darvocet-N] rabeprazole [From Aciphex] Allergy Unknown Verified 07/15/17 22:39 Physical Exam Vitals: Vital Signs Temp Pulse Pulse Resp BP BP Pulse Ox 07/16/17 11:19 97.5 F L 89 43 H 124/74 98 05/08/18 11:08 110 H 07/16/17 10:59 108 H 07/16/17 08:03 118 H 07/16/17 07:55 120 H 07/16/17 07:53 97.6 F 108 H 44 H 157/75 97 07/16/17 04:51 118 H 28 H 133/87 96 07/16/17 02:47 116 H 07/16/17 02:25 97.6 F 137 H 32 H 164/75 96 07/16/17 00:41 97.7 F 07/16/17 00:29 123 H 20 155/73 95 07/15/17 23:27 114 H 20 152/70 98 07/15/17 22:45 118 H 07/15/17 22:31 126 H 26 H 148/65 98 07/15/17 22:09 112 H 07/15/17 21:53 110 H 07/15/17 21:45 30 H 07/15/17 21:38 97.6 F 123 H 30 H 192/88 85 L Intake and Output 07/15/17 07/16/17 07/16/17 22:59 06:59 14:59 Intake Total 118 Output Total 300 Balance -300 118 Intake: Oral 118 Output: Urine 300 Other: Voiding Method Urinal Urinal Weight 70.307 kg 70 kg Thin, frail, elderly male patient, nonacute distress.Head exam was generally normal. The patient is currently wearing a BiPAP at a pressure of 12/6 cm of water. Is quite synchronous with the mechanical ventilator. No use of accessory muscles of breathing at this point in time. There was no scleral icterus or corneal arcus. Mucous membranes were moist.Neck was supple and without jugular venous distension, thyromegaly, or carotid bruits. Carotids were easily palpable bilaterally. There was no adenopathy. Lung sounds are markedly diminished in lung bases bilaterally especially in the lung bases and there are some scattered expiratory wheezes especially upon forced extremity maneuvers.Cardiac exam revealed the PMI to be normally situated and sized. The rhythm was regular and no extrasystoles were noted during several minutes of auscultation. The first and second heart sounds were normal and physiologic splitting of the second heart sound was noted. There were no murmurs, rubs, clicks, or gallops. Abdomen is soft and the surgical site is dry clean and intact. No direct tenderness. No rebound tensile guarding. Extremities showed trace edema and distal cyanosis or clubbing. Neurologically is awake and alert and no focal logical deficits. Skin is negative for any open wounds or ulcers or cellulitis. Skeletal patient has a right foot drop and he wears a brace. Difficult mobility and gait due to his severe arthritis and advanced lung disease. Results - Laboratory Findings CBC and BMP: 07/15/17 21:48 07/15/17 21:48 PT/INR, D-dimer PT 10.1 sec (9.0-12.0) 07/15/17 21:48 INR 1.0 (<1.2) 07/15/17 21:48 Abnormal lab findings: Abnormal Labs 07/15/17 07/15/17 07/15/17 21:48 21:48 21:48 RBC 4.14 L Hgb 12.1 L Hct 36.1 L Sodium 136 L Chloride 93 L Carbon Dioxide 31 H Glucose 124 H POC Glucose (mg/dL) ALT 9 L CK-MB (CK-2) 3.5 H* Troponin I 07/16/17 07/16/17 07/16/17 05:58 06:17 10:31 RBC Hgb Hct Sodium Chloride Carbon Dioxide Glucose POC Glucose (mg/dL) 158 H ALT CK-MB (CK-2) Troponin I 0.129 H* 0.139 H* 07/16/17 11:44 RBC Hgb Hct Sodium Chloride Carbon Dioxide Glucose POC Glucose (mg/dL) 124 H ALT CK-MB (CK-2) Troponin I - Diagnostic Findings Chest x-ray: image reviewed Assessment and Plan Plan: 1 acute COPD exacerbation with possibly with a component of fluid overload/CHF. There is minimal troponin leak which is nonspecific. We'll obtain echocardiogram. We'll treat his acute COPD exacerbation. Currently the patient is on a BiPAP at a pressure of 12/6 cm of water. He is on a combination of bronchodilators and systemic steroids. Empiric antibiotic coverage with Levaquin was also started. 2 advanced/end stage COPD oxygen and steroid-dependent maintained on 5 mg of prednisone outpatient basis. 3 chronic hypoxic history failure at 5 L of oxygen nasal cannula 4 previous history of DVT of the left lower extremity currently has an IVC filter in place 5 right lung abscess, recovered 6 staphylococcal pneumonia/MSSA 7 history of hip fracture status post ORIF 8 hyperlipidemia 9 hypertension 10 secondary pulmonary hypertension related to chronic lung disease 11 BPH 12 impaired performance and functional status secondary to above-mentioned comorbidities Plan The IV Fluids to KVO. Give the Patient a Dose of Lasix 40 Mg IV Push. Put the Patient on Xanax 0.5 Mg Every 8 Hours on Telemetry Basis. Obtain an Echocardiogram. Continue DuoNeb Nebulized Treatment [id number]. Continue IV Solu-Medrol. Levaquin As Empiric Antibiotic Coverage and the Patient Has Been Also Taking Bactrim 3 Times A Week. Proceed with an Echocardiogram. We'll Continue to Follow. Overall Performance and Functional Status Is Poor. Chest X-Ray Is Not Showing Any Acute Abnormalities. Findings Are Essentially Chronic. Long-Term Prognosis Poor Based on His Advanced Lung Disease. We'll Follow.
[2017-07-16 16:46] LABS: Glucose,Whole Blood 122 mg/dL (75-99)
--- NOTE | 2017-07-16 17:02 | P.HPIM ---
History of Present Illness this is a 77 years old male with past medical history of end stage COPD and is oxygen dependent, DVT status post IVC filter, GERD, hyperlipidemia, hypertension , OA, prostate disorder, because of worsening shortness of breath over several days, patient was found to have COPD exacerbation he was placed on a breathing treatment and BiPAP and shows some relief Patient was found to have positive troponin, mild elevation, plant operator evaluated the patient and recommended conservative treatment Review of Systems 14 point systemic review were negative except was mentioned in the HPI Past Medical History Past Medical History: Asthma, COPD, Deep Vein Thrombosis (DVT), GERD/Reflux, Hearing Disorder / Deafness, Hyperlipidemia, Hypertension, Osteoarthritis (OA), Prostate Disorder, Respiratory Disorder Additional Past Medical History / Comment(s): End-stage COPD, oxygen and steroid dependent and the patient is typically on 5 L of oxygen nasal cannula, limits pulmonate fibrosis, history of lung abscess, secondary pulmonary hypertension, difficulty with mobility and the patient is a wheelchair-bound, impaired hearing, chronic anemia, BPH, history of DVT with a previous [place] filter insertion fact April 2016, BPH, osteoarthritis, hypertension, acid reflux, dropped foot and the patient wears a right foot brace History of Any Multi-Drug Resistant Organisms: None Reported Date of last positivie culture/infection: None MDRO Source:: None Past Surgical History: Adenoidectomy, Appendectomy, Back Surgery, Heart Catheterization, Joint Replacement, Orthopedic Surgery, Tonsillectomy Additional Past Surgical History / Comment(s): LEFT HIP SURGERY X2, TOTAL RIGHT HIP., RIGHT FOOT SX, BRONCHOSCOPY, JEAN-PAUL FILTER., EGD Past Anesthesia/Blood Transfusion Reactions: No Reported Reaction, Family History of Problems w/ Anesthesia Additional Past Anesthesia/Blood Transfusion Reaction / Comment(s): HX OF BLOOD TRANSFUSIONS APR AND MAY 2016- NO REACTION. SISTER= DIFFICULTY WAKING UP. Past Psychological History: Anxiety, Depression Additional Psychological History / Comment(s): . Smoking Status: Former smoker Past Alcohol Use History: None Reported Additional Past Alcohol Use History / Comment(s): Patient was a smoker of one and half packs per day for 41 years. STARTED SMOKING AT AGE 14 . He quit in 1993. Past Drug Use History: None Reported Additional Drug Use History / Comment(s): . - Past Family History Mother Family Medical History: Liver Disease Additional Family Medical History / Comment(s): Mother had cirrhosis of the liver and from it. Father Family Medical History: No Reported History Additional Family Medical History / Comment(s): Father of old age. Medications and Allergies Home Medications Medication Instructions Recorded Confirmed Type Isosorbide Mononitrate [Imdur] 30 mg PO DAILY 09/24/13 07/15/17 History Metoprolol Tartrate [Lopressor] 25 mg PO DAILY 05/02/14 07/15/17 History traZODone HCL [Desyrel] 100 mg PO HS 05/02/14 07/15/17 History Famotidine [Pepcid] 40 mg PO DAILY 06/22/14 07/15/17 History ALPRAZolam [Xanax] 0.25 mg PO TID 03/02/15 07/15/17 History Metolazone [Zaroxolyn] 5 mg PO MOWEFR 05/07/16 07/15/17 History Terazosin HCl [Hytrin] 20 mg PO HS 05/07/16 07/15/17 History DULoxetine HCL [Cymbalta] 30 mg PO DAILY 10/24/16 07/15/17 History Ferrous Sulfate [Feosol] 325 mg PO BID 10/24/16 07/15/17 History predniSONE 5 mg PO DAILY 10/24/16 07/15/17 History Ipratropium/Albuterol Sulfate 3 ml INHALATION RT-QID PRN 11/29/16 07/15/17 History [Duoneb 0.5 mg-3 mg/3 ml Soln] DULoxetine HCL [Cymbalta] 60 mg PO DAILY 07/15/17 07/15/17 History Fluticasone Nasal [place] [Flonase 2 spr EA NOSTRIL DAILY 07/15/17 07/15/17 History Nasal [place]] Fluticasone/Salmeterol [Advair Hfa 2 puff INHALATION RT-BID 07/15/17 07/15/17 History 230-21 Mcg Inhaler] Moxifloxacin HCl [Moxifloxacin] 1 drop BOTH EYES TID 07/15/17 07/15/17 History Sulfamethox-Tmp 800-160Mg [Bactrim 1 tab PO MOWEFR 07/15/17 07/15/17 History DS 800-160 mg] Theophylline 12 Hour [Ronnie-Dur] 300 mg PO BID 07/15/17 07/15/17 History Allergies Allergy/AdvReac Type Severity Reaction Status Date / Time celecoxib [From Celebrex] Allergy Swelling Verified 07/15/17 22:39 gabapentin [From Neurontin] Allergy Rash/Hives Verified 07/15/17 22:39 propoxyphene Allergy Unknown Verified 07/15/17 22:39 [From Darvocet-N] rabeprazole [From Aciphex] Allergy Unknown Verified 07/15/17 22:39 Physical Exam Vitals: Vital Signs Temp Pulse Pulse Resp BP BP Pulse Ox 07/16/17 16:10 97.7 F 94 41 H 127/61 96 07/16/17 15:46 108 H 07/16/17 15:31 106 H 07/16/17 11:19 97.5 F L 89 43 H 124/74 98 07/16/17 11:08 110 H 07/16/17 10:59 108 H 07/16/17 08:03 118 H 07/16/17 07:55 120 H 07/16/17 07:53 97.6 F 108 H 44 H 157/75 97 07/16/17 04:51 118 H 28 H 133/87 96 07/16/17 02:47 116 H 07/16/17 02:25 97.6 F 137 H 32 H 164/75 96 07/16/17 00:41 97.7 F 07/16/17 00:29 123 H 20 155/73 95 07/15/17 23:27 114 H 20 152/70 98 07/15/17 22:45 118 H 07/15/17 22:31 126 H 26 H 148/65 98 07/15/17 22:09 112 H 07/15/17 21:53 110 H 07/15/17 21:45 30 H 07/15/17 21:38 97.6 F 123 H 30 H 192/88 85 L Intake and Output 07/16/17 07/16/17 07/16/17 06:59 14:59 22:59 Intake Total 118 Output Total 300 Balance -300 118 Intake: Oral 118 Output: Urine 300 Other: Voiding Method Urinal Urinal Urinal # Voids 1 Weight 70 kg Constitutional: No acute distress, conversant, pleasant Eyes: Anicteric sclerae, moist conjunctiva, no lid-lag PERRLA ENMT: NC/AT Oropharynx clear, no erythema, exudates Neck: Supple, FROM, no masses, or JVD No carotid bruits No thyromegaly Lungs: Clear to auscultation Clear to percussion, bilateral wheezing Normal respiratory effort, no accessory muscle use Cardiovascular: Heart regular in rate and rhythm, No murmurs, gallops, or rubs No peripheral edema Abdominal: Soft Nontender, no guarding, rebound or rigidity Abdomen moving with respiration Normoactive bowel sounds No hepatomegaly, No splenomegaly No palpable mass No abdominal wall hernia noted Skin: Normal temperature, tone, texture, turgor No induration No subcutaneous nodules No rash, lesions No ulcers Extremities: No digital cyanosis No clubbing Pedal pulses intact and symmetrical Radial pulses intact and symmetrical Normal gait and station No calf tenderness Psychiatric: Alert and oriented to person, place and time Appropriate affect Intact judgement Neuro: Muscles Strength 5/5 in all 4 extremities Sensation to light touch grossly present throughout Cranial nerves II-XII grossly intact No focal sensory deficits Results CBC & Chem 7: 07/15/17 21:48 07/15/17 21:48 Labs: Abnormal Lab Results - Last 24 Hours (Table) 07/15/17 07/15/17 07/15/17 Range/Units 21:48 21:48 21:48 RBC 4.14 L (4.30-5.90) m/uL Hgb 12.1 L (13.0-17.5) gm/dL Hct 36.1 L (39.0-53.0) % Sodium 136 L (137-145) mmol/L Chloride 93 L (98-107) mmol/L Carbon Dioxide 31 H (22-30) mmol/L Glucose 124 H (74-99) mg/dL POC Glucose (mg/dL) (75-99) mg/dL ALT 9 L (21-72) U/L CK-MB (CK-2) 3.5 H* (0.0-2.4) ng/mL Troponin I (0.000-0.034) ng/mL 07/16/17 07/16/17 07/16/17 Range/Units 05:58 06:17 10:31 RBC (4.30-5.90) m/uL Hgb (13.0-17.5) gm/dL Hct (39.0-53.0) % Sodium (137-145) mmol/L Chloride (98-107) mmol/L Carbon Dioxide (22-30) mmol/L Glucose (74-99) mg/dL POC Glucose (mg/dL) 158 H (75-99) mg/dL ALT (21-72) U/L CK-MB (CK-2) (0.0-2.4) ng/mL Troponin I 0.129 H* 0.139 H* (0.000-0.034) ng/mL 07/16/17 07/16/17 Range/Units 11:44 16:43 RBC (4.30-5.90) m/uL Hgb (13.0-17.5) gm/dL Hct (39.0-53.0) % Sodium (137-145) mmol/L Chloride (98-107) mmol/L Carbon Dioxide (22-30) mmol/L Glucose (74-99) mg/dL POC Glucose (mg/dL) 124 H 122 H (75-99) mg/dL ALT (21-72) U/L CK-MB (CK-2) (0.0-2.4) ng/mL Troponin I (0.000-0.034) ng/mL Thrombosis Risk Factor Assmnt - Choose All That Apply Any of the Below Risk Factors Present?: Yes Each Factor Represents 1 point: Abnormal pulmonary function (COPD), Swollen legs (current) Other Risk Factors: Yes Each Risk Factor Represents 3 Points: Age 75 years or older, History of DVT/PE Thrombosis Risk Factor Assessment Total Risk Factor Score: 8 Thrombosis Risk Factor Assessment Level: High Risk Assessment and Plan Plan: -COPD exacerbation, pulmonary consultation is appreciated, continue with a breathing treatment steroids and antibiotic, patient was on Bactrim for a long time for prophylaxis, moxifloxacin is been added -Positive troponin, plant operator evaluated the patient, a shunt has similar problem on a previous COPD exacerbation, continue with conservative treatment, echo is pending DVT prophylaxis, patient refused to take any anticoagulations subcutaneous or oral Nasima risks benefits and alternatives are exited into the patient and he verbalized understanding and still refuses the treatment, continue with SCD GI prophylaxis Pepcid Prognosis is guarded given him advanced disease at comorbidity
[2017-07-16] MEDS: ALPRAZolam 0.5 MG TAB PO PRN (17:43)
[2017-07-16] MEDS: DOXAZOSIN 4 MG TAB PO SCH (20:20)
[2017-07-16 21:03] LABS: Glucose,Whole Blood 159 mg/dL (75-99)
[2017-07-16] MEDS: traZODone HCL 50 MG TAB PO SCH (22:05)
[2017-07-17 06:01] LABS: Glucose,Whole Blood 127 mg/dL (75-99)
[2017-07-17] MEDS: INSULIN ASPART 100 UNIT/ML 1 ML 10 ML VIAL SQ SCH ×4 (06:04→21:00)
[2017-07-17] MEDS: methylPREDNISolone SOD SUCCI 125 MG/2 ML VIAL IV SCH ×4 (06:10→23:07)
[2017-07-17 06:50] LABS: Basophils % (A) 0 %; Eosinophils % (A) 0 %; HCT 37.8 % (39.0-53.0); Lymphocytes # (A) 0.4 k/uL (1.0-4.8); Lymphocytes % (A) 4 %; MCH 28.3 pg (25.0-35.0); MCHC 31.6 g/dL (31.0-37.0); MCV 89.7 fL (80.0-100.0); Mean Platelet Volume 6.8; Monocytes # (A) 0.5 k/uL (0-1.0); Monocytes % (A) 5 %; Neutrophils # (A) 9.4 k/uL (1.3-7.7); Neutrophils % (A) 91 %; Platelet Count 256 k/uL (150-450); RBC 4.22 m/uL (4.30-5.90); RDW 14.9 % (11.5-15.5); WBC 10.4 k/uL (3.8-10.6)
[2017-07-17 07:03] LABS: Anion Gap 13 mmol/L; Blood Urea Nitrogen 28 mg/dL (9-20); Calcium 8.8 mg/dL (8.4-10.2); Carbon Dioxide 32 mmol/L (22-30); Chloride 95 mmol/L (98-107); Glucose 115 mg/dL (74-99); Potassium 3.8 mmol/L (3.5-5.1); Sodium 140 mmol/L (137-145)
[2017-07-17] MEDS: IPRATROPIUM-ALBUTEROL 3 ML NEB INHALATION PRN ×4 (07:48→20:16)
[2017-07-17] MEDS: SYMBICORT 160-4.5 MCG INHALER INHALATION SCH ×2 (07:55→20:14)
[2017-07-17] MEDS: DULoxetine HCL 60 MG CAPSULE.DR PO SCH (08:40)
[2017-07-17] MEDS: THEOPHYLLINE 24 HOUR 300 MG CAP.ER.24H PO SCH (08:40)
[2017-07-17] MEDS: FAMOTIDINE 20 MG TAB PO SCH (08:40)
[2017-07-17] MEDS: FERROUS SULFATE 325 MG TAB PO SCH ×2 (08:40→20:00)
[2017-07-17] MEDS: LEVOFLOXACIN 500 MG TAB PO SCH (08:41)
[2017-07-17] MEDS: ISOSORBIDE MONONITRATE ER 30 MG TAB.ER.24H PO SCH (08:41)
[2017-07-17] MEDS: DULoxetine HCL 30 MG CAPSULE.DR PO SCH (08:41)
[2017-07-17] MEDS: METOPROLOL TARTRATE 25 MG TAB PO SCH (08:42)
[2017-07-17] MEDS: MOXIFLOXACIN HCL 0.5% DROPS 3 ML BTL BOTH EYES SCH ×3 (08:42→22:00)
[2017-07-17] MEDS: FLUTICASONE 50MCG/SPRAY NASAL 16GM EA NOSTRIL SCH (08:42)
[2017-07-17] MEDS: ALPRAZolam 0.5 MG TAB PO PRN (08:44)
[2017-07-17] MEDS ORDERED: METOLAZONE 5 MG TAB PO SCH (09:00)
[2017-07-17] MEDS ORDERED: SULFAMETHOX-TMP 800-160MG 1 EACH TAB PO SCH (09:00)
[2017-07-17 11:48] LABS: Glucose,Whole Blood 120 mg/dL (75-99)
--- NOTE | 2017-07-17 12:48 | P.PN ---
Subjective Patient is still complains from some dyspnea and he needs BiPAP and breathing treatment Echo is pending, materials analyst has been consulted and is pending Objective - Vital Signs Vital signs: Vital Signs Temp 97 F L 07/17/17 12:00 Pulse 89 07/17/17 12:00 Resp 20 07/17/17 12:00 BP 126/69 07/17/17 12:00 Pulse Ox 92 L 07/17/17 12:00 Intake & Output 07/16/17 07/17/17 07/17/17 18:59 06:59 18:59 Intake Total 118 1140 Output Total 200 1075 225 Balance -82 65 -225 Weight 66 kg Intake: Intake, IV Titration 600 Amount Sodium Chloride 0.9% 1, 600 000 ml @ 75 mls/hr IV . [id number] STA Rx#:[id number] Oral 118 540 Output: Urine 200 1075 225 Other: Voiding Method Urinal Urinal Urinal # Voids 1 200 - Exam Constitutional: No acute distress, conversant, pleasant Eyes: Anicteric sclerae, moist conjunctiva, no lid-lag PERRLA ENMT: NC/AT Oropharynx clear, no erythema, exudates Neck: Supple, FROM, no masses, or JVD No carotid bruits No thyromegaly Lungs: Clear to auscultation, bilateral wheezing Clear to percussion Normal respiratory effort, no accessory muscle use Cardiovascular: Heart regular in rate and rhythm, No murmurs, gallops, or rubs No peripheral edema Abdominal: Soft Nontender, no guarding, rebound or rigidity Abdomen moving with respiration Normoactive bowel sounds No hepatomegaly, No splenomegaly No palpable mass No abdominal wall hernia noted Skin: Normal temperature, tone, texture, turgor No induration No subcutaneous nodules No rash, lesions No ulcers Extremities: No digital cyanosis No clubbing Pedal pulses intact and symmetrical Radial pulses intact and symmetrical Normal gait and station No calf tenderness Psychiatric: Alert and oriented to person, place and time Appropriate affect Intact judgement Neuro: Muscles Strength 5/5 in all 4 extremities Sensation to light touch grossly present throughout Cranial nerves II-XII grossly intact No focal sensory deficits - Labs CBC & Chem 7: 07/17/17 05:20 07/17/17 05:20 Labs: Abnormal Lab Results - Last 24 Hours (Table) 07/16/17 07/16/17 07/17/17 Range/Units 16:43 21:02 05:20 RBC 4.22 L (4.30-5.90) m/uL Hgb 12.0 L (13.0-17.5) gm/dL Hct 37.8 L (39.0-53.0) % Neutrophils # 9.4 H (1.3-7.7) k/uL Lymphocytes # 0.4 L (1.0-4.8) k/uL Chloride (98-107) mmol/L Carbon Dioxide (22-30) mmol/L BUN (9-20) mg/dL Glucose (74-99) mg/dL POC Glucose (mg/dL) 122 H 159 H (75-99) mg/dL 07/17/17 07/17/17 07/17/17 Range/Units 05:20 05:58 11:46 RBC (4.30-5.90) m/uL Hgb (13.0-17.5) gm/dL Hct (39.0-53.0) % Neutrophils # (1.3-7.7) k/uL Lymphocytes # (1.0-4.8) k/uL Chloride 95 L (98-107) mmol/L Carbon Dioxide 32 H (22-30) mmol/L BUN 28 H (9-20) mg/dL Glucose 115 H (74-99) mg/dL POC Glucose (mg/dL) 127 H 120 H (75-99) mg/dL Assessment and Plan Plan: -COPD exacerbation, pulmonary consultation is appreciated, continue with a breathing treatment steroids and antibiotic, patient was on Bactrim for a long time for prophylaxis, moxifloxacin is been added -Positive troponin, materials analyst evaluated the patient, a shunt has similar problem on a previous COPD exacerbation, continue with conservative treatment, echo is pending DVT prophylaxis, patient refused to take any anticoagulations subcutaneous or oral Nasima risks benefits and alternatives are exited into the patient and he verbalized understanding and still refuses the treatment, continue with SCD GI prophylaxis Pepcid Prognosis is guarded given him advanced disease at comorbidity
--- NOTE | 2017-07-17 13:07 | P.PN ---
Subjective Progress Note Date: 07/17/17 Principal diagnosis: Acute exacerbation of chronic obstructive pulmonary disease along with fluid volume overload, suspect CHF. A 77-year-old male patient with known history of advanced end-stage COPD, very well-known to us as the patient is a regular office patient and he follows up with Dr. Maldonado. Apparently is progressively getting worse in terms of his COPD and the patient has been having increased wheezing and some chest congestion and he was concerned and he came into the hospital for increased shortness of breath and COPD exacerbation. Chest x-ray was done and it showed no new abnormalities and the findings are essentially chronic as the patient was found to have bullous changes bilaterally and chronic scarring and volume loss in the right lung. The patient has no pleural effusion. No consolidation. No abscess formation. He is currently on BiPAP at a pressure of 12/6 cm of water with an FiO2 of 60%. Is quite comfortable. He reports some increase in lower extremity edema. He has no chest pain. Minimal amount of troponin leak was noted on his blood work at his EKG showing normal sinus rhythm without any acute abnormalities. The patient is typically on 4-5 L of oxygen nasal cannula. He uses a motorized scooter for movement and mobility. The patient has advanced lung disease with secondary pulmonary hypertension. The white cell count is not elevated at 9.9. Hemoglobin is at 12.1. The patient is seen again today 07/17/2017 in follow-up on the selective care unit. He is awake and alert in no acute distress. He is breathing better today as compared to yesterday. He was given additional diuretics and remains in a negative balance. Echocardiogram is pending. He did utilize the BiPAP last evening. He is currently on 6 L high flow nasal cannula and maintaining good O2 saturations in the 90s. His been afebrile. Hemodynamically stable. Objective - Vital Signs Vital signs: Vital Signs Temp 97 F L 07/17/17 12:00 Pulse 89 07/17/17 12:00 Resp 20 07/17/17 12:00 BP 126/69 07/17/17 12:00 Pulse Ox 92 L 07/17/17 12:00 Intake & Output 07/16/17 07/17/17 07/17/17 18:59 06:59 18:59 Intake Total 118 1140 Output Total 200 1075 225 Balance -82 65 -225 Weight 66 kg Intake: Intake, IV Titration 600 Amount Sodium Chloride 0.9% 1, 600 000 ml @ 75 mls/hr IV . [id number] STA Rx#:[id number] Oral 118 540 Output: Urine 200 1075 225 Other: Voiding Method Urinal Urinal Urinal # Voids 1 200 - Exam Thin, frail, elderly male patient, nonacute distress.Head exam was generally normal. The patient is currently wearing a BiPAP at a pressure of 12/6 cm of water. Is quite synchronous with the mechanical ventilator. No use of accessory muscles of breathing at this point in time. There was no scleral icterus or corneal arcus. Mucous membranes were moist.Neck was supple and without jugular venous distension, thyromegaly, or carotid bruits. Carotids were easily palpable bilaterally. There was no adenopathy. Lung sounds are markedly diminished in lung bases bilaterally especially in the lung bases and there are some scattered expiratory wheezes especially upon forced extremity maneuvers.Cardiac exam revealed the PMI to be normally situated and sized. The rhythm was regular and no extrasystoles were noted during several minutes of auscultation. The first and second heart sounds were normal and physiologic splitting of the second heart sound was noted. There were no murmurs, rubs, clicks, or gallops. Abdomen is soft and the surgical site is dry clean and intact. No direct tenderness. No rebound tensile guarding. Extremities showed trace edema and distal cyanosis or clubbing. Neurologically is awake and alert and no focal logical deficits. Skin is negative for any open wounds or ulcers or cellulitis. Skeletal patient has a right foot drop and he wears a brace. Difficult mobility and gait due to his severe arthritis and advanced lung disease. - Labs CBC & Chem 7: 07/17/17 05:20 07/17/17 05:20 Labs: Abnormal Lab Results - Last 24 Hours (Table) 07/16/17 07/16/17 07/17/17 Range/Units 16:43 21:02 05:20 RBC 4.22 L (4.30-5.90) m/uL Hgb 12.0 L (13.0-17.5) gm/dL Hct 37.8 L (39.0-53.0) % Neutrophils # 9.4 H (1.3-7.7) k/uL Lymphocytes # 0.4 L (1.0-4.8) k/uL Chloride (98-107) mmol/L Carbon Dioxide (22-30) mmol/L BUN (9-20) mg/dL Glucose (74-99) mg/dL POC Glucose (mg/dL) 122 H 159 H (75-99) mg/dL 07/17/17 07/17/17 07/17/17 Range/Units 05:20 05:58 11:46 RBC (4.30-5.90) m/uL Hgb (13.0-17.5) gm/dL Hct (39.0-53.0) % Neutrophils # (1.3-7.7) k/uL Lymphocytes # (1.0-4.8) k/uL Chloride 95 L (98-107) mmol/L Carbon Dioxide 32 H (22-30) mmol/L BUN 28 H (9-20) mg/dL Glucose 115 H (74-99) mg/dL POC Glucose (mg/dL) 127 H 120 H (75-99) mg/dL Assessment and Plan Assessment: 1 acute COPD exacerbation with possibly with a component of fluid overload/CHF. There is minimal troponin leak which is nonspecific. We'll obtain echocardiogram. We'll treat his acute COPD exacerbation. Currently the patient is on a BiPAP at a pressure of 12/6 cm of water. He is on a combination of bronchodilators and systemic steroids. Empiric antibiotic coverage with Levaquin was also started. 2 advanced/end stage COPD oxygen and steroid-dependent maintained on 5 mg of prednisone outpatient basis. 3 chronic hypoxic history failure at 5 L of oxygen nasal cannula 4 previous history of DVT of the left lower extremity currently has an IVC filter in place 5 right lung abscess, recovered 6 staphylococcal pneumonia/MSSA 7 history of hip fracture status post ORIF 8 hyperlipidemia 9 hypertension 10 secondary pulmonary hypertension related to chronic lung disease 11 BPH 12 impaired performance and functional status secondary to above-mentioned comorbidities Plan: The patient was seen and evaluated by Dr. Nelson. He is improved today as compared to yesterday as far as his pulmonary status. Echocardiogram is pending. We'll continue with bronchodilators and systemic steroids. He remains on empiric Levaquin. He is currently on Zaroxolyn Saturday. We will increase his activity as tolerated. We'll continue to follow and make further recommendations based on his clinical status. I, the cosigning physician, performed a history & physical examination of the patient. Lungs sounds with faint end expiratory wheeze. Diminished.. Maintaining good O2 saturations in the 90s on 6 L/m per nasal cannula. I discussed the assessment and plan of care with my nurse practitioner, Anastasia Carbajal. I attest to the above note as dictated by her.
--- NOTE | 2017-07-17 14:26 | P.PN ---
Subjective Progress Note Date: 07/17/17 This is a 77-year-old gentleman who presented to the hospital with acute respiratory distress. He has known history of severe COPD. Patient was seen in consultation yesterday by Dr. VC Tinajero. He was seen and examined this morning, overall his breathing is improving. Blood pressure 126/68, heart rate in the 80s, respirations 20, he's afebrile, 92% on 6 L of oxygen. Echocardiogram with Doppler study was requested which is yet pending. Objective - Vital Signs Vital signs: Vital Signs Temp 97 F L 07/17/17 12:00 Pulse 89 07/17/17 12:00 Resp 20 07/17/17 12:00 BP 126/69 07/17/17 12:00 Pulse Ox 92 L 07/17/17 12:00 Intake & Output 07/16/17 07/17/17 07/17/17 18:59 06:59 18:59 Intake Total 118 1140 120 Output Total 200 1075 225 Balance -82 65 -105 Weight 66 kg Intake: Intake, IV Titration 600 Amount Sodium Chloride 0.9% 1, 600 000 ml @ 75 mls/hr IV . [id number] STA Rx#:[id number] Oral 118 540 120 Output: Urine 200 1075 225 Other: Voiding Method Urinal Urinal Urinal # Voids 1 200 - Exam PHYSICAL EXAMINATION: HEENT: Head is atraumatic, normocephalic. Pupils equal, round. Neck is supple. There is no elevated jugular venous pressure. HEART EXAMINATION: Heart S1, S2 normal. No murmur or gallop heard. CHEST EXAMINATION: His reveal scattered coarse wheezing throughout. ABDOMEN: Soft, nontender. Bowel sounds are heard. No organomegaly noted. EXTREMITIES: 2+ peripheral pulses with evidence of peripheral edema and no calf tenderness noted. NEUROLOGIC patient is awake, alert and oriented -3. . - Labs CBC & Chem 7: 07/17/17 05:20 07/17/17 05:20 Labs: Abnormal Lab Results - Last 24 Hours (Table) 07/16/17 07/16/17 07/17/17 Range/Units 16:43 21:02 05:20 RBC 4.22 L (4.30-5.90) m/uL Hgb 12.0 L (13.0-17.5) gm/dL Hct 37.8 L (39.0-53.0) % Neutrophils # 9.4 H (1.3-7.7) k/uL Lymphocytes # 0.4 L (1.0-4.8) k/uL Chloride (98-107) mmol/L Carbon Dioxide (22-30) mmol/L BUN (9-20) mg/dL Glucose (74-99) mg/dL POC Glucose (mg/dL) 122 H 159 H (75-99) mg/dL 07/17/17 07/17/17 07/17/17 Range/Units 05:20 05:58 11:46 RBC (4.30-5.90) m/uL Hgb (13.0-17.5) gm/dL Hct (39.0-53.0) % Neutrophils # (1.3-7.7) k/uL Lymphocytes # (1.0-4.8) k/uL Chloride 95 L (98-107) mmol/L Carbon Dioxide 32 H (22-30) mmol/L BUN 28 H (9-20) mg/dL Glucose 115 H (74-99) mg/dL POC Glucose (mg/dL) 127 H 120 H (75-99) mg/dL Assessment and Plan Plan: Assessment and plan #1 acute exacerbation of COPD, possible pneumonia #2 patient has history of advanced end-stage COPD #3 hypertension #4 hyperlipidemia # 5 pulmonary hypertension #6 prior history of DVT has an IVC filter in place. Plan Patient had mild elevation in troponin, no EKG changes noted. Likely secondary to oxygen supply and demand mismatch. We will review the echocardiogram with Doppler study. Patient's BNP level was 517 and is not suggestive of any acute left ventricular failure. DNP note has been reviewed, I agree with a documented findings and plan of care. Patient was seen and examined.
--- NOTE | 2017-07-17 15:37 | ECHOF ---
Referral Reason:shortness of breath MEASUREMENTS -------- HEIGHT: 170.2 cm WEIGHT: 69.9 kg BP: IVSd: 1.0 cm (0.6 - 1.1) LVIDd: 4.0 cm (3.9 - 5.3) LVPWd: 1.3 cm (0.6 - 1.1) IVSs: 1.4 cm LVIDs: 3.3 cm LVPWs: 1.2 cm LA Diam: 3.7 cm (2.7 - 3.8) MV E Jose: 0.79 m/s MV DecT: 352 ms MV A Jose: 1.05 m/s MV E/A Ratio: 0.75 FINDINGS -------- Sinus rhythm. This was a techncally difficult study with suboptimal views, , Lumason utilized for enhancement of im ages. The left ventricular size is normal. There is mild concentric left ventricular hypertrophy. Overa ll left ventricular systolic function is low-normal with, an EF between 50 - 55 %. The right atrial size is normal. 5.0mg OF Lumason UTLIZED: 2 OR MORE WALL SEGMENTS NOT VISUALIZED. The aortic valve was not well visualized. The mitral valve was not well visualized. The tricuspid valve was not well visualized. No regurgitation noted There is no evidence of pulmo nary hypertension. The right ventricular systolic pressure, as measured by Doppler, is {RVSP}. The pulmonic valve was not well visualized. CONCLUSIONS -------- 1. This was a techncally difficult study with suboptimal views, , Lumason utilized for enhancement of images. 2. The left ventricular size is normal. 3. There is mild concentric left ventricular hypertrophy. 4. Overall left ventricular systolic function is low-normal with, an EF between 50 - 55 %. 5. 5.0mg OF Lumason UTLIZED: 2 OR MORE WALL SEGMENTS NOT VISUALIZED. 6. The aortic valve was not well visualized. 7. The mitral valve was not well visualized. 8. The tricuspid valve was not well visualized. 9. No regurgitation noted 10. There is no evidence of pulmonary hypertension. 11. The right ventricular systolic pressure, as measured by Doppler, is {RVSP}. 12. The pulmonic valve was not well visualized. DEVIL DOG: Ashley Costello RDCS
[2017-07-17 16:39] LABS: Glucose,Whole Blood 107 mg/dL (75-99)
[2017-07-17] MEDS: DOXAZOSIN 4 MG TAB PO SCH (20:00)
[2017-07-17 20:50] LABS: Glucose,Whole Blood 162 mg/dL (75-99)
[2017-07-17] MEDS: traZODone HCL 50 MG TAB PO SCH (22:00)
[2017-07-18] MEDS: ALPRAZolam 0.5 MG TAB PO PRN ×2 (00:49→13:38)
[2017-07-18 05:48] LABS: Glucose,Whole Blood 130 mg/dL (75-99)
[2017-07-18] MEDS: INSULIN ASPART 100 UNIT/ML 1 ML 10 ML VIAL SQ SCH ×2 (05:50→11:58)
[2017-07-18 05:51] LABS: Basophils % (A) 0 %; Eosinophils % (A) 0 %; HCT 38.5 % (39.0-53.0); HGB 12.6 gm/dL (13.0-17.5); Lymphocytes # (A) 0.4 k/uL (1.0-4.8); Lymphocytes % (A) 3 %; MCH 29.1 pg (25.0-35.0); MCHC 32.6 g/dL (31.0-37.0); Monocytes # (A) 0.6 k/uL (0-1.0); Monocytes % (A) 4 %; Neutrophils # (A) 12.9 k/uL (1.3-7.7); Neutrophils % (A) 92 %; Platelet Count 269 k/uL (150-450); RBC 4.32 m/uL (4.30-5.90); RDW 14.9 % (11.5-15.5)
[2017-07-18] MEDS: methylPREDNISolone SOD SUCCI 125 MG/2 ML VIAL IV SCH ×2 (05:53→12:02)
[2017-07-18 06:02] LABS: Anion Gap 10 mmol/L; Blood Urea Nitrogen 29 mg/dL (9-20); Carbon Dioxide 34 mmol/L (22-30); Chloride 96 mmol/L (98-107); Glucose 123 mg/dL (74-99); Potassium 4.1 mmol/L (3.5-5.1); Sodium 140 mmol/L (137-145)
[2017-07-18] MEDS: SYMBICORT 160-4.5 MCG INHALER INHALATION SCH (07:16)
[2017-07-18] MEDS: IPRATROPIUM-ALBUTEROL 3 ML NEB INHALATION PRN ×2 (07:16→10:50)
[2017-07-18] MEDS: FLUTICASONE 50MCG/SPRAY NASAL 16GM EA NOSTRIL SCH (08:33)
[2017-07-18] MEDS: MOXIFLOXACIN HCL 0.5% DROPS 3 ML BTL BOTH EYES SCH (08:34)
[2017-07-18] MEDS: LEVOFLOXACIN 500 MG TAB PO SCH (08:35)
[2017-07-18] MEDS: DULoxetine HCL 30 MG CAPSULE.DR PO SCH (08:35)
[2017-07-18] MEDS: ISOSORBIDE MONONITRATE ER 30 MG TAB.ER.24H PO SCH (08:35)
[2017-07-18] MEDS: THEOPHYLLINE 24 HOUR 300 MG CAP.ER.24H PO SCH (08:35)
[2017-07-18] MEDS: FAMOTIDINE 20 MG TAB PO SCH (08:35)
[2017-07-18] MEDS: FERROUS SULFATE 325 MG TAB PO SCH (08:35)
[2017-07-18] MEDS: METOPROLOL TARTRATE 25 MG TAB PO SCH (08:35)
[2017-07-18] MEDS: DULoxetine HCL 60 MG CAPSULE.DR PO SCH (08:35)
[2017-07-18 11:50] LABS: Glucose,Whole Blood 134 mg/dL (75-99)
[2017-07-18 12:18] VITALS: BP 131/59; PULSE 77; RESP 14; TEMP 98.6
--- NOTE | 2017-07-18 13:25 | P.PN ---
Subjective Progress Note Date: 07/18/17 This is a 77-year-old gentleman who presented to the hospital with acute respiratory distress. He has known history of severe COPD. Patient was seen in consultation yesterday by Dr. VC Tinajero. He was seen and examined this morning, overall his breathing is improving. Blood pressure 126/68, heart rate in the 80s, respirations 20, he's afebrile, 92% on 6 L of oxygen. Echocardiogram with Doppler study was requested which is yet pending. 07/18/2017 Patient seen and examined today, doing well overall. Echocardiogram with Doppler study was performed which revealed a normal left ventricular systolic function. Blood pressure 130/60 with a heart rate in the 70s, 96% on 6 L of oxygen. Objective - Vital Signs Vital signs: Vital Signs Temp 98.6 F 07/18/17 12:00 Pulse 77 07/18/17 12:00 Resp 14 07/18/17 12:00 BP 131/59 07/18/17 12:00 Pulse Ox 96 07/18/17 12:00 Intake & Output 07/17/17 07/18/17 07/18/17 18:59 06:59 18:59 Intake Total 300 240 200 Output Total 500 1400 560 Balance -200 -1160 -360 Weight 70 kg Intake: Oral 300 240 200 Output: Urine 500 1400 560 Other: Voiding Method Urinal Urinal # Voids 2 - Exam PHYSICAL EXAMINATION: HEENT: Head is atraumatic, normocephalic. Pupils equal, round. Neck is supple. There is no elevated jugular venous pressure. HEART EXAMINATION: Heart S1, S2 normal. No murmur or gallop heard. CHEST EXAMINATION: His reveal scattered coarse wheezing throughout. ABDOMEN: Soft, nontender. Bowel sounds are heard. No organomegaly noted. EXTREMITIES: 2+ peripheral pulses with evidence of peripheral edema and no calf tenderness noted. NEUROLOGIC patient is awake, alert and oriented -3. . - Labs CBC & Chem 7: 07/18/17 05:28 07/18/17 05:28 Labs: Abnormal Lab Results - Last 24 Hours (Table) 07/17/17 07/17/17 07/18/17 Range/Units 16:38 20:48 05:28 WBC 14.0 H (3.8-10.6) k/uL Hgb 12.6 L (13.0-17.5) gm/dL Hct 38.5 L (39.0-53.0) % Neutrophils # 12.9 H (1.3-7.7) k/uL Lymphocytes # 0.4 L (1.0-4.8) k/uL Chloride (98-107) mmol/L Carbon Dioxide (22-30) mmol/L BUN (9-20) mg/dL Glucose (74-99) mg/dL POC Glucose (mg/dL) 107 H 162 H (75-99) mg/dL 07/18/17 07/18/17 07/18/17 Range/Units 05:28 05:45 11:39 WBC (3.8-10.6) k/uL Hgb (13.0-17.5) gm/dL Hct (39.0-53.0) % Neutrophils # (1.3-7.7) k/uL Lymphocytes # (1.0-4.8) k/uL Chloride 96 L (98-107) mmol/L Carbon Dioxide 34 H (22-30) mmol/L BUN 29 H (9-20) mg/dL Glucose 123 H (74-99) mg/dL POC Glucose (mg/dL) 130 H 134 H (75-99) mg/dL Assessment and Plan Plan: Assessment and plan #1 acute exacerbation of COPD, possible pneumonia #2 patient has history of advanced end-stage COPD #3 hypertension #4 hyperlipidemia # 5 pulmonary hypertension #6 prior history of DVT has an IVC filter in place. Plan Patient had mild elevation in troponin, no EKG changes noted. Likely secondary to oxygen supply and demand mismatch. Echocardiogram with Doppler study revealed a normal left ventricular systolic function. From cardiology's perspective, we will follow this patient with you now on an as-needed basis only , please don't hesitate to call with any questions. DNP note has been reviewed, I agree with a documented findings and plan of care. Patient was seen and examined.
--- NOTE | 2017-07-18 13:28 | P.PN ---
Subjective Progress Note Date: 07/18/17 Principal diagnosis: Exacerbation of chronic obstructive pulmonary disease along with fluid volume overload, suspect CHF A 77-year-old male patient with known history of advanced end-stage COPD, very well-known to us as the patient is a regular office patient and he follows up with Dr. Maldonado. Apparently is progressively getting worse in terms of his COPD and the patient has been having increased wheezing and some chest congestion and he was concerned and he came into the hospital for increased shortness of breath and COPD exacerbation. Chest x-ray was done and it showed no new abnormalities and the findings are essentially chronic as the patient was found to have bullous changes bilaterally and chronic scarring and volume loss in the right lung. The patient has no pleural effusion. No consolidation. No abscess formation. He is currently on BiPAP at a pressure of 12/6 cm of water with an FiO2 of 60%. Is quite comfortable. He reports some increase in lower extremity edema. He has no chest pain. Minimal amount of troponin leak was noted on his blood work at his EKG showing normal sinus rhythm without any acute abnormalities. The patient is typically on 4-5 L of oxygen nasal cannula. He uses a motorized scooter for movement and mobility. The patient has advanced lung disease with secondary pulmonary hypertension. The white cell count is not elevated at 9.9. Hemoglobin is at 12.1. The patient is seen again today 07/17/2017 in follow-up on the selective care unit. He is awake and alert in no acute distress. He is breathing better today as compared to yesterday. He was given additional diuretics and remains in a negative balance. Echocardiogram is pending. He did utilize the BiPAP last evening. He is currently on 6 L high flow nasal cannula and maintaining good O2 saturations in the 90s. His been afebrile. Hemodynamically stable. On 07/18/2017 patient seen in follow-up. He is improving, his breathing is easier, on 6 L per nasal cannula with O2 sat 96%. He is afebrile, vital signs are stable. Lung sounds are for better air entry bilaterally, no wheezes noted on today's exam. No worsening dyspnea, no chest congestion or chest wall tenderness. No fever or chills. Patient remains on Bactrim, Levaquin, IV steroids, nebulized bronchodilators, and is improving. Today's labs showed a CBC of 14.0, hemoglobin of 12.6, sodium of 140, potassium is 4.1, BUN of 29, creatinine is 0.80. From pulmonary standpoint patient is stable for discharge home today Objective - Vital Signs Vital signs: Vital Signs Temp 98.6 F 07/18/17 12:00 Pulse 77 07/18/17 12:00 Resp 14 07/18/17 12:00 BP 131/59 07/18/17 12:00 Pulse Ox 96 07/18/17 12:00 Intake & Output 07/17/17 07/18/17 07/18/17 18:59 06:59 18:59 Intake Total 300 240 200 Output Total 500 1400 560 Balance -200 -1160 -360 Weight 70 kg Intake: Oral 300 240 200 Output: Urine 500 1400 560 Other: Voiding Method Urinal Urinal # Voids 2 - Exam Thin, frail, elderly male patient, nonacute distress.Head exam was generally normal. The patient is currently wearing a BiPAP at a pressure of 12/6 cm of water. Is quite synchronous with the mechanical ventilator. No use of accessory muscles of breathing at this point in time. There was no scleral icterus or corneal arcus. Mucous membranes were moist.Neck was supple and without jugular venous distension, thyromegaly, or carotid bruits. Carotids were easily palpable bilaterally. There was no adenopathy. Lung sounds are diminished in lung bases bilaterally, better air entry noted bilaterally today, no wheezing noted .Cardiac exam revealed the PMI to be normally situated and sized. The rhythm was regular and no extrasystoles were noted during several minutes of auscultation. The first and second heart sounds were normal and physiologic splitting of the second heart sound was noted. There were no murmurs , rubs, clicks, or gallops. Abdomen is soft and the surgical site is dry clean and intact. No direct tenderness. No rebound tensile guarding. Extremities showed trace edema and distal cyanosis or clubbing. Neurologically is awake and alert and no focal logical deficits. Skin is negative for any open wounds or ulcers or cellulitis. Skeletal patient has a right foot drop and he wears a brace. Difficult mobility and gait due to his severe arthritis and advanced lung disease. - Labs CBC & Chem 7: 07/18/17 05:28 07/18/17 05:28 Labs: Abnormal Lab Results - Last 24 Hours (Table) 07/17/17 07/17/17 07/18/17 Range/Units 16:38 20:48 05:28 WBC 14.0 H (3.8-10.6) k/uL Hgb 12.6 L (13.0-17.5) gm/dL Hct 38.5 L (39.0-53.0) % Neutrophils # 12.9 H (1.3-7.7) k/uL Lymphocytes # 0.4 L (1.0-4.8) k/uL Chloride (98-107) mmol/L Carbon Dioxide (22-30) mmol/L BUN (9-20) mg/dL Glucose (74-99) mg/dL POC Glucose (mg/dL) 107 H 162 H (75-99) mg/dL 07/18/17 07/18/17 07/18/17 Range/Units 05:28 05:45 11:39 WBC (3.8-10.6) k/uL Hgb (13.0-17.5) gm/dL Hct (39.0-53.0) % Neutrophils # (1.3-7.7) k/uL Lymphocytes # (1.0-4.8) k/uL Chloride 96 L (98-107) mmol/L Carbon Dioxide 34 H (22-30) mmol/L BUN 29 H (9-20) mg/dL Glucose 123 H (74-99) mg/dL POC Glucose (mg/dL) 130 H 134 H (75-99) mg/dL Assessment and Plan Plan: Assessment: 1 acute COPD exacerbation with possibly with a component of fluid overload/CHF. There is minimal troponin leak which is nonspecific. We'll obtain echocardiogram. We'll treat his acute COPD exacerbation. Currently the patient is on a BiPAP at a pressure of 12/6 cm of water. He is on a combination of bronchodilators and systemic steroids. Empiric antibiotic coverage with Levaquin was also started. 2 advanced/end stage COPD oxygen and steroid-dependent maintained on 5 mg of prednisone outpatient basis. 3 chronic hypoxic history failure at 5 L of oxygen nasal cannula 4 previous history of DVT of the left lower extremity currently has an IVC filter in place 5 right lung abscess, recovered 6 staphylococcal pneumonia/MSSA 7 history of hip fracture status post ORIF 8 hyperlipidemia 9 hypertension 10 secondary pulmonary hypertension related to chronic lung disease 11 BPH 12 impaired performance and functional status secondary to above-mentioned comorbidities Plan: Patient continues to improve, less dyspneic, less bronchospastic, less congested. Vital signs are stable, patient is afebrile. Patient has been diuresed, and treated with empiric antibiotics, IV steroids, and nebulized bronchodilators, responded well to treatments. Echocardiogram results were noted, patient has preserved left ventricular systolic function with an EF between 50-55%, there was mild concentric left ventricular hypertrophy, no evidence of pulmonary hypertension. Patient is stable for discharge home today. Follow-up with Dr. Browning in the office in one week I performed a history & physical examination of the patient and discussed their management with my nurse practitioner, Ivone Betancur. I reviewed the nurse practitioner's note and agree with the documented findings and plan of care. Lung sounds are positive for diminished lung sounds, no wheezes. The findings and the impression was discussed with the patient. I attest to the documentation by the nurse practitioner. Time with Patient: Less than 30
--- NOTE | 2017-07-18 13:38 | P.PN ---
Subjective This patient was admitted with acute respiratory distress. His and is doing well and sacral cardiogram shows a normal left ventricular systolic function is any chest pain Objective - Vital Signs Vital signs: Vital Signs Temp 98.6 F 07/18/17 12:00 Pulse 77 07/18/17 12:00 Resp 14 07/18/17 12:00 BP 131/59 07/18/17 12:00 Pulse Ox 96 07/18/17 12:00 Intake & Output 07/17/17 07/18/17 07/18/17 18:59 06:59 18:59 Intake Total 300 240 200 Output Total 500 1400 560 Balance -200 -1160 -360 Weight 70 kg Intake: Oral 300 240 200 Output: Urine 500 1400 560 Other: Voiding Method Urinal Urinal # Voids 2 - Exam Patient's vital signs are reviewed. The patient is alert awake and in no acute distress. HEENT negative. Neck-supple no increase in JVP noted no carotid bruits noted. Chest-symmetrical. Heart-first and second heart sounds are normal. No S3 or S4 is noted. No significant murmurs are noted. Lungs bilateral good at entry is noted. No rales or rhonchi are noted Abdomen-soft. Liver and spleen are not enlarged. The bowel sounds are normal. No tenderness noted Extremities-peripheral pulses since are 2+. No significant leg edema noted. Neuro-no significant gross abnormality noted. No respiratory distress is noted - Labs CBC & Chem 7: 07/18/17 05:28 07/18/17 05:28 Labs: Abnormal Lab Results - Last 24 Hours (Table) 07/17/17 07/17/17 07/18/17 Range/Units 16:38 20:48 05:28 WBC 14.0 H (3.8-10.6) k/uL Hgb 12.6 L (13.0-17.5) gm/dL Hct 38.5 L (39.0-53.0) % Neutrophils # 12.9 H (1.3-7.7) k/uL Lymphocytes # 0.4 L (1.0-4.8) k/uL Chloride (98-107) mmol/L Carbon Dioxide (22-30) mmol/L BUN (9-20) mg/dL Glucose (74-99) mg/dL POC Glucose (mg/dL) 107 H 162 H (75-99) mg/dL 07/18/17 07/18/17 07/18/17 Range/Units 05:28 05:45 11:39 WBC (3.8-10.6) k/uL Hgb (13.0-17.5) gm/dL Hct (39.0-53.0) % Neutrophils # (1.3-7.7) k/uL Lymphocytes # (1.0-4.8) k/uL Chloride 96 L (98-107) mmol/L Carbon Dioxide 34 H (22-30) mmol/L BUN 29 H (9-20) mg/dL Glucose 123 H (74-99) mg/dL POC Glucose (mg/dL) 130 H 134 H (75-99) mg/dL Assessment and Plan Assessment: Patient is stable from cardiac point of view. We will continue the current medications. We will now see the patient when necessary
--- NOTE | 2017-07-18 23:08 | DS ---
DISCHARGE SUMMARY DATE OF SERVICE: 07/18/2017. FINAL DIAGNOSES: 1. Chronic obstructive pulmonary disease exacerbation with acute purulent tracheobronchitis. 2. Elevated troponin indeterminate. 3. Hypertension. 4. Hyperlipidemia. 5. Pulmonary hypertension. DISCHARGE DISPOSITION: The patient being discharged in stable condition with guarded prognosis. Dr. Nelson cleared patient for discharge. HISTORY OF PRESENT ILLNESS: This 77-year-old gentleman with a past medical history of multiple medical problems, admitted with shortness of breath and multiple medical problems. Cardiology and Dr. Nelson saw the patient. Patient improved significantly. Patient is keen on going home. At this time patient is being discharged in stable condition with guarded prognosis. Patient treated symptomatically with bronchodilators, steroids, and antibiotics. DISCHARGE ADVICE AND MEDICATIONS: 1. Discharge diet is cardiac diet. 2. Activity limited until followup. 3. Follow up with Dr. Browning in 2-3 days. 4. Follow up with the metal flooring installer. MEDICATIONS ARE: As follows: 1. Tylenol 650 q.6h p.r.n. 2. Xanax 0.25 t.i.d. 3. Cymbalta 30 mg p.o. daily and 60 mg p.o. daily. 4. Pepcid 40 mg p.o. daily. 5. Iron sulfate 325 mg p.o. b.i.d. 6. Fluticasone that is Flonase 2 sprays p.r.n. 7. Advair 2 puffs b.i.d. 8. Albuterol and DuoNeb q.i.d. and p.r.n. 9. Imdur 30 mg p.o. daily. 10.Levaquin 500 mg p.o. daily for 5 days. 11.Zaroxolyn 5 mg p.o. Saturday, Saturday and Saturday. 12.Lopressor 25 mg p.o. daily. 13.Moxifloxacin 1 drop both eyes. 14.Prednisone taper that will be 40 mg daily for 3 days, 30 for 3 days, 20 days for 3 days, 20 for 3 days and then 5 mg p.o. daily. 15.Bactrim DS Saturday, Saturday and Saturday. 16.Hytrin 20 mg q.h.s. 17.Ronnie-Dur 300 mg p.o. b.i.d. 18.Desyrel 100 mg p.o. q.h.s. Once again the patient being discharged in a stable condition. Guarded prognosis. Total time taken 35 minutes. ALYSHA / KAYODEN: [id number] /
--- NOTE | 2017-07-29 07:31 | CDI ---
Last Revision, February 2017 Documentation Clarification Form Date: 07/29/17 From: Lisa Sarthak Maria G Shaver, Scleroscope Tester Hours-8:30 am & 5 pm Srikanth Admit Date: 07/16/2017 12:23:00 AM Patient Name: Berny Ward Visit Number: [id number] Discharge Date: 07/18/17 ATTENTION: The Clinical Documentation Specialists (CDI) and [facility] Coding Staff appreciate your assistance in clarifying documentation. Please respond to the clarification below the line at the bottom and electronically sign. The CDI & [facility] Coding staff will review the response and follow-up if needed. Please note: Queries are made part of the Legal Health Record. If you have any questions, please contact the author of this message via ITS. Dr. Hood Nelson Per your consult "The patient presented with acute COPD exacebation. Chroinc hypoxic respiratory failure at 5L of oxygen NC." Documentation in your consult states "thin, frail, elderly patient, nonacute distress", "no use of accessory muscles of breathing at this point in time". History of smoking. Uses oxygen at home. Lung/Breathing assessment: P-123, R-30, O2 85 VBG: pH 7.39 pHCO3 28 pCO2 48 Treatment: Solumedrol IV, Levaquin PO, Theophylline PO, Nebulizer, Continuous Pulse ox, BiPap & O2 In your professional opinion, can you please clarify if these findings signify one of the following conditions? Acuity: Acute Chronic Acute on Chronic Specificity: Respiratory Failure, further specify (if known): With hypercapnia? With hypoxia? Respiratory Distress Respiratory Insufficiency Other Diagnosis, please specify Unable to determine Please continue to document in your progress notes and discharge summary in order to capture severity of illness and risk of mortality. Include clinical findings that support your diagnosis. ACUTE ON CHRONIC RESPIRATORY FAILURE MTDD
== END 2017-07-18 14:08 | disposition home health service (06) | DRG 190 ==
LOC: EC 21:29 → 6SEL 07-16 00:23
PROVIDERS: ADMIT Hospitalist; ATTEND Hospitalist
PROC: 5A09457 Assistance with Respiratory Ventilation, 24-96 Consecutive Hours, Continuous Positive Airway Pressure (ICD-10-PCS; principal; 2017-07-16)
DX: J43.9 Emphysema, unspecified (principal); J96.21 Acute and chronic respiratory failure with hypoxia; J45.901 Unspecified asthma with (acute) exacerbation; I27.23 Pulmonary hypertension due to lung diseases and hypoxia; J84.10 Pulmonary fibrosis, unspecified; E87.70 Fluid overload, unspecified; D64.9 Anemia, unspecified; I11.9 Hypertensive heart disease without heart failure; J20.9 Acute bronchitis, unspecified; R26.9 Unspecified abnormalities of gait and mobility; E78.5 Hyperlipidemia, unspecified; K21.9 Gastro-esophageal reflux disease without esophagitis; N40.0 Benign prostatic hyperplasia without lower urinary tract symptoms; F32.9 Major depressive disorder, single episode, unspecified; F41.9 Anxiety disorder, unspecified; M19.91 Primary osteoarthritis, unspecified site; M21.371 Foot drop, right foot; H91.90 Unspecified hearing loss, unspecified ear; Z79.51 Long term (current) use of inhaled steroids; Z79.52 Long term (current) use of systemic steroids; Z79.899 Other long term (current) drug therapy; Z99.81 Dependence on supplemental oxygen; Z99.3 Dependence on wheelchair; Z95.828 Presence of other vascular implants and grafts; Z86.14 Personal history of Methicillin resistant Staphylococcus aureus infection; Z86.718 Personal history of other venous thrombosis and embolism; Z96.641 Presence of right artificial hip joint; Z91.14 Patient's other noncompliance with medication regimen; Z90.49 Acquired absence of other specified parts of digestive tract; Z87.81 Personal history of (healed) traumatic fracture; Z87.891 Personal history of nicotine dependence; Z88.5 Allergy status to narcotic agent; Z88.8 Allergy status to other drugs, medicaments and biological substances; Z80.0 Family history of malignant neoplasm of digestive organs
CPT/HCPCS: 36415; 71045; 80048; 80053; 80198; 82550; 82553; 82803; 83880; 84484; 85025; 85610; 85730; 93005; 93306; 94640; 94644; 94660; 94760; 96361; 96374; 96375; 99291

== ENCOUNTER 2017-07-26 21:41 | Emergency (ER) | payer MEDICARE, BC ==
[2017-07-26] MEDS ORDERED: DIPH,PERTUS(ACELL)TETVAC-LF 0.5 ML VIAL IM ONE (21:55)
--- NOTE | 2017-07-26 22:39 | ED ---
General Adult HPI - General Chief complaint: Wound/Laceration Stated complaint: Elbow laceration Time Seen by Provider: 07/26/17 21:50 Source: patient, EMS, RN notes reviewed Mode of arrival: EMS Limitations: no limitations - History of Present Illness Initial comments: 77-year-old male presents to the emergency department for a chief complaint of laceration to the medial aspect of the distal upper arm x 1 hour. Patient was transferred by EMS. Patient states he slid out of his wheelchair and caught his arm on it. Patient denies hitting his elbow or any pain in the elbow or the rest of the right arm. Patient denies hitting his head or injuring any other part of his body. Patient states he would just like it stitched. Patient has no other complaints at this time including headache, any increased shortness of breath, chest pain, abdominal pain, nausea or vomiting, headache, or visual changes. - Related Data Home Medications Medication Instructions Recorded Confirmed Isosorbide Mononitrate [Imdur] 30 mg PO DAILY 09/24/13 07/15/17 Metoprolol Tartrate [Lopressor] 25 mg PO DAILY 05/02/14 07/15/17 traZODone HCL [Desyrel] 100 mg PO HS 05/02/14 07/15/17 Famotidine [Pepcid] 40 mg PO DAILY 06/22/14 07/15/17 ALPRAZolam [Xanax] 0.25 mg PO TID 03/02/15 07/15/17 Metolazone [Zaroxolyn] 5 mg PO MOWEFR 05/07/16 07/15/17 Terazosin HCl [Hytrin] 20 mg PO HS 05/07/16 07/15/17 DULoxetine HCL [Cymbalta] 30 mg PO DAILY 10/24/16 07/15/17 Ferrous Sulfate [Feosol] 325 mg PO BID 10/24/16 07/15/17 predniSONE 5 mg PO DAILY 10/24/16 07/15/17 Ipratropium/Albuterol Sulfate 3 ml INHALATION RT-QID PRN 11/29/16 07/15/17 [Duoneb 0.5 mg-3 mg/3 ml Soln] DULoxetine HCL [Cymbalta] 60 mg PO DAILY 07/15/17 07/15/17 Fluticasone Nasal [place] [Flonase 2 spr EA NOSTRIL DAILY 07/15/17 07/15/17 Nasal [place]] Fluticasone/Salmeterol [Advair Hfa 2 puff INHALATION RT-BID 07/15/17 07/15/17 230-21 Mcg Inhaler] Moxifloxacin HCl [Moxifloxacin] 1 drop BOTH EYES TID 07/15/17 07/15/17 Sulfamethox-Tmp 800-160Mg [Bactrim 1 tab PO MOWEFR 07/15/17 07/15/17 DS 800-160 mg] Theophylline 12 Hour [Ronnie-Dur] 300 mg PO BID 07/15/17 07/15/17 Previous Rx's Medication Instructions Recorded Acetaminophen Tab [Tylenol] 650 mg PO Q6HR PRN tab 07/18/17 Levofloxacin [Levaquin] 500 mg PO DAILY #5 tab 07/18/17 predniSONE 10 mg PO DIRECTED #30 tab 07/18/17 Allergies Allergy/AdvReac Type Severity Reaction Status Date / Time celecoxib [From Celebrex] Allergy Swelling Verified 07/26/17 21:45 gabapentin [From Neurontin] Allergy Rash/Hives Verified 07/26/17 21:45 propoxyphene Allergy Unknown Verified 07/26/17 21:45 [From Darvocet-N] rabeprazole [From Aciphex] Allergy Unknown Verified 07/26/17 21:45 Review of Systems ROS Statement: Those systems with pertinent positive or pertinent negative responses have been documented in the HPI. ROS Other: All systems not noted in ROS Statement are negative. Past Medical History Past Medical History: Asthma, COPD, Deep Vein Thrombosis (DVT), GERD/Reflux, Hearing Disorder / Deafness, Hyperlipidemia, Hypertension, Osteoarthritis (OA), Prostate Disorder, Respiratory Disorder Additional Past Medical History / Comment(s): End-stage COPD, oxygen and steroid dependent and the patient is typically on 5 L of oxygen nasal cannula, limits pulmonate fibrosis, history of lung abscess, secondary pulmonary hypertension, difficulty with mobility and the patient is a wheelchair-bound, impaired hearing, chronic anemia, BPH, history of DVT with a previous [place] filter insertion fact April 2016, BPH, osteoarthritis, hypertension, acid reflux, dropped foot and the patient wears a right foot brace History of Any Multi-Drug Resistant Organisms: None Reported Date of last positivie culture/infection: None MDRO Source:: None Past Surgical History: Adenoidectomy, Appendectomy, Back Surgery, Heart Catheterization, Joint Replacement, Orthopedic Surgery, Tonsillectomy Additional Past Surgical History / Comment(s): LEFT HIP SURGERY X2, TOTAL RIGHT HIP., RIGHT FOOT SX, BRONCHOSCOPY, JEAN-PAUL FILTER., EGD Past Anesthesia/Blood Transfusion Reactions: No Reported Reaction, Family History of Problems w/ Anesthesia Additional Past Anesthesia/Blood Transfusion Reaction / Comment(s): HX OF BLOOD TRANSFUSIONS APR AND MAY 2016- NO REACTION. SISTER= DIFFICULTY WAKING UP. Past Psychological History: Anxiety, Depression Smoking Status: Former smoker Past Alcohol Use History: None Reported Past Drug Use History: None Reported - Past Family History Mother Family Medical History: Liver Disease Additional Family Medical History / Comment(s): Mother had cirrhosis of the liver and from it. Father Family Medical History: No Reported History Additional Family Medical History / Comment(s): Father of old age. General Exam Limitations: no limitations General appearance: alert, in no apparent distress Head exam: Present: atraumatic, normocephalic, normal inspection Eye exam: Present: normal appearance, PERRL, EOMI. Absent: scleral icterus, conjunctival injection, periorbital swelling ENT exam: Present: normal external ear exam Neck exam: Present: normal inspection. Absent: tenderness, meningismus, lymphadenopathy Respiratory exam: Present: rhonchi (chronic COPD). Absent: respiratory distress , wheezes, rales, stridor Cardiovascular Exam: Present: regular rate, normal rhythm, normal heart sounds. Absent: systolic murmur, diastolic murmur, rubs, gallop, clicks Extremities exam: Present: full ROM (Full range of motion of the right arm including digits, hand, wrist, elbow, and shoulder.), normal capillary refill ( cap refill less than 2 seconds and radial pulse 2+ in the right upper extremity. ), other (There is a 6 cm flap-like laceration on the medial aspect of the right arm above the elbow. Subcutaneous tissue exposed. Deep structures intact.). Absent: tenderness (No tenderness in the elbow. No tenderness in the scaphoid area or right hand. No tenderness in the right shoulder.), joint swelling Back exam: Present: normal inspection. Absent: tenderness Course Vital Signs 07/26/17 21:45 Temperature 98.8 F Pulse Rate 101 H Respiratory 22 Rate Blood Pressure 168/74 O2 Sat by Pulse 93 L Oximetry Procedures - Procedures Initial comment: Body area: medial aspect upper right arm Laceration length: 6 cm Foreign bodies: no foreign bodies Tendon involvement: none Nerve involvement: none Vascular damage: no Anesthesia: local infiltration Local anesthetic: 8 mL 1% lidocaine Preparation: Patient was prepped and draped in the usual sterile fashion. Irrigation solution: saline Irrigation method:saline jet lavage , iodine Skin closure:5-0 Ethilon using sterile technique Number of sutures: 14 Technique: interupted Dressing: antibiotic ointment/ gauze Patient tolerance: Patient tolerated the procedure well with no immediate complications. Medical Decision Making - Medical Decision Making 77-year-old male presents to the emergency department for a chief complaint of on the right arm. Patient slid out of his wheelchair and caught his arm on a metal piece of the wheelchair. Patient denies hitting his elbow. Patient denies hitting his head. Patient has no other complaints at this time. On exam there is a 6 cm flap-like laceration on the medial aspect of the right upper arm. Deep structures intact. Capillary refill less than 2 seconds in the right upper extremity and radial pulse 2+. Patient refuses x-ray as he stated he did not hit his elbow and nose that there is no foreign body. Patient was sutured with 14 sutures. He was given a tetanus shot in the emergency department. He will return to the emergency department if he has any worsening symptoms. He will return in 7-10 days to have sutures removed. Otherwise he will follow-up with primary care in 1-2 days. Disposition Clinical Impression: Laceration Disposition: HOME SELF-CARE Condition: Good Instructions: Care For Your Stitches (ED), Laceration (ED) Additional Instructions: Please take Tylenol for pain. Please monitor for any signs of infection or worsening symptoms and return to the emergency Department if any of these occur. Please follow-up with primary care in 1-2 days. Return to the emergency department in 7-10 days to have sutures removed. Is patient prescribed a controlled substance at d/c from ED?: No Referrals: Chin Browning MD [Primary Care Provider] - 1-2 days Time of Disposition: 22:55
[2017-07-26 23:08] VITALS: BP 166/72; PULSE 98; RESP 18; TEMP 97.9
== END 2017-07-26 23:10 | disposition home or self-care (01) ==
LOC: EC 21:41
DX: S41.111A Laceration without foreign body of right upper arm, initial encounter (principal); J44.9 Chronic obstructive pulmonary disease, unspecified; I10 Essential (primary) hypertension; K21.9 Gastro-esophageal reflux disease without esophagitis; I27.20 Pulmonary hypertension, unspecified; D64.9 Anemia, unspecified; N40.0 Benign prostatic hyperplasia without lower urinary tract symptoms; H91.90 Unspecified hearing loss, unspecified ear; F32.9 Major depressive disorder, single episode, unspecified; F41.9 Anxiety disorder, unspecified; Z87.891 Personal history of nicotine dependence; Z79.51 Long term (current) use of inhaled steroids; Z79.52 Long term (current) use of systemic steroids; Z79.899 Other long term (current) drug therapy; Z88.5 Allergy status to narcotic agent; Z88.6 Allergy status to analgesic agent; Z88.8 Allergy status to other drugs, medicaments and biological substances; Z99.81 Dependence on supplemental oxygen; Z99.3 Dependence on wheelchair; Z87.09 Personal history of other diseases of the respiratory system; Z86.718 Personal history of other venous thrombosis and embolism; Z23 Encounter for immunization; W05.0XXA Fall from non-moving wheelchair, initial encounter
CPT/HCPCS: 12002; 90471; 90715; 99283

== ENCOUNTER 2017-10-22 15:34 | Inpatient (IN) | payer MEDICARE, BC ==
[2017-10-22] MEDS ORDERED: SODIUM CHLORIDE 0.9% 500 ML IV STA (15:46)
[2017-10-22] MEDS ORDERED: ALBUTEROL NEBULIZED 2.5 MG/3 ML INHALATION STA (15:46)
[2017-10-22] MEDS ORDERED: SODIUM CHLORIDE 0.9% 1,000 ML IV STA (15:46)
[2017-10-22] MEDS ORDERED: IPRATROPIUM 0.5 MG/2.5 ML NEBU INHALATION STA (15:46)
--- NOTE | 2017-10-22 16:05 | ED ---
General Adult HPI - General Chief complaint: Shortness of Breath Stated complaint: COPD Time Seen by Provider: 10/22/17 15:41 Source: patient, EMS, RN notes reviewed, old records reviewed Mode of arrival: EMS Limitations: no limitations - History of Present Illness Initial comments: This is a 77-year-old male to the ER for evaluation, he presents today for evaluation of not feeling well, increased cough and congestion and increased shortness of breath difficulty breathing especially feeling last night. Patient has cocaine medical history, significantly low disease, COPD and heart disease. Patient has had history of DVT, lower extremity edema that is significantly worse as well as overall weight gain. He states he cannot catch his breath throughout last night had elevated heart rate increased cough and congestion. He does deny fever - Related Data Home Medications Medication Instructions Recorded Confirmed Isosorbide Mononitrate [Imdur] 30 mg PO DAILY 09/24/13 10/22/17 Metoprolol Tartrate [Lopressor] 25 mg PO DAILY 05/02/14 10/22/17 traZODone HCL [Desyrel] 100 mg PO HS 05/02/14 10/22/17 Famotidine [Pepcid] 40 mg PO DAILY 06/22/14 10/22/17 ALPRAZolam [Xanax] 0.25 mg PO TID 03/02/15 10/22/17 Terazosin HCl [Hytrin] 20 mg PO HS 05/07/16 10/22/17 DULoxetine HCL [Cymbalta] 30 mg PO DAILY 10/24/16 10/22/17 predniSONE 5 mg PO DAILY 10/24/16 10/22/17 DULoxetine HCL [Cymbalta] 60 mg PO DAILY 07/15/17 10/22/17 Fluticasone Nasal [place] [Flonase 2 spr EA NOSTRIL DAILY 07/15/17 10/22/17 Nasal Thayne] Fluticasone/Salmeterol [Advair Hfa 2 puff INHALATION RT-BID 07/15/17 10/22/17 230-21 Mcg Inhaler] Sulfamethox-Tmp 800-160Mg [Bactrim 1 tab PO MOWEFR 07/15/17 10/22/17 DS 800-160 mg] Theophylline 12 Hour [Ronnie-Dur] 600 mg PO BID 07/15/17 10/22/17 Furosemide [Lasix] 20 mg PO DAILY 10/22/17 10/22/17 Metolazone [Zaroxolyn] 5 mg PO DAILY 10/22/17 10/22/17 Previous Rx's Medication Instructions Recorded Acetaminophen Tab [Tylenol] 650 mg PO Q6HR PRN tab 07/18/17 Allergies Allergy/AdvReac Type Severity Reaction Status Date / Time celecoxib [From Celebrex] Allergy Swelling Verified 10/22/17 15:56 gabapentin [From Neurontin] Allergy Rash/Hives Verified 10/22/17 15:56 propoxyphene Allergy Unknown Verified 10/22/17 15:56 [From Darvocet-N] rabeprazole [From Aciphex] Allergy Unknown Verified 10/22/17 15:56 Review of Systems ROS Statement: Those systems with pertinent positive or pertinent negative responses have been documented in the HPI. ROS Other: All systems not noted in ROS Statement are negative. Past Medical History Past Medical History: Asthma, COPD, Deep Vein Thrombosis (DVT), GERD/Reflux, Hearing Disorder / Deafness, Hyperlipidemia, Hypertension, Osteoarthritis (OA), Prostate Disorder, Respiratory Disorder Additional Past Medical History / Comment(s): End-stage COPD, oxygen and steroid dependent and the patient is typically on 5 L of oxygen nasal cannula, limits pulmonate fibrosis, history of lung abscess, secondary pulmonary hypertension, difficulty with mobility and the patient is a wheelchair-bound, impaired hearing, chronic anemia, BPH, history of DVT with a previous Jean-Paul filter insertion fact April 2016, BPH, osteoarthritis, hypertension, acid reflux, dropped foot and the patient wears a right foot brace History of Any Multi-Drug Resistant Organisms: None Reported Date of last positivie culture/infection: None MDRO Source:: None Past Surgical History: Adenoidectomy, Appendectomy, Back Surgery, Heart Catheterization, Joint Replacement, Orthopedic Surgery, Tonsillectomy Additional Past Surgical History / Comment(s): LEFT HIP SURGERY X2, TOTAL RIGHT HIP., RIGHT FOOT SX, BRONCHOSCOPY, JEAN-PAUL FILTER., EGD Past Anesthesia/Blood Transfusion Reactions: No Reported Reaction, Family History of Problems w/ Anesthesia Additional Past Anesthesia/Blood Transfusion Reaction / Comment(s): HX OF BLOOD TRANSFUSIONS APR AND MAY 2016- NO REACTION. SISTER= DIFFICULTY WAKING UP. Past Psychological History: Anxiety, Depression Smoking Status: Former smoker Past Alcohol Use History: None Reported Past Drug Use History: None Reported - Past Family History Mother Family Medical History: Liver Disease Additional Family Medical History / Comment(s): Mother had cirrhosis of the liver and from it. Father Family Medical History: No Reported History Additional Family Medical History / Comment(s): Father of old age. General Exam Limitations: no limitations General appearance: alert, in no apparent distress, anxious Head exam: Present: atraumatic, normocephalic, normal inspection Eye exam: Present: normal appearance, PERRL, EOMI. Absent: scleral icterus, conjunctival injection, periorbital swelling ENT exam: Present: normal exam, mucous membranes moist Neck exam: Present: normal inspection. Absent: tenderness, meningismus, lymphadenopathy Respiratory exam: Present: wheezes, rales, accessory muscle use, decreased breath sounds, prolonged expiratory. Absent: respiratory distress, rhonchi, stridor Cardiovascular Exam: Present: normal rhythm, tachycardia, normal heart sounds. Absent: systolic murmur, diastolic murmur, rubs, gallop, clicks GI/Abdominal exam: Present: soft, normal bowel sounds. Absent: distended, tenderness, guarding, rebound, rigid Extremities exam: Present: normal inspection, full ROM, normal capillary refill. Absent: tenderness, pedal edema, joint swelling, calf tenderness Back exam: Present: normal inspection Neurological exam: Present: alert, oriented X3, CN II-XII intact Psychiatric exam: Present: normal affect, normal mood Skin exam: Present: warm, dry, intact, normal color. Absent: rash Course Vital Signs 10/22/17 10/22/17 10/22/17 15:37 16:11 16:42 Temperature 97.9 F Pulse Rate 78 73 80 Respiratory 22 Rate Blood Pressure 131/65 O2 Sat by Pulse 93 L Oximetry - Reevaluation(s) Reevaluation #1: 10/22/17 17:39 Medical records reviewed including prior hospitalization Reevaluation #2: 10/22/17 17:40 Patient with minimal to no improvement after prolonged breathing treatment, patient was placed on diuresis Reevaluation #3: 10/22/17 17:40 Patient has significant hypoxia home throughout the night and into today. As well as heart rate up in the 140s EKG Findings - EKG Comments: EKG Findings:: EKG shows sinus rhythm rate of 80, IA 176, QRS 70, QTc 405 Medical Decision Making - Medical Decision Making 77 male the ER for evaluation, weakness, shortness of breath increased cough and congestion can't catch his breath. Multiple recent hospital admissions for same. Patient is worse at home. He admits to significant shortness of breath currently with increased cough and congestion with significant lower extremity edema. - Lab Data Result diagrams: 10/22/17 15:58 10/22/17 15:58 Lab Results 10/22/17 10/22/17 10/22/17 Range/Units 15:53 15:58 15:58 WBC 8.3 (3.8-10.6) k/uL RBC 3.83 L (4.30-5.90) m/uL Hgb 11.2 L (13.0-17.5) gm/dL Hct 34.0 L (39.0-53.0) % MCV 88.6 (80.0-100.0) fL MCH 29.2 (25.0-35.0) pg MCHC 32.9 (31.0-37.0) g/dL RDW 14.3 (11.5-15.5) % Plt Count 257 (150-450) k/uL Neutrophils % 84 % Lymphocytes % 7 % Monocytes % 5 % Eosinophils % 2 % Basophils % 0 % Neutrophils # 6.9 (1.3-7.7) k/uL Lymphocytes # 0.5 L (1.0-4.8) k/uL Monocytes # 0.5 (0-1.0) k/uL Eosinophils # 0.2 (0-0.7) k/uL Basophils # 0.0 (0-0.2) k/uL PT (9.0-12.0) sec INR (<1.2) APTT (22.0-30.0) sec Sodium 136 L (137-145) mmol/L Potassium 4.8 (3.5-5.1) mmol/L Chloride 99 (98-107) mmol/L Carbon Dioxide 34 H (22-30) mmol/L Anion Gap 3 mmol/L BUN 17 (9-20) mg/dL Creatinine 0.70 (0.66-1.25) mg/dL Est GFR (CKD-EPI)AfAm >90 (>60 ml/min/1.73 sqM) Est GFR (CKD-EPI)NonAf >90 (>60 ml/min/1.73 sqM) Glucose 101 H (74-99) mg/dL Plasma Lactic Acid Lionel (0.7-2.0) mmol/L Calcium 8.8 (8.4-10.2) mg/dL Magnesium 2.1 (1.6-2.3) mg/dL Total Bilirubin 0.3 (0.2-1.3) mg/dL AST 18 (17-59) U/L ALT 20 L (21-72) U/L Alkaline Phosphatase 51 (38-126) U/L Total Creatine Kinase 58 (55-170) U/L CK-MB (CK-2) 2.8 H* (0.0-2.4) ng/mL CK-MB (CK-2) Rel Index 4.8 Troponin I 0.020 (0.000-0.034) ng/mL NT-Pro-B Natriuret Pep pg/mL Total Protein 5.6 L (6.3-8.2) g/dL Albumin 3.2 L (3.5-5.0) g/dL 10/22/17 10/22/17 10/22/17 Range/Units 15:58 15:58 15:58 WBC (3.8-10.6) k/uL RBC (4.30-5.90) m/uL Hgb (13.0-17.5) gm/dL Hct (39.0-53.0) % MCV (80.0-100.0) fL MCH (25.0-35.0) pg MCHC (31.0-37.0) g/dL RDW (11.5-15.5) % Plt Count (150-450) k/uL Neutrophils % % Lymphocytes % % Monocytes % % Eosinophils % % Basophils % % Neutrophils # (1.3-7.7) k/uL Lymphocytes # (1.0-4.8) k/uL Monocytes # (0-1.0) k/uL Eosinophils # (0-0.7) k/uL Basophils # (0-0.2) k/uL PT 10.1 (9.0-12.0) sec INR 1.0 (<1.2) APTT 24.3 (22.0-30.0) sec Sodium (137-145) mmol/L Potassium (3.5-5.1) mmol/L Chloride (98-107) mmol/L Carbon Dioxide (22-30) mmol/L Anion Gap mmol/L BUN (9-20) mg/dL Creatinine (0.66-1.25) mg/dL Est GFR (CKD-EPI)AfAm (>60 ml/min/1.73 sqM) Est GFR (CKD-EPI)NonAf (>60 ml/min/1.73 sqM) Glucose (74-99) mg/dL Plasma Lactic Acid Lionel 0.6 L (0.7-2.0) mmol/L Calcium (8.4-10.2) mg/dL Magnesium (1.6-2.3) mg/dL Total Bilirubin (0.2-1.3) mg/dL AST (17-59) U/L ALT (21-72) U/L Alkaline Phosphatase (38-126) U/L Total Creatine Kinase (55-170) U/L CK-MB (CK-2) (0.0-2.4) ng/mL CK-MB (CK-2) Rel Index Troponin I (0.000-0.034) ng/mL NT-Pro-B Natriuret Pep 769 pg/mL Total Protein (6.3-8.2) g/dL Albumin (3.5-5.0) g/dL - Radiology Data Radiology results: report reviewed (Chest x-ray shows worsening of infiltrate from prior), image reviewed Disposition Clinical Impression: COPD with exacerbation, Acute exacerbation of COPD with asthma, Lung infiltrate , Pleural effusion Disposition: ADMITTED IP TO THIS HOSP Condition: Fair Is patient prescribed a controlled substance at d/c from ED?: No Referrals: Chin Browning MD [Primary Care Provider] - 1-2 days
[2017-10-22 16:14] LABS: Basophils % (A) 0 %; Eosinophils # (A) 0.2 k/uL (0-0.7); Eosinophils % (A) 2 %; HGB 11.2 gm/dL (13.0-17.5); Lymphocytes # (A) 0.5 k/uL (1.0-4.8); Lymphocytes % (A) 7 %; MCH 29.2 pg (25.0-35.0); MCHC 32.9 g/dL (31.0-37.0); MCV 88.6 fL (80.0-100.0); Mean Platelet Volume 6.6; Monocytes # (A) 0.5 k/uL (0-1.0); Monocytes % (A) 5 %; Neutrophils # (A) 6.9 k/uL (1.3-7.7); Neutrophils % (A) 84 %; Platelet Count 257 k/uL (150-450); RBC 3.83 m/uL (4.30-5.90); RDW 14.3 % (11.5-15.5); WBC 8.3 k/uL (3.8-10.6)
[2017-10-22 16:22] LABS: Partial Thromboplastin Time 24.3 sec (22.0-30.0); Prothrombin Time 10.1 sec (9.0-12.0)
[2017-10-22 16:27] LABS: ALT 20 U/L (21-72); AST 18 U/L (17-59); Albumin 3.2 g/dL (3.5-5.0); Alkaline Phosphatase 51 U/L (38-126); Anion Gap 3 mmol/L; Blood Urea Nitrogen 17 mg/dL (9-20); Calcium 8.8 mg/dL (8.4-10.2); Carbon Dioxide 34 mmol/L (22-30); Chloride 99 mmol/L (98-107); Glucose 101 mg/dL (74-99); Magnesium 2.1 mg/dL (1.6-2.3); Potassium 4.8 mmol/L (3.5-5.1); Sodium 136 mmol/L (137-145); Total Bilirubin 0.3 mg/dL (0.2-1.3); Total Protein 5.6 g/dL (6.3-8.2)
[2017-10-22 16:50] LABS: Troponin I 0.02 ng/mL (0.000-0.034)
[2017-10-22 17:07] LABS: Creatine Kinase MB 2.8 ng/mL (0.0-2.4)
--- NOTE | 2017-10-22 17:18 | XR ---
EXAMINATION TYPE: XR chest 2V DATE OF EXAM: 10/22/2017 COMPARISON: 07/30/2017 HISTORY: Cough and short of breath TECHNIQUE: Frontal and lateral views of the chest are obtained. FINDINGS: There is pleural thickening and volume loss in the right hemithorax. There is shift of hea rt and mediastinum to the right side. There is coarse linear infiltrate in the left lower lobe. There are chest leads. There is no heart failure. IMPRESSION: Extensive pleural and pulmonary scarring on the right side with volume loss. There is in creasing infiltrate in the left lower lobe compared to last exam. No heart failure seen.
[2017-10-22] MEDS ORDERED: PNEUMONIA PROTOCOL UTILIZED 1 EACH MISC PO PRN (17:37)
[2017-10-22] MEDS ORDERED: FUROSEMIDE 10 MG/ML 4 ML VIAL IV STA (17:37)
[2017-10-22] MEDS ORDERED: PIPERACILLIN-TAZOBACTAM 3.375 GM in DEXTROSE/WATER 1 50ML.BAG IVPB STA (17:37)
[2017-10-22] MEDS ORDERED: LEVOFLOXACIN 750MG-D5W PMX 750 MG in DEXTROSE/WATER 1 150ML.BAG IVPB STA (17:37)
[2017-10-22] MEDS: IPRATROPIUM-ALBUTEROL 3 ML NEB INHALATION SCH (19:05)
[2017-10-22] MEDS ORDERED: ACETAMINOPHEN TAB 325 MG TAB PO PRN (20:28)
[2017-10-22] MEDS ORDERED: TEMAZEPAM 15 MG CAP PO PRN (20:29)
[2017-10-22] MEDS: ALBUTEROL NEBULIZED 2.5 MG/3 ML INHALATION PRN (21:17)
--- NOTE | 2017-10-22 21:28 | HP ---
HISTORY AND PHYSICAL CHIEF COMPLAINT: Shortness of breath. HISTORY OF PRESENT ILLNESS: This 77-year-old gentleman with a past history of asthma, COPD, DVT, history of hyperlipidemia, hypertension, DJD, being followed by Dr. Browning in the outpatient setting, was not feeling well over the past several days. The patient has increasing shortness of breath and cough and sputum. Patient also had leg swelling. Because of lack of improvement, the patient came to [place] and was admitted for further evaluation and treatment. Chest x-ray showed extensive scarring on the right side and some infiltrate also suspected in the left lower lung. Patient admitted for further evaluation and treatment. There is no history of fever, rigors. No history of headache, loss of consciousness, seizures at this time. PAST MEDICAL HISTORY: History of asthma, COPD, DVT, GERD, hypertension, hyperlipidemia, history of DJD, history of end-stage COPD. MEDICATIONS: Home medications are reviewed which include: 1. Bactrim DS 1 p.o. b.i.d. 2. Advair 1-2 puffs b.i.d. 3. Flonase 2 sprays daily. 4. Tylenol 650 every 6 hours p.r.n. 5. Ronnie-Dur that is theophylline 600 mg p.o. b.i.d. 6. Lasix 20 mg p.o. daily. 7. Xanax 0.25 t.i.d. 8. Hytrin 20 mg q.h.s. 9. Lopressor 25 mg p.o. daily. 10.Zaroxolyn 5 mg p.o. daily. 11.Prednisone 5 mg p.o. daily. 12.Imdur 30 mg p.o. daily. 13.Cymbalta 60 mg p.o. daily and 30 mg p.o. daily. 14.Desyrel 100 mg p.o. q.h.s. 15.Pepcid 40 mg p.o. daily. ALLERGIES: Are CELEBREX, NEURONTIN, DARVOCET, ACIPHEX. FAMILY HISTORY: History of liver disease in the family. Mother had cirrhosis of the liver and from it. SOCIAL HISTORY: Previous history of smoking. No history of current smoking or alcohol. REVIEW OF SYSTEMS: ENT: No diminished hearing, diminished vision. CARDIOVASCULAR: No angina, palpitations. RESPIRATORY: As mentioned earlier. GI: No nausea or vomiting. : No dysuria. NERVOUS: No numbness or weakness. ALLERGY/IMMUNOLOGY: No asthma or hay fever. MUSCULOSKELETAL: As mentioned earlier. HEMATOLOGY/ONCOLOGY: No history of anemia. ENDOCRINE: No history of diabetes, hypothyroidism. CONSTITUTIONAL: As mentioned earlier. DERMATOLOGY: Negative. RHEUMATOLOGY: Negative. PSYCHIATRY: As mentioned earlier. PHYSICAL EXAMINATION: Alert, oriented x3. Pulse is 96, blood pressure 135/81, respirations 18, temperature 98.4, pulse ox 98% on 2L. HEENT: Conjunctivae normal. Oral mucosa moist. NECK: No jugular venous distention. No diabetes. No lymph node enlargement. CARDIOVASCULAR SYSTEM: S1, S2 muffled. RESPIRATORY: Breath sounds diminished in the bases. Bilateral scattered rhonchi and crackles. Expiratory wheezing also present. ABDOMEN: Soft, nontender. No mass palpable. LEGS: Bilateral leg edema. NERVOUS SYSTEM: Higher functions as mentioned earlier. Moves all 4 limbs. No focal motor or sensory deficits. LYMPHATIC: No lymph nodes in neck or axillae. SKIN: No ulcer, rashes or bleeding. JOINTS: No active deformity. LABS: WBC 8.6, hemoglobin 11.2. Sodium 136 and CK-MB is 2.8. Albumin is 3.2. ASSESSMENT: 1. Chronic obstructive pulmonary disease acute exacerbation with possible left lower lobe pneumonia, possibly gram-negative. 2. Bilateral leg edema, possibly cor pulmonale. 3. Chronic hypoxic respiratory failure. 4. Anemia of chronic disease. 5. History of asthma. 6. History of deep venous thrombosis. 7. Gastroesophageal reflux disease. 8. Hypertension. 9. Hyperlipidemia. 10.Degenerative joint disease. 11.Secondary pulmonary hypertension. 12.History of benign prostatic hypertrophy. 13.History of back surgery, degenerative joint disease. 14.Anxiety, depression. 15.Remote history of nicotine dependence. RECOMMENDATIONS AND DISCUSSION: In this 77-year-old gentleman who presented with multiple complex medical issues, will monitor the patient closely. Continue the current medical management. Will optimize the bronchodilator treatment, broad-spectrum IV antibiotics. Levaquin has been initiated. Otherwise recommend close followup with Dr. Browning and Dr. Dunne. Otherwise, the prognosis guarded because of multiple complex medical issues and further recommendations to follow and home medications will be resumed. DVT prophylaxis. See orders for details. Further recommendations to follow. MMODL / IJN: [id number] /
[2017-10-22] MEDS ORDERED: ALPRAZolam 0.25 MG TAB PO SCH (22:00)
[2017-10-22] MEDS: methylPREDNISolone SOD SUCCI 125 MG/2 ML VIAL IV SCH (22:23)
[2017-10-22] MEDS: DOXAZOSIN 4 MG TAB PO SCH (22:27)
[2017-10-22] MEDS: traZODone HCL 100 MG TAB PO SCH (22:27)
[2017-10-22] MEDS: THEOPHYLLINE 24 HOUR 300 MG CAP.ER.24H PO SCH (22:27)
[2017-10-23] MEDS: methylPREDNISolone SOD SUCCI 125 MG/2 ML VIAL IV SCH ×4 (01:28→17:36)
[2017-10-23] MEDS: PIPERACILLIN-TAZOBACTAM 3.375 GM in DEXTROSE/WATER 1 50ML.BAG IVPB SCH ×3 (01:33→15:06)
[2017-10-23] MEDS: ALPRAZolam 0.25 MG TAB PO PRN ×3 (04:25→21:53)
[2017-10-23] MEDS: ALBUTEROL NEBULIZED 2.5 MG/3 ML INHALATION PRN (04:30)
[2017-10-23] MEDS: FORMOTEROL FUMARATE 20 MCG/2 ML NEBU INHALATION SCH ×2 (07:25→19:39)
[2017-10-23] MEDS: BUDESONIDE 1 MG/2 ML NEBU INHALATION SCH ×2 (07:25→19:39)
[2017-10-23] MEDS: IPRATROPIUM-ALBUTEROL 3 ML NEB INHALATION SCH ×4 (07:25→19:39)
[2017-10-23] MEDS: FUROSEMIDE 10 MG/ML 4 ML VIAL IV SCH ×3 (08:08→17:39)
[2017-10-23] MEDS: DULoxetine HCL 60 MG CAPSULE.DR PO SCH (08:08)
[2017-10-23] MEDS: ISOSORBIDE MONONITRATE ER 30 MG TAB.ER.24H PO SCH (08:08)
[2017-10-23] MEDS: METOPROLOL TARTRATE 25 MG TAB PO SCH (08:08)
[2017-10-23] MEDS: FAMOTIDINE 20 MG TAB PO SCH (08:08)
[2017-10-23] MEDS: DULoxetine HCL 30 MG CAPSULE.DR PO SCH (08:09)
[2017-10-23] MEDS: FLUTICASONE 50MCG/SPRAY NASAL 16GM EA NOSTRIL SCH (09:44)
[2017-10-23] MEDS: ENOXAPARIN 40 MG/0.4 ML SYRINGE SQ SCH (09:44)
--- NOTE | 2017-10-23 10:18 | P.CNPUL ---
History of Present Illness Consult date: 10/23/17 Reason for consult: dyspnea, cough, COPD, hypoxemia, pneumonia, abnormal CXR/CT Chief complaint: Shortness of breath/ lower extremity edema History of present illness: Pulmonary consult dated 10/23/2017 This is a 77-year-old white male well-known to me. He actually sees my partner as his primary care doctor. He comes in with multiple complaints including increasing shortness of breath cough or chest congestion and yellow phlegm production significant swelling of the lower extremities and chest congestion. Patient has had multiple admissions to the hospital for similar findings. Chest x-ray today shows extensive pleural parenchymal changes in the right chest and some increasing infiltrate versus atelectasis at the left lung base. He did not look particularly ill or short of breath. He looks pretty much at baseline. He does use oxygen at home at 6 L. He has a history of COPD, deep venous thrombosis, GERD, deafness, hyperlipidemia, hypertension, DJD, chronic hypoxemic respiratory failure, pulmonary fibrosis, lung abscess, pulmonary hypertension, impaired mobility, BPH, chronic anemia, status post Jean-Paul filter, foot drop, and multiple surgical procedures including heart catheterization joint replacement and appendectomy adenoidectomy and Green[place]filter placement. Review of Systems A 14 point review of systems is positive for increasing shortness of breath chest congestion cough and phlegm production. He also has lower extremity edema. Past Medical History Past Medical History: Asthma, Cancer, COPD, Deep Vein Thrombosis (DVT), GERD/ Reflux, Hearing Disorder / Deafness, Hyperlipidemia, Hypertension, Osteoarthritis (OA), Prostate Disorder, Respiratory Disorder Additional Past Medical History / Comment(s): +End-stage COPD, oxygen and steroid dependent and the patient is typically on 5 L of oxygen nasal cannula, limits pulmonate fibrosis, history of lung abscess, secondary pulmonary hypertension, difficulty with mobility and the patient is a wheelchair-bound, impaired hearing, chronic anemia, BPH, history of DVT with a previous [place] filter insertion fact April 2016, BPH, osteoarthritis, hypertension, acid reflux, dropped foot and the patient wears a right foot brace History of Any Multi-Drug Resistant Organisms: None Reported Date of last positivie culture/infection: None MDRO Source:: None Past Surgical History: Adenoidectomy, Appendectomy, Back Surgery, Heart Catheterization, Joint Replacement, Orthopedic Surgery, Tonsillectomy Additional Past Surgical History / Comment(s): LEFT HIP SURGERY X2, TOTAL RIGHT HIP., RIGHT FOOT SX, BRONCHOSCOPY, JEAN-PAUL FILTER., EGD, tumor removed from colon Past Anesthesia/Blood Transfusion Reactions: No Reported Reaction, Family History of Problems w/ Anesthesia Additional Past Anesthesia/Blood Transfusion Reaction / Comment(s): HX OF BLOOD TRANSFUSIONS APR AND MAY 2016- NO REACTION. SISTER= DIFFICULTY WAKING UP. Past Psychological History: Anxiety, Depression Additional Psychological History / Comment(s): . Smoking Status: Former smoker Past Alcohol Use History: None Reported Additional Past Alcohol Use History / Comment(s): Patient was a smoker of one and half packs per day for 41 years. STARTED SMOKING AT AGE 14 . He quit in 1993. Past Drug Use History: None Reported Additional Drug Use History / Comment(s): . - Past Family History Mother Family Medical History: Liver Disease Additional Family Medical History / Comment(s): Mother had cirrhosis of the liver and from it. Father Family Medical History: No Reported History Additional Family Medical History / Comment(s): Father of old age. Medications and Allergies Home Medications Medication Instructions Recorded Confirmed Type Isosorbide Mononitrate [Imdur] 30 mg PO DAILY 09/24/13 10/22/17 History Metoprolol Tartrate [Lopressor] 25 mg PO DAILY 05/02/14 10/22/17 History traZODone HCL [Desyrel] 100 mg PO HS 05/02/14 10/22/17 History Famotidine [Pepcid] 40 mg PO DAILY 06/22/14 10/22/17 History ALPRAZolam [Xanax] 0.25 mg PO TID PRN 03/02/15 10/22/17 History Terazosin HCl [Hytrin] 20 mg PO HS 05/07/16 10/22/17 History DULoxetine HCL [Cymbalta] 30 mg PO DAILY 10/24/16 10/22/17 History predniSONE 5 mg PO DAILY 10/24/16 10/22/17 History DULoxetine HCL [Cymbalta] 60 mg PO DAILY 07/15/17 10/22/17 History Fluticasone Nasal [place] [Flonase 2 spr EA NOSTRIL DAILY 07/15/17 10/22/17 History Nasal [place]yles] Fluticasone/Salmeterol [Advair Hfa 2 puff INHALATION RT-BID 07/15/17 10/22/17 History 230-21 Mcg Inhaler] Sulfamethox-Tmp 800-160Mg [Bactrim 1 tab PO MOWEFR 07/15/17 10/22/17 History DS 800-160 mg] Theophylline 12 Hour [Ronnie-Dur] 300 mg PO BID 07/15/17 10/22/17 History Acetaminophen Tab [Tylenol] 650 mg PO Q6HR PRN tab 07/18/17 10/22/17 Rx Furosemide [Lasix] 20 mg PO DAILY 10/22/17 10/22/17 History Metolazone [Zaroxolyn] 5 mg PO DAILY 10/22/17 10/22/17 History Allergies Allergy/AdvReac Type Severity Reaction Status Date / Time celecoxib [From Celebrex] Allergy Swelling Verified 10/22/17 15:56 gabapentin [From Neurontin] Allergy Rash/Hives Verified 10/22/17 15:56 rabeprazole [From Aciphex] Allergy Unknown Verified 10/22/17 15:56 propoxyphene AdvReac Unknown Verified 10/22/17 21:49 [From Darvocet-N] Physical Exam Osteopathic Statement: *. No significant issues noted on an osteopathic structural exam other than those noted in the History and Physical/Consult. Vitals: Vital Signs Temp Pulse Pulse Resp BP BP Pulse Ox 10/23/17 07:49 108 H 10/23/17 07:39 128 H 10/23/17 07:25 120 H 10/23/17 06:27 97.8 F 100 26 H 162/81 92 L 10/23/17 04:40 100 10/23/17 04:30 112 H 10/22/17 23:00 98.0 F 98 28 H 174/91 92 L 10/22/17 21:30 103 H 18 10/22/17 21:17 101 H 18 10/22/17 21:00 98 10/22/17 18:54 97.5 F L 96 18 135/81 92 L 10/22/17 16:42 80 10/22/17 16:11 73 10/22/17 15:37 97.9 F 78 22 131/65 93 L Intake and Output 10/22/17 10/23/17 10/23/17 22:59 06:59 14:59 Intake Total 400 Output Total 950 500 Balance -950 -500 400 Intake: Oral 400 Output: Urine 950 500 Other: Voiding Method Toilet Toilet Urinal Urinal Weight 117.934 kg 117.934 kg No acute distress, oriented 3. Nasal O2 in place. No respiratory distress. HEENT examination is grossly unremarkable. Mucous membranes are moist. No oral lesions. Neck supple. Full range of motion. No adenopathy thyromegaly or neck vein distention. Cardiovascular examination reveals regular rhythm rate. S1-S2 normal. No S3 or S4. No discernible murmur noted. Lungs reveal coarse bilateral breath sounds. Breath sounds are diminished throughout. Basilar crackles. No wheezes. There is prolongation on forced maneuver. Breath sounds are diminished more so on the right side. Abdomen soft bowel sounds are heard. No masses or tenderness. Extremities are intact. Bilateral lower extremity edema. It's about 1+ pitting. No cyanosis or clubbing. Skin is without rash or lesion. Neurologic examination is brief but nonfocal. Results - Laboratory Findings CBC and BMP: 10/22/17 15:58 10/22/17 15:58 PT/INR, D-dimer PT 10.1 sec (9.0-12.0) 10/22/17 15:58 INR 1.0 (<1.2) 10/22/17 15:58 Abnormal lab findings: Abnormal Labs 10/22/17 10/22/17 10/22/17 15:53 15:58 15:58 RBC 3.83 L Hgb 11.2 L Hct 34.0 L Lymphocytes # 0.5 L Sodium 136 L Carbon Dioxide 34 H Glucose 101 H Plasma Lactic Acid Lionel ALT 20 L CK-MB (CK-2) 2.8 H* Total Protein 5.6 L Albumin 3.2 L 10/22/17 15:58 RBC Hgb Hct Lymphocytes # Sodium Carbon Dioxide Glucose Plasma Lactic Acid Lionel 0.6 L ALT CK-MB (CK-2) Total Protein Albumin - Diagnostic Findings Chest x-ray: report reviewed (Chest x-ray labs and medications are all reviewed. ), image reviewed Assessment and Plan Assessment: Assessment COPD exacerbation, treated by possible left lower lobe pneumonia Acute on chronic hypoxemic respiratory failure Chronic parenchymal changes in the right hemithorax History of COPD History of DVT, status post Jean-Paul filter History of GERD Deafness Hyperlipidemia Hypertension BPH History of lung abscess Multiple other medical problems and comorbidities Plan: Plan dated 10/23/2017 The patient will receive standard therapy including oxygen therapy updrafts long -acting beta agonist inhaled corticosteroids systemic steroids and antibiotics. The patient's overall prognosis is very guarded. The patient doesn't look horrible. I've seen him look much worse. He is short of breath but not as bad as I see him in the past. His chest x-ray does reveal a possible infiltrate in the left lower lobe. Most of the changes in the right chest are chronic in nature. We'll continue to follow closely. Prognosis is guarded. Additional recommendations and suggestions are forthcoming. Time with Patient: Greater than 30
--- NOTE | 2017-10-23 12:56 | P.PN ---
Subjective Progress Note Date: 10/23/17 Progress note being dictated for Dr. Rowe. Interval history: This is a 77-year-old gentleman admitted with acute COPD exacerbation, possible left lower lobe pneumonia, possible cor pulmonale multiple other medical issues. Maintained on nebulized bronchodilators, IV antibiotics, systemic steroids, IV Lasix with breathing, edema improving. Currently maintaining O2 sats of 92% on 6 L nasal cannula. denies chest pain, palpitations. Evaluated by pulmonary with recommendations noted. Objective - Vital Signs Vital signs: Vital Signs Temp 97.8 F 10/23/17 06:27 Pulse 84 10/23/17 11:31 Resp 26 H 10/23/17 06:27 BP 162/81 10/23/17 06:27 Pulse Ox 92 L 10/23/17 06:27 Intake & Output 10/22/17 10/23/17 10/23/17 18:59 06:59 18:59 Intake Total 400 Output Total 1450 975 Balance -1450 -575 Weight 117.934 kg 117.934 kg Intake: Oral 400 Output: Urine 1450 975 Other: Voiding Method Toilet Toilet Urinal Urinal # Voids 4 # Bowel Movements 0 - Exam PHYSICAL EXAM: VITAL SIGNS: As above GENERAL: sitting up in bed, no acute distress HEENT: Conjunctivae normal. eyes normal. Oral mucosa moist NECK: No JVD. No thyroid enlargement. No LNs CARDIOVASCULAR: S1, S2 muffled. No murmur RESPIRATION: Breath sounds diminished in the bases. Scattered rhonchi, bibasilar crackles. No wheezing ABDOMEN: Soft, nontender . No guarding. no masses palpable.Bowel sounds heard. LEGS: Positive Decreasing edema PSYCHIATRY: Alert and oriented -3, mood and affect normal. NERVOUS SYSTEM: Cranial N 2-12 grossly normal. Moves all 4 limbs. Diffuse weakness No focal deficits. - Labs CBC & Chem 7: 10/22/17 15:58 10/22/17 15:58 Labs: Abnormal Lab Results - Last 24 Hours (Table) 10/22/17 10/22/17 10/22/17 Range/Units 15:53 15:58 15:58 RBC 3.83 L (4.30-5.90) m/uL Hgb 11.2 L (13.0-17.5) gm/dL Hct 34.0 L (39.0-53.0) % Lymphocytes # 0.5 L (1.0-4.8) k/uL Sodium 136 L (137-145) mmol/L Carbon Dioxide 34 H (22-30) mmol/L Glucose 101 H (74-99) mg/dL Plasma Lactic Acid Lionel (0.7-2.0) mmol/L ALT 20 L (21-72) U/L CK-MB (CK-2) 2.8 H* (0.0-2.4) ng/mL Total Protein 5.6 L (6.3-8.2) g/dL Albumin 3.2 L (3.5-5.0) g/dL 10/22/17 Range/Units 15:58 RBC (4.30-5.90) m/uL Hgb (13.0-17.5) gm/dL Hct (39.0-53.0) % Lymphocytes # (1.0-4.8) k/uL Sodium (137-145) mmol/L Carbon Dioxide (22-30) mmol/L Glucose (74-99) mg/dL Plasma Lactic Acid Lionel 0.6 L (0.7-2.0) mmol/L ALT (21-72) U/L CK-MB (CK-2) (0.0-2.4) ng/mL Total Protein (6.3-8.2) g/dL Albumin (3.5-5.0) g/dL Microbiology - Last 24 Hours (Table) 10/23/17 04:15 Urine Culture - Preliminary Urine,Voided Assessment and Plan Assessment: 1. Acute COPD exacerbation, possible left lower lobe pneumonia, possibly gram- negative. 2. Bilateral leg edema, possibly cor pulmonale 3. Chronic hypoxic respiratory failure 4. Secondary pulmonary hypertension Plan: Continue on current medication regime ,monitoring and symptomatic treatment. Maintain nebulized bronchodilators, IV steroids, IV antibiotics, Lasix. Close monitoring of renal function and electrolytes with repeat labs ordered for a.m. Prognosis guarded given multiple complex medical issues. The impression and plan of care has been dictated as directed. : I performed a history and examination of this patient, discussed the same with the dictator. I agree with the dictator's note ,documented as a scribe. Any additional findings or plans will be noted.
--- NOTE | 2017-10-23 14:45 | XR ---
EXAMINATION TYPE: XR chest 2V DATE OF EXAM: 10/23/2017 COMPARISON: 10/22/2017 INDICATION: Pneumonia TECHNIQUE: Frontal and lateral views of the chest are obtained. FINDINGS: The heart size is normal. The pulmonary vasculature is normal. There is diffuse increased lung markings to the right lung mild increased left basilar infiltrate is present. Findings appear similar to comparison. Findings appear to be stable and could be related to the patient's reported cancer or pneumonia. IMPRESSION: 1. Increased lung markings at the right lung and at the left base, stable from earlier exam. Changes associated with the patient's reported cancer as well as pneumonia could be considered within the dif ferential.
[2017-10-23] MEDS ORDERED: LEVOFLOXACIN 750MG-D5W PMX 750 MG in DEXTROSE/WATER 1 150ML.BAG IVPB SCH (18:00)
[2017-10-23] MEDS: traZODone HCL 100 MG TAB PO SCH (21:54)
[2017-10-23] MEDS: DOXAZOSIN 4 MG TAB PO SCH (21:54)
[2017-10-23] MEDS: THEOPHYLLINE 24 HOUR 300 MG CAP.ER.24H PO SCH (21:54)
[2017-10-24] MEDS: PIPERACILLIN-TAZOBACTAM 3.375 GM in DEXTROSE/WATER 1 50ML.BAG IVPB SCH ×4 (00:16→23:25)
[2017-10-24] MEDS: methylPREDNISolone SOD SUCCI 125 MG/2 ML VIAL IV SCH ×5 (00:17→23:25)
[2017-10-24] MEDS: FORMOTEROL FUMARATE 20 MCG/2 ML NEBU INHALATION SCH ×2 (07:06→19:33)
[2017-10-24] MEDS: IPRATROPIUM-ALBUTEROL 3 ML NEB INHALATION SCH ×4 (07:07→19:21)
[2017-10-24] MEDS: BUDESONIDE 1 MG/2 ML NEBU INHALATION SCH ×2 (07:07→19:21)
[2017-10-24] MEDS: FAMOTIDINE 20 MG TAB PO SCH (07:27)
[2017-10-24] MEDS: ENOXAPARIN 40 MG/0.4 ML SYRINGE SQ SCH (07:27)
[2017-10-24] MEDS: DULoxetine HCL 30 MG CAPSULE.DR PO SCH (07:27)
[2017-10-24] MEDS: ISOSORBIDE MONONITRATE ER 30 MG TAB.ER.24H PO SCH (07:27)
[2017-10-24] MEDS: DULoxetine HCL 60 MG CAPSULE.DR PO SCH (07:27)
[2017-10-24] MEDS: ALPRAZolam 0.25 MG TAB PO PRN ×3 (07:28→23:30)
[2017-10-24] MEDS: METOPROLOL TARTRATE 25 MG TAB PO SCH (07:28)
[2017-10-24] MEDS: FLUTICASONE 50MCG/SPRAY NASAL 16GM EA NOSTRIL SCH (07:32)
[2017-10-24 08:09] LABS: ALT 19 U/L (21-72); AST 16 U/L (17-59); Albumin 3.1 g/dL (3.5-5.0); Alkaline Phosphatase 51 U/L (38-126); Anion Gap 8 mmol/L; Blood Urea Nitrogen 18 mg/dL (9-20); Calcium 8.6 mg/dL (8.4-10.2); Carbon Dioxide 36 mmol/L (22-30); Chloride 94 mmol/L (98-107); Glucose 132 mg/dL (74-99); Potassium 3.6 mmol/L (3.5-5.1); Sodium 138 mmol/L (137-145); Total Bilirubin 0.4 mg/dL (0.2-1.3); Total Protein 5.7 g/dL (6.3-8.2)
--- NOTE | 2017-10-24 11:10 | P.PN ---
Subjective Progress Note Date: 10/24/17 Principal diagnosis: Shortness of breath Progress note dated 10/24/2017 77-year-old patient well-known to our service. The patient comes in with complaints of increasing shortness of breath chest congestion cough and yellow phlegm production as well as over semi-edema. Most of his complaints centered around his lower extremities. Today they're much improved and actually his breathing is better. His chest x-ray shows chronic changes particularly in the right chest and some possible infiltrate or atelectasis at the left base. Again he is feeling much better. He has a number of medical problems including COPD, DVT, GERD, deafness, hyperlipidemia, hypertension, DJD, chronic hypoxemic respiratory failure, pulmonary fibrosis, lung abscess, pulmonary hypertension, impaired mobility, BPH, chronic anemia, previous Stacy placement, foot drop , and multiple surgical procedures. Objective - Vital Signs Vital signs: Vital Signs Temp 97.8 F 10/24/17 07:00 Pulse 100 10/24/17 07:29 Resp 16 10/24/17 07:00 BP 150/67 10/24/17 07:00 Pulse Ox 95 10/24/17 07:07 Intake & Output 10/23/17 10/24/17 10/24/17 18:59 06:59 18:59 Intake Total 400 550 350 Output Total 1075 1500 Balance -675 -950 350 Weight 117.934 kg 117.934 kg Intake: Intake, IV Titration 50 Amount Piperacillin-Tazobactam 3 50 .375 gm In Dextrose/Water 1 50ml.bag @ 12.5 mls/hr IVPB Q8HR [facility] Rx#: [id number] Oral 400 500 350 Output: Urine 1075 1500 Other: Voiding Method Toilet Toilet Urinal Urinal Urinal # Voids 1 # Bowel Movements 0 1 - Exam No acute distress, oriented 3. Nasal O2 in place. No respiratory distress. HEENT examination is grossly unremarkable. Mucous membranes are moist. No oral lesions. Neck supple. Full range of motion. No adenopathy thyromegaly or neck vein distention. Cardiovascular examination reveals regular rhythm rate. S1-S2 normal. No S3 or S4. No discernible murmur noted. Lungs reveal coarse bilateral breath sounds. Breath sounds are diminished throughout. Basilar crackles. No wheezes. There is prolongation on forced maneuver. Breath sounds are diminished more so on the right side. Abdomen soft bowel sounds are heard. No masses or tenderness. Extremities are intact. Lower extremity edema is much improved but still present lesser extent. No cyanosis or clubbing. Skin is without rash or lesion. Neurologic examination is brief but nonfocal. - Labs CBC & Chem 7: 10/22/17 15:58 10/24/17 07:15 Labs: Abnormal Lab Results - Last 24 Hours (Table) 10/24/17 Range/Units 07:15 Chloride 94 L (98-107) mmol/L Carbon Dioxide 36 H (22-30) mmol/L Glucose 132 H (74-99) mg/dL AST 16 L (17-59) U/L ALT 19 L (21-72) U/L Total Protein 5.7 L (6.3-8.2) g/dL Albumin 3.1 L (3.5-5.0) g/dL Microbiology - Last 24 Hours (Table) 10/22/17 18:55 Blood Culture - Preliminary Blood No Growth after 24 hours 10/22/17 21:35 Gram Stain - Preliminary Sputum 10/22/17 15:58 Blood Culture - Preliminary Blood No Growth after 24 hours 10/23/17 04:15 Urine Culture - Preliminary Urine,Voided Assessment and Plan Assessment: Assessment COPD exacerbation, complicated by possible left lower lobe pneumonia Bilateral lower extremity edema, likely related to right-sided heart failure cor pulmonale and pulmonary hypertension, improved Acute on chronic hypoxemic respiratory failure Chronic parenchymal changes in the right hemithorax History of COPD History of DVT, status post [place] filter History of GERD Deafness Hyperlipidemia Hypertension BPH History of lung abscess Multiple other medical problems and comorbidities Plan: Plan dated 10/23/2017 The patient will receive standard therapy including oxygen therapy updrafts long -acting beta agonist inhaled corticosteroids systemic steroids and antibiotics. The patient's overall prognosis is very guarded. The patient doesn't look horrible. I've seen him look much worse. He is short of breath but not as bad as I see him in the past. His chest x-ray does reveal a possible infiltrate in the left lower lobe. Most of the changes in the right chest are chronic in nature. We'll continue to follow closely. Prognosis is guarded. Additional recommendations and suggestions are forthcoming. Plan dated 10/24/2017 Sodium 138, potassium 3.6, chloride 94, CO2 36, anion gap is normal and BUN and creatinine are both normal. The rest of his labs look pretty good. Microbiology is currently on negative. Medications are reviewed. Hopefully, the patient could be discharged tomorrow. I'll repeat a chest x-ray in the morning. Additional recommendations and suggestions are forthcoming. He remains on appropriate medications including Pulmicort and formoterol updrafts with DuoNeb Solu-Medrol and antibiotics. Time with Patient: Less than 30
[2017-10-24] MEDS ORDERED: Potassium Replacement Protocol 1 EACH MISC MISCELLANE PRN (15:13)
--- NOTE | 2017-10-24 15:18 | P.PN ---
Subjective Progress Note Date: 10/24/17 Progress note being dictated for Dr. Rowe. Interval history: This is a 77-year-old gentleman admitted with acute COPD exacerbation, possible left lower lobe pneumonia, possible cor pulmonale multiple other medical issues. Maintained on nebulized bronchodilators, IV antibiotics, systemic steroids, IV Lasix with breathing, edema improving. Currently maintaining O2 sats of 92% on 6 L nasal cannula. denies chest pain, palpitations. Evaluated by pulmonary with recommendations noted. 10/24/2017 breathing slowly improving on nebulized bronchodilators, IV antibiotics, steroids and Lasix. Diuresing well with 24-hour I&O reflecting a negative fluid balance. O2 sat 93% on 6 L nasal cannula. Objective - Vital Signs Vital signs: Vital Signs Temp 97.6 F 10/24/17 13:40 Pulse 95 10/24/17 13:40 Resp 16 10/24/17 13:40 BP 117/65 10/24/17 13:40 Pulse Ox 93 L 10/24/17 13:40 Intake & Output 10/23/17 10/24/17 10/24/17 18:59 06:59 18:59 Intake Total 400 550 700 Output Total 1075 1500 Balance -675 -950 700 Weight 117.934 kg 117.934 kg Intake: Intake, IV Titration 50 Amount Piperacillin-Tazobactam 3 50 .375 gm In Dextrose/Water 1 50ml.bag @ 12.5 mls/hr IVPB Q8HR [facility] Rx#: [id number] Oral 400 500 700 Output: Urine 1075 1500 Other: Voiding Method Toilet Toilet Urinal Urinal Urinal # Voids 1 4 # Bowel Movements 0 1 0 - Exam PHYSICAL EXAM: VITAL SIGNS: As above GENERAL: sitting up in bed, no acute distress HEENT: Conjunctivae normal. eyes normal. Oral mucosa moist NECK: No JVD. No thyroid enlargement. No LNs CARDIOVASCULAR: S1, S2 muffled. No murmur RESPIRATION: Breath sounds diminished in the bases. Scattered coarse rhonchi, bibasilar crackles. ABDOMEN: Soft, nontender . No guarding. no masses palpable.Bowel sounds heard. LEGS: Continued improving edema PSYCHIATRY: Alert and oriented -3, mood and affect normal. NERVOUS SYSTEM: Cranial N 2-12 grossly normal. Moves all 4 limbs. Diffuse weakness No focal deficits. - Labs CBC & Chem 7: 08/14/18 15:58 10/24/17 07:15 Labs: Abnormal Lab Results - Last 24 Hours (Table) 10/24/17 Range/Units 07:15 Chloride 94 L (98-107) mmol/L Carbon Dioxide 36 H (22-30) mmol/L Glucose 132 H (74-99) mg/dL AST 16 L (17-59) U/L ALT 19 L (21-72) U/L Total Protein 5.7 L (6.3-8.2) g/dL Albumin 3.1 L (3.5-5.0) g/dL Microbiology - Last 24 Hours (Table) 10/23/17 04:15 Urine Culture - Final Urine,Voided 10/22/17 18:55 Blood Culture - Preliminary Blood No Growth after 24 hours 10/22/17 21:35 Gram Stain - Preliminary Sputum 10/22/17 15:58 Blood Culture - Preliminary Blood No Growth after 24 hours Assessment and Plan Assessment: 1. Acute COPD exacerbation, possible left lower lobe pneumonia, possibly gram- negative. 2. Bilateral leg edema, possibly cor pulmonale 3. Chronic hypoxic respiratory failure 4. Secondary pulmonary hypertension Plan: Continue on current medication regime ,monitoring and symptomatic treatment. Follow closely with pulmonary, continue on nebulized bronchodilators , IV steroids, IV antibiotics, Lasix. Close monitoring of renal function and electrolytes with repeat labs ordered for a.m. increase ambulation as tolerated. Prognosis guarded given multiple complex medical issues. The impression and plan of care has been dictated as directed. : I performed a history and examination of this patient, discussed the same with the dictator. I agree with the dictator's note ,documented as a scribe. Any additional findings or plans will be noted.
[2017-10-24] MEDS: FUROSEMIDE 10 MG/ML 4 ML VIAL IV SCH (16:56)
[2017-10-24] MEDS ORDERED: LEVOFLOXACIN 750 MG TAB PO SCH (18:00)
[2017-10-24] MEDS: THEOPHYLLINE 24 HOUR 300 MG CAP.ER.24H PO SCH (20:18)
[2017-10-24] MEDS: traZODone HCL 100 MG TAB PO SCH (20:18)
[2017-10-24] MEDS: DOXAZOSIN 4 MG TAB PO SCH (20:58)
[2017-10-24 23:46] VITALS: RESP 20
[2017-10-25] MEDS: methylPREDNISolone SOD SUCCI 125 MG/2 ML VIAL IV SCH ×2 (06:20→13:43)
[2017-10-25 07:17] VITALS: BP 140/77; TEMP 97.4
[2017-10-25] MEDS: IPRATROPIUM-ALBUTEROL 3 ML NEB INHALATION SCH ×2 (07:31→10:58)
[2017-10-25] MEDS: BUDESONIDE 1 MG/2 ML NEBU INHALATION SCH (07:31)
[2017-10-25] MEDS: FORMOTEROL FUMARATE 20 MCG/2 ML NEBU INHALATION SCH (07:31)
[2017-10-25] MEDS: DULoxetine HCL 60 MG CAPSULE.DR PO SCH (08:34)
[2017-10-25] MEDS: FUROSEMIDE 10 MG/ML 4 ML VIAL IV SCH (08:34)
[2017-10-25] MEDS: DULoxetine HCL 30 MG CAPSULE.DR PO SCH (08:34)
[2017-10-25] MEDS: PIPERACILLIN-TAZOBACTAM 3.375 GM in DEXTROSE/WATER 1 50ML.BAG IVPB SCH (08:35)
[2017-10-25] MEDS: METOPROLOL TARTRATE 25 MG TAB PO SCH (08:35)
[2017-10-25] MEDS: ISOSORBIDE MONONITRATE ER 30 MG TAB.ER.24H PO SCH (08:35)
[2017-10-25] MEDS: FAMOTIDINE 20 MG TAB PO SCH (08:35)
[2017-10-25] MEDS: ENOXAPARIN 40 MG/0.4 ML SYRINGE SQ SCH (08:35)
[2017-10-25] MEDS: FLUTICASONE 50MCG/SPRAY NASAL 16GM EA NOSTRIL SCH (08:36)
[2017-10-25] MEDS: ALPRAZolam 0.25 MG TAB PO PRN (08:45)
[2017-10-25 10:01] LABS: ALT 19 U/L (21-72); AST 16 U/L (17-59); Albumin 3.4 g/dL (3.5-5.0); Alkaline Phosphatase 55 U/L (38-126); Anion Gap 8 mmol/L; Blood Urea Nitrogen 22 mg/dL (9-20); Calcium 8.8 mg/dL (8.4-10.2); Carbon Dioxide 37 mmol/L (22-30); Chloride 94 mmol/L (98-107); Glucose 149 mg/dL (74-99); Magnesium 2.2 mg/dL (1.6-2.3); Potassium 3.2 mmol/L (3.5-5.1); Sodium 139 mmol/L (137-145); Total Bilirubin 0.4 mg/dL (0.2-1.3); Total Protein 6.1 g/dL (6.3-8.2)
--- NOTE | 2017-10-25 10:45 | XR ---
EXAMINATION TYPE: XR chest 2V DATE OF EXAM: 10/25/2017 COMPARISON: Chest x-ray from 2 days ago and older studies. CTA chest May 08, 2016. HISTORY: Pneumonia progress study. TECHNIQUE: Frontal and lateral views of the chest are obtained. FINDINGS: There is background chronic emphysematous change with hyperexpanded left lung and left basi lar opacity favoring scarring all redemonstrated. There is persistent right-sided volume loss with me diastinal shift and scattered areas of opacity all redemonstrated favoring chronic consolidation and/ or scarring with areas of pleural thickening felt present. No significant change from older studies. Cardiac silhouette size remains within normal limits. Osseous structures are demineralized. IMPRESSION: Chronic changes without significant interval change. Areas of acute infiltrate are diff icult to exclude on background of significant chronic fibrosis.
[2017-10-25] MEDS ORDERED: Potassium Replacement Protocol 1 EACH MISC MISCELLANE PRN (10:54)
[2017-10-25] MEDS ORDERED: PNEUMOCOCCAL VACC-PNEUMOVAX 23 25 MCG/0.5 ML VIAL IM ONE (10:55)
[2017-10-25 11:11] VITALS: PULSE 100
[2017-10-25] MEDS: POTASSIUM CHLORIDE ER 20 MEQ TAB.ER PO SCH ×2 (12:27→13:42)
--- NOTE | 2017-10-25 13:14 | P.PN ---
Subjective Progress Note Date: 10/25/17 Principal diagnosis: Shortness of breath Progress note dated 10/24/2017 77-year-old patient well-known to our service. The patient comes in with complaints of increasing shortness of breath chest congestion cough and yellow phlegm production as well as over semi-edema. Most of his complaints centered around his lower extremities. Today they're much improved and actually his breathing is better. His chest x-ray shows chronic changes particularly in the right chest and some possible infiltrate or atelectasis at the left base. Again he is feeling much better. He has a number of medical problems including COPD, DVT, GERD, deafness, hyperlipidemia, hypertension, DJD, chronic hypoxemic respiratory failure, pulmonary fibrosis, lung abscess, pulmonary hypertension, impaired mobility, BPH, chronic anemia, previous Stacy placement, foot drop , and multiple surgical procedures. Progress note dated 10/25/2017 77-year-old patient well-known to our service. The patient came in with complaints of shortness of breath chest congestion cough and yellow phlegm production in lower extremity edema. Most of his complaints have abated and he' s feeling quite well. His lower extremity edema is much improved. His respiratory complaints have also improved significantly. The patient has a history of COPD, DVT, GERD, deafness, hyperlipidemia, hypertension, DJD, chronic hypoxemic respiratory failure, pulmonary fibrosis, lung abscess, pulmonary hypertension, impaired mobility, BPH, chronic anemia, status post Stacy filter placement, foot drop and multiple surgical procedures. Chest x-rays essentially unchanged. I think most of the changes were seen in the chest or chronic as opposed to acute. From our perspective, the patient could be discharged home. He'll need to follow-up with Dr. Michele Avila in the outpatient setting. Objective - Vital Signs Vital signs: Vital Signs Temp 97.4 F L 10/25/17 07:00 Pulse 100 10/25/17 11:11 Resp 20 10/25/17 07:00 BP 140/77 10/25/17 07:00 Pulse Ox 94 L 10/25/17 07:00 Intake & Output 10/24/17 10/25/17 10/25/17 18:59 06:59 18:59 Intake Total 700 850 Output Total 800 1600 Balance -100 -750 Weight 117.934 kg Intake: Oral 700 850 Output: Urine 800 1600 Other: Voiding Method Urinal Urinal # Voids 4 # Bowel Movements 0 - Exam No acute distress, oriented 3. Nasal O2 in place. No respiratory distress. HEENT examination is grossly unremarkable. Mucous membranes are moist. No oral lesions. Neck supple. Full range of motion. No adenopathy thyromegaly or neck vein distention. Cardiovascular examination reveals regular rhythm rate. S1-S2 normal. No S3 or S4. No discernible murmur noted. Lungs reveal occasional rhonchi. Breath sounds equal bilaterally but are diminished throughout. Breath sounds have improved. A few scattered wheezes are noted. No crackles. Slight prolongation. Abdomen soft bowel sounds are heard. No masses or tenderness. Extremities are intact. Lower extremity edema is much improved but still present lesser extent. No cyanosis or clubbing. Skin is without rash or lesion. Neurologic examination is brief but nonfocal. - Labs CBC & Chem 7: 10/22/17 15:58 10/25/17 08:29 Labs: Abnormal Lab Results - Last 24 Hours (Table) 10/25/17 Range/Units 08:29 Potassium 3.2 L (3.5-5.1) mmol/L Chloride 94 L (98-107) mmol/L Carbon Dioxide 37 H (22-30) mmol/L BUN 22 H (9-20) mg/dL Glucose 149 H (74-99) mg/dL AST 16 L (17-59) U/L ALT 19 L (21-72) U/L Total Protein 6.1 L (6.3-8.2) g/dL Albumin 3.4 L (3.5-5.0) g/dL Microbiology - Last 24 Hours (Table) 10/22/17 18:55 Blood Culture - Preliminary Blood No Growth after 48 hours 10/22/17 15:58 Blood Culture - Preliminary Blood No Growth after 48 hours 10/23/17 04:15 Urine Culture - Final Urine,Voided Assessment and Plan Assessment: Assessment COPD exacerbation, complicated by possible left lower lobe pneumonia versus purulent tracheobronchitis Bilateral lower extremity edema, likely related to right-sided heart failure cor pulmonale and pulmonary hypertension, improved Acute on chronic hypoxemic respiratory failure Chronic parenchymal changes in the right hemithorax History of COPD History of DVT, status post [place] filter History of GERD Deafness Hyperlipidemia Hypertension BPH History of lung abscess Multiple other medical problems and comorbidities Plan: Plan dated 10/23/2017 The patient will receive standard therapy including oxygen therapy updrafts long -acting beta agonist inhaled corticosteroids systemic steroids and antibiotics. The patient's overall prognosis is very guarded. The patient doesn't look horrible. I've seen him look much worse. He is short of breath but not as bad as I see him in the past. His chest x-ray does reveal a possible infiltrate in the left lower lobe. Most of the changes in the right chest are chronic in nature. We'll continue to follow closely. Prognosis is guarded. Additional recommendations and suggestions are forthcoming. Plan dated 10/24/2017 Sodium 138, potassium 3.6, chloride 94, CO2 36, anion gap is normal and BUN and creatinine are both normal. The rest of his labs look pretty good. Microbiology is currently on negative. Medications are reviewed. Hopefully, the patient could be discharged tomorrow. I'll repeat a chest x-ray in the morning. Additional recommendations and suggestions are forthcoming. He remains on appropriate medications including Pulmicort and formoterol updrafts with DuoNeb Solu-Medrol and antibiotics. Plan dated 10/25/2017 There has not been much change in the patient's chest x-ray dated October 25. I believe much of a worsening is chronic in nature. Microbiologic studies of abdomen negative. Sodium is 139 potassium 3.2 chloride 74 CO2 37 BUN and creatinine were 22 and 0.87. Anion gap is normal. From our perspective, the patient can be discharged home. The patient has all appropriate medications at home. He can be sent home with a short burst and taper prednisone and some oral antibiotics. In addition, his potassium should be replaced prior to discharge. Finally, the patient can follow-up or should follow-up with his primary mechanical engineering technician, Dr. Browning next week. Time with Patient: Less than 30
--- NOTE | 2017-10-26 06:56 | DS ---
DISCHARGE SUMMARY DATE OF SERVICE: 10/25/2017. FINAL DIAGNOSES: 1. Chronic obstructive pulmonary disease acute exacerbation with acute left lower pneumonia possibly gram-negative. 2. Leg edema possibly cor pulmonale. 3. Chronic hypoxic respiratory failure. 4. Secondary pulmonary hypertension. DISCHARGE DISPOSITION: The patient will be discharged in stable condition with guarded prognosis. HISTORY OF PRESENT ILLNESS: This is a 77-year-old gentleman with past medical history of COPD exacerbation also had left pneumonia. Patient treated with bronchodilators, antibiotics. Dr. Dunne saw the patient. Patient made significant clinical improvement. The patient will be discharged in stable condition with guarded prognosis. On exam, vital signs are stable. Cardiovascular: S1, S2. Abdomen: Soft. Nervous System: No focal deficits. MEDICATIONS AND DISCHARGE RECOMMENDATION: 1. Diet is cardiac. 2. Follow with Dr. Browning in 2-3 days. Medications will be as follows: 1. Xanax 0.5 t.i.d. p.r.n. 2. Cymbalta 30 mg p.o. daily and 60 mg p.o. daily. 3. Pepcid 40 mg p.o. daily. 4. Fluticasone 2 sprays daily. 5. Advair 1 puff 2 was b.i.d. 6. Lasix 20 mg p.o. daily. 7. Imdur 30 mg p.o. 8. Zaroxolyn 5 mg p.o. daily. 9. Lopressor 25 mg p.o. 10.Hytrin 20 mg q.h.s. 11.Desyrel 100 mg q.h.s. 12.Tylenol 650 q.6h p.r.n. 13.Augmentin 875 mg 1 p.o. b.i.d. 14.Prednisone 5 mg p.o. daily, maintenance dose. Currently use 40 mg daily for 3 days, 30 for 3 days, 20 for 3 days, 10 for 3 days and then change to 5 mg. 15.Theophylline 60 mg q.h.s. Once again the patient will be discharged in stable condition with guarded prognosis. MMODL / IJN: [id number] /
--- NOTE | 2017-10-29 07:44 | CDI ---
Last Revision, February 2017 Documentation Clarification Form Date: 10/29/2017 7:28:39 AM From: Celia Knight Phone: If you have a question about this query, please contact Maria G [facility] Front Desk Coordinator at [phone] between 8am and 5pm. Admit Date: 10/22/2017 5:37:00 PM Patient Name: Berny Ward Visit Number: [id number] Discharge Date: 10/25/17 ATTENTION: The Clinical Documentation Specialists (CDI) and [facility] Coding Staff appreciate your assistance in clarifying documentation. Please respond to the clarification below the line at the bottom and electronically sign. The CDI & [facility] Coding staff will review the response and follow-up if needed. Please note: Queries are made part of the Legal Health Record. If you have any questions, please contact the author of this message via ITS. Osmani Donahue MD Conflicting documentation for type of respiratory failure has been found in record. On 10/23 consult, 10/24 and 10/25 PN state acute and chronic hypoxic respiratory failure. DCS documents chronic hypoxic respiratory failure. History/Risk Factors: Patient has gram negative pneumonia and AECOPD, hx. tob. Steroid and O2 dependent Clinical Indicators: O2 92% on 6L Treatment: antibiotics, steroids and O2 In your opinion what is the most clinically appropriate diagnosis for this patient? Acute and chronic hypoxic respiratory failure Chronic hypoxic respiratory failure Other explanation of clinical findings Unable to determine (no explanation for clinical findings) Acute and chronic hypoxic respiratory failure MTDD
== END 2017-10-25 14:52 | disposition home health service (06) | DRG 177 ==
LOC: EC 15:34 → 4MS4W 17:37
PROVIDERS: ADMIT Hospitalist; ATTEND Hospitalist
DX: J15.6 Pneumonia due to other Gram-negative bacteria (principal); J96.21 Acute and chronic respiratory failure with hypoxia; J44.0 Chronic obstructive pulmonary disease with (acute) lower respiratory infection; J44.1 Chronic obstructive pulmonary disease with (acute) exacerbation; J96.11 Chronic respiratory failure with hypoxia; Z87.891 Personal history of nicotine dependence; D63.8 Anemia in other chronic diseases classified elsewhere; E78.5 Hyperlipidemia, unspecified; F32.9 Major depressive disorder, single episode, unspecified; F41.9 Anxiety disorder, unspecified; H91.90 Unspecified hearing loss, unspecified ear; I11.0 Hypertensive heart disease with heart failure; I27.29 Other secondary pulmonary hypertension; I50.9 Heart failure, unspecified; J84.10 Pulmonary fibrosis, unspecified; K21.9 Gastro-esophageal reflux disease without esophagitis; M19.90 Unspecified osteoarthritis, unspecified site; N40.0 Benign prostatic hyperplasia without lower urinary tract symptoms; Z79.51 Long term (current) use of inhaled steroids; Z79.52 Long term (current) use of systemic steroids; Z79.899 Other long term (current) drug therapy; Z86.718 Personal history of other venous thrombosis and embolism; Z99.3 Dependence on wheelchair; Z99.81 Dependence on supplemental oxygen; Z83.79 Family history of other diseases of the digestive system; Z88.5 Allergy status to narcotic agent; Z88.8 Allergy status to other drugs, medicaments and biological substances; Z79.2 Long term (current) use of antibiotics
CPT/HCPCS: 36415; 71046; 80053; 82550; 82553; 83605; 83735; 83880; 84484; 85025; 85610; 85730; 87040; 87070; 87086; 87205; 90732; 93005; 94640; 94760; 96361; 96374; 99285

== ENCOUNTER → 2017-12-19 | Outpatient (CLI) | payer MEDICARE, BC ==
[2017-12-19 17:35] LABS: Blood Urea Nitrogen 20 mg/dL (9-20)
--- NOTE | 2017-12-19 22:28 | CT ---
EXAMINATION TYPE: CT abdomen pelvis w con DATE OF EXAM: 12/19/2017 COMPARISON: Prior CT abdomen and pelvis November 15, 2016. HISTORY: Generalized abdominal pain. Colon cancer. CT DLP: 1562.2 mGycm, Automated Exposure Control for Dose Reduction was Utilized. CONTRAST: CT scan of the abdomen and pelvis is performed with oral and with IV Contrast, patient injected with 100 mL of Isovue 300. FINDINGS: LUNG BASES: There is fairly advanced emphysematous change in lung bases. There is persistent tiny rig ht pleural effusion or fluid collection. There is associated right basilar compressive atelectasis. T here are new bibasilar nodules. For reference nodule adjacent to left heart measures 2.7 x 1.7 cm axi al image 8. For reference there is 1.5 x 1.4 cm nodule right lower lobe axial image 9. There is three -vessel coronary artery calcification and/or stents. LIVER/GB: There are a few simple appearing thin-walled cysts redemonstrated scattered throughout the liver. There is new metastatic disease with heterogeneous hypodense 4.5 x 3.1 cm mass seen axial imag e 27. A few small additional intraparenchymal metastatic lesions are identified. There is additional and irregular subcapsular metastatic disease anteriorly noted near axial image 23. There are adjacent peritoneal metastatic lesions, for reference there is 9 mm lesion axial image 23 anterior to the yvan er. PANCREAS: No significant abnormality is seen. SPLEEN: No significant abnormality is seen. ADRENALS: No significant abnormality is seen. KIDNEYS: No significant abnormality is seen. BOWEL: Oral contrast does not reach colonic level. There are sutures from right-sided hemicolectomy n ow identified. There is no suspicious small or large bowel dilatation. There are diverticula througho ut the colon most prominent in the sigmoid colon. PROSTATE/SEMINAL VESICLES: No gross abnormality seen. LYMPH NODES: There are abnormal retroperitoneal lymph nodes now present. For reference there is 3.1 x 2.4 cm lesion posterior to descending aorta axial image 38. Adenopathy along the iliac chain lymph n odes is present in the pelvis. There are diffuse peritoneal deposits throughout the abdomen and pelvis with confluent lesion seen an teriorly in the right midabdomen noted. There are pelvic deposits also seen, for reference there is 9 mm right perirectal lesion axial image 65 noted. OSSEOUS STRUCTURES: Metallic artifact from left hip arthroplasty causes streak artifact limiting eval uation of pelvic structures. There is mild height loss at L3 level. There is moderate to advanced dis c space narrowing with vacuum disc phenomenon at L5-S1 level. Moderate axial joint space loss right h ip is seen. OTHER: There is moderate to severe calcified plaque in the aorta extending into branch vessels. IMPRESSION: New diffuse metastatic disease with lesions in lung bases, liver, peritoneal carcinomatos is, and abnormal adenopathy throughout the abdomen and pelvis now identified.
== END ==
LOC: RADCTMAIN 16:44
PROVIDERS: ATTEND Surgery
DX: C18.9 Malignant neoplasm of colon, unspecified (principal); C78.02 Secondary malignant neoplasm of left lung; C78.01 Secondary malignant neoplasm of right lung; C78.7 Secondary malignant neoplasm of liver and intrahepatic bile duct; C78.6 Secondary malignant neoplasm of retroperitoneum and peritoneum
CPT/HCPCS: 82565; 84520; 74177; 36415; Q9967

== ENCOUNTER 2017-12-31 07:52 | Inpatient (IN) | payer MEDICARE, BC ==
[2017-12-31] MEDS ORDERED: IPRATROPIUM 0.5 MG/2.5 ML NEBU INHALATION STA (08:04)
[2017-12-31] MEDS ORDERED: ALBUTEROL NEBULIZED 2.5 MG/3 ML INHALATION STA (08:04)
[2017-12-31 08:19] LABS: Basophils % (A) 0 %; Eosinophils # (A) 0.2 k/uL (0-0.7); Eosinophils % (A) 2 %; HCT 38.7 % (39.0-53.0); HGB 12.3 gm/dL (13.0-17.5); Lymphocytes # (A) 0.8 k/uL (1.0-4.8); Lymphocytes % (A) 9 %; MCH 28.6 pg (25.0-35.0); MCHC 31.6 g/dL (31.0-37.0); MCV 90.3 fL (80.0-100.0); Mean Platelet Volume 6.5; Monocytes # (A) 0.7 k/uL (0-1.0); Monocytes % (A) 8 %; Neutrophils # (A) 6.9 k/uL (1.3-7.7); Neutrophils % (A) 78 %; Platelet Count 242 k/uL (150-450); RBC 4.29 m/uL (4.30-5.90); RDW 14.7 % (11.5-15.5); WBC 8.9 k/uL (3.8-10.6)
[2017-12-31 08:30] LABS: INR 1.1 (<1.2); Partial Thromboplastin Time 23.1 sec (22.0-30.0); Prothrombin Time 10.5 sec (9.0-12.0)
[2017-12-31 08:33] LABS: ALT 20 U/L (21-72); AST 25 U/L (17-59); Albumin 3.5 g/dL (3.5-5.0); Alkaline Phosphatase 69 U/L (38-126); Anion Gap 7 mmol/L; Blood Urea Nitrogen 14 mg/dL (9-20); Calcium 9.4 mg/dL (8.4-10.2); Carbon Dioxide 38 mmol/L (22-30); Chloride 91 mmol/L (98-107); Glucose 116 mg/dL (74-99); Magnesium 1.7 mg/dL (1.6-2.3); Sodium 136 mmol/L (137-145); Total Bilirubin 0.6 mg/dL (0.2-1.3); Total Protein 6.3 g/dL (6.3-8.2)
--- NOTE | 2017-12-31 08:42 | ED ---
SOB HPI - General Chief Complaint: Shortness of Breath Stated Complaint: EMMY Time Seen by Provider: 12/31/17 08:03 Source: patient, EMS, RN notes reviewed, old records reviewed Mode of arrival: EMS Limitations: no limitations - History of Present Illness Initial Comments: This is a 77-year-old male the ER for evaluation of bowel pain on top of shortness of breath. Increased cough and congestion with history of COPD. Patient's medical history is also complicated with severe metastatic cancer. Patient is having continued severe abdominal pain with nausea no current vomiting. Shortness of breath MD Complaint: shortness of breath, cough -: days(s) Radiation: back Severity: moderate Severity scale (1-10): 3 Quality: dull, aching Improves With: nothing Worsens With: nothing Known History Of: COPD Associated Symptoms: chest pain, cough, nausea/vomiting, abdominal pain Treatments Prior to Arrival: none - Related Data Home Medications Medication Instructions Recorded Confirmed Isosorbide Mononitrate [Imdur] 30 mg PO DAILY 09/24/13 12/31/17 Metoprolol Tartrate [Lopressor] 25 mg PO DAILY 05/02/14 12/31/17 traZODone HCL [Desyrel] 100 mg PO HS 05/02/14 12/31/17 ALPRAZolam [Xanax] 0.25 mg PO TID PRN 03/02/15 12/31/17 DULoxetine HCL [Cymbalta] 30 mg PO DAILY 10/24/16 12/31/17 DULoxetine HCL [Cymbalta] 60 mg PO DAILY 07/15/17 12/31/17 Fluticasone/Salmeterol [Advair Hfa 2 puff INHALATION RT-BID 07/15/17 12/31/17 230-21 Mcg Inhaler] Furosemide [Lasix] 20 mg PO DAILY 10/22/17 12/31/17 Metolazone [Zaroxolyn] 5 mg PO MOWEFR 10/22/17 12/31/17 Albuterol Nebulized [Ventolin 2.5 mg INHALATION RT-QID PRN 12/31/17 12/31/17 Nebulized] Metoclopramide [Reglan] 10 mg PO TID 12/31/17 12/31/17 Polyethylene Glycol 3350 [Miralax] 17 gm PO DAILY 12/31/17 12/31/17 Sulfamethoxazole/Trimethoprim 1 tab PO MOWEFR 12/31/17 12/31/17 [Bactrim DS 800-160 mg] Terazosin HCl 20 mg PO HS 12/31/17 12/31/17 Previous Rx's Medication Instructions Recorded Acetaminophen Tab [Tylenol] 650 mg PO Q6HR PRN tab 07/18/17 Theophylline 12 Hour [Ronnie-Dur] 600 mg PO HS #0 10/25/17 predniSONE 5 mg PO DAILY #0 10/25/17 Allergies Allergy/AdvReac Type Severity Reaction Status Date / Time celecoxib [From Celebrex] Allergy Swelling Verified 12/31/17 08:39 gabapentin [From Neurontin] Allergy Rash/Hives Verified 12/31/17 08:39 rabeprazole [From Aciphex] Allergy Unknown Verified 12/31/17 08:39 propoxyphene AdvReac Unknown Verified 12/31/17 08:39 [From Darvocet-N] Review of Systems ROS Statement: Those systems with pertinent positive or pertinent negative responses have been documented in the HPI. ROS Other: All systems not noted in ROS Statement are negative. Past Medical History Past Medical History: Asthma, Cancer, COPD, Deep Vein Thrombosis (DVT), GERD/ Reflux, Hearing Disorder / Deafness, Hyperlipidemia, Hypertension, Osteoarthritis (OA), Prostate Disorder, Respiratory Disorder Additional Past Medical History / Comment(s): +End-stage COPD, oxygen and steroid dependent and the patient is typically on 5 L of oxygen nasal cannula, limits pulmonate fibrosis, history of lung abscess, secondary pulmonary hypertension, difficulty with mobility and the patient is a wheelchair-bound, impaired hearing, chronic anemia, BPH, history of DVT with a previous [place] filter insertion fact April 2016, BPH, osteoarthritis, hypertension, acid reflux, dropped foot and the patient wears a right foot brace History of Any Multi-Drug Resistant Organisms: None Reported Date of last positivie culture/infection: None MDRO Source:: None Past Surgical History: Adenoidectomy, Appendectomy, Back Surgery, Heart Catheterization, Joint Replacement, Orthopedic Surgery, Tonsillectomy Additional Past Surgical History / Comment(s): LEFT HIP SURGERY X2, TOTAL RIGHT HIP., RIGHT FOOT SX, BRONCHOSCOPY, JEAN-PAUL FILTER., EGD, tumor removed from colon Past Anesthesia/Blood Transfusion Reactions: No Reported Reaction, Family History of Problems w/ Anesthesia Additional Past Anesthesia/Blood Transfusion Reaction / Comment(s): HX OF BLOOD TRANSFUSIONS APR AND MAY 2016- NO REACTION. SISTER= DIFFICULTY WAKING UP. Past Psychological History: Anxiety, Depression Smoking Status: Former smoker Past Alcohol Use History: None Reported Past Drug Use History: None Reported - Past Family History Mother Family Medical History: Liver Disease Additional Family Medical History / Comment(s): Mother had cirrhosis of the liver and from it. Father Family Medical History: No Reported History Additional Family Medical History / Comment(s): Father of old age. General Exam Limitations: no limitations General appearance: alert, in no apparent distress Head exam: Present: atraumatic, normocephalic, normal inspection Eye exam: Present: normal appearance, PERRL, EOMI. Absent: scleral icterus, conjunctival injection, periorbital swelling ENT exam: Present: normal exam, mucous membranes dry Neck exam: Present: normal inspection, full ROM. Absent: tenderness, meningismus, lymphadenopathy Respiratory exam: Present: respiratory distress, wheezes, accessory muscle use, decreased breath sounds, prolonged expiratory. Absent: rales, rhonchi, stridor Cardiovascular Exam: Present: regular rate, tachycardia, normal heart sounds. Absent: systolic murmur, diastolic murmur, rubs, gallop, clicks GI/Abdominal exam: Present: soft, normal bowel sounds. Absent: distended, tenderness, guarding, rebound, rigid Extremities exam: Present: normal inspection, full ROM, normal capillary refill. Absent: tenderness, pedal edema, joint swelling, calf tenderness Back exam: Present: normal inspection Neurological exam: Present: alert, oriented X3, CN II-XII intact Psychiatric exam: Present: normal affect, normal mood Skin exam: Present: warm, dry, intact, normal color. Absent: rash Course Vital Signs 12/31/17 12/31/17 12/31/17 07:53 07:55 08:00 Temperature 98.2 F Pulse Rate 112 H Respiratory 26 H Rate Blood Pressure 127/89 127/89 O2 Sat by Pulse 93 L 89 L 92 L Oximetry 12/31/17 12/31/17 12/31/17 08:01 08:16 08:27 Temperature Pulse Rate 130 H 112 H Respiratory 26 H Rate Blood Pressure O2 Sat by Pulse Oximetry 12/31/17 12/31/17 12/31/17 08:30 08:48 09:00 Temperature Pulse Rate 110 H 124 H Respiratory 25 H Rate Blood Pressure 133/77 146/96 O2 Sat by Pulse 97 Oximetry - Reevaluation(s) Reevaluation #1: 12/31/17 11:49 Medical record is reviewed Reevaluation #2: 12/31/17 11:49 Patient is currently with pain control Medical Decision Making - Medical Decision Making 77 male the ER for evaluation of abdominal pain shortness of breath COPD exacerbation and top of severe pain secondary to significant CA with metastases. Patient will be admitted for pain control monitoring of cardiopulmonary status - Lab Data Result diagrams: 12/31/17 08:00 12/31/17 08:00 Lab Results 12/31/17 12/31/17 12/31/17 Range/Units 08:00 08:00 08:00 WBC 8.9 (3.8-10.6) k/uL RBC 4.29 L (4.30-5.90) m/uL Hgb 12.3 L (13.0-17.5) gm/dL Hct 38.7 L (39.0-53.0) % MCV 90.3 (80.0-100.0) fL MCH 28.6 (25.0-35.0) pg MCHC 31.6 (31.0-37.0) g/dL RDW 14.7 (11.5-15.5) % Plt Count 242 (150-450) k/uL Neutrophils % 78 % Lymphocytes % 9 % Monocytes % 8 % Eosinophils % 2 % Basophils % 0 % Neutrophils # 6.9 (1.3-7.7) k/uL Lymphocytes # 0.8 L (1.0-4.8) k/uL Monocytes # 0.7 (0-1.0) k/uL Eosinophils # 0.2 (0-0.7) k/uL Basophils # 0.0 (0-0.2) k/uL PT (9.0-12.0) sec INR (<1.2) APTT (22.0-30.0) sec Sodium 136 L (137-145) mmol/L Potassium 3.0 L (3.5-5.1) mmol/L Chloride 91 L (98-107) mmol/L Carbon Dioxide 38 H (22-30) mmol/L Anion Gap 7 mmol/L BUN 14 (9-20) mg/dL Creatinine 0.82 (0.66-1.25) mg/dL Est GFR (CKD-EPI)AfAm >90 (>60 ml/min/1.73 sqM) Est GFR (CKD-EPI)NonAf 84 (>60 ml/min/1.73 sqM) Glucose 116 H (74-99) mg/dL Calcium 9.4 (8.4-10.2) mg/dL Magnesium 1.7 (1.6-2.3) mg/dL Total Bilirubin 0.6 (0.2-1.3) mg/dL AST 25 (17-59) U/L ALT 20 L (21-72) U/L Alkaline Phosphatase 69 (38-126) U/L Total Creatine Kinase 59 (55-170) U/L CK-MB (CK-2) 2.2 (0.0-2.4) ng/mL CK-MB (CK-2) Rel Index 3.7 Troponin I 0.028 (0.000-0.034) ng/mL NT-Pro-B Natriuret Pep pg/mL Total Protein 6.3 (6.3-8.2) g/dL Albumin 3.5 (3.5-5.0) g/dL 12/31/17 12/31/17 Range/Units 08:00 08:00 WBC (3.8-10.6) k/uL RBC (4.30-5.90) m/uL Hgb (13.0-17.5) gm/dL Hct (39.0-53.0) % MCV (80.0-100.0) fL MCH (25.0-35.0) pg MCHC (31.0-37.0) g/dL RDW (11.5-15.5) % Plt Count (150-450) k/uL Neutrophils % % Lymphocytes % % Monocytes % % Eosinophils % % Basophils % % Neutrophils # (1.3-7.7) k/uL Lymphocytes # (1.0-4.8) k/uL Monocytes # (0-1.0) k/uL Eosinophils # (0-0.7) k/uL Basophils # (0-0.2) k/uL PT 10.5 (9.0-12.0) sec INR 1.1 (<1.2) APTT 23.1 (22.0-30.0) sec Sodium (137-145) mmol/L Potassium (3.5-5.1) mmol/L Chloride (98-107) mmol/L Carbon Dioxide (22-30) mmol/L Anion Gap mmol/L BUN (9-20) mg/dL Creatinine (0.66-1.25) mg/dL Est GFR (CKD-EPI)AfAm (>60 ml/min/1.73 sqM) Est GFR (CKD-EPI)NonAf (>60 ml/min/1.73 sqM) Glucose (74-99) mg/dL Calcium (8.4-10.2) mg/dL Magnesium (1.6-2.3) mg/dL Total Bilirubin (0.2-1.3) mg/dL AST (17-59) U/L ALT (21-72) U/L Alkaline Phosphatase (38-126) U/L Total Creatine Kinase (55-170) U/L CK-MB (CK-2) (0.0-2.4) ng/mL CK-MB (CK-2) Rel Index Troponin I (0.000-0.034) ng/mL NT-Pro-B Natriuret Pep 642 pg/mL Total Protein (6.3-8.2) g/dL Albumin (3.5-5.0) g/dL - EKG Data -: EKG Interpreted by Me (EKG shows sinus tachycardia rate 114, NM 132, QRS 80, QTC 430) EKG shows normal: sinus rhythm Rate: tachycardia - Radiology Data Radiology results: report reviewed (Chest x-ray and x-ray KUB are negative for acute disease), image reviewed Disposition Clinical Impression: COPD with exacerbation, Acute exacerbation of chronic obstructive airways disease, Colon cancer, Abdominal pain, Cancer associated pain Disposition: ADMITTED IP TO THIS HOSP Condition: Fair Is patient prescribed a controlled substance at d/c from ED?: No Referrals: Chin Browning MD [Primary Care Provider] - 1-2 days
[2017-12-31 08:55] LABS: Creatine Kinase MB 2.2 ng/mL (0.0-2.4); Troponin I 0.028 ng/mL (0.000-0.034)
--- NOTE | 2017-12-31 09:29 | XR ---
EXAMINATION TYPE: XR chest 2V DATE OF EXAM: 12/31/2017 COMPARISON: Prior chest x-ray 10/25/2017 HISTORY: Difficulty breathing, shortness of breath TECHNIQUE: Frontal and lateral views of the chest are obtained on 3 images. FINDINGS: Prominent lung volumes suggest underlying bullous emphysema. No evident pneumothorax. Ther e are areas of probable scarring, nodular density again noted within the lingula. Volume loss again n oted in the right hemithorax. Heart size is likely stable. There are overlying cardiac leads. No evid ent pneumothorax or pleural effusion. IMPRESSION: Stable abnormal chest x-ray, difficult to exclude a superimposed pneumonia, lung mass on severe emphysema
--- NOTE | 2017-12-31 09:34 | XR ---
EXAMINATION TYPE: XR KUB DATE OF EXAM: 12/31/2017 CLINICAL DATA: 77 year-old male shortness of breath and, PHH COMPARISON: CT 12/20/2019 FINDINGS: Supine imaging limited for assessment of free intraperitoneal air. Nonobstructive bowel gas pattern. Scattered colonic air is present as well as some scattered small anu wel air in the left side of the abdomen. Some minimal residual oral contrast material outlining sigmo id diverticulosis. Stool isolated to the splenic flexure. An IVC filter is noted. Left hip bipolar hemiarthroplasty. IMPRESSION: Overall nonobstructive bowel gas pattern. Sigmoid diverticulosis. Supine imaging limited for assessme nt of free air.
[2017-12-31] MEDS ORDERED: methylPREDNISolone SOD SUCCI 125 MG/2 ML VIAL IV STA (11:46)
[2017-12-31] MEDS ORDERED: METOCLOPRAMIDE 5 MG/ML 2 ML VIAL IVP STA (11:47)
[2017-12-31] MEDS ORDERED: MORPHINE SULFATE 4 MG/ML SYRINGE IVP PRN (11:47)
[2017-12-31] MEDS ORDERED: ONDANSETRON 4 MG/2 ML VIAL IVP STA (11:47)
[2017-12-31] MEDS ORDERED: ONDANSETRON 4 MG/2 ML VIAL IVP PRN (11:47)
[2017-12-31] MEDS ORDERED: MORPHINE SULFATE 4 MG/ML SYRINGE IVP STA (11:47)
[2017-12-31] MEDS: SODIUM CHLORIDE 0.9% 1,000 ML IV SCH ×2 (13:16→21:11)
[2017-12-31] MEDS: IPRATROPIUM-ALBUTEROL 3 ML NEB INHALATION SCH ×3 (13:22→19:40)
[2017-12-31] MEDS ORDERED: Potassium Replacement Protocol 1 EACH MISC MISCELLANE PRN (13:41)
--- NOTE | 2017-12-31 14:08 | P.CNPUL ---
History of Present Illness Consult date: 12/31/17 Requesting physician: Osmani Rowe Reason for consult: dyspnea Chief complaint: Abdominal pain, shortness of breath History of present illness: This is a very pleasant 77-year-old gentleman who follows with Dr. Browning is his primary care physician. 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 He had recently been complaining of constipation and was seen by Dr. Browning in our office on 12/13/2017. He ordered a computed tomography scan of the abdomen and pelvis. The patient follows with Dr. Johnson in this regard as well. The computed tomography scan revealed new diffuse metastatic disease with lesions in the lung bases, liver, peritoneal carcinomatosis and abnormal adenopathy throughout the abdomen and pelvis now identified. The computed tomography scan was compared to one in November 2016. The patient had been seen by Dr. Barrios and there is some discussion regarding oral chemotherapy. The patient presented here to the emergency room earlier this morning with complaints of abdominal pain along with shortness of breath. His pain has been severe in nature with nausea. No vomiting. The pain also has exacerbated his COPD and anxiety causing more shortness of breath. X-ray KUB revealed nonobstructive bowel gas pattern. Sigmoid diverticulosis. Chest x-ray reveals stable abnormal x-ray, difficult to exclude superimposed pneumonia, lung mass on severe emphysema. He is currently maintaining O2 saturations in the 90s on 7 L high flow nasal cannula. He's been tachycardic. Blood pressure stable. EKG shows sinus rhythm with frequent PACs. The results revealed WBC 8.9. Hemoglobin 12.3. Platelet count 242,000. Sodium 136. Potassium 3.0. Bicarb 38. Creatinine 0.82. Troponin 0.028. ProBNP 642. Review of Systems Constitutional: Reports fatigue, Reports fever, Reports lethargy, Reports poor appetite, Reports weight loss Eyes: denies blurred vision, denies decreased vision Ears: bilateral: decreased hearing Ears, nose, mouth and throat: Denies headache, Denies sore throat Cardiovascular: Reports dyspnea on exertion, Reports palpitations, Reports shortness of breath Respiratory: Reports cough, Reports dyspnea, Reports home oxygen, Reports wheezing Gastrointestinal: Reports abdominal pain, Reports constipation, Reports nausea Genitourinary: Reports as per HPI Musculoskeletal: Reports gait dysfunction, Reports limitation of motion, Reports low back pain, Reports muscle weakness Integumentary: Reports color changes Neurological: Reports weakness Psychiatric: Reports anxiety Endocrine: Denies fatigue, Denies weight change Hematologic/Lymphatic: Reports as per HPI Allergic/Immunologic: Reports as per HPI Past Medical History Past Medical History: Asthma, Cancer, COPD, Deep Vein Thrombosis (DVT), GERD/ Reflux, Hearing Disorder / Deafness, Hypertension, Osteoarthritis (OA), Pneumonia, Prostate Disorder, Respiratory Disorder Additional Past Medical History / Comment(s): Pt/spouse states that pt had appointment with Dr. Barrios 12/27/17 and was told his recent cat scan showed previous colon cancer (had surgery) has metastasized to his liver, stomach and they believe a lung-pt is to be scheduled soon for a liver biopsy and to begin chemotherapy, recent stomach pain and nausea, +End-stage COPD, oxygen and steroid dependent and the patient is typically on 7 L of oxygen nasal cannula, limits pulmonate fibrosis, history of lung abscess, secondary pulmonary hypertension, tracheobronchitis, bilateral lower leg edema, difficulty with mobility and the patient is a wheelchair-bound, impaired hearing wears bilateral hearing aides, chronic anemia, BPH, history of DVT with a previous Jean-Paul filter insertion, R heel fracture/ R drop foot. History of Any Multi-Drug Resistant Organisms: None Reported Date of last positivie culture/infection: None MDRO Source:: None Past Surgical History: Adenoidectomy, Appendectomy, Back Surgery, Bowel Resection, Heart Catheterization, Joint Replacement, Orthopedic Surgery, Tonsillectomy Additional Past Surgical History / Comment(s): 11/2016 R COLECTOMY D/T CANCER, BILATERAL TOTAL HIP ARTHROPLASTIES WITH LEFT SIDE DONE TWICE-PT FELL AND INJURED FIRST LEFT TOTAL HIP, NUMEROUS RIGHT FOOT SXS, BRONCHOSCOPY, JEAN-PAUL FILTER., EGD, COLONOSCOPY Past Anesthesia/Blood Transfusion Reactions: No Reported Reaction, Family History of Problems w/ Anesthesia Additional Past Anesthesia/Blood Transfusion Reaction / Comment(s): HX OF BLOOD TRANSFUSIONS APR AND MAY 2016- NO REACTION. SISTER= DIFFICULTY WAKING UP. Past Psychological History: Anxiety, Depression Additional Psychological History / Comment(s): Pt resides with his spouse who is his caregiver. Pt wears oxygen at 7L/NC ATC. Pt is wheelchair bound- performs transfers only. He has a nebulizer. Smoking Status: Former smoker Past Alcohol Use History: None Reported Additional Past Alcohol Use History / Comment(s): Patient was a smoker of one and half packs per day for 41 years. STARTED SMOKING AT AGE 14 . He quit in 1993. Past Drug Use History: None Reported Additional Drug Use History / Comment(s): . - Past Family History Mother Family Medical History: Liver Disease Additional Family Medical History / Comment(s): Mother had cirrhosis of the liver and from it. Father Family Medical History: No Reported History Additional Family Medical History / Comment(s): Father was healthy. Paternal grandfather of brain cancer. Medications and Allergies Home Medications Medication Instructions Recorded Confirmed Type Isosorbide Mononitrate [Imdur] 30 mg PO DAILY 09/24/13 12/31/17 History Metoprolol Tartrate [Lopressor] 25 mg PO DAILY 05/02/14 12/31/17 History traZODone HCL [Desyrel] 100 mg PO HS 05/02/14 12/31/17 History ALPRAZolam [Xanax] 0.25 mg PO TID PRN 03/02/15 12/31/17 History DULoxetine HCL [Cymbalta] 30 mg PO DAILY 10/24/16 12/31/17 History DULoxetine HCL [Cymbalta] 60 mg PO DAILY 07/15/17 12/31/17 History Fluticasone/Salmeterol [Advair Hfa 2 puff INHALATION RT-BID 07/15/17 12/31/17 History 230-21 Mcg Inhaler] Acetaminophen Tab [Tylenol] 650 mg PO Q6HR PRN tab 07/18/17 12/31/17 Rx Furosemide [Lasix] 20 mg PO DAILY 10/22/17 12/31/17 History Metolazone [Zaroxolyn] 5 mg PO MOWEFR 10/22/17 12/31/17 History Theophylline 12 Hour [Ronnie-Dur] 600 mg PO HS #0 10/25/17 12/31/17 Rx predniSONE 5 mg PO DAILY #0 10/25/17 12/31/17 Rx Albuterol Nebulized [Ventolin 2.5 mg INHALATION RT-QID PRN 12/31/17 12/31/17 History Nebulized] Metoclopramide [Reglan] 10 mg PO TID 12/31/17 12/31/17 History Polyethylene Glycol 3350 [Miralax] 17 gm PO DAILY 12/31/17 12/31/17 History Sulfamethoxazole/Trimethoprim 1 tab PO MOWEFR 12/31/17 12/31/17 History [Bactrim DS 800-160 mg] Terazosin HCl 20 mg PO HS 12/31/17 12/31/17 History Allergies Allergy/AdvReac Type Severity Reaction Status Date / Time celecoxib [From Celebrex] Allergy Swelling Verified 12/31/17 08:39 gabapentin [From Neurontin] Allergy Rash/Hives Verified 12/31/17 08:39 rabeprazole [From Aciphex] Allergy Unknown Verified 12/31/17 08:39 propoxyphene AdvReac Unknown Verified 12/31/17 08:39 [From Darvocet-N] Physical Exam Vitals: Vital Signs Temp Pulse Resp BP Pulse Ox 12/31/17 13:32 102 H 12/31/17 13:30 115 H 22 137/74 94 L 12/31/17 13:22 112 H 12/31/17 13:00 25 H 138/86 96 12/31/17 12:00 111 H 26 H 142/81 96 12/31/17 11:30 113 H 24 133/71 96 12/31/17 11:00 114 H 23 136/68 95 12/31/17 10:00 112 H 22 140/74 96 12/31/17 09:30 115 H 25 H 95 12/31/17 09:00 146/96 12/31/17 08:48 124 H 12/31/17 08:30 110 H 25 H 133/77 97 12/31/17 08:27 112 H 12/31/17 08:16 130 H 12/31/17 08:01 26 H 12/31/17 08:00 127/89 92 L 12/31/17 07:55 89 L 12/31/17 07:53 98.2 F 112 H 26 H 127/89 93 L Intake and Output 12/30/17 12/31/17 12/31/17 22:59 06:59 14:59 Other: Weight 74.843 kg - Constitutional General appearance: disheveled, mild distress - EENT Eyes: EOMI, PERRLA, poor dentition ENT: hard of hearing Ears: bilateral: normal - Neck Neck: normal ROM Carotids: bilateral: upstroke normal Thyroid: bilateral: normal size - Respiratory Respiratory: bilateral: diminished, wheezing - Cardiovascular Rhythm: regularly irregular Heart sounds: normal: S1, S2 - Gastrointestinal General gastrointestinal: distended, normal bowel sounds, tenderness Localized gastrointestinal: tender: diffuse - Integumentary Integumentary: normal turgor - Neurologic Neurologic: CNII-XII intact - Musculoskeletal Musculoskeletal: generalized weakness - Psychiatric Psychiatric: A&O x's 3, appropriate affect, intact judgment & insight Results - Laboratory Findings CBC and BMP: 12/31/17 08:00 12/31/17 08:00 PT/INR, D-dimer PT 10.5 sec (9.0-12.0) 12/31/17 08:00 INR 1.1 (<1.2) 12/31/17 08:00 Abnormal lab findings: Abnormal Labs 12/31/17 12/31/17 08:00 08:00 RBC 4.29 L Hgb 12.3 L Hct 38.7 L Lymphocytes # 0.8 L Sodium 136 L Potassium 3.0 L Chloride 91 L Carbon Dioxide 38 H Glucose 116 H ALT 20 L - Diagnostic Findings Chest x-ray: image reviewed CT scan - chest: image reviewed Assessment and Plan Assessment: Impression: #1 Abdominal pain secondary to diffuse metastatic disease including lesions in the lung bases, liver, peritoneal carcinomatosis, abnormal adenopathy throughout the abdomen and pelvis. These findings are new compared to previous abdominal computed tomography scan in November 2016. #2 History of colon cancer with previous right colectomy in November 2016. #3 Acute on chronic severe oxygen dependent, steroid dependent chronic obstructive pulmonary disease with home oxygen at 4-5 L/m per nasal cannula. History of limited pulmonary fibrosis. #4 Secondary pulmonary hypertension. #5 Limited mobility, wheelchair bound. #6 Impaired hearing. #7 Chronic anemia. #8 Benign prostatic hypertrophy. #9 History of DVT with previous Jean-Paul filter placement in April 2016. #10 Former smoker. #11 Hypertension. #12 Gastroesophageal reflux disease. #13 Osteoarthritis. #14 Hyperlipidemia. #15 Poor overall functional performance based on the above-mentioned multiple comorbidities. Plan: The patient was seen and evaluated by Dr. Nelson. Chest x-ray, CAT scan and labs all reviewed. The patient does have metastatic disease. Oncology has been consulted. Will continue with his COPD treatment for now. He is on DuoNeb inhalations, IV Solu-Medrol. Add Pulmicort and Perforomist inhalations. Lovenox for DVT prophylaxis. Continues with 0.9 normal saline at 100 ML's per hour. Patient's overall prognosis is quite guarded and poor. CODE STATUS to be discussed. We will continue to follow and make further recommendations based on his clinical status. I, the cosigning physician, performed a history & physical examination of the patient. Lungs sounds with end expiratory wheeze, diminished. Maintaining good O2 saturations in the 90s on 7 L high flow nasal cannula. I discussed the assessment and plan of care with my nurse practitioner, Anastasia Carbajal. I attest to the above note as dictated by her. Time with Patient: Greater than 30
[2017-12-31] MEDS: POTASSIUM CHLORIDE ER 20 MEQ TAB.ER PO SCH ×2 (15:14→16:38)
[2017-12-31] MEDS: methylPREDNISolone SOD SUCCI 125 MG/2 ML VIAL IV SCH ×2 (16:38→23:39)
[2017-12-31] MEDS ORDERED: ACETAMINOPHEN TAB 325 MG TAB PO PRN (17:25)
[2017-12-31] MEDS: METOCLOPRAMIDE 5 MG/ML 2 ML VIAL IVP SCH ×2 (17:29→23:39)
[2017-12-31] MEDS: BUDESONIDE 1 MG/2 ML NEBU INHALATION SCH (19:40)
[2017-12-31] MEDS: FORMOTEROL FUMARATE 20 MCG/2 ML NEBU INHALATION SCH (19:40)
[2017-12-31] MEDS: DOXAZOSIN 4 MG TAB PO SCH (20:01)
[2017-12-31] MEDS: ALPRAZolam 0.25 MG TAB PO PRN (20:02)
[2017-12-31] MEDS: THEOPHYLLINE 24 HOUR 300 MG CAP.ER.24H PO SCH (20:02)
[2017-12-31 20:31] LABS: Glucose,Whole Blood 208 mg/dL (75-99)
[2017-12-31] MEDS: traZODone HCL 100 MG TAB PO SCH (21:10)
[2017-12-31] MEDS: INSULIN ASPART 100 UNIT/ML 1 ML 10 ML VIAL SQ SCH (21:10)
[2018-01-01] MEDS: ALPRAZolam 0.25 MG TAB PO PRN ×3 (04:44→21:55)
[2018-01-01] MEDS: METOCLOPRAMIDE 5 MG/ML 2 ML VIAL IVP SCH ×3 (05:55→17:31)
[2018-01-01] MEDS: methylPREDNISolone SOD SUCCI 125 MG/2 ML VIAL IV SCH ×3 (05:55→17:31)
[2018-01-01] MEDS: FORMOTEROL FUMARATE 20 MCG/2 ML NEBU INHALATION SCH ×2 (07:09→20:13)
[2018-01-01] MEDS: BUDESONIDE 1 MG/2 ML NEBU INHALATION SCH ×2 (07:09→20:13)
[2018-01-01] MEDS: IPRATROPIUM-ALBUTEROL 3 ML NEB INHALATION SCH ×4 (07:09→20:13)
[2018-01-01] MEDS: INSULIN ASPART 100 UNIT/ML 1 ML 10 ML VIAL SQ SCH ×4 (07:26→21:53)
[2018-01-01 07:27] LABS: Glucose,Whole Blood 117 mg/dL (75-99)
[2018-01-01] MEDS: SODIUM CHLORIDE 0.9% 1,000 ML IV SCH ×2 (08:48→17:31)
[2018-01-01] MEDS: DULoxetine HCL 30 MG CAPSULE.DR PO SCH (08:49)
[2018-01-01] MEDS: DULoxetine HCL 60 MG CAPSULE.DR PO SCH (08:49)
[2018-01-01] MEDS: ENOXAPARIN 40 MG/0.4 ML SYRINGE SQ SCH (08:49)
[2018-01-01] MEDS: METOLAZONE 5 MG TAB PO SCH (08:51)
[2018-01-01] MEDS: POLYETHYLENE GLYCOL 3350 17 GM POWD.PACK PO SCH (08:51)
[2018-01-01] MEDS: METOPROLOL TARTRATE 25 MG TAB PO SCH (08:51)
[2018-01-01] MEDS: SULFAMETHOX-TMP 800-160MG 1 EACH TAB PO SCH (08:51)
[2018-01-01] MEDS: FUROSEMIDE 20 MG TAB PO SCH (08:51)
[2018-01-01] MEDS: ISOSORBIDE MONONITRATE ER 30 MG TAB.ER.24H PO SCH (08:51)
--- NOTE | 2018-01-01 12:12 | P.HPIM ---
History of Present Illness H&P Date: 12/31/17 Chief Complaint: Shortness of breath Patient is a 77-year-old male with a known history of colon cancer with metastasis to liver, stomach and possibly lung as well, end-stage COPD on home oxygen-dependent 7 later where nasal cannula, pulmonary fibrosis, chronic hypoxic respiratory failure, Secondary pulmonary hypertension, chronic anemia, currently wheelchair-bound, impaired hearing wears bilateral hearing aids., BPH, history of DVT with previous Jean-Paul filter insertion and multiple other medical problems including hypogonadism, neuropathy, adrenal cortical hypofunction came to ER with complaints of abdominal pain and shortness of breath 1 day. Patient has been having history of chronic abdominal pain due to metastasis with lesions in the lungs, liver and peritoneal carcinomatosis and abdominal adenopathy throughout the abdomen pelvis. Patient is being scheduled for chemotherapy after liver biopsy. Abdominal pain is 7 x 10 on admission along with nausea and no episodes of vomiting. Vision is also having anxiety and COPD exacerbation. X-ray KUB revealed nonobstructive bowel gas pattern. Sigmoid diverticulosis. Chest x-ray reveals stable abnormal x-ray, difficult to exclude superimposed pneumonia, lung mass on severe emphysema. He is currently maintaining O2 saturations in the 90s on 7 L high flow nasal cannula. He's been tachycardic. Blood pressure stable. EKG shows sinus rhythm with frequent PACs. The results revealed WBC 8.9. Hemoglobin 12.3. Platelet count 242,000. Sodium 136. Potassium 3.0. Bicarb 38. Creatinine 0.82. Troponin 0.028. ProBNP 642. Review of Systems Constitutional: Patient denies any fever or chills . A llanos does have generalized weakness malaise and weight loss. Abdomen: Patient does have nausea. No vomiting. Does have abdominal pain diffuse Cardiovascular: Patient denied any complaints of chest pain. Patient does have shortness of breath. No palpitations. Does have leg swelling. Exertional dyspnea. Respiratory: Cough with light yellowish sputum production and shortness of breath. Neurologic: Patient denied any numbness or tingling headache. Musculoskeletal: Patient denies any complaints of joint swelling or deformity. Gait dysfunction and limited mobility Skin: Negative Psychiatric: Anxiety Endocrine: No heat or cold intolerance. No recent weight gain. Genitourinary: No dysuria or hematuria. All other 14 point ROS negative except the aboveReview of Systems Past Medical History Past Medical History: Asthma, Cancer, COPD, Deep Vein Thrombosis (DVT), GERD/ Reflux, Hearing Disorder / Deafness, Hypertension, Osteoarthritis (OA), Pneumonia, Prostate Disorder, Respiratory Disorder Additional Past Medical History / Comment(s): Pt/spouse states that pt had appointment with Dr. Barrios 12/27/17 and was told his recent cat scan showed previous colon cancer (had surgery) has metastasized to his liver, stomach and they believe a lung-pt is to be scheduled soon for a liver biopsy and to begin chemotherapy, recent stomach pain and nausea, +End-stage COPD, oxygen and steroid dependent and the patient is typically on 7 L of oxygen nasal cannula, limits pulmonate fibrosis, history of lung abscess, secondary pulmonary hypertension, tracheobronchitis, bilateral lower leg edema, difficulty with mobility and the patient is a wheelchair-bound, impaired hearing wears bilateral hearing aides, chronic anemia, BPH, history of DVT with a previous Jean-Paul filter insertion, R heel fracture/ R drop foot. History of Any Multi-Drug Resistant Organisms: None Reported Date of last positivie culture/infection: None MDRO Source:: None Past Surgical History: Adenoidectomy, Appendectomy, Back Surgery, Bowel Resection, Heart Catheterization, Joint Replacement, Orthopedic Surgery, Tonsillectomy Additional Past Surgical History / Comment(s): 11/2016 R COLECTOMY D/T CANCER, BILATERAL TOTAL HIP ARTHROPLASTIES WITH LEFT SIDE DONE TWICE-PT FELL AND INJURED FIRST LEFT TOTAL HIP, NUMEROUS RIGHT FOOT SXS, BRONCHOSCOPY, JEAN-PAUL FILTER., EGD, COLONOSCOPY Past Anesthesia/Blood Transfusion Reactions: No Reported Reaction, Family History of Problems w/ Anesthesia Additional Past Anesthesia/Blood Transfusion Reaction / Comment(s): HX OF BLOOD TRANSFUSIONS APR AND MAY 2016- NO REACTION. SISTER= DIFFICULTY WAKING UP. Past Psychological History: Anxiety, Depression Additional Psychological History / Comment(s): Pt resides with his spouse who is his caregiver. Pt wears oxygen at 7L/NC ATC. Pt is wheelchair bound- performs transfers only. He has a nebulizer. Smoking Status: Former smoker Past Alcohol Use History: None Reported Additional Past Alcohol Use History / Comment(s): Patient was a smoker of one and half packs per day for 41 years. STARTED SMOKING AT AGE 14 . He quit in 1993. Past Drug Use History: None Reported Additional Drug Use History / Comment(s): . - Past Family History Mother Family Medical History: Liver Disease Additional Family Medical History / Comment(s): Mother had cirrhosis of the liver and from it. Father Family Medical History: No Reported History Additional Family Medical History / Comment(s): Father was healthy. Paternal grandfather of brain cancer. Medications and Allergies Home Medications Medication Instructions Recorded Confirmed Type Isosorbide Mononitrate [Imdur] 30 mg PO DAILY 09/24/13 12/31/17 History Metoprolol Tartrate [Lopressor] 25 mg PO DAILY 05/02/14 12/31/17 History traZODone HCL [Desyrel] 100 mg PO HS 05/02/14 12/31/17 History ALPRAZolam [Xanax] 0.25 mg PO TID PRN 03/02/15 12/31/17 History DULoxetine HCL [Cymbalta] 30 mg PO DAILY 10/24/16 12/31/17 History DULoxetine HCL [Cymbalta] 60 mg PO DAILY 07/15/17 12/31/17 History Fluticasone/Salmeterol [Advair Hfa 2 puff INHALATION RT-BID 07/15/17 12/31/17 History 230-21 Mcg Inhaler] Acetaminophen Tab [Tylenol] 650 mg PO Q6HR PRN tab 07/18/17 12/31/17 Rx Furosemide [Lasix] 20 mg PO DAILY 10/22/17 12/31/17 History Metolazone [Zaroxolyn] 5 mg PO MOWEFR 10/22/17 12/31/17 History Theophylline 12 Hour [Ronnie-Dur] 600 mg PO HS #0 10/25/17 12/31/17 Rx predniSONE 5 mg PO DAILY #0 10/25/17 12/31/17 Rx Albuterol Nebulized [Ventolin 2.5 mg INHALATION RT-QID PRN 12/31/17 12/31/17 History Nebulized] Metoclopramide [Reglan] 10 mg PO TID 12/31/17 12/31/17 History Polyethylene Glycol 3350 [Miralax] 17 gm PO DAILY 12/31/17 12/31/17 History Sulfamethoxazole/Trimethoprim 1 tab PO MOWEFR 12/31/17 12/31/17 History [Bactrim DS 800-160 mg] Terazosin HCl 20 mg PO HS 12/31/17 12/31/17 History Allergies Allergy/AdvReac Type Severity Reaction Status Date / Time celecoxib [From Celebrex] Allergy Swelling Verified 12/31/17 08:39 gabapentin [From Neurontin] Allergy Rash/Hives Verified 12/31/17 08:39 rabeprazole [From Aciphex] Allergy Unknown Verified 12/31/17 08:39 propoxyphene AdvReac Unknown Verified 12/31/17 08:39 [From Darvocet-N] Physical Exam Vitals: Vital Signs Temp Pulse Pulse Pulse Resp BP BP 12/31/17 15:56 106 H 12/31/17 15:00 97.0 F L 113 H 21 154/79 12/31/17 13:32 102 H 12/31/17 13:30 115 H 22 137/74 12/31/17 13:22 112 H 12/31/17 13:00 25 H 138/86 12/31/17 12:00 111 H 26 H 142/81 12/31/17 11:30 113 H 24 133/71 12/31/17 11:00 114 H 23 136/68 12/31/17 10:00 112 H 22 140/74 12/31/17 09:30 115 H 25 H 12/31/17 09:00 146/96 12/31/17 08:48 124 H 12/31/17 08:30 110 H 25 H 133/77 12/31/17 08:27 112 H 12/31/17 08:16 130 H 12/31/17 08:01 26 H 12/31/17 08:00 127/89 12/31/17 07:55 12/31/17 07:53 98.2 F 112 H 26 H 127/89 Pulse Ox 12/31/17 15:56 12/31/17 15:00 97 12/31/17 13:32 12/31/17 13:30 94 L 12/31/17 13:22 12/31/17 13:00 96 12/31/17 12:00 96 12/31/17 11:30 96 12/31/17 11:00 95 12/31/17 10:00 96 12/31/17 09:30 95 12/31/17 09:00 12/31/17 08:48 12/31/17 08:30 97 12/31/17 08:27 12/31/17 08:16 12/31/17 08:01 12/31/17 08:00 92 L 12/31/17 07:55 89 L 12/31/17 07:53 93 L Intake and Output 12/31/17 12/31/17 12/31/17 06:59 14:59 22:59 Output Total 50 Balance -50 Output: Urine 50 Other: Voiding Method Urinal Weight 74.843 kg PHYSICAL EXAMINATION: Patient is lying in the bed comfortably, no acute distress, awake alert and oriented. Anxious. HEENT: Normocephalic. Neck is supple. Pupils reactive. Nostrils clear. Oral cavity is moist. Ears reveal no drainage. Neck reveals no JVD, carotid bruits, or thyromegaly. CHEST EXAMINATION: Trachea is central. Symmetrical expansion. Bilateral diminished air entry and mild expiratory wheeze and rhonchi positive. CARDIAC: Normal S1, S2 with no gallops. No murmurs . ABDOMEN: Soft. Mild tenderness with deep palpation, Bowel sounds normal. No organomegaly. No abdominal bruits. Extremities: reveal no edema. No clubbing or cyanosis Neurologically awake, alert, oriented x3 with well-coordinated movements. No focal deficits noted Skin: No rash or skin lesions. Psychiatric: Coperative. Nonsuicidal. Anxious Musculoskeletal: No joint swelling or deformity. Normal range of motion. Results CBC & Chem 7: 12/31/17 08:00 12/31/17 19:34 Labs: Abnormal Lab Results - Last 24 Hours (Table) 12/31/17 12/31/17 Range/Units 08:00 08:00 RBC 4.29 L (4.30-5.90) m/uL Hgb 12.3 L (13.0-17.5) gm/dL Hct 38.7 L (39.0-53.0) % Lymphocytes # 0.8 L (1.0-4.8) k/uL Sodium 136 L (137-145) mmol/L Potassium 3.0 L (3.5-5.1) mmol/L Chloride 91 L (98-107) mmol/L Carbon Dioxide 38 H (22-30) mmol/L Glucose 116 H (74-99) mg/dL ALT 20 L (21-72) U/L Thrombosis Risk Factor Assmnt - DVT/VTE Prophylaxis DVT/VTE Prophylaxis: Pharmacologic Prophylaxis ordered - Choose All That Apply Any of the Below Risk Factors Present?: Yes Each Factor Represents 1 point: Abnormal pulmonary function (COPD) Other Risk Factors: Yes Each Risk Factor Represents 2 Points: Malignancy Each Risk Factor Represents 3 Points: Age 75 years or older Other congenital or acquired thrombophilia - If yes, enter type in comment: No Thrombosis Risk Factor Assessment Total Risk Factor Score: 6 Thrombosis Risk Factor Assessment Level: High Risk Assessment and Plan Assessment: Abdominal pain secondary to diffuse metastatic disease involving lung bases, liver and peritoneal carcinomatosis with abdominal lymphadenopathy. Acute COPD exacerbation Endstage COPD on home oxygen at 7 L via nausea cannula and steroid dependent Acute on chronic hypoxic respiratory failure due to COPD and limited pulmonary fibrosis Secondary pulmonary hypertension Chronic anemia due to malignancy and chronic disease. BPH Hearing impairment. History of DVT and IVC filter placement in April 2016 Hypertension GERD Osteoarthritis Hyperlipidemia Sigmoid diverticulosis Medical lability and poor functional status DVT prophylaxis Plan: Patient be continued on DuoNeb's and IV Solu-Medrol was started. Continue the pain management and gentle hydration. Pulmonary is following. We will discuss the family and patient regarding CODE STATUS due to underlying metastatic carcinoma and advance to COPD and multiple other medical problems and comorbid conditions. Prognosis is poor. Further recommendations based on the clinical course. Time with Patient: Greater than 30
[2018-01-01 12:18] LABS: Glucose,Whole Blood 156 mg/dL (75-99)
[2018-01-01 14:40] VITALS: BMI 25.8
--- NOTE | 2018-01-01 15:49 | P.PN ---
Subjective Progress Note Date: 01/01/18 Principal diagnosis: Abdominal pain, secondary to diffuse metastatic disease involving the lung bases , liver, peritoneal carcinomatosis, adenopathy throughout the abdomen and pelvis This is a very pleasant 77-year-old gentleman who follows with Dr. Browning is his primary care physician. 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 He had recently been complaining of constipation and was seen by Dr. Browning in our office on 12/13/2017. He ordered a computed tomography scan of the abdomen and pelvis. The patient follows with Dr. Johnson in this regard as well. The computed tomography scan revealed new diffuse metastatic disease with lesions in the lung bases, liver, peritoneal carcinomatosis and abnormal adenopathy throughout the abdomen and pelvis now identified. The computed tomography scan was compared to one in November 2016. The patient had been seen by Dr. Barrios and there is some discussion regarding oral chemotherapy. The patient presented here to the emergency room earlier this morning with complaints of abdominal pain along with shortness of breath. His pain has been severe in nature with nausea. No vomiting. The pain also has exacerbated his COPD and anxiety causing more shortness of breath. X-ray KUB revealed nonobstructive bowel gas pattern. Sigmoid diverticulosis. Chest x-ray reveals stable abnormal x-ray, difficult to exclude superimposed pneumonia, lung mass on severe emphysema. He is currently maintaining O2 saturations in the 90s on 7 L high flow nasal cannula. He's been tachycardic. Blood pressure stable. EKG shows sinus rhythm with frequent PACs. The results revealed WBC 8.9. Hemoglobin 12.3. Platelet count 242,000. Sodium 136. Potassium 3.0. Bicarb 38. Creatinine 0.82. Troponin 0.028. ProBNP 642. On 01/01/2018 patient seen in follow-up on medical surgical floor. Currently on 8 L per high flow nasal cannula, his pulse ox is 96%, he is afebrile. Patient is dyspneic with any exertion, and she is unable to lie flat. Interventional radiology has been consulted for liver biopsy, but at this time patient is a to tolerate the procedure, related to his lung function status, and inability to lie flat. We spoke to the medical oncology this morning, we discussed the findings of the CT of the abdomen chest and pelvis with the patient, we may have to optimize patient's pulmonary status further, before we proceed with the biopsy. It was suggested to the patient and his to discuss his wishes going forward regarding treatments for his metastatic disease. Patient has a very poor underlying lung function, his exercise capacity is severely limited related to that. Patient is on 7-8 liters of oxygen per minute per high flow nasal cannula on a regular basis. We will have to discuss with the interventional radiology if the biopsy would be feasible. Afebrile. We'll continue on current medical treatment, Pulmicort and Perforomist, DuoNeb nebulized treatments, IV steroids and empiric antibiotics. Objective - Vital Signs Vital signs: Vital Signs Temp 98.3 F 01/01/18 15:00 Pulse 92 01/01/18 15:00 Resp 18 01/01/18 15:00 BP 117/65 01/01/18 15:00 Pulse Ox 96 01/01/18 15:00 Intake & Output 12/31/17 01/01/18 01/01/18 18:59 06:59 18:59 Intake Total 600 850 420 Output Total 50 1150 100 Balance 550 -300 320 Weight 74.843 kg 74.843 kg 74.843 kg Intake: Oral 600 850 420 Output: Urine 50 1150 100 Other: Voiding Method Urinal Urinal Urinal # Voids 2 2 # Bowel Movements 0 - Exam - Constitutional General appearance: disheveled, mild distress, currently on 8 L per nasal cannula - EENT Eyes: EOMI, PERRLA, poor dentition ENT: hard of hearing Ears: bilateral: normal - Neck Neck: normal ROM Carotids: bilateral: upstroke normal Thyroid: bilateral: normal size - Respiratory Respiratory: bilateral: diminished. - Cardiovascular Rhythm: regularly irregular Heart sounds: normal: S1, S2 - Gastrointestinal General gastrointestinal: distended, normal bowel sounds, tenderness Localized gastrointestinal: tender: diffuse - Integumentary Integumentary: normal turgor - Neurologic Neurologic: CNII-XII intact - Musculoskeletal Musculoskeletal: generalized weakness - Psychiatric Psychiatric: A&O x's 3, appropriate affect, intact judgment & insight - Labs CBC & Chem 7: 12/31/17 08:00 10/23/18 19:34 Labs: Abnormal Lab Results - Last 24 Hours (Table) 12/31/17 01/01/18 01/01/18 Range/Units 20:26 07:17 11:52 POC Glucose (mg/dL) 208 H 117 H 156 H (75-99) mg/dL Assessment and Plan Plan: Assessment: #1 Abdominal pain secondary to diffuse metastatic disease including lesions in the lung bases, liver, peritoneal carcinomatosis, abnormal adenopathy throughout the abdomen and pelvis. These findings are new compared to previous abdominal computed tomography scan in November 2016. #2 History of colon cancer with previous right colectomy in November 2016. #3 Acute on chronic severe oxygen dependent, steroid dependent chronic obstructive pulmonary disease with home oxygen at 4-5 L/m per nasal cannula. History of limited pulmonary fibrosis. #4 Secondary pulmonary hypertension. #5 Limited mobility, wheelchair bound. #6 Impaired hearing. #7 Chronic anemia. #8 Benign prostatic hypertrophy. #9 History of DVT with previous [place] filter placement in April 2016. #10 Former smoker. #11 Hypertension. #12 Gastroesophageal reflux disease. #13 Osteoarthritis. #14 Hyperlipidemia. #15 Poor overall functional performance based on the above-mentioned multiple comorbidities. Plan: We will try to optimize patient's pulmonary status, patient is unable to lie flat, and may not be able to tolerate the liver biopsy at this time. Continue with Pulmicort and Perforomist, DuoNeb, IV steroids, and empiric antibiotics. Continue GI and DVT prophylaxis, case was discussed with medical oncology. Patient has very poor underlying functional status, very limited exercise capacity related to his COPD. Overall prognosis and poor. In today to follow I performed a history & physical examination of the patient and discussed their management with my nurse practitioner, Ivone Betancur. I reviewed the nurse practitioner's note and agree with the documented findings and plan of care. Lung sounds are depressed sounds bilaterally. The findings and the impression was discussed with the patient. I attest to the documentation by the nurse practitioner. Time with Patient: Less than 30
--- NOTE | 2018-01-01 16:17 | P.CONS ---
History of Present Illness - Reason for Consult Consult date: 01/01/18 Recurrent metastatic [place] Requesting physician: Juanito Roberto - Chief Complaint Shortness of breath - History of Present Illness Mr Ward pleasant white male with multiple medical problems, including oxygen- dependent advanced COPD. Due to this, as well as prior skeletal injuries and degenerative arthritis the patient is not able to walk. The patient was admitted to the change in 10/25, with complaints of severe anemia, and shortness of breath. Hemoglobin was 6, and he required blood transfusion. Labs are suggestive of iron deficiency. The patient had been having abdominal discomfort , bloating, and some diarrhea off and on for the past 2-3 months. EGD was negative. Colonoscopy on 10/29/16 and a large ulcerated mass in the proximal ascending colon 5 cm of a cecal valve. Biopsies were positive for adenocarcinoma. The patient had a CT scan of the abdomen and pelvis done on that showed some hepatic cysts and was negative for evidence of metastatic disease. The patient then underwent surgery on 11/29/16. He did have wound dehiscence requiring repair on 12/06/16. Pathology revealed a 6.3 cm high-grade adenocarcinoma, with mucinous and signet ring features, the surface of the visceral peritoneum (T4). 3/ lymph nodes were involved. There were 3 extramural tumor deposits identified. Patient's x-rays done around that time showed evidence of loss of volume of the right lung, as well as a possible cavitary lesion in the right lung apex. The patient stated that he will be able to recover baseline reasonably well post surgery. Due to his multiple medical issues and status after discussion, and his primary care physician, decided not to pursue adjuvant chemotherapy. The patient had presented to Dr Alex campbell in 12/26, complaining of abdominal pain especially in the right lower abdomen, and marked constipation. He also noted loss of appetite. He had a CT scan of the abdomen and pelvis on 12/19/17 , showing new bilateral basilar nodules, the largest 2.7 x 1.7 cm in the left unusual or 0.5 x 3.1 cm mass in the liver with additional smaller subcapsular lesions also suspicious for metastases. In addition he was noted to have diffuse peritoneal deposits the abdomen and pelvis, and enlarged retroperitoneal nodes largest 3.1 x 2.4 cm posterior to the descending aorta.The patient is being seen due to evidence of diffuse metastatic disease on CT scan of the abdomen and pelvis as described. He has a history of stage III colon cancer treated with resection in 11/25. As noted he did not pursue adjuvant chemotherapy, due to his multiple medical problems, and poor performance status. - His performance status remains quite compromised. He is on oxygen around-the- clock, and is unable to due to shortness of breath, as well as severe degenerative disease and prior injuries affecting his lower back and lower extremities. - The results of the CT scans, and implications were discussed with him in detail. He was advised that this most represents metastatic recurrence of colon cancer. Metastatic disease from another source cannot be totally ruled out (chest x-ray in 11/25 had noted possible cavitary lesion in the right upper lung. At this time it is not known if this is a chronic finding for the past. He has been following regularly with pulmonary medicine) - He was advised that the current situation is not curable. The mainstay of treatment would be systemic therapy with an objective of prolongation of life and palliation of symptoms. Given his multiple medical issues and current performance status, the potentially at higher risk of adverse events which could counteract any benefit that he could receive from treatment. Comfort care was also discussed. After consideration, the patient stated that he wanted to try something. - I will therefore order a liver biopsy to confirm the diagnosis and also perform biomarker testing. Presumably that metastatic colon cancer is confirmed , we would treat the patient initially with Xeloda alone. Depending on biomarker status, immunotherapy can also be added. If the patient is able to tolerate Xeloda well He now presents with increased shortness of breath unable to undergo liver biopsy secondary to coming into hospital at this time. Review of Systems a 14 point review of systems assessed and completed and all negative except HPI Past Medical History Past Medical History: Asthma, Cancer, COPD, Deep Vein Thrombosis (DVT), GERD/ Reflux, Hearing Disorder / Deafness, Hypertension, Osteoarthritis (OA), Pneumonia, Prostate Disorder, Respiratory Disorder Additional Past Medical History / Comment(s): Pt/spouse states that pt had appointment with Dr. Barrios 12/27/17 and was told his recent cat scan showed previous colon cancer (had surgery) has metastasized to his liver, stomach and they believe a lung-pt is to be scheduled soon for a liver biopsy and to begin chemotherapy, recent stomach pain and nausea, +End-stage COPD, oxygen and steroid dependent and the patient is typically on 7 L of oxygen nasal cannula, limits pulmonate fibrosis, history of lung abscess, secondary pulmonary hypertension, tracheobronchitis, bilateral lower leg edema, difficulty with mobility and the patient is a wheelchair-bound, impaired hearing wears bilateral hearing aides, chronic anemia, BPH, history of DVT with a previous [place] filter insertion, R heel fracture/ R drop foot. History of Any Multi-Drug Resistant Organisms: None Reported Year Discovered:: None MDRO Source:: None Past Surgical History: Adenoidectomy, Appendectomy, Back Surgery, Bowel Resection, Heart Catheterization, Joint Replacement, Orthopedic Surgery, Tonsillectomy Additional Past Surgical History / Comment(s): 11/2016 R COLECTOMY D/T CANCER, BILATERAL TOTAL HIP ARTHROPLASTIES WITH LEFT SIDE DONE TWICE-PT FELL AND INJURED FIRST LEFT TOTAL HIP, NUMEROUS RIGHT FOOT SXS, BRONCHOSCOPY, [place] FILTER., EGD, COLONOSCOPY Past Anesthesia/Blood Transfusion Reactions: No Reported Reaction, Family History of Problems w/ Anesthesia Additional Past Anesthesia/Blood Transfusion Reaction / Comm: HX OF BLOOD TRANSFUSIONS APR AND MAY 2016- NO REACTION. SISTER= DIFFICULTY WAKING UP. Past Psychological History: Anxiety, Depression Additional Psychological History / Comment(s): Pt resides with his spouse who is his caregiver. Pt wears oxygen at 7L/[place] ATC. Pt is wheelchair bound- performs transfers only. He has a nebulizer. Smoking Status: Former smoker Past Alcohol Use History: None Reported Additional Past Alcohol Use History / Comment(s): Patient was a smoker of one and half packs per day for 41 years. STARTED SMOKING AT AGE 14 . He quit in 1993. Past Drug Use History: None Reported Additional Drug Use History / Comment(s): . - Past Family History Mother Family Medical History: Liver Disease Additional Family Medical History / Comment(s): Mother had cirrhosis of the liver and from it. Father Family Medical History: No Reported History Additional Family Medical History / Comment(s): Father was healthy. Paternal grandfather of brain cancer. Medications and Allergies Home Medications Medication Instructions Recorded Confirmed Type Isosorbide Mononitrate [Imdur] 30 mg PO DAILY 09/24/13 12/31/17 History Metoprolol Tartrate [Lopressor] 25 mg PO DAILY 05/02/14 12/31/17 History traZODone HCL [Desyrel] 100 mg PO HS 05/02/14 12/31/17 History ALPRAZolam [Xanax] 0.25 mg PO TID PRN 03/02/15 12/31/17 History DULoxetine HCL [Cymbalta] 30 mg PO DAILY 10/24/16 12/31/17 History DULoxetine HCL [Cymbalta] 60 mg PO DAILY 07/15/17 12/31/17 History Fluticasone/Salmeterol [Advair Hfa 2 puff INHALATION RT-BID 07/15/17 12/31/17 History 230-21 Mcg Inhaler] Acetaminophen Tab [Tylenol] 650 mg PO Q6HR PRN tab 07/18/17 12/31/17 Rx Furosemide [Lasix] 20 mg PO DAILY 10/22/17 12/31/17 History Metolazone [Zaroxolyn] 5 mg PO MOWEFR 10/22/17 12/31/17 History Theophylline 12 Hour [Ronnie-Dur] 600 mg PO HS #0 10/25/17 12/31/17 Rx predniSONE 5 mg PO DAILY #0 10/25/17 12/31/17 Rx Albuterol Nebulized [Ventolin 2.5 mg INHALATION RT-QID PRN 12/31/17 12/31/17 History Nebulized] Metoclopramide [Reglan] 10 mg PO TID 12/31/17 12/31/17 History Polyethylene Glycol 3350 [Miralax] 17 gm PO DAILY 12/31/17 12/31/17 History Sulfamethoxazole/Trimethoprim 1 tab PO MOWEFR 12/31/17 12/31/17 History [Bactrim DS 800-160 mg] Terazosin HCl 20 mg PO HS 12/31/17 12/31/17 History Allergies Allergy/AdvReac Type Severity Reaction Status Date / Time celecoxib [From Celebrex] Allergy Swelling Verified 12/31/17 08:39 gabapentin [From Neurontin] Allergy Rash/Hives Verified 12/31/17 08:39 rabeprazole [From Aciphex] Allergy Unknown Verified 12/31/17 08:39 propoxyphene AdvReac Unknown Verified 12/31/17 08:39 [From Darvocet-N] Physical Exam Vitals: Vital Signs Temp Pulse Pulse Pulse Resp BP Pulse Ox 01/01/18 15:00 98.3 F 92 18 117/65 96 01/01/18 10:55 106 H 01/01/18 10:44 105 H 01/01/18 10:12 120 H 116 H 20 01/01/18 07:53 97.6 F 120 H 116 H 20 166/84 95 01/01/18 07:30 104 H 01/01/18 07:20 100 01/01/18 07:19 100 01/01/18 07:09 100 01/01/18 07:00 98.4 F 108 H 20 163/77 96 12/31/17 23:00 98.1 F 110 H 20 164/69 94 L 12/31/17 19:50 112 H 12/31/17 19:43 108 H 12/31/17 16:24 110 H Intake and Output 01/01/18 01/01/18 01/01/18 06:59 14:59 22:59 Intake Total 500 420 Output Total 650 100 Balance -150 320 Intake: Oral 500 420 Output: Urine 650 100 Other: Voiding Method Urinal # Voids 2 6 # Bowel Movements 0 Weight 74.843 kg - Constitutional General appearance: average body habitus, cooperative, no acute distress - EENT Eyes: PERRLA, dentition normal ENT: hard of hearing, hearing grossly normal, NA/AT - Neck NO lymphadenopathy Neck: normal ROM - Respiratory Respiratory: bilateral: CTA (mild increased effort), wheezing (expiratory occassional) - Cardiovascular Rhythm: regular Heart sounds: normal: S1, S2 - Gastrointestinal non tender, non distended General gastrointestinal: decreased bowel sounds - Integumentary Integumentary: pale - Musculoskeletal Musculoskeletal: generalized weakness, strength equal bilaterally - Psychiatric Psychiatric: A&O x's 3, appropriate affect, intact judgment & insight Results CBC & Chem 7: 12/31/17 08:00 12/31/17 19:34 Labs: Abnormal Lab Results - Last 24 Hours (Table) 12/31/17 01/01/18 01/01/18 Range/Units 20:26 07:17 11:52 POC Glucose (mg/dL) 208 H 117 H 156 H (75-99) mg/dL Assessment and Plan Plan: onc plan: biopsy of liver if ok with pulmon Assessment and Recommendations: 1. Adenocarcinoma of the colon - Likely recurrence with distant metastasis - Will need liver biopsy to confirm recurrent cancer and not secondary primary (less likely) - Discussed with pulmonology and ok for liver biopsy and will place order with interventional radiaology - Outpatient Xeloda treatment after discharge, currently running through insurance, awaiting path from new biopsy Physician Attest: I have completed the full history and physical of this patient and agree with above dictation by Arleth Lobo NP. Dictated as ascribe
[2018-01-01 17:57] LABS: Glucose,Whole Blood 136 mg/dL (75-99)
[2018-01-01 21:02] LABS: Glucose,Whole Blood 150 mg/dL (75-99)
[2018-01-01] MEDS: traZODone HCL 100 MG TAB PO SCH (21:52)
[2018-01-01] MEDS: THEOPHYLLINE 24 HOUR 300 MG CAP.ER.24H PO SCH (21:52)
[2018-01-01] MEDS: DOXAZOSIN 4 MG TAB PO SCH (21:52)
--- NOTE | 2018-01-01 22:59 | P.PN ---
Subjective Progress Note Date: 01/01/18 Principal diagnosis: Acute COPD exacerbation Abdominal pain secondary to carcinomatosis Patient is a 77-year-old male with a known history of colon cancer with metastasis to liver, stomach and possibly lung as well, end-stage COPD on home oxygen-dependent 7 later where nasal cannula, pulmonary fibrosis, chronic hypoxic respiratory failure, Secondary pulmonary hypertension, chronic anemia, currently wheelchair-bound, impaired hearing wears bilateral hearing aids., BPH, history of DVT with previous [place] filter insertion and multiple other medical problems including hypogonadism, neuropathy, adrenal cortical hypofunction came to ER with complaints of abdominal pain and shortness of breath 1 day. Patient has been having history of chronic abdominal pain due to metastasis with lesions in the lungs, liver and peritoneal carcinomatosis and abdominal adenopathy throughout the abdomen pelvis. Patient is being scheduled for chemotherapy after liver biopsy. Abdominal pain is 7 x 10 on admission along with nausea and no episodes of vomiting. Vision is also having anxiety and COPD exacerbation. X-ray KUB revealed nonobstructive bowel gas pattern. Sigmoid diverticulosis. Chest x-ray reveals stable abnormal x-ray, difficult to exclude superimposed pneumonia, lung mass on severe emphysema. He is currently maintaining O2 saturations in the 90s on 7 L high flow nasal cannula. He's been tachycardic. Blood pressure stable. EKG shows sinus rhythm with frequent PACs. The results revealed WBC 8.9. Hemoglobin 12.3. Platelet count 242,000. Sodium 136. Potassium 3.0. Bicarb 38. Creatinine 0.82. Troponin 0.028. ProBNP 642. 01/01/2018 Patient is still having shortness of breath and is also complaining of abdominal pain. Patient says that he is not feeling very well. Patient is unable to lie flat for liver biopsy due to his poor functional status and advanced COPD. Currently on 8 L oxygen nasal cannula. Patient is being continued on IV steroids and breathing treatments and empiric antibiotics. Pulmonary and oncology is following. Current medications reviewed. Objective - Vital Signs Vital signs: Vital Signs Temp 97.6 F 01/01/18 07:53 Pulse 106 H 01/01/18 10:55 Resp 20 01/01/18 10:12 BP 166/84 01/01/18 07:53 Pulse Ox 95 01/01/18 07:53 Intake & Output 12/31/17 01/01/18 01/01/18 18:59 06:59 18:59 Intake Total 600 850 420 Output Total 50 1150 100 Balance 550 -300 320 Weight 74.843 kg 74.843 kg Intake: Oral 600 850 420 Output: Urine 50 1150 100 Other: Voiding Method Urinal Urinal Urinal # Voids 2 - Exam PHYSICAL EXAMINATION: Patient is lying in the bed comfortably, no acute distress, awake alert and oriented. Anxious. HEENT: Normocephalic. Neck is supple. Pupils reactive. Nostrils clear. Oral cavity is moist. Ears reveal no drainage. Neck reveals no JVD, carotid bruits, or thyromegaly. CHEST EXAMINATION: Trachea is central. Symmetrical expansion. Bilateral air entry improved. Expiratory wheezing and rhonchi. CARDIAC: Normal S1, S2 with no gallops. No murmurs . ABDOMEN: Soft. Mild tenderness with deep palpation, Bowel sounds normal. No organomegaly. No abdominal bruits. Extremities: reveal no edema. No clubbing or cyanosis Neurologically awake, alert, oriented x3 with well-coordinated movements. No focal deficits noted Skin: No rash or skin lesions. Psychiatric: Coperative. Nonsuicidal. Anxious Musculoskeletal: No joint swelling or deformity. Normal range of motion. - Labs CBC & Chem 7: 12/31/17 08:00 12/31/17 19:34 Labs: Abnormal Lab Results - Last 24 Hours (Table) 12/31/17 01/01/18 Range/Units 20:26 07:17 POC Glucose (mg/dL) 208 H 117 H (75-99) mg/dL Assessment and Plan Assessment: Abdominal pain secondary to diffuse metastatic disease involving lung bases, liver and peritoneal carcinomatosis with abdominal lymphadenopathy. Awaiting liver biopsy Acute COPD exacerbation Endstage COPD on home oxygen at 7 L via nausea cannula and steroid dependent Acute on chronic hypoxic respiratory failure due to COPD and limited pulmonary fibrosis History of colon cancer status post colectomy in 2017 Secondary pulmonary hypertension Chronic anemia due to malignancy and chronic disease. BPH Hearing impairment. History of DVT and IVC filter placement in April 2016 Hypertension GERD Osteoarthritis Hyperlipidemia Sigmoid diverticulosis Medical lability and poor functional status DVT prophylaxis Plan: Patient be continued on DuoNeb's and IV Solu-Medrol was started. Continue the pain management and gentle hydration. Pulmonary is following. Patient cannot lie flat due to poor functional status and COPD we'll get liver biopsy. We will discuss the family and patient regarding CODE STATUS due to underlying metastatic carcinoma and advance to COPD and multiple other medical problems and comorbid conditions. Prognosis is poor. Further recommendations based on the clinical course. Time with Patient: Greater than 30
[2018-01-02] MEDS: methylPREDNISolone SOD SUCCI 125 MG/2 ML VIAL IV SCH ×5 (00:09→23:12)
[2018-01-02] MEDS: METOCLOPRAMIDE 5 MG/ML 2 ML VIAL IVP SCH ×5 (00:09→23:12)
[2018-01-02] MEDS: SODIUM CHLORIDE 0.9% 1,000 ML IV SCH ×3 (03:37→23:13)
[2018-01-02] MEDS: ALPRAZolam 0.25 MG TAB PO PRN ×2 (05:25→12:17)
[2018-01-02] MEDS: BUDESONIDE 1 MG/2 ML NEBU INHALATION SCH ×2 (06:58→19:03)
[2018-01-02] MEDS: FORMOTEROL FUMARATE 20 MCG/2 ML NEBU INHALATION SCH ×2 (06:58→19:03)
[2018-01-02] MEDS: IPRATROPIUM-ALBUTEROL 3 ML NEB INHALATION SCH ×4 (06:58→19:03)
[2018-01-02 07:53] LABS: Glucose,Whole Blood 132 mg/dL (75-99)
[2018-01-02] MEDS: INSULIN ASPART 100 UNIT/ML 1 ML 10 ML VIAL SQ SCH ×4 (08:01→21:13)
[2018-01-02] MEDS: ISOSORBIDE MONONITRATE ER 30 MG TAB.ER.24H PO SCH (08:03)
[2018-01-02] MEDS: ENOXAPARIN 40 MG/0.4 ML SYRINGE SQ SCH ×2 (08:03→10:42)
[2018-01-02] MEDS: FUROSEMIDE 20 MG TAB PO SCH (08:03)
[2018-01-02] MEDS: DULoxetine HCL 60 MG CAPSULE.DR PO SCH (08:03)
[2018-01-02] MEDS: METOPROLOL TARTRATE 25 MG TAB PO SCH (08:03)
[2018-01-02] MEDS: DULoxetine HCL 30 MG CAPSULE.DR PO SCH (08:03)
[2018-01-02] MEDS: POLYETHYLENE GLYCOL 3350 17 GM POWD.PACK PO SCH (08:04)
[2018-01-02 08:58] LABS: Anion Gap 9 mmol/L; Blood Urea Nitrogen 23 mg/dL (9-20); Carbon Dioxide 35 mmol/L (22-30); Chloride 92 mmol/L (98-107); Glucose 128 mg/dL (74-99); Sodium 136 mmol/L (137-145)
[2018-01-02 12:03] LABS: Glucose,Whole Blood 119 mg/dL (75-99)
[2018-01-02] MEDS: ALPRAZolam 0.25 MG TAB PO SCH ×3 (12:18→23:12)
[2018-01-02] MEDS ORDERED: FUROSEMIDE 10 MG/ML 2 ML VIAL IVP STA (14:20)
--- NOTE | 2018-01-02 14:32 | P.PN ---
Subjective Progress Note Date: 01/02/18 Principal diagnosis: Abdominal pain secondary to diffuse metastatic disease including lesions in the lung bases, liver, peritoneal carcinoma with ptosis, abnormal adenopathy throughout the abdomen and pelvis. This is a very pleasant 77-year-old gentleman who follows with Dr. Browning is his primary care physician. 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 He had recently been complaining of constipation and was seen by Dr. Browning in our office on 12/13/2017. He ordered a computed tomography scan of the abdomen and pelvis. The patient follows with Dr. Johnson in this regard as well. The computed tomography scan revealed new diffuse metastatic disease with lesions in the lung bases, liver, peritoneal carcinomatosis and abnormal adenopathy throughout the abdomen and pelvis now identified. The computed tomography scan was compared to one in November 2016. The patient had been seen by Dr. Barrios and there is some discussion regarding oral chemotherapy. The patient presented here to the emergency room earlier this morning with complaints of abdominal pain along with shortness of breath. His pain has been severe in nature with nausea. No vomiting. The pain also has exacerbated his COPD and anxiety causing more shortness of breath. X-ray KUB revealed nonobstructive bowel gas pattern. Sigmoid diverticulosis. Chest x-ray reveals stable abnormal x-ray, difficult to exclude superimposed pneumonia, lung mass on severe emphysema. He is currently maintaining O2 saturations in the 90s on 7 L high flow nasal cannula. He's been tachycardic. Blood pressure stable. EKG shows sinus rhythm with frequent PACs. The results revealed WBC 8.9. Hemoglobin 12.3. Platelet count 242,000. Sodium 136. Potassium 3.0. Bicarb 38. Creatinine 0.82. Troponin 0.028. ProBNP 642. On 01/01/2018 patient seen in follow-up on medical surgical floor. Currently on 8 L per high flow nasal cannula, his pulse ox is 96%, he is afebrile. Patient is dyspneic with any exertion, and she is unable to lie flat. Interventional radiology has been consulted for liver biopsy, but at this time patient is a to tolerate the procedure, related to his lung function status, and inability to lie flat. We spoke to the medical oncology this morning, we discussed the findings of the CT of the abdomen chest and pelvis with the patient, we may have to optimize patient's pulmonary status further, before we proceed with the biopsy. It was suggested to the patient and his to discuss his wishes going forward regarding treatments for his metastatic disease. Patient has a very poor underlying lung function, his exercise capacity is severely limited related to that. Patient is on 7-8 liters of oxygen per minute per high flow nasal cannula on a regular basis. We will have to discuss with the interventional radiology if the biopsy would be feasible. Afebrile. We'll continue on current medical treatment, Pulmicort and Perforomist, DuoNeb nebulized treatments, IV steroids and empiric antibiotics. The patient is seen again today 01/02/2018 in follow-up on the regular medical floor. He is currently sitting up in a chair at the bedside. He is awake and alert in no acute distress. He does have ongoing issues with anxiety resulting in shortness of breath. He is currently maintaining O2 saturations in the low 90s on 8 L high flow nasal cannula. He's been afebrile. Tachypneic. Tachycardic. Bicarb 35. Creatinine 0.85. He is maintained on DuoNeb inhalations, Pulmicort and Perforomist inhalations, IV Solu-Medrol, theophylline. He remains on Bactrim empirically Saturday. The plan is for liver biopsy tomorrow. Objective - Vital Signs Vital signs: Vital Signs Temp 97.9 F 01/02/18 07:00 Pulse 106 H 01/02/18 10:55 Resp 28 H 01/02/18 07:00 BP 154/83 01/02/18 07:00 Pulse Ox 92 L 01/02/18 07:00 Intake & Output 01/01/18 01/02/18 01/02/18 18:59 06:59 18:59 Intake Total 420 650 Output Total 100 600 Balance 320 50 Weight 74.843 kg 74.843 kg Intake: Oral 420 650 Output: Urine 100 600 Other: Voiding Method Urinal Urinal # Voids 1 # Bowel Movements 1 - Labs CBC & Chem 7: 12/31/17 08:00 01/02/18 07:49 Labs: Abnormal Lab Results - Last 24 Hours (Table) 01/01/18 01/01/18 01/02/18 Range/Units 17:35 20:43 07:28 Sodium (137-145) mmol/L Chloride (98-107) mmol/L Carbon Dioxide (22-30) mmol/L BUN (9-20) mg/dL Glucose (74-99) mg/dL POC Glucose (mg/dL) 136 H 150 H 132 H (75-99) mg/dL 01/02/18 01/02/18 Range/Units 07:49 12:01 Sodium 136 L (137-145) mmol/L Chloride 92 L (98-107) mmol/L Carbon Dioxide 35 H (22-30) mmol/L BUN 23 H (9-20) mg/dL Glucose 128 H (74-99) mg/dL POC Glucose (mg/dL) 119 H (75-99) mg/dL Assessment and Plan Assessment: Impression: #1 Abdominal pain secondary to diffuse metastatic disease including lesions in the lung bases, liver, peritoneal carcinomatosis, abnormal adenopathy throughout the abdomen and pelvis. These findings are new compared to previous abdominal computed tomography scan in November 2016. Likely progression of the original cancer. #2 History of colon cancer with previous right colectomy in November 2016. #3 Acute on chronic severe oxygen dependent, steroid dependent chronic obstructive pulmonary disease with home oxygen at 4-5 L/m per nasal cannula. History of limited pulmonary fibrosis. #4 Secondary pulmonary hypertension. #5 Limited mobility, wheelchair bound. #6 Impaired hearing. #7 Chronic anemia. #8 Benign prostatic hypertrophy. #9 History of DVT with previous [place] filter placement in April 2016. #10 Former smoker. #11 Hypertension. #12 Gastroesophageal reflux disease. #13 Osteoarthritis. #14 Hyperlipidemia. #15 Poor overall functional performance based on the above-mentioned multiple comorbidities. Plan: The patient was seen and evaluated by Dr. Nelson. Plan is for FNA of the liver tomorrow with interventional radiology. Will continue with his COPD treatment for now. Utilize Xanax for his anxiety. Patient's overall prognosis is quite guarded and poor. We will continue to follow and make further recommendations based on his clinical status. I, the cosigning physician, performed a history & physical examination of the patient. Lungs sounds with end expiratory wheeze, diminished. Maintaining good O2 saturations in the 90s on 8 L high flow nasal cannula. I discussed the assessment and plan of care with my nurse practitioner, Anastasia Carbajal. I attest to the above note as dictated by her.
--- NOTE | 2018-01-02 15:44 | P.PN ---
Subjective Progress Note Date: 01/02/18 Principal diagnosis: metastatic cancer/recuurrent Patient seen in follow-up this am, appears more comfortable, although periods of high anxiety Objective - Vital Signs Vital signs: Vital Signs Temp 97.8 F 01/02/18 15:00 Pulse 104 H 01/02/18 15:29 Resp 26 H 01/02/18 15:00 BP 135/62 01/02/18 15:00 Pulse Ox 92 L 01/02/18 15:00 Intake & Output 01/01/18 01/02/18 01/02/18 18:59 06:59 18:59 Intake Total 420 650 240 Output Total 100 600 Balance 320 50 240 Weight 74.843 kg 74.843 kg Intake: Oral 420 650 240 Output: Urine 100 600 Other: Voiding Method Urinal Urinal # Voids 1 2 # Bowel Movements 1 0 - Exam - Constitutional General appearance: average body habitus, cooperative, no acute distress - EENT Eyes: PERRLA, dentition normal ENT: hard of hearing, hearing grossly normal, NA/AT - Neck NO lymphadenopathy Neck: normal ROM - Respiratory Respiratory: bilateral: CTA (mild increased effort), wheezing (expiratory occassional) - Cardiovascular Rhythm: regular Heart sounds: normal: S1, S2 - Gastrointestinal non tender, non distended General gastrointestinal: decreased bowel sounds - Integumentary Integumentary: pale - Musculoskeletal Musculoskeletal: generalized weakness, strength equal bilaterally - Psychiatric Psychiatric: A&O x's 3, appropriate affect, intact judgment & insight - Labs CBC & Chem 7: 12/31/17 08:00 01/02/18 07:49 Labs: Abnormal Lab Results - Last 24 Hours (Table) 01/01/18 01/01/18 01/02/18 Range/Units 17:35 20:43 07:28 Sodium (137-145) mmol/L Chloride (98-107) mmol/L Carbon Dioxide (22-30) mmol/L BUN (9-20) mg/dL Glucose (74-99) mg/dL POC Glucose (mg/dL) 136 H 150 H 132 H (75-99) mg/dL 01/02/18 01/02/18 Range/Units 07:49 12:01 Sodium 136 L (137-145) mmol/L Chloride 92 L (98-107) mmol/L Carbon Dioxide 35 H (22-30) mmol/L BUN 23 H (9-20) mg/dL Glucose 128 H (74-99) mg/dL POC Glucose (mg/dL) 119 H (75-99) mg/dL Assessment and Plan Plan: onc plan: biopsy of liver if ok with pulmon Assessment and Recommendations: 1. Adenocarcinoma of the colon - Likely recurrence with distant metastasis - Plan for inpatient fna liver in am - Outpatient [place] treatment after discharge, currently running through insurance, awaiting path from new biopsy Physician Attest: I have completed the full history and physical of this patient and agree with above dictation by Arleth Lobo NP. Dictated as ascribe
[2018-01-02 17:09] LABS: Glucose,Whole Blood 116 mg/dL (75-99)
[2018-01-02 21:33] LABS: Glucose,Whole Blood 174 mg/dL (75-99)
[2018-01-02] MEDS: DOXAZOSIN 4 MG TAB PO SCH (23:13)
[2018-01-02] MEDS: traZODone HCL 100 MG TAB PO SCH (23:13)
[2018-01-02] MEDS: THEOPHYLLINE 24 HOUR 300 MG CAP.ER.24H PO SCH (23:13)
--- NOTE | 2018-01-02 23:19 | P.PN ---
Subjective Progress Note Date: 01/02/18 Principal diagnosis: Acute COPD exacerbation Abdominal pain secondary to carcinomatosis Patient is a 77-year-old male with a known history of colon cancer with metastasis to liver, stomach and possibly lung as well, end-stage COPD on home oxygen-dependent 7 later where nasal cannula, pulmonary fibrosis, chronic hypoxic respiratory failure, Secondary pulmonary hypertension, chronic anemia, currently wheelchair-bound, impaired hearing wears bilateral hearing aids., BPH, history of DVT with previous [place] filter insertion and multiple other medical problems including hypogonadism, neuropathy, adrenal cortical hypofunction came to ER with complaints of abdominal pain and shortness of breath 1 day. Patient has been having history of chronic abdominal pain due to metastasis with lesions in the lungs, liver and peritoneal carcinomatosis and abdominal adenopathy throughout the abdomen pelvis. Patient is being scheduled for chemotherapy after liver biopsy. Abdominal pain is 7 x 10 on admission along with nausea and no episodes of vomiting. Vision is also having anxiety and COPD exacerbation. X-ray KUB revealed nonobstructive bowel gas pattern. Sigmoid diverticulosis. Chest x-ray reveals stable abnormal x-ray, difficult to exclude superimposed pneumonia, lung mass on severe emphysema. He is currently maintaining O2 saturations in the 90s on 7 L high flow nasal cannula. He's been tachycardic. Blood pressure stable. EKG shows sinus rhythm with frequent PACs. The results revealed WBC 8.9. Hemoglobin 12.3. Platelet count 242,000. Sodium 136. Potassium 3.0. Bicarb 38. Creatinine 0.82. Troponin 0.028. ProBNP 642. 01/01/2018 Patient is still having shortness of breath and is also complaining of abdominal pain. Patient says that he is not feeling very well. Patient is unable to lie flat for liver biopsy due to his poor functional status and advanced COPD. Currently on 8 L oxygen nasal cannula. Patient is being continued on IV steroids and breathing treatments and empiric antibiotics. Pulmonary and oncology is following. 01/02/2018 Currently breathing status is improved slightly. Able to sit in the chair without any acute distress. Still requiring high flow oxygen with another cannula. Continued on IV steroids and breathing treatments. Planning for liver biopsy tomorrow Current medications reviewed. Objective - Vital Signs Vital signs: Vital Signs Temp 97.8 F 01/02/18 15:00 Pulse 104 H 01/02/18 15:29 Resp 26 H 01/02/18 15:00 BP 135/62 01/02/18 15:00 Pulse Ox 92 L 01/02/18 15:00 Intake & Output 01/01/18 01/02/18 01/02/18 18:59 06:59 18:59 Intake Total 420 650 240 Output Total 100 600 300 Balance 320 50 -60 Weight 74.843 kg 74.843 kg Intake: Oral 420 650 240 Output: Urine 100 600 300 Other: Voiding Method Urinal Urinal # Voids 1 2 # Bowel Movements 1 0 - Exam PHYSICAL EXAMINATION: Patient is lying in the bed comfortably, no acute distress, awake alert and oriented. Anxious. HEENT: Normocephalic. Neck is supple. Pupils reactive. Nostrils clear. Oral cavity is moist. Ears reveal no drainage. Neck reveals no JVD, carotid bruits, or thyromegaly. CHEST EXAMINATION: Trachea is central. Symmetrical expansion. Bilateral air entry improved. Expiratory wheezing and rhonchi. CARDIAC: Normal S1, S2 with no gallops. No murmurs . ABDOMEN: Soft. Mild tenderness with deep palpation, Bowel sounds normal. No organomegaly. No abdominal bruits. Extremities: reveal no edema. No clubbing or cyanosis Neurologically awake, alert, oriented x3 with well-coordinated movements. No focal deficits noted Skin: No rash or skin lesions. Psychiatric: Coperative. Nonsuicidal. Anxious Musculoskeletal: No joint swelling or deformity. Normal range of motion. - Labs CBC & Chem 7: 12/31/17 08:00 01/02/18 07:49 Labs: Abnormal Lab Results - Last 24 Hours (Table) 01/01/18 01/01/18 01/02/18 Range/Units 17:35 20:43 07:28 Sodium (137-145) mmol/L Chloride (98-107) mmol/L Carbon Dioxide (22-30) mmol/L BUN (9-20) mg/dL Glucose (74-99) mg/dL POC Glucose (mg/dL) 136 H 150 H 132 H (75-99) mg/dL 01/02/18 01/02/18 Range/Units 07:49 12:01 Sodium 136 L (137-145) mmol/L Chloride 92 L (98-107) mmol/L Carbon Dioxide 35 H (22-30) mmol/L BUN 23 H (9-20) mg/dL Glucose 128 H (74-99) mg/dL POC Glucose (mg/dL) 119 H (75-99) mg/dL Assessment and Plan Assessment: Abdominal pain secondary to diffuse metastatic disease involving lung bases, liver and peritoneal carcinomatosis with abdominal lymphadenopathy. Awaiting liver biopsy Acute COPD exacerbation Endstage COPD on home oxygen at 7 L via nausea cannula and steroid dependent Acute on chronic hypoxic respiratory failure due to COPD and limited pulmonary fibrosis History of colon cancer status post colectomy in 2017 Secondary pulmonary hypertension Chronic anemia due to malignancy and chronic disease. BPH Hearing impairment. History of DVT and IVC filter placement in April 2016 Hypertension GERD Osteoarthritis Hyperlipidemia Sigmoid diverticulosis Medical lability and poor functional status DVT prophylaxis Plan: Patient be continued on DuoNeb's and IV Solu-Medrol was started. Continue the pain management and gentle hydration. Pulmonary is following. Patient cannot lie flat due to poor functional status and COPD we'll get liver biopsy. Discussed with his and patient regarding CODE STATUS due to underlying metastatic carcinoma and advance to COPD and multiple other medical problems and comorbid conditions. Prognosis is poor. Further recommendations based on the clinical course. Time with Patient: Greater than 30
[2018-01-02] MEDS: IPRATROPIUM-ALBUTEROL 3 ML NEB INHALATION PRN (23:46)
[2018-01-03] MEDS: IPRATROPIUM-ALBUTEROL 3 ML NEB INHALATION PRN ×2 (03:03→15:50)
[2018-01-03] MEDS: methylPREDNISolone SOD SUCCI 125 MG/2 ML VIAL IV SCH ×4 (05:00→23:39)
[2018-01-03] MEDS: METOCLOPRAMIDE 5 MG/ML 2 ML VIAL IVP SCH ×4 (05:00→23:39)
[2018-01-03] MEDS: ALPRAZolam 0.25 MG TAB PO SCH ×4 (05:00→23:40)
[2018-01-03] MEDS: IPRATROPIUM-ALBUTEROL 3 ML NEB INHALATION SCH ×4 (07:19→18:43)
[2018-01-03] MEDS: FORMOTEROL FUMARATE 20 MCG/2 ML NEBU INHALATION SCH ×2 (07:19→18:43)
[2018-01-03] MEDS: BUDESONIDE 1 MG/2 ML NEBU INHALATION SCH ×2 (07:19→18:43)
[2018-01-03] MEDS: INSULIN ASPART 100 UNIT/ML 1 ML 10 ML VIAL SQ SCH ×4 (07:25→21:19)
[2018-01-03 07:28] LABS: Glucose,Whole Blood 128 mg/dL (75-99)
[2018-01-03] MEDS: DULoxetine HCL 60 MG CAPSULE.DR PO SCH (07:37)
[2018-01-03] MEDS: FUROSEMIDE 20 MG TAB PO SCH (07:37)
[2018-01-03] MEDS: DULoxetine HCL 30 MG CAPSULE.DR PO SCH (07:37)
[2018-01-03] MEDS: SULFAMETHOX-TMP 800-160MG 1 EACH TAB PO SCH (07:38)
[2018-01-03] MEDS: POLYETHYLENE GLYCOL 3350 17 GM POWD.PACK PO SCH (07:38)
[2018-01-03] MEDS: METOLAZONE 5 MG TAB PO SCH (07:38)
[2018-01-03] MEDS: METOPROLOL TARTRATE 25 MG TAB PO SCH (07:38)
[2018-01-03] MEDS: ISOSORBIDE MONONITRATE ER 30 MG TAB.ER.24H PO SCH (07:38)
[2018-01-03] MEDS: SODIUM CHLORIDE 0.9% 1,000 ML IV SCH ×2 (11:13→23:38)
[2018-01-03 12:04] LABS: Glucose,Whole Blood 187 mg/dL (75-99)
--- NOTE | 2018-01-03 16:26 | P.PN ---
Subjective Progress Note Date: 01/03/18 Principal diagnosis: Abdominal pain, secondary to diffuse metastatic disease involving the lung bases , liver, peritoneal carcinomatosis, adenopathy throughout the abdomen and pelvis This is a very pleasant 77-year-old gentleman who follows with Dr. Browning is his primary care physician. 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 He had recently been complaining of constipation and was seen by Dr. Browning in our office on 12/13/2017. He ordered a computed tomography scan of the abdomen and pelvis. The patient follows with Dr. Johnson in this regard as well. The computed tomography scan revealed new diffuse metastatic disease with lesions in the lung bases, liver, peritoneal carcinomatosis and abnormal adenopathy throughout the abdomen and pelvis now identified. The computed tomography scan was compared to one in November 2016. The patient had been seen by Dr. Barrios and there is some discussion regarding oral chemotherapy. The patient presented here to the emergency room earlier this morning with complaints of abdominal pain along with shortness of breath. His pain has been severe in nature with nausea. No vomiting. The pain also has exacerbated his COPD and anxiety causing more shortness of breath. X-ray KUB revealed nonobstructive bowel gas pattern. Sigmoid diverticulosis. Chest x-ray reveals stable abnormal x-ray, difficult to exclude superimposed pneumonia, lung mass on severe emphysema. He is currently maintaining O2 saturations in the 90s on 7 L high flow nasal cannula. He's been tachycardic. Blood pressure stable. EKG shows sinus rhythm with frequent PACs. The results revealed WBC 8.9. Hemoglobin 12.3. Platelet count 242,000. Sodium 136. Potassium 3.0. Bicarb 38. Creatinine 0.82. Troponin 0.028. ProBNP 642. On 01/01/2018 patient seen in follow-up on medical surgical floor. Currently on 8 L per high flow nasal cannula, his pulse ox is 96%, he is afebrile. Patient is dyspneic with any exertion, and she is unable to lie flat. Interventional radiology has been consulted for liver biopsy, but at this time patient is a to tolerate the procedure, related to his lung function status, and inability to lie flat. We spoke to the medical oncology this morning, we discussed the findings of the CT of the abdomen chest and pelvis with the patient, we may have to optimize patient's pulmonary status further, before we proceed with the biopsy. It was suggested to the patient and his to discuss his wishes going forward regarding treatments for his metastatic disease. Patient has a very poor underlying lung function, his exercise capacity is severely limited related to that. Patient is on 7-8 liters of oxygen per minute per high flow nasal cannula on a regular basis. We will have to discuss with the interventional radiology if the biopsy would be feasible. Afebrile. We'll continue on current medical treatment, Pulmicort and Perforomist, DuoNeb nebulized treatments, IV steroids and empiric antibiotics. The patient is seen again today 01/02/2018 in follow-up on the regular medical floor. He is currently sitting up in a chair at the bedside. He is awake and alert in no acute distress. He does have ongoing issues with anxiety resulting in shortness of breath. He is currently maintaining O2 saturations in the low 90s on 8 L high flow nasal cannula. He's been afebrile. Tachypneic. Tachycardic. Bicarb 35. Creatinine 0.85. He is maintained on DuoNeb inhalations, Pulmicort and Perforomist inhalations, IV Solu-Medrol, theophylline. He remains on Bactrim empirically Saturday. The plan is for liver biopsy tomorrow. On 01/03/2018 patient seen in follow up on medical surgical floor. He is currently up in the chair, in no acute distress, he states he is more anxious today, he was scheduled for a liver biopsy today, however he declined the procedure after his cussing at with his family, and after careful consideration about his poor underlying functional status, poor lung function, severe limitation of exercise capacity, multiple comorbidities, and metastatic adenocarcinoma of the colon. He wishes to proceed with hospice enrollment. For his breathing, his breathing today stable, although patient does experience increased shortness of breath related to increased anxiety. Sounds are diminished, no rhonchi or wheezes noted. On 8 L per nasal cannula pulse ox is 98%, patient is afebrile. Currently on IV steroids, nebulized bronchodilators and antibiotics, and theophylline. No new Labs her chest x-ray today Objective - Vital Signs Vital signs: Vital Signs Temp 97.9 F 01/03/18 15:00 Pulse 85 01/03/18 16:00 Resp 18 01/03/18 15:00 BP 137/68 01/03/18 15:00 Pulse Ox 90 L 01/03/18 15:00 Intake & Output 01/02/18 01/03/18 01/03/18 18:59 06:59 18:59 Intake Total 240 360 Output Total 600 300 Balance -360 -300 360 Weight 74.843 kg Intake: Oral 240 360 Output: Urine 600 300 Other: Voiding Method Urinal # Voids 2 3 # Bowel Movements 0 1 1 - Exam - Constitutional General appearance: disheveled, mild distress, currently on 8 L per nasal cannula - EENT Eyes: EOMI, PERRLA, poor dentition ENT: hard of hearing Ears: bilateral: normal - Neck Neck: normal ROM Carotids: bilateral: upstroke normal Thyroid: bilateral: normal size - Respiratory Respiratory: bilateral: diminished. - Cardiovascular Rhythm: regularly irregular Heart sounds: normal: S1, S2 - Gastrointestinal General gastrointestinal: distended, normal bowel sounds, tenderness Localized gastrointestinal: tender: diffuse - Integumentary Integumentary: normal turgor - Neurologic Neurologic: CNII-XII intact - Musculoskeletal Musculoskeletal: generalized weakness - Psychiatric Psychiatric: A&O x's 3, appropriate affect, intact judgment & insight - Labs CBC & Chem 7: 12/31/17 08:00 01/02/18 07:49 Labs: Abnormal Lab Results - Last 24 Hours (Table) 01/02/18 01/02/18 01/03/18 Range/Units 17:00 21:00 07:10 POC Glucose (mg/dL) 116 H 174 H 128 H (75-99) mg/dL 01/03/18 Range/Units 11:57 POC Glucose (mg/dL) 187 H (75-99) mg/dL Assessment and Plan Plan: Assessment: #1 Abdominal pain secondary to diffuse metastatic disease including lesions in the lung bases, liver, peritoneal carcinomatosis, abnormal adenopathy throughout the abdomen and pelvis. These findings are new compared to previous abdominal computed tomography scan in November 2016. #2 History of colon cancer with previous right colectomy in November 2016. #3 Acute on chronic severe oxygen dependent, steroid dependent chronic obstructive pulmonary disease with home oxygen at 4-5 L/m per nasal cannula. History of limited pulmonary fibrosis. #4 Secondary pulmonary hypertension. #5 Limited mobility, wheelchair bound. #6 Impaired hearing. #7 Chronic anemia. #8 Benign prostatic hypertrophy. #9 History of DVT with previous [place] filter placement in April 2016. #10 Former smoker. #11 Hypertension. #12 Gastroesophageal reflux disease. #13 Osteoarthritis. #14 Hyperlipidemia. #15 Poor overall functional performance based on the above-mentioned multiple comorbidities. Plan: Patient has declined a liver biopsy, he wishes to proceed with hospice enrollment. We'll consult [facility] per patient's request. After discussion with his family patient has decided to not pursue the liver biopsy or the treatment for his metastatic cancer. Will continue current medical treatment. Continue Xanax for anxiety, overall prognosis is quite poor. We'll continue to follow. I performed a history & physical examination of the patient and discussed their management with my nurse practitioner, Ivone Betancur. I reviewed the nurse practitioner's note and agree with the documented findings and plan of care. Lung sounds are depressed sounds bilaterally. The findings and the impression was discussed with the patient. I attest to the documentation by the nurse practitioner. Time with Patient: Less than 30
[2018-01-03 17:09] LABS: Glucose,Whole Blood 91 mg/dL (75-99)
--- NOTE | 2018-01-03 19:19 | P.PN ---
Subjective Progress Note Date: 01/03/18 Principal diagnosis: metastatic cancer/recuurrent Mr Duran was scheduled for liver biopsy today but has declined and decided to enroll in hospice care which is appropriate given his widespread recurrence and overall performance. Objective - Vital Signs Vital signs: Vital Signs Temp 97.9 F 01/03/18 15:00 Pulse 105 H 01/03/18 19:04 Resp 18 01/03/18 15:00 BP 137/68 01/03/18 15:00 Pulse Ox 90 L 01/03/18 15:00 Intake & Output 01/03/18 01/03/18 01/04/18 06:59 18:59 06:59 Intake Total 360 Output Total 300 Balance -300 360 Weight 74.843 kg Intake: Oral 360 Output: Urine 300 Other: Voiding Method Urinal # Voids 3 # Bowel Movements 1 1 - Exam - Constitutional General appearance: average body habitus, cooperative, no acute distress - EENT Eyes: PERRLA, dentition normal ENT: hard of hearing, hearing grossly normal, NA/AT - Neck NO lymphadenopathy Neck: normal ROM - Respiratory Respiratory: bilateral: CTA (mild increased effort), wheezing (expiratory occassional) - Cardiovascular Rhythm: regular Heart sounds: normal: S1, S2 - Gastrointestinal non tender, non distended General gastrointestinal: decreased bowel sounds - Integumentary Integumentary: pale - Musculoskeletal Musculoskeletal: generalized weakness, strength equal bilaterally - Psychiatric Psychiatric: A&O x's 3, appropriate affect, intact judgment & insight - Labs CBC & Chem 7: 12/31/17 08:00 01/02/18 07:49 Labs: Abnormal Lab Results - Last 24 Hours (Table) 01/02/18 01/03/18 01/03/18 Range/Units 21:00 07:10 11:57 POC Glucose (mg/dL) 174 H 128 H 187 H (75-99) mg/dL Assessment and Plan Plan: onc plan: biopsy of liver if ok with pulmon Assessment and Recommendations: 1. Adenocarcinoma of the colon - Likely recurrence with distant metastasis - Patient was scheduled for liver biopsy but at this time has declined and chose to enroll with hospice care. Given the widespread and quick recurrence of disease this is resonable
[2018-01-03 21:09] LABS: Glucose,Whole Blood 143 mg/dL (75-99)
[2018-01-03] MEDS: traZODone HCL 100 MG TAB PO SCH (21:18)
[2018-01-03] MEDS: THEOPHYLLINE 24 HOUR 300 MG CAP.ER.24H PO SCH (21:18)
[2018-01-03] MEDS: DOXAZOSIN 4 MG TAB PO SCH (21:18)
[2018-01-04] MEDS: IPRATROPIUM-ALBUTEROL 3 ML NEB INHALATION PRN (04:04)
[2018-01-04] MEDS: ALPRAZolam 0.25 MG TAB PO SCH ×2 (05:55→12:17)
[2018-01-04] MEDS: methylPREDNISolone SOD SUCCI 125 MG/2 ML VIAL IV SCH ×2 (05:56→12:18)
[2018-01-04] MEDS: METOCLOPRAMIDE 5 MG/ML 2 ML VIAL IVP SCH ×2 (05:56→12:20)
[2018-01-04] MEDS: SODIUM CHLORIDE 0.9% 1,000 ML IV SCH (05:56)
[2018-01-04 06:18] VITALS: TEMP 98.2
[2018-01-04 07:27] LABS: Glucose,Whole Blood 139 mg/dL (75-99)
[2018-01-04] MEDS: FORMOTEROL FUMARATE 20 MCG/2 ML NEBU INHALATION SCH (07:50)
[2018-01-04] MEDS: BUDESONIDE 1 MG/2 ML NEBU INHALATION SCH (07:50)
[2018-01-04] MEDS: IPRATROPIUM-ALBUTEROL 3 ML NEB INHALATION SCH ×2 (07:50→11:42)
[2018-01-04] MEDS: DULoxetine HCL 30 MG CAPSULE.DR PO SCH (08:20)
[2018-01-04] MEDS: ISOSORBIDE MONONITRATE ER 30 MG TAB.ER.24H PO SCH (08:20)
[2018-01-04] MEDS: METOPROLOL TARTRATE 25 MG TAB PO SCH (08:20)
[2018-01-04] MEDS: FUROSEMIDE 20 MG TAB PO SCH (08:20)
[2018-01-04] MEDS: DULoxetine HCL 60 MG CAPSULE.DR PO SCH (08:20)
[2018-01-04] MEDS: ENOXAPARIN 40 MG/0.4 ML SYRINGE SQ SCH (08:20)
[2018-01-04] MEDS: INSULIN ASPART 100 UNIT/ML 1 ML 10 ML VIAL SQ SCH ×2 (08:21→12:18)
[2018-01-04] MEDS: POLYETHYLENE GLYCOL 3350 17 GM POWD.PACK PO SCH (08:22)
[2018-01-04 12:01] LABS: Glucose,Whole Blood 104 mg/dL (75-99)
[2018-01-04 14:57] VITALS: BP 162/72; PULSE 115; RESP 20
--- NOTE | 2018-01-04 15:08 | P.PN ---
Subjective Progress Note Date: 01/04/18 Principal diagnosis: Abdominal pain secondary to diffuse metastatic disease including lesions in the lung bases, liver, peritoneal carcinoma with ptosis, abnormal adenopathy throughout the abdomen and pelvis. This is a very pleasant 77-year-old gentleman who follows with Dr. Browning is his primary care physician. 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 He had recently been complaining of constipation and was seen by Dr. Browning in our office on 12/13/2017. He ordered a computed tomography scan of the abdomen and pelvis. The patient follows with Dr. Johnson in this regard as well. The computed tomography scan revealed new diffuse metastatic disease with lesions in the lung bases, liver, peritoneal carcinomatosis and abnormal adenopathy throughout the abdomen and pelvis now identified. The computed tomography scan was compared to one in November 2016. The patient had been seen by Dr. Barrios and there is some discussion regarding oral chemotherapy. The patient presented here to the emergency room earlier this morning with complaints of abdominal pain along with shortness of breath. His pain has been severe in nature with nausea. No vomiting. The pain also has exacerbated his COPD and anxiety causing more shortness of breath. X-ray KUB revealed nonobstructive bowel gas pattern. Sigmoid diverticulosis. Chest x-ray reveals stable abnormal x-ray, difficult to exclude superimposed pneumonia, lung mass on severe emphysema. He is currently maintaining O2 saturations in the 90s on 7 L high flow nasal cannula. He's been tachycardic. Blood pressure stable. EKG shows sinus rhythm with frequent PACs. The results revealed WBC 8.9. Hemoglobin 12.3. Platelet count 242,000. Sodium 136. Potassium 3.0. Bicarb 38. Creatinine 0.82. Troponin 0.028. ProBNP 642. On 01/01/2018 patient seen in follow-up on medical surgical floor. Currently on 8 L per high flow nasal cannula, his pulse ox is 96%, he is afebrile. Patient is dyspneic with any exertion, and she is unable to lie flat. Interventional radiology has been consulted for liver biopsy, but at this time patient is a to tolerate the procedure, related to his lung function status, and inability to lie flat. We spoke to the medical oncology this morning, we discussed the findings of the CT of the abdomen chest and pelvis with the patient, we may have to optimize patient's pulmonary status further, before we proceed with the biopsy. It was suggested to the patient and his to discuss his wishes going forward regarding treatments for his metastatic disease. Patient has a very poor underlying lung function, his exercise capacity is severely limited related to that. Patient is on 7-8 liters of oxygen per minute per high flow nasal cannula on a regular basis. We will have to discuss with the interventional radiology if the biopsy would be feasible. Afebrile. We'll continue on current medical treatment, Pulmicort and Perforomist, DuoNeb nebulized treatments, IV steroids and empiric antibiotics. The patient is seen again today 01/02/2018 in follow-up on the regular medical floor. He is currently sitting up in a chair at the bedside. He is awake and alert in no acute distress. He does have ongoing issues with anxiety resulting in shortness of breath. He is currently maintaining O2 saturations in the low 90s on 8 L high flow nasal cannula. He's been afebrile. Tachypneic. Tachycardic. Bicarb 35. Creatinine 0.85. He is maintained on DuoNeb inhalations, Pulmicort and Perforomist inhalations, IV Solu-Medrol, theophylline. He remains on Bactrim empirically Saturday. The plan is for liver biopsy tomorrow. On 01/03/2018 patient seen in follow up on medical surgical floor. He is currently up in the chair, in no acute distress, he states he is more anxious today, he was scheduled for a liver biopsy today, however he declined the procedure after his cussing at with his family, and after careful consideration about his poor underlying functional status, poor lung function, severe limitation of exercise capacity, multiple comorbidities, and metastatic adenocarcinoma of the colon. He wishes to proceed with hospice enrollment. For his breathing, his breathing today stable, although patient does experience increased shortness of breath related to increased anxiety. Sounds are diminished, no rhonchi or wheezes noted. On 8 L per nasal cannula pulse ox is 98%, patient is afebrile. Currently on IV steroids, nebulized bronchodilators and antibiotics, and theophylline. No new Labs her chest x-ray today The patient is seen again today 01/04/2018 in follow-up on the regular medical floor. He is currently sitting up in a chair at the bedside. He is awake and alert in no acute distress. He decided to not go forward with a liver biopsy. He and his and children have decided to go to hospice care. As far as his breathing is concerned he is fairly stable. He does get anxious at times which increases her shortness of breath. Once relaxed he is doing better. He is oriented 3. He currently denies any worsening shortness of breath, cough or congestion. No chills or night sweats. He continues to maintain good O2 saturations in the upper 90s on 8 L high flow nasal cannula. His been afebrile. Hemodynamically stable. Objective - Vital Signs Vital signs: Vital Signs Temp 98.2 F 01/04/18 14:50 Pulse 115 H 01/04/18 14:50 Resp 20 01/04/18 14:50 BP 162/72 01/04/18 14:50 Pulse Ox 97 01/04/18 14:50 Intake & Output 01/03/18 01/04/18 01/04/18 18:59 06:59 18:59 Intake Total 360 600 Output Total 950 Balance 360 -950 600 Intake: Oral 360 600 Output: Urine 950 Other: Voiding Method Diaper # Voids 3 3 4 # Bowel Movements 1 1 - Exam - Exam - Constitutional General appearance: disheveled, mild distress, currently on 8 L per nasal cannula - EENT Eyes: EOMI, PERRLA, poor dentition ENT: hard of hearing Ears: bilateral: normal - Neck Neck: normal ROM Carotids: bilateral: upstroke normal Thyroid: bilateral: normal size - Respiratory Respiratory: bilateral: diminished. - Cardiovascular Rhythm: regularly irregular Heart sounds: normal: S1, S2 - Gastrointestinal General gastrointestinal: distended, normal bowel sounds, tenderness Localized gastrointestinal: tender: diffuse - Integumentary Integumentary: normal turgor - Neurologic Neurologic: CNII-XII intact - Musculoskeletal Musculoskeletal: generalized weakness - Psychiatric Psychiatric: A&O x's 3, appropriate affect, intact judgment & insight - Labs CBC & Chem 7: 12/31/17 08:00 01/02/18 07:49 Labs: Abnormal Lab Results - Last 24 Hours (Table) 01/03/18 01/04/18 01/04/18 Range/Units 21:05 06:57 11:41 POC Glucose (mg/dL) 143 H 139 H 104 H (75-99) mg/dL Assessment and Plan Assessment: Impression: #1 Abdominal pain secondary to diffuse metastatic disease including lesions in the lung bases, liver, peritoneal carcinomatosis, abnormal adenopathy throughout the abdomen and pelvis. These findings are new compared to previous abdominal computed tomography scan in November 2016. Likely progression of the original cancer. The patient has decided not to undergo liver biopsy and will be placed in hospice. #2 History of colon cancer with previous right colectomy in November 2016. #3 Acute on chronic severe oxygen dependent, steroid dependent chronic obstructive pulmonary disease with home oxygen at 4-5 L/m per nasal cannula. History of limited pulmonary fibrosis. #4 Secondary pulmonary hypertension. #5 Limited mobility, wheelchair bound. #6 Impaired hearing. #7 Chronic anemia. #8 Benign prostatic hypertrophy. #9 History of DVT with previous Stacy filter placement in April 2016. #10 Former smoker. #11 Hypertension. #12 Gastroesophageal reflux disease. #13 Osteoarthritis. #14 Hyperlipidemia. #15 Poor overall functional performance based on the above-mentioned multiple comorbidities. Plan: The patient was seen and evaluated by Dr. Nelson. The patient has decided to not proceed with a liver biopsy. He and his and family have had further discussions and he wants to go home and be placed in hospice care. We will follow the patient on as-needed basis. I, the cosigning physician, performed a history & physical examination of the patient. Lungs sounds with end expiratory wheeze, diminished. Maintaining good O2 saturations in the 90s on 8 L high flow nasal cannula. I discussed the assessment and plan of care with my nurse practitioner, Anastasia Carbajal. I attest to the above note as dictated by her.
--- NOTE | 2018-01-08 10:24 | CDI ---
Documentation Clarification Form Date: 01/07/2018 5:35:09 PM From: Leticia Lopez Phone: If questions call Jesusita Shaver at Admit Date: 12/31/2017 11:46:00 AM Patient Name: Berny Ward Visit Number: [id number] Discharge Date: 01/04/2018 ATTENTION: The Clinical Documentation Specialists (CDI) and [facility] Coding Staff appreciate your assistance in clarifying documentation. Please respond to the clarification below the line at the bottom and electronically sign. The CDI & [facility] Coding staff will review the response and follow-up if needed. Please note: Queries are made part of the Legal Health Record. If you have any questions, please contact the author of this message via ITS. Scott Mendosa MD Pneumonia was documented in your notes on: H&P and PNs History/Risk Factors: Mets to lungs, COPD exacerbation, End-stage COPD - oxygen and steroid dependent, Former smoker X-ray: chest x-ray that states stable abnormal x-ray, difficult to exclude superimposed pneumonia, lung mass on severe emphysema Lung/Breathing assessment: cough with light yellowish sputum production and shortness of breath. Bilateral diminished air entry and mild expiratory wheeze and rhonchi positive Treatment: Antibiotics:empiric antibiotics started the day after admission (Bactrim) O2 oxygen dependent 7 L Breathing Tx: Multiple breathing treatments In order to capture the severity of condition, please clarify if the condition signifies and you are treating for: Pneumonia, identify if: Confirmed Ruled out Possible/Probable Other, please specify Unable to determine Possible pneumonia. MTDD
--- NOTE | 2018-01-11 22:35 | P.PN ---
Subjective Progress Note Date: 01/03/18 Principal diagnosis: Acute COPD exacerbation Abdominal pain secondary to carcinomatosis Patient is a 77-year-old male with a known history of colon cancer with metastasis to liver, stomach and possibly lung as well, end-stage COPD on home oxygen-dependent 7 later where nasal cannula, pulmonary fibrosis, chronic hypoxic respiratory failure, Secondary pulmonary hypertension, chronic anemia, currently wheelchair-bound, impaired hearing wears bilateral hearing aids., BPH, history of DVT with previous [place] filter insertion and multiple other medical problems including hypogonadism, neuropathy, adrenal cortical hypofunction came to ER with complaints of abdominal pain and shortness of breath 1 day. Patient has been having history of chronic abdominal pain due to metastasis with lesions in the lungs, liver and peritoneal carcinomatosis and abdominal adenopathy throughout the abdomen pelvis. Patient is being scheduled for chemotherapy after liver biopsy. Abdominal pain is 7 x 10 on admission along with nausea and no episodes of vomiting. Vision is also having anxiety and COPD exacerbation. X-ray KUB revealed nonobstructive bowel gas pattern. Sigmoid diverticulosis. Chest x-ray reveals stable abnormal x-ray, difficult to exclude superimposed pneumonia, lung mass on severe emphysema. He is currently maintaining O2 saturations in the 90s on 7 L high flow nasal cannula. He's been tachycardic. Blood pressure stable. EKG shows sinus rhythm with frequent PACs. The results revealed WBC 8.9. Hemoglobin 12.3. Platelet count 242,000. Sodium 136. Potassium 3.0. Bicarb 38. Creatinine 0.82. Troponin 0.028. ProBNP 642. 01/01/2018 Patient is still having shortness of breath and is also complaining of abdominal pain. Patient says that he is not feeling very well. Patient is unable to lie flat for liver biopsy due to his poor functional status and advanced COPD. Currently on 8 L oxygen nasal cannula. Patient is being continued on IV steroids and breathing treatments and empiric antibiotics. Pulmonary and oncology is following. 01/02/2018 Currently breathing status is improved slightly. Able to sit in the chair without any acute distress. Still requiring high flow oxygen with another cannula. Continued on IV steroids and breathing treatments. Planning for liver biopsy tomorrow. 01/03/2018 Patient's breathing status is remains same. Patient refused to get liver biopsy today. Wishes to talk to hospice care. Otherwise patient is being continued on IV steroids and breathing treatments and antibiotics. Pulmonary is following. Current medications reviewed. Objective - Vital Signs Vital signs: Vital Signs Temp 97.9 F 01/03/18 15:00 Pulse 105 H 01/03/18 19:04 Resp 18 01/03/18 15:00 BP 137/68 01/03/18 15:00 Pulse Ox 90 L 01/03/18 15:00 Intake & Output 01/03/18 01/03/18 01/04/18 06:59 18:59 06:59 Intake Total 360 Output Total 300 Balance -300 360 Weight 74.843 kg Intake: Oral 360 Output: Urine 300 Other: Voiding Method Urinal # Voids 3 # Bowel Movements 1 1 - Exam PHYSICAL EXAMINATION: Patient is lying in the bed comfortably, no acute distress, awake alert and oriented. Anxious. HEENT: Normocephalic. Neck is supple. Pupils reactive. Nostrils clear. Oral cavity is moist. Ears reveal no drainage. Neck reveals no JVD, carotid bruits, or thyromegaly. CHEST EXAMINATION: Trachea is central. Symmetrical expansion. Bilateral air entry improved. Expiratory wheezing and rhonchi. CARDIAC: Normal S1, S2 with no gallops. No murmurs . ABDOMEN: Soft. Mild tenderness with deep palpation, Bowel sounds normal. No organomegaly. No abdominal bruits. Extremities: reveal no edema. No clubbing or cyanosis Neurologically awake, alert, oriented x3 with well-coordinated movements. No focal deficits noted Skin: No rash or skin lesions. Psychiatric: Coperative. Nonsuicidal. Anxious Musculoskeletal: No joint swelling or deformity. Normal range of motion. - Labs CBC & Chem 7: 12/31/17 08:00 01/02/18 07:49 Labs: Abnormal Lab Results - Last 24 Hours (Table) 01/02/18 01/03/18 01/03/18 Range/Units 21:00 07:10 11:57 POC Glucose (mg/dL) 174 H 128 H 187 H (75-99) mg/dL Assessment and Plan Assessment: Abdominal pain secondary to diffuse metastatic disease involving lung bases, liver and peritoneal carcinomatosis with abdominal lymphadenopathy. Awaiting liver biopsy Acute COPD exacerbation Endstage COPD on home oxygen at 7 L via nausea cannula and steroid dependent Acute on chronic hypoxic respiratory failure due to COPD and limited pulmonary fibrosis History of colon cancer status post colectomy in 2017 Secondary pulmonary hypertension Chronic anemia due to malignancy and chronic disease. BPH Hearing impairment. History of DVT and IVC filter placement in April 2016 Hypertension GERD Osteoarthritis Hyperlipidemia Sigmoid diverticulosis Medical lability and poor functional status DVT prophylaxis Plan: Patient be continued on DuoNeb's and IV Solu-Medrol was started. Continue the pain management and gentle hydration. Pulmonary is following. Patient cannot lie flat due to poor functional status and COPD we'll get liver biopsy. Discussed with his and patient regarding CODE STATUS due to underlying metastatic carcinoma and advance to COPD and multiple other medical problems and comorbid conditions. Prognosis is poor. Further recommendations based on the clinical course. Time with Patient: Greater than 30
--- NOTE | 2018-01-11 22:39 | P.DS ---
Providers Date of admission: 12/31/17 11:46 Expected date of discharge: 01/04/18 Attending physician: Osmani Rowe Consults: 12/31/17 11:46 Consult Physician Routine Consulting Provider: Chin Browning Consult Reason/Comments: known Do you want consulting provider notified?: Yes Consult Physician Routine Consulting Provider: Ace Barrios Consult Reason/Comments: known Do you want consulting provider notified?: Yes Primary care physician: Chin Browning Hospital Course: Discharge diagnosis Abdominal pain secondary to diffuse metastatic disease involving lung bases, liver and peritoneal carcinomatosis with abdominal lymphadenopathy. 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 BPH Hearing impairment. History of DVT and IVC filter placement in April 2016 Hypertension GERD Osteoarthritis Hyperlipidemia Sigmoid diverticulosis Medical lability and poor functional status DVT prophylaxis Hospital course Patient is a 77-year-old male with a known history of colon cancer with metastasis to liver, stomach and possibly lung as well, end-stage COPD on home oxygen-dependent 7 later where nasal cannula, pulmonary fibrosis, chronic hypoxic respiratory failure, Secondary pulmonary hypertension, chronic anemia, currently wheelchair-bound, impaired hearing wears bilateral hearing aids., BPH, history of DVT with previous [place] filter insertion and multiple other medical problems including hypogonadism, neuropathy, adrenal cortical hypofunction came to ER with complaints of abdominal pain and shortness of breath 1 day. Patient has been having history of chronic abdominal pain due to metastasis with lesions in the lungs, liver and peritoneal carcinomatosis and abdominal adenopathy throughout the abdomen pelvis. Patient is being scheduled for chemotherapy after liver biopsy. Abdominal pain is 7 x 10 on admission along with nausea and no episodes of vomiting. Vision is also having anxiety and COPD exacerbation. X-ray KUB revealed nonobstructive bowel gas pattern. Sigmoid diverticulosis. Chest x-ray reveals stable abnormal x-ray, difficult to exclude superimposed pneumonia, lung mass on severe emphysema. He is currently maintaining O2 saturations in the 90s on 7 L high flow nasal cannula. He's been tachycardic. Blood pressure stable. EKG shows sinus rhythm with frequent PACs. The results revealed WBC 8.9. Hemoglobin 12.3. Platelet count 242,000. Sodium 136. Potassium 3.0. Bicarb 38. Creatinine 0.82. Troponin 0.028. ProBNP 642. 01/01/2018 Patient is still having shortness of breath and is also complaining of abdominal pain. Patient says that he is not feeling very well. Patient is unable to lie flat for liver biopsy due to his poor functional status and advanced COPD. Currently on 8 L oxygen nasal cannula. Patient is being continued on IV steroids and breathing treatments and empiric antibiotics. Pulmonary and oncology is following. 01/02/2018 Currently breathing status is improved slightly. Able to sit in the chair without any acute distress. Still requiring high flow oxygen with another cannula. Continued on IV steroids and breathing treatments. Planning for liver biopsy tomorrow. 01/03/2018 Patient's breathing status is remains same. Patient refused to get liver biopsy today. Wishes to talk to hospice care. Otherwise patient is being continued on IV steroids and breathing treatments and antibiotics. Pulmonary is following. 01/04/2018 Patient will be continued on current management. Still remains on high flow oxygen. Patient will be discharged home with hospice care at home. Plan: Patient was continued on DuoNeb's and IV Solu-Medrol was started. Continued the pain management and gentle hydration. Patient refused to get her liver biopsy. Initially patient was willing to get biopsy followed by chemotherapy as per oncology recommendations. Discussed with his and patient regarding CODE STATUS due to underlying metastatic carcinoma and advance to COPD and multiple other medical problems and comorbid conditions. Prognosis is poor. Patient agreeable with hospice care at home. Discharge physical examination was done and vitals reviewed. Total time taken greater than 35 minutes including 18 minutes for counseling and coordination of care. Patient Condition at Discharge: Fair Plan - Discharge Summary Discharge Rx Participant: No New Discharge Prescriptions: Continue Isosorbide Mononitrate [Imdur] 30 mg PO DAILY Metoprolol Tartrate [Lopressor] 25 mg PO DAILY traZODone HCL [Desyrel] 100 mg PO HS ALPRAZolam [Xanax] 0.25 mg PO TID PRN PRN Reason: Anxiety DULoxetine HCL [Cymbalta] 30 mg PO DAILY DULoxetine HCL [Cymbalta] 60 mg PO DAILY Fluticasone/Salmeterol [Advair Hfa 230-21 Mcg Inhaler] 2 puff INHALATION RT- BID Acetaminophen Tab [Tylenol] 650 mg PO Q6HR PRN tab PRN Reason: Mild Pain Or Fever > 100.5 Furosemide [Lasix] 20 mg PO DAILY Metolazone [Zaroxolyn] 5 mg PO MOWEFR predniSONE 5 mg PO DAILY #0 Theophylline 12 Hour [Ronnie-Dur] 600 mg PO HS #0 Metoclopramide [Reglan] 10 mg PO TID Sulfamethoxazole/Trimethoprim [Bactrim DS 800-160 mg] 1 tab PO MOWEFR Albuterol Nebulized [Ventolin Nebulized] 2.5 mg INHALATION RT-QID PRN PRN Reason: Shortness Of Breath Terazosin HCl 20 mg PO HS Polyethylene Glycol 3350 [Miralax] 17 gm PO DAILY Discharge Medication List Isosorbide Mononitrate [Imdur] 30 mg PO DAILY 09/24/13 [History] Metoprolol Tartrate [Lopressor] 25 mg PO DAILY 05/02/14 [History] traZODone HCL [Desyrel] 100 mg PO HS 05/02/14 [History] ALPRAZolam [Xanax] 0.25 mg PO TID PRN 03/02/15 [History] DULoxetine HCL [Cymbalta] 30 mg PO DAILY 10/24/16 [History] DULoxetine HCL [Cymbalta] 60 mg PO DAILY 07/15/17 [History] Fluticasone/Salmeterol [Advair Hfa 230-21 Mcg Inhaler] 2 puff INHALATION RT-BID 07/15/17 [History] Acetaminophen Tab [Tylenol] 650 mg PO Q6HR PRN tab 07/18/17 [Rx] Furosemide [Lasix] 20 mg PO DAILY 10/22/17 [History] Metolazone [Zaroxolyn] 5 mg PO MOWEFR 10/22/17 [History] Theophylline 12 Hour [Ronnie-Dur] 600 mg PO HS #0 10/25/17 [Rx] predniSONE 5 mg PO DAILY #0 10/25/17 [Rx] Albuterol Nebulized [Ventolin Nebulized] 2.5 mg INHALATION RT-QID PRN 12/31/17 [ History] Metoclopramide [Reglan] 10 mg PO TID 12/31/17 [History] Polyethylene Glycol 3350 [Miralax] 17 gm PO DAILY 12/31/17 [History] Sulfamethoxazole/Trimethoprim [Bactrim DS 800-160 mg] 1 tab PO MOWEFR 12/31/17 [ History] Terazosin HCl 20 mg PO HS 12/31/17 [History] Follow up Appointment(s)/Referral(s): Chin Browning MD [Primary Care Provider] - 1-2 days [facility], [NON-STAFF] - As Needed Patient Instructions/Handouts: Hospice (DC), COPD (Chronic Obstructive Pulmonary Disease) (DC) Discharge Disposition: HOME WITH HOSPICE
== END 2018-01-04 15:08 | disposition hospice, home (50) | DRG 190 ==
LOC: EC 07:52 → 4MS4W 11:46
PROVIDERS: ADMIT Hospitalist; ATTEND Hospitalist
DX: J43.9 Emphysema, unspecified (principal); J18.9 Pneumonia, unspecified organism; J96.21 Acute and chronic respiratory failure with hypoxia; C78.01 Secondary malignant neoplasm of right lung; C78.02 Secondary malignant neoplasm of left lung; C78.7 Secondary malignant neoplasm of liver and intrahepatic bile duct; C78.89 Secondary malignant neoplasm of other digestive organs; C78.6 Secondary malignant neoplasm of retroperitoneum and peritoneum; E27.40 Unspecified adrenocortical insufficiency; F32.9 Major depressive disorder, single episode, unspecified; F41.9 Anxiety disorder, unspecified; E78.5 Hyperlipidemia, unspecified; G89.3 Neoplasm related pain (acute) (chronic); I10 Essential (primary) hypertension; I27.29 Other secondary pulmonary hypertension; J84.10 Pulmonary fibrosis, unspecified; K21.9 Gastro-esophageal reflux disease without esophagitis; K57.30 Diverticulosis of large intestine without perforation or abscess without bleeding; K59.00 Constipation, unspecified; M19.90 Unspecified osteoarthritis, unspecified site; M21.371 Foot drop, right foot; D63.0 Anemia in neoplastic disease; D63.8 Anemia in other chronic diseases classified elsewhere; H91.93 Unspecified hearing loss, bilateral; N40.0 Benign prostatic hyperplasia without lower urinary tract symptoms; G62.9 Polyneuropathy, unspecified; Z96.643 Presence of artificial hip joint, bilateral; Z51.5 Encounter for palliative care; Z79.51 Long term (current) use of inhaled steroids; Z79.52 Long term (current) use of systemic steroids; Z80.8 Family history of malignant neoplasm of other organs or systems; Z86.718 Personal history of other venous thrombosis and embolism; Z87.891 Personal history of nicotine dependence; Z90.49 Acquired absence of other specified parts of digestive tract; Z99.3 Dependence on wheelchair; Z99.81 Dependence on supplemental oxygen; Z79.899 Other long term (current) drug therapy; Z88.6 Allergy status to analgesic agent; Z88.8 Allergy status to other drugs, medicaments and biological substances; Z88.5 Allergy status to narcotic agent; Z85.038 Personal history of other malignant neoplasm of large intestine; Z83.79 Family history of other diseases of the digestive system
CPT/HCPCS: 36415; 71046; 74018; 80048; 80053; 82550; 82553; 83735; 83880; 84132; 84484; 85025; 85610; 85730; 93005; 94640; 94760; 96374; 96375; 99285